=== PATIENT | male | born 1960 | race Caucasian/White ===

== ENCOUNTER 2016-12-14 23:09 | Inpatient (IN) | payer MEDICAID, OTHER ==
[~2016-12-14] VITALS: Ht 172.7 cm; Wt 91.3 kg
[~2016-12-14 23:09] MED LIST: AMLO-512 PO; BUPR200T2 PO; OLAN7.5T2 PO
[2016-12-15 00:02] LABS: BASOPHILS % (AUTO) 0.6 % (0.0-2.0); EOSINOPHILS % (AUTO) 0.7 % (1.0-6.0); HEMATOCRIT 44.6 % (41-53); HEMOGLOBIN 14.8 g/dL (13.5-17.5); MEAN CORPUSCULAR HEMOGLOBIN 28.9 pg (26.0-34.0); MEAN CORPUSCULAR HGB CONC 33.1 G/dL (31.0-37.0); MEAN CORPUSCULAR VOLUME 87 fL (80-100); MONOCYTES # (AUTO) 0.7 K/uL (0.1-1.0); MONOCYTES % (AUTO) 10.3 % (2.0-9.0); NEUTROPHILS # (AUTO) 3.8 K/uL (1.8-7.7); NEUTROPHILS % (AUTO) 57.4 % (40.0-70.0); PLATELET COUNT (AUTO) 320 K/uL (150-450); RED BLOOD CELL COUNT(AUTO) 5.11 MIL/uL (4.50-5.90); RED CELL DISTRIBUTION WIDTH 12.9 % (11.5-14.5); WHITE BLOOD COUNT (AUTO) 6.6 K/uL (4.5-11.0)
[2016-12-15 00:24] LABS: ALANINE AMINOTRANSFERASE 123 U/L (12-78); ALBUMIN 4.1 g/dL (3.4-5.0); ANION GAP 12 mmol/L (8-16); ASPARTATE AMINOTRANSFERASE 159 U/L (15-37); BILIRUBIN,TOTAL 0.6 mg/dL (0.1-1.0); CALCIUM, TOTAL 9.7 mg/dL (8.8-10.5); CARBON DIOXIDE 26 mmol/L (22-29); CHLORIDE 96 mmol/L (98-107); CREATININE 1.15 mg/dL (0.60-1.30); GLOMERULAR FILTR. RATE CALC > 60 mL/min (>60); SODIUM SERUM 134 mmol/L (136-145); TOTAL PROTEIN, SERUM 8.9 g/dL (6.4-8.2); UREA NITROGEN, BLOOD 12 mg/dL (7-18)
[2016-12-15] MEDS ORDERED: LORazepam 2 MG TABLET PO ONE (01:30)
[2016-12-15] MEDS ORDERED: OLANZapine 5 MG RAPDIS TABLET PO PRN (01:45)
[2016-12-15] MEDS ORDERED: ZOLPIDEM TARTRATE 10 MG TABLET PO PRN (01:45)
[2016-12-15] MEDS ORDERED: POTASSIUM CHLORIDE 20 MEQ ER TABLET PO ONE (01:45)
[2016-12-15] MEDS ORDERED: PNEUMOCOCCAL VACCINE POLYVALENT 0.5 ML VIAL [PPSV23] IM ONE (03:30)
[2016-12-15 03:38] VITALS: BP 142/95
[2016-12-15] MEDS ORDERED: LOPERAMIDE HCL 2 MG CAPSULE PO PRN (08:30)
[2016-12-15] MEDS ORDERED: BENZOCAINE/MENTHOL LOZENGE MM PRN (08:30)
[2016-12-15] MEDS ORDERED: ONDANSETRON HCL 4 MG TABLET PO PRN (08:30)
[2016-12-15] MEDS ORDERED: MAGNESIUM HYDROXIDE SUSPENSION 30 ML UDCUP PO PRN (08:30)
[2016-12-15] MEDS ORDERED: ACETAMINOPHEN 325 MG TABLET PO PRN (08:30)
[2016-12-15] MEDS ORDERED: ALBUTEROL SULFATE HFA 90 MCG/PUFF 8 GM INHALER IH PRN (08:30)
[2016-12-15] MEDS ORDERED: MAG HYDROX/AL HYDROX/SIMETH ES 30 ML SUSPENSION UDCUP PO PRN (08:30)
[2016-12-15] MEDS ORDERED: PETROLATUM,WHITE 71 GM JELLY TP PRN (08:30)
[2016-12-15] MEDS ORDERED: BACITRACIN 28.4 GM OINTMENT TP PRN (08:30)
[2016-12-15] MEDS ORDERED: CloNIDine HCL 0.1 MG TABLET PO PRN (08:30)
[2016-12-15] MEDS ORDERED: IBUPROFEN 600 MG TABLET PO PRN (08:30)
[2016-12-15] MEDS ORDERED: HydrOXYzine PAMOATE 50 MG CAPSULE PO PRN (10:00)
[2016-12-15] MEDS ORDERED: GuaiFENesin/D-METHORPHAN [SUGAR-FREE] 200-20MG/10 ML SYRUP UDCUP PO PRN (10:00)
[2016-12-15] MEDS: NICOTINE 21 MG/24 HOUR PATCH TD SCH (10:41)
[2016-12-15 11:30] VITALS: BP 137/86
[2016-12-15] MEDS: THIAMINE HCL 100 MG TABLET PO SCH (17:06)
[2016-12-15 18:21] VITALS: BP 139/90
[2016-12-15] MEDS ORDERED: OLANZapine 5 MG RAPDIS TABLET PO SCH (21:00)
[2016-12-15] MEDS: LORazepam 2 MG TABLET PO PRN (21:38)
[2016-12-16 00:26] VITALS: BP 114/67
[2016-12-16 08:38] VITALS: BP 136/84
[2016-12-16 09:07] LABS: ANION GAP 8 mmol/L (8-16); CALCIUM, TOTAL 9.1 mg/dL (8.8-10.5); CARBON DIOXIDE 29 mmol/L (22-29); CHLORIDE 103 mmol/L (98-107); GLOMERULAR FILTR. RATE CALC > 60 mL/min (>60); POTASSIUM 3.3 mmol/L (3.5-5.1); SODIUM SERUM 140 mmol/L (136-145); UREA NITROGEN, BLOOD 10 mg/dL (7-18)
[2016-12-16] MEDS: FOLIC ACID 1 MG TABLET PO SCH (09:17)
[2016-12-16] MEDS: THIAMINE HCL 100 MG TABLET PO SCH ×2 (09:17→17:06)
[2016-12-16] MEDS: BuPROPion HCL XL 150 MG ER TABLET PO SCH (09:17)
[2016-12-16] MEDS: NALTREXONE HCL 50 MG TABLET PO SCH (09:17)
[2016-12-16] MEDS: MULTIVITAMINS WITH MINERALS, THERAPEUTIC TABLET PO SCH (09:17)
[2016-12-16] MEDS: NICOTINE 21 MG/24 HOUR PATCH TD SCH (09:18)
[2016-12-16] MEDS ORDERED: ARIPiprazole 5 MG TABLET PO PRN (14:45)
[2016-12-16] MEDS ORDERED: ARIPiprazole ER SUSPENSION 400 MG PRE-FILLED DUAL CHAMBER SYRINGE IM ONE (15:00)
[2016-12-16] MEDS ORDERED: POTASSIUM CHLORIDE 20 MEQ ER TABLET PO ONE (16:15)
[2016-12-16] MEDS ORDERED: OLANZapine 5 MG RAPDIS TABLET PO PRN (19:00)
[2016-12-16] MEDS: OLANZapine 10 MG RAPDIS TABLET PO SCH (20:38)
[2016-12-16] MEDS ORDERED: OLANZapine 10 MG RAPDIS TABLET PO SCH (21:00)
[2016-12-16] MEDS ORDERED: ARIPiprazole 15 MG TABLET PO SCH (21:00)
[2016-12-17 06:20] VITALS: BP 140/86
[2016-12-17] MEDS: BuPROPion HCL XL 150 MG ER TABLET PO SCH (08:46)
[2016-12-17] MEDS: NICOTINE 21 MG/24 HOUR PATCH TD SCH (08:46)
[2016-12-17] MEDS: MULTIVITAMINS WITH MINERALS, THERAPEUTIC TABLET PO SCH (08:46)
[2016-12-17] MEDS: THIAMINE HCL 100 MG TABLET PO SCH ×2 (08:46→16:40)
[2016-12-17] MEDS: FOLIC ACID 1 MG TABLET PO SCH (08:46)
[2016-12-17] MEDS: NALTREXONE HCL 50 MG TABLET PO SCH (08:46)
[2016-12-17 08:48] VITALS: BP 132/80
[2016-12-17] MEDS ORDERED: OLAN10TA22 PO (13:56)
[2016-12-17] MEDS ORDERED: DIVA500T52 PO (13:56)
[2016-12-17] MEDS ORDERED: NALT50 PO (13:56)
[2016-12-17] MEDS ORDERED: BUPR-47 PO (13:56)
[2016-12-17 16:16] VITALS: BP 139/86
[2016-12-17] MEDS: LORazepam 2 MG TABLET PO PRN (17:42)
[2016-12-17] MEDS ORDERED: DIVALPROEX SODIUM 500 MG ER TABLET PO SCH (21:00)
[2016-12-17] MEDS: OLANZapine 10 MG RAPDIS TABLET PO SCH (21:07)
[2016-12-18 00:01] VITALS: BP 110/74
[2016-12-18 08:06] VITALS: BP 133/72
[2016-12-18] MEDS: NICOTINE 21 MG/24 HOUR PATCH TD SCH (08:38)
[2016-12-18] MEDS: MULTIVITAMINS WITH MINERALS, THERAPEUTIC TABLET PO SCH (08:38)
[2016-12-18] MEDS: THIAMINE HCL 100 MG TABLET PO SCH (08:38)
[2016-12-18] MEDS: NALTREXONE HCL 50 MG TABLET PO SCH (08:38)
[2016-12-18] MEDS: FOLIC ACID 1 MG TABLET PO SCH (08:38)
[2016-12-18] MEDS: BuPROPion HCL XL 150 MG ER TABLET PO SCH (08:38)
[2016-12-18] MEDS ORDERED: NALT50 PO (12:14)
[2016-12-18] MEDS ORDERED: OLAN10TA3 PO (12:14)
[2016-12-18] MEDS ORDERED: DIVA500T52 PO (12:14)
[2016-12-18] MEDS ORDERED: BUPR-93 PO (12:14)
[2017-01-13] MEDS ORDERED: ARIPiprazole ER SUSPENSION 400 MG PRE-FILLED DUAL CHAMBER SYRINGE IM SCH (09:00)
== END 2016-12-18 14:10 | disposition home or self-care (01) | DRG 750 ==
LOC: EMS 23:11 → B2S 12-15 01:59
PROVIDERS: ADMIT Psychiatry & Neurology Psychiatry; ATTEND Psychiatry & Neurology Psychiatry
DX: F25.9 Schizoaffective disorder, unspecified (principal); R45.851 Suicidal ideations; E87.1 Hypo-osmolality and hyponatremia; K74.60 Unspecified cirrhosis of liver; R45.850 Homicidal ideations; J44.9 Chronic obstructive pulmonary disease, unspecified; B18.2 Chronic viral hepatitis C; K59.00 Constipation, unspecified; I10 Essential (primary) hypertension; E87.6 Hypokalemia; G47.00 Insomnia, unspecified; F17.210 Nicotine dependence, cigarettes, uncomplicated; F15.90 Other stimulant use, unspecified, uncomplicated; J45.909 Unspecified asthma, uncomplicated; E78.5 Hyperlipidemia, unspecified; Z88.8 Allergy status to other drugs, medicaments and biological substances; Z79.899 Other long term (current) drug therapy; Z79.1 Long term (current) use of non-steroidal anti-inflammatories (NSAID); Z71.6 Tobacco abuse counseling; Z91.14 Patient's other noncompliance with medication regimen; Z28.21 Immunization not carried out because of patient refusal
CPT/HCPCS: 84132; 87081; 99285; G0480; J0401

== ENCOUNTER 2017-02-26 00:25 | Inpatient (IN) | payer MEDICAID, OTHER ==
[~2017-02-26] VITALS: Ht 175.3 cm; Wt 87.2 kg
[~2017-02-26 00:25] MED LIST changes: -AMLO-512 PO; +BUPR-47 PO; +BUPR-93 PO; -BUPR200T2 PO; +DIVA500T52 PO; +NALT50 PO; +OLAN10TA22 PO; +OLAN10TA3 PO; -OLAN7.5T2 PO
[2017-02-26 02:33] LABS: BASOPHILS # (AUTO) 0.05 K/uL (0.00-0.20); BASOPHILS % (AUTO) 0.8 % (0.0-2.0); EOSINOPHILS # (AUTO) 0.06 K/uL (0.00-0.70); EOSINOPHILS % (AUTO) 0.92 % (1.0-6.0); HEMATOCRIT 42.5 % (41-53); HEMOGLOBIN 14.4 g/dL (13.5-17.5); LYMPHOCYTES % (AUTO) 42.6 % (22.0-44.0); MEAN CORPUSCULAR HEMOGLOBIN 29.4 pg (26.0-34.0); MEAN CORPUSCULAR HGB CONC 33.8 G/dL (31.0-37.0); MEAN CORPUSCULAR VOLUME 87 fL (80-100); MONOCYTES # (AUTO) 0.6 K/uL (0.1-1.0); MONOCYTES % (AUTO) 8.3 % (2.0-9.0); NEUTROPHILS # (AUTO) 3.3 K/uL (1.8-7.7); NEUTROPHILS % (AUTO) 47.4 % (40.0-70.0); PLATELET COUNT (AUTO) 288 K/uL (150-450); RED BLOOD CELL COUNT(AUTO) 4.89 MIL/uL (4.50-5.90); RED CELL DISTRIBUTION WIDTH 15.4 % (11.5-14.5); WHITE BLOOD COUNT (AUTO) 7.1 K/uL (4.5-11.0)
[2017-02-26 02:50] LABS: ALANINE AMINOTRANSFERASE 138 U/L (12-78); ALBUMIN 3.8 g/dL (3.4-5.0); ANION GAP 10 mmol/L (8-16); ASPARTATE AMINOTRANSFERASE 152 U/L (15-37); BILIRUBIN,TOTAL 0.4 mg/dL (0.1-1.0); CARBON DIOXIDE 29 mmol/L (22-29); CHLORIDE 101 mmol/L (98-107); CREATININE 1.02 mg/dL (0.60-1.30); GLOMERULAR FILTR. RATE CALC > 60 mL/min (>60); SODIUM SERUM 140 mmol/L (136-145); TOTAL PROTEIN, SERUM 8.3 g/dL (6.4-8.2); UREA NITROGEN, BLOOD 8 mg/dL (7-18)
[2017-02-26 02:51] LABS: VALPROIC ACID < 3 mcg/mL (50-100)
[2017-02-26] MEDS ORDERED: DiphenhydrAMINE HCL 50 MG/ML VIAL IM ONE (03:30)
[2017-02-26] MEDS ORDERED: LORazepam 2 MG/ML VIAL IM ONE (03:30)
[2017-02-26] MEDS ORDERED: ZOLPIDEM TARTRATE 10 MG TABLET PO PRN (06:15)
[2017-02-26 07:09] VITALS: BP 130/75
[2017-02-26] MEDS: LORazepam 2 MG TABLET PO PRN (07:37)
[2017-02-26 08:50] VITALS: BP 147/97
[2017-02-26] MEDS ORDERED: BuPROPion HCL XL 150 MG ER TABLET PO SCH (09:00)
[2017-02-26] MEDS ORDERED: CloNIDine HCL 0.1 MG TABLET PO PRN (09:45)
[2017-02-26] MEDS ORDERED: POTASSIUM CHLORIDE 20 MEQ ER TABLET PO ONE (09:45)
[2017-02-26] MEDS ORDERED: LOPERAMIDE HCL 2 MG CAPSULE PO PRN (09:45)
[2017-02-26] MEDS ORDERED: ONDANSETRON HCL 4 MG TABLET PO PRN (09:45)
[2017-02-26] MEDS ORDERED: ACETAMINOPHEN 325 MG TABLET PO PRN (09:45)
[2017-02-26] MEDS ORDERED: MAGNESIUM HYDROXIDE SUSPENSION 30 ML UDCUP PO PRN (09:45)
[2017-02-26] MEDS ORDERED: ALBUTEROL SULFATE HFA 90 MCG/PUFF 8 GM INHALER IH PRN (09:45)
[2017-02-26] MEDS ORDERED: IBUPROFEN 600 MG TABLET PO PRN (09:45)
[2017-02-26] MEDS ORDERED: BENZOCAINE/MENTHOL LOZENGE [8 LOZENGES/PACKET] MM PRN (09:45)
[2017-02-26] MEDS ORDERED: PETROLATUM,WHITE 71 GM JELLY TP PRN (09:45)
[2017-02-26] MEDS ORDERED: BACITRACIN 28.4 GM OINTMENT TP PRN (09:45)
[2017-02-26] MEDS ORDERED: MAG HYDROX/AL HYDROX/SIMETH ES 30 ML SUSPENSION UDCUP PO PRN (09:45)
[2017-02-26] MEDS ORDERED: PNEUMOCOCCAL VACCINE POLYVALENT 0.5 ML VIAL [PPSV23] IM ONE (11:00)
[2017-02-26 16:00] VITALS: BP 138/86
[2017-02-26] MEDS ORDERED: DIVALPROEX SODIUM 500 MG ER TABLET PO SCH (21:00)
[2017-02-26] MEDS ORDERED: OLANZapine 10 MG TABLET PO SCH (21:00)
[2017-02-26] MEDS: OLANZapine 10 MG TABLET PO SCH (21:10)
[2017-02-27 06:29] VITALS: BP 132/83
[2017-02-27] MEDS: BuPROPion HCL XL 150 MG ER TABLET PO SCH (09:01)
[2017-02-27] MEDS: LISINOPRIL 10 MG TABLET PO SCH (09:02)
[2017-02-27 09:17] VITALS: BP 134/82
[2017-02-27 19:43] VITALS: BP 138/96
[2017-02-27] MEDS: OLANZapine 10 MG TABLET PO SCH (21:03)
[2017-02-27] MEDS: LORazepam 2 MG TABLET PO PRN (22:21)
[2017-02-28 08:00] VITALS: BP 110/67
[2017-02-28] MEDS: BuPROPion HCL XL 150 MG ER TABLET PO SCH (08:58)
[2017-02-28] MEDS: LISINOPRIL 10 MG TABLET PO SCH (08:58)
[2017-02-28] MEDS ORDERED: PHENYLEPHRINE/SHK LV/MIN OIL/PET 57 GM OINTMENT TP PRN (15:00)
[2017-02-28 17:39] VITALS: BP 130/98
[2017-02-28] MEDS: LORazepam 2 MG TABLET PO PRN (19:06)
[2017-02-28] MEDS: OLANZapine 10 MG TABLET PO SCH (20:16)
[2017-03-01 08:00] VITALS: BP 123/78
[2017-03-01] MEDS: LISINOPRIL 10 MG TABLET PO SCH (09:16)
[2017-03-01] MEDS: BuPROPion HCL XL 150 MG ER TABLET PO SCH (09:16)
[2017-03-01 17:30] VITALS: BP 133/84
[2017-03-01] MEDS: LORazepam 2 MG TABLET PO PRN (19:04)
[2017-03-01] MEDS: OLANZapine 10 MG TABLET PO SCH (20:51)
[2017-03-01] MEDS ORDERED: DIVALPROEX SODIUM 500 MG ER TABLET PO SCH (21:00)
[2017-03-02 08:02] VITALS: BP 116/68
[2017-03-02] MEDS: LISINOPRIL 10 MG TABLET PO SCH (09:34)
[2017-03-02] MEDS: BuPROPion HCL XL 150 MG ER TABLET PO SCH (09:34)
[2017-03-02] MEDS ORDERED: OLAN10TA3 PO (13:23)
[2017-03-02] MEDS ORDERED: DIVA500T52 PO (13:23)
[2017-03-02] MEDS ORDERED: BUPR-93 PO (13:23)
[2017-03-02] MEDS ORDERED: LISI-661 PO (13:26)
== END 2017-03-02 15:15 | disposition home or self-care (01) | DRG 750 ==
LOC: EMS 00:27 → 3EI 05:30
PROVIDERS: ADMIT Psychiatry & Neurology Psychiatry; ATTEND Psychiatry & Neurology Psychiatry
DX: F25.0 Schizoaffective disorder, bipolar type (principal); F15.20 Other stimulant dependence, uncomplicated; R45.851 Suicidal ideations; I10 Essential (primary) hypertension; F12.10 Cannabis abuse, uncomplicated; F10.10 Alcohol abuse, uncomplicated; E87.6 Hypokalemia; B18.2 Chronic viral hepatitis C; G47.00 Insomnia, unspecified; J44.9 Chronic obstructive pulmonary disease, unspecified; Z62.819 Personal history of unspecified abuse in childhood; K76.9 Liver disease, unspecified; K59.00 Constipation, unspecified; Z59.0 Homelessness; Z91.5 Personal history of self-harm; Z88.8 Allergy status to other drugs, medicaments and biological substances; Z71.6 Tobacco abuse counseling; Z71.51 Drug abuse counseling and surveillance of drug abuser; Z71.41 Alcohol abuse counseling and surveillance of alcoholic; Z63.8 Other specified problems related to primary support group
CPT/HCPCS: 84132; 96372; 99285; G0480; J1200; J2060

== ENCOUNTER 2017-03-03 18:48 | Inpatient (IN) | payer MEDICAID ==
[~2017-03-03] VITALS: Ht 175.3 cm; Wt 86.0 kg
[~2017-03-03 18:48] MED LIST changes: -BUPR-47 PO; +LISI-661 PO; -NALT50 PO; -OLAN10TA22 PO
[2017-03-03] MEDS ORDERED: HALOPERIDOL 5 MG TABLET PO PRN (19:00)
[2017-03-03] MEDS ORDERED: LORazepam 2 MG/ML VIAL IM ONE (19:00)
[2017-03-03] MEDS ORDERED: DiphenhydrAMINE HCL 50 MG/ML VIAL IM ONE (19:00)
[2017-03-03] MEDS ORDERED: HALOPERIDOL LACTATE 5 MG/ML VIAL IM ONE (19:00)
[2017-03-03 19:25] VITALS: BP 159/76
[2017-03-03 19:55] VITALS: BP 120/87
[2017-03-03] MEDS ORDERED: PNEUMOCOCCAL VACCINE POLYVALENT 0.5 ML VIAL [PPSV23] IM ONE (20:15)
[2017-03-03] MEDS: DIVALPROEX SODIUM 500 MG ER TABLET PO SCH ×2 (20:49→21:34)
[2017-03-03] MEDS: OLANZapine 10 MG TABLET PO SCH ×2 (20:50→21:34)
[2017-03-03] MEDS ORDERED: MAG HYDROX/AL HYDROX/SIMETH ES 30 ML SUSPENSION UDCUP PO PRN (22:00)
[2017-03-04] MEDS: LORazepam 2 MG TABLET PO PRN ×4 (00:56→20:19)
[2017-03-04] MEDS: ZOLPIDEM TARTRATE 10 MG TABLET PO PRN (00:56)
[2017-03-04 01:08] VITALS: BP 132/85
[2017-03-04 08:07] VITALS: BP 133/76
[2017-03-04 08:12] LABS: BASOPHILS % (AUTO) 0.3 % (0.0-2.0); EOSINOPHILS % (AUTO) 1.6 % (1.0-6.0); HEMATOCRIT 44.1 % (41-53); HEMOGLOBIN 14.7 g/dL (13.5-17.5); LYMPHOCYTES # (AUTO) 2.4 K/uL (1.0-4.8); LYMPHOCYTES % (AUTO) 33.1 % (22.0-44.0); MEAN CORPUSCULAR HEMOGLOBIN 29.4 pg (26.0-34.0); MEAN CORPUSCULAR HGB CONC 33.2 G/dL (31.0-37.0); MEAN CORPUSCULAR VOLUME 89 fL (80-100); MONOCYTES # (AUTO) 0.9 K/uL (0.1-1.0); MONOCYTES % (AUTO) 12.3 % (2.0-9.0); NEUTROPHILS # (AUTO) 3.9 K/uL (1.8-7.7); NEUTROPHILS % (AUTO) 52.7 % (40.0-70.0); PLATELET COUNT (AUTO) 271 K/uL (150-450); RED BLOOD CELL COUNT(AUTO) 4.98 MIL/uL (4.50-5.90); RED CELL DISTRIBUTION WIDTH 14.8 % (11.5-14.5); WHITE BLOOD COUNT (AUTO) 7.4 K/uL (4.5-11.0)
[2017-03-04 08:31] LABS: HEMOGLOBIN A1C 6.1 % (4.5-6.2)
[2017-03-04 08:40] LABS: ALANINE AMINOTRANSFERASE 354 U/L (12-78); ALBUMIN 3.5 g/dL (3.4-5.0); ANION GAP 10 mmol/L (8-16); ASPARTATE AMINOTRANSFERASE 408 U/L (15-37); BILIRUBIN,TOTAL 0.8 mg/dL (0.1-1.0); CALCIUM, TOTAL 9.1 mg/dL (8.8-10.5); CARBON DIOXIDE 26 mmol/L (22-29); CHLORIDE 105 mmol/L (98-107); CHOL/HDL RATIO 2.8 (4.2-7.3); CREATININE 0.81 mg/dL (0.60-1.30); GLOMERULAR FILTR. RATE CALC > 60 mL/min (>60); POTASSIUM 3.8 mmol/L (3.5-5.1); SODIUM SERUM 141 mmol/L (136-145); THYROID STIMULATING HORMONE 1.36 uIU/mL (0.36-3.74); TOTAL PROTEIN, SERUM 7.5 g/dL (6.4-8.2); UREA NITROGEN, BLOOD 8 mg/dL (7-18)
[2017-03-04] MEDS ORDERED: ALBUTEROL SULFATE HFA 90 MCG/PUFF 8 GM INHALER IH PRN (08:45)
[2017-03-04] MEDS ORDERED: PETROLATUM,WHITE 71 GM JELLY TP PRN (08:45)
[2017-03-04] MEDS ORDERED: CloNIDine HCL 0.1 MG TABLET PO PRN (08:45)
[2017-03-04] MEDS ORDERED: MAG HYDROX/AL HYDROX/SIMETH ES 30 ML SUSPENSION UDCUP PO PRN (08:45)
[2017-03-04] MEDS ORDERED: LOPERAMIDE HCL 2 MG CAPSULE PO PRN (08:45)
[2017-03-04] MEDS ORDERED: BENZOCAINE/MENTHOL LOZENGE MM PRN (08:45)
[2017-03-04] MEDS ORDERED: ACETAMINOPHEN 325 MG TABLET PO PRN (08:45)
[2017-03-04] MEDS: BuPROPion HCL XL 150 MG ER TABLET PO SCH (08:45)
[2017-03-04] MEDS ORDERED: ONDANSETRON HCL 4 MG TABLET PO PRN (08:45)
[2017-03-04] MEDS: LISINOPRIL 10 MG TABLET PO SCH (08:45)
[2017-03-04] MEDS ORDERED: MAGNESIUM HYDROXIDE SUSPENSION 30 ML UDCUP PO PRN (08:45)
[2017-03-04] MEDS ORDERED: BACITRACIN 28.4 GM OINTMENT TP PRN (08:45)
[2017-03-04] MEDS ORDERED: IBUPROFEN 600 MG TABLET PO PRN (08:45)
[2017-03-04] MEDS: OMEPRAZOLE 20 MG CAPSULE PO SCH (10:09)
[2017-03-04] MEDS: DOCUSATE SODIUM 100 MG CAPSULE PO SCH (10:09)
[2017-03-04 16:00] VITALS: BP 115/60
[2017-03-04] MEDS: OLANZapine 10 MG TABLET PO SCH (20:19)
[2017-03-04] MEDS: DIVALPROEX SODIUM 500 MG ER TABLET PO SCH (20:19)
[2017-03-05 06:58] VITALS: BP 132/84
[2017-03-05 08:05] VITALS: BP 131/69
[2017-03-05] MEDS: LISINOPRIL 10 MG TABLET PO SCH (08:50)
[2017-03-05] MEDS: OMEPRAZOLE 20 MG CAPSULE PO SCH (08:50)
[2017-03-05] MEDS: BuPROPion HCL XL 150 MG ER TABLET PO SCH (08:50)
[2017-03-05] MEDS: DOCUSATE SODIUM 100 MG CAPSULE PO SCH (08:50)
[2017-03-05] MEDS ORDERED: DiphenhydrAMINE HCL 50 MG/ML VIAL ONE (15:05)
[2017-03-05] MEDS ORDERED: LORazepam 2 MG/ML VIAL ONE (15:05)
[2017-03-05 16:10] VITALS: BP 146/115
[2017-03-05] MEDS: LORazepam 2 MG TABLET PO PRN ×2 (16:14→20:16)
[2017-03-05 17:14] VITALS: BP 125/82
[2017-03-05] MEDS: DIVALPROEX SODIUM 500 MG ER TABLET PO SCH (20:15)
[2017-03-05] MEDS: OLANZapine 10 MG TABLET PO SCH (20:16)
[2017-03-06 01:54] VITALS: BP 130/81
[2017-03-06 08:05] VITALS: BP 130/66
[2017-03-06] MEDS: BuPROPion HCL XL 150 MG ER TABLET PO SCH (09:20)
[2017-03-06] MEDS: DOCUSATE SODIUM 100 MG CAPSULE PO SCH (09:20)
[2017-03-06] MEDS: OMEPRAZOLE 20 MG CAPSULE PO SCH (09:20)
[2017-03-06] MEDS: LISINOPRIL 10 MG TABLET PO SCH (09:20)
[2017-03-06] MEDS ORDERED: PHENYLEPHRINE/SHK LV/MIN OIL/PET 57 GM OINTMENT TP PRN (14:45)
[2017-03-06 16:00] VITALS: BP 135/83
[2017-03-06] MEDS: DIVALPROEX SODIUM 500 MG ER TABLET PO SCH (21:00)
[2017-03-06] MEDS: OLANZapine 10 MG TABLET PO SCH (21:00)
[2017-03-06] MEDS: LORazepam 2 MG TABLET PO PRN (21:47)
[2017-03-07 06:45] VITALS: BP 143/91
[2017-03-07 08:05] VITALS: BP 114/67
[2017-03-07] MEDS: OMEPRAZOLE 20 MG CAPSULE PO SCH (09:20)
[2017-03-07] MEDS: BuPROPion HCL XL 150 MG ER TABLET PO SCH (09:20)
[2017-03-07] MEDS: LISINOPRIL 10 MG TABLET PO SCH (09:20)
[2017-03-07] MEDS: DOCUSATE SODIUM 100 MG CAPSULE PO SCH (09:21)
[2017-03-07] MEDS: LORazepam 2 MG TABLET PO PRN ×3 (12:41→22:50)
[2017-03-07 16:00] VITALS: BP 119/72
[2017-03-07] MEDS: DIVALPROEX SODIUM 500 MG ER TABLET PO SCH (20:29)
[2017-03-07] MEDS: OLANZapine 10 MG TABLET PO SCH ×2 (20:29→20:36)
[2017-03-08 06:37] VITALS: BP 123/78
[2017-03-08] MEDS: BuPROPion HCL XL 150 MG ER TABLET PO SCH (08:07)
[2017-03-08] MEDS: DOCUSATE SODIUM 100 MG CAPSULE PO SCH (08:07)
[2017-03-08] MEDS: LISINOPRIL 10 MG TABLET PO SCH (08:08)
[2017-03-08] MEDS: OMEPRAZOLE 20 MG CAPSULE PO SCH (08:08)
[2017-03-08] MEDS: LORazepam 2 MG TABLET PO PRN ×2 (08:08→17:12)
[2017-03-08 08:28] VITALS: BP 101/64
[2017-03-08 16:00] VITALS: BP 117/72
[2017-03-08] MEDS: DIVALPROEX SODIUM 500 MG ER TABLET PO SCH (20:58)
[2017-03-08] MEDS: OLANZapine 10 MG TABLET PO SCH (20:58)
[2017-03-09 06:00] VITALS: BP 138/86
[2017-03-09 08:00] VITALS: BP 116/71
[2017-03-09 08:03] LABS: BASOPHILS % (AUTO) 0.3 % (0.0-2.0); EOSINOPHILS % (AUTO) 2.9 % (1.0-6.0); HEMATOCRIT 44.6 % (41-53); HEMOGLOBIN 14.5 g/dL (13.5-17.5); LYMPHOCYTES # (AUTO) 3.6 K/uL (1.0-4.8); LYMPHOCYTES % (AUTO) 45.4 % (22.0-44.0); MEAN CORPUSCULAR HEMOGLOBIN 29.1 pg (26.0-34.0); MEAN CORPUSCULAR HGB CONC 32.6 G/dL (31.0-37.0); MEAN CORPUSCULAR VOLUME 89 fL (80-100); MONOCYTES # (AUTO) 0.8 K/uL (0.1-1.0); MONOCYTES % (AUTO) 9.6 % (2.0-9.0); NEUTROPHILS # (AUTO) 3.4 K/uL (1.8-7.7); NEUTROPHILS % (AUTO) 41.8 % (40.0-70.0); PLATELET COUNT (AUTO) 268 K/uL (150-450); RED BLOOD CELL COUNT(AUTO) 4.98 MIL/uL (4.50-5.90); RED CELL DISTRIBUTION WIDTH 14.5 % (11.5-14.5)
[2017-03-09 08:30] LABS: ALANINE AMINOTRANSFERASE 385 U/L (12-78); ALBUMIN 3.3 g/dL (3.4-5.0); ANION GAP 10 mmol/L (8-16); ASPARTATE AMINOTRANSFERASE 266 U/L (15-37); BILIRUBIN,TOTAL 0.6 mg/dL (0.1-1.0); CARBON DIOXIDE 26 mmol/L (22-29); CHLORIDE 107 mmol/L (98-107); CREATININE 0.86 mg/dL (0.60-1.30); GLOMERULAR FILTR. RATE CALC > 60 mL/min (>60); POTASSIUM 3.8 mmol/L (3.5-5.1); SODIUM SERUM 143 mmol/L (136-145); TOTAL PROTEIN, SERUM 7.4 g/dL (6.4-8.2); UREA NITROGEN, BLOOD 14 mg/dL (7-18); VALPROIC ACID 48 mcg/mL (50-100)
[2017-03-09] MEDS: LISINOPRIL 10 MG TABLET PO SCH (09:30)
[2017-03-09] MEDS: DOCUSATE SODIUM 100 MG CAPSULE PO SCH (09:30)
[2017-03-09] MEDS: BuPROPion HCL XL 150 MG ER TABLET PO SCH (09:30)
[2017-03-09] MEDS: OMEPRAZOLE 20 MG CAPSULE PO SCH (09:31)
[2017-03-09] MEDS: LORazepam 2 MG TABLET PO PRN (09:31)
[2017-03-09 16:00] VITALS: BP 135/86
[2017-03-09] MEDS: OLANZapine 10 MG TABLET PO SCH (20:17)
[2017-03-09] MEDS: DIVALPROEX SODIUM 500 MG ER TABLET PO SCH (20:17)
[2017-03-10 08:11] VITALS: BP 117/76
[2017-03-10] MEDS: DOCUSATE SODIUM 100 MG CAPSULE PO SCH (10:14)
[2017-03-10] MEDS: OMEPRAZOLE 20 MG CAPSULE PO SCH (10:15)
[2017-03-10] MEDS: LISINOPRIL 10 MG TABLET PO SCH (10:15)
[2017-03-10] MEDS: BuPROPion HCL XL 150 MG ER TABLET PO SCH (10:15)
[2017-03-10] MEDS: LITHIUM CARBONATE 300 MG CAPSULE PO SCH ×2 (10:16→16:12)
[2017-03-10] MEDS: LORazepam 2 MG TABLET PO PRN ×3 (10:21→22:11)
[2017-03-10 16:21] VITALS: BP 132/84
[2017-03-10] MEDS: OLANZapine 10 MG TABLET PO SCH (20:30)
[2017-03-10] MEDS: ZOLPIDEM TARTRATE 10 MG TABLET PO PRN (22:11)
[2017-03-11 06:20] VITALS: BP 129/88
[2017-03-11 07:58] LABS: BASOPHILS % (AUTO) 0.5 % (0.0-2.0); EOSINOPHILS % (AUTO) 2.7 % (1.0-6.0); HEMOGLOBIN 14.1 g/dL (13.5-17.5); LYMPHOCYTES # (AUTO) 3.2 K/uL (1.0-4.8); LYMPHOCYTES % (AUTO) 43.1 % (22.0-44.0); MEAN CORPUSCULAR HEMOGLOBIN 29.2 pg (26.0-34.0); MEAN CORPUSCULAR HGB CONC 32.7 G/dL (31.0-37.0); MEAN CORPUSCULAR VOLUME 89 fL (80-100); MONOCYTES # (AUTO) 0.8 K/uL (0.1-1.0); MONOCYTES % (AUTO) 10.2 % (2.0-9.0); NEUTROPHILS # (AUTO) 3.3 K/uL (1.8-7.7); NEUTROPHILS % (AUTO) 43.5 % (40.0-70.0); PLATELET COUNT (AUTO) 239 K/uL (150-450); RED BLOOD CELL COUNT(AUTO) 4.81 MIL/uL (4.50-5.90); RED CELL DISTRIBUTION WIDTH 14.9 % (11.5-14.5); WHITE BLOOD COUNT (AUTO) 7.5 K/uL (4.5-11.0)
[2017-03-11 08:09] LABS: LITHIUM 0.27 mmol/L (0.60-1.20)
[2017-03-11 08:32] LABS: ALANINE AMINOTRANSFERASE 293 U/L (12-78); ALBUMIN 3.3 g/dL (3.4-5.0); ANION GAP 11 mmol/L (8-16); ASPARTATE AMINOTRANSFERASE 159 U/L (15-37); BILIRUBIN,TOTAL 0.4 mg/dL (0.1-1.0); CALCIUM, TOTAL 9.1 mg/dL (8.8-10.5); CARBON DIOXIDE 23 mmol/L (22-29); CHLORIDE 107 mmol/L (98-107); CREATININE 0.81 mg/dL (0.60-1.30); GLOMERULAR FILTR. RATE CALC > 60 mL/min (>60); POTASSIUM 3.7 mmol/L (3.5-5.1); SODIUM SERUM 141 mmol/L (136-145); THYROID STIMULATING HORMONE 2.16 uIU/mL (0.36-3.74); TOTAL PROTEIN, SERUM 7.5 g/dL (6.4-8.2); UREA NITROGEN, BLOOD 12 mg/dL (7-18)
[2017-03-11 08:40] VITALS: BP 142/84
[2017-03-11] MEDS: OMEPRAZOLE 20 MG CAPSULE PO SCH (09:02)
[2017-03-11] MEDS: LITHIUM CARBONATE 300 MG CAPSULE PO SCH (09:02)
[2017-03-11] MEDS: DOCUSATE SODIUM 100 MG CAPSULE PO SCH (09:02)
[2017-03-11] MEDS: BuPROPion HCL XL 150 MG ER TABLET PO SCH (09:03)
[2017-03-11] MEDS: LISINOPRIL 10 MG TABLET PO SCH (09:03)
[2017-03-11] MEDS ORDERED: OMEP20 PO (11:21)
[2017-03-11] MEDS ORDERED: DSS100 PO (11:22)
[2017-03-11] MEDS ORDERED: LITH300C3 PO (12:26)
== END 2017-03-11 13:00 | disposition home or self-care (01) | DRG 750 ==
LOC: B3A 19:09 → EDSTATUS 19:13
PROVIDERS: ATTEND Psychiatry & Neurology Psychiatry
PROC: HZ37ZZZ Individual Counseling for Substance Abuse Treatment, Motivational Enhancement (ICD-10-PCS; principal; 2017-03-04)
DX: F25.0 Schizoaffective disorder, bipolar type (principal); R45.851 Suicidal ideations; J44.9 Chronic obstructive pulmonary disease, unspecified; I10 Essential (primary) hypertension; F12.90 Cannabis use, unspecified, uncomplicated; F19.10 Other psychoactive substance abuse, uncomplicated; F17.200 Nicotine dependence, unspecified, uncomplicated; G47.00 Insomnia, unspecified; B18.2 Chronic viral hepatitis C; K59.00 Constipation, unspecified; K21.9 Gastro-esophageal reflux disease without esophagitis; F15.10 Other stimulant abuse, uncomplicated; R53.83 Other fatigue; R45.87 Impulsiveness; Z28.21 Immunization not carried out because of patient refusal; Z79.899 Other long term (current) drug therapy; Z71.51 Drug abuse counseling and surveillance of drug abuser; Z88.8 Allergy status to other drugs, medicaments and biological substances; Z91.5 Personal history of self-harm; Z71.6 Tobacco abuse counseling; Z72.89 Other problems related to lifestyle; Z59.0 Homelessness
CPT/HCPCS: 83036; 84439; 84443; 87081; J1200; J1630; J2060

== ENCOUNTER 2017-04-16 01:36 | Inpatient (IN) | payer MEDICAID ==
[~2017-04-16] VITALS: Ht 175.3 cm; Wt 89.0 kg
[~2017-04-16 01:36] MED LIST changes: -DIVA500T52 PO; +DSS100 PO; +LITH300C3 PO; +OMEP20 PO
[2017-04-16] MEDS ORDERED: BUPR100T5 PO (04:31)
[2017-04-16] MEDS ORDERED: OLAN5Z PO (04:31)
[2017-04-16] MEDS ORDERED: AMLO-512 PO (04:31)
[2017-04-16 05:34] VITALS: BP 139/93
[2017-04-16] MEDS ORDERED: -PHARMACY VACCINE NOTE- MISC ONE ×2 (06:00)
[2017-04-16 07:18] VITALS: BP 139/93
[2017-04-16] MEDS ORDERED: PNEUMOCOCCAL VACCINE POLYVALENT 0.5 ML VIAL [PPSV23] IM ONE (07:30)
[2017-04-16 08:01] VITALS: BP 132/73
[2017-04-16] MEDS ORDERED: CloNIDine HCL 0.1 MG TABLET PO PRN (10:00)
[2017-04-16] MEDS ORDERED: BACITRACIN 28.4 GM OINTMENT TP PRN (10:00)
[2017-04-16] MEDS ORDERED: BENZOCAINE/MENTHOL LOZENGE MM PRN (10:00)
[2017-04-16] MEDS ORDERED: MAG HYDROX/AL HYDROX/SIMETH ES 30 ML SUSPENSION UDCUP PO PRN (10:00)
[2017-04-16] MEDS ORDERED: ACETAMINOPHEN 325 MG TABLET PO PRN (10:00)
[2017-04-16] MEDS ORDERED: ALBUTEROL SULFATE HFA 90 MCG/PUFF 8 GM INHALER IH PRN (10:00)
[2017-04-16] MEDS ORDERED: PETROLATUM,WHITE 71 GM JELLY TP PRN (10:00)
[2017-04-16] MEDS ORDERED: MAGNESIUM HYDROXIDE SUSPENSION 30 ML UDCUP PO PRN (10:00)
[2017-04-16] MEDS ORDERED: ONDANSETRON HCL 4 MG TABLET PO PRN (10:00)
[2017-04-16] MEDS ORDERED: LOPERAMIDE HCL 2 MG CAPSULE PO PRN (10:00)
[2017-04-16] MEDS ORDERED: IBUPROFEN 600 MG TABLET PO PRN (10:00)
[2017-04-16] MEDS: AmLODIPine BESYLATE 10 MG TABLET PO SCH (14:29)
[2017-04-16 16:01] VITALS: BP 136/68
[2017-04-16] MEDS: OLANZapine 10 MG TABLET PO SCH (20:17)
[2017-04-17 05:39] VITALS: BP 116/66
[2017-04-17 08:30] VITALS: BP 127/80
[2017-04-17 08:36] LABS: BASOPHILS % (AUTO) 0.8 % (0.0-2.0); EOSINOPHILS % (AUTO) 4.3 % (1.0-6.0); HEMATOCRIT 44.3 % (41-53); HEMOGLOBIN 14.9 g/dL (13.5-17.5); LYMPHOCYTES # (AUTO) 2.4 K/uL (1.0-4.8); LYMPHOCYTES % (AUTO) 40.9 % (22.0-44.0); MEAN CORPUSCULAR HEMOGLOBIN 30.5 pg (26.0-34.0); MEAN CORPUSCULAR HGB CONC 33.7 G/dL (31.0-37.0); MEAN CORPUSCULAR VOLUME 91 fL (80-100); MONOCYTES # (AUTO) 0.6 K/uL (0.1-1.0); MONOCYTES % (AUTO) 9.6 % (2.0-9.0); NEUTROPHILS # (AUTO) 2.6 K/uL (1.8-7.7); NEUTROPHILS % (AUTO) 44.4 % (40.0-70.0); PLATELET COUNT (AUTO) 270 K/uL (150-450); RED BLOOD CELL COUNT(AUTO) 4.89 MIL/uL (4.50-5.90); RED CELL DISTRIBUTION WIDTH 14.1 % (11.5-14.5); WHITE BLOOD COUNT (AUTO) 5.9 K/uL (4.5-11.0)
[2017-04-17] MEDS: OMEPRAZOLE 20 MG CAPSULE PO SCH (09:01)
[2017-04-17] MEDS: LORazepam 2 MG TABLET PO PRN (09:01)
[2017-04-17] MEDS: BuPROPion HCL XL 150 MG ER TABLET PO SCH (09:01)
[2017-04-17] MEDS: DOCUSATE SODIUM 100 MG CAPSULE PO SCH (09:01)
[2017-04-17] MEDS: LITHIUM CARBONATE 300 MG CAPSULE PO SCH ×3 (09:01→17:28)
[2017-04-17] MEDS: AmLODIPine BESYLATE 10 MG TABLET PO SCH (09:01)
[2017-04-17 09:41] LABS: ALANINE AMINOTRANSFERASE 97 U/L (12-78); ALBUMIN 3.5 g/dL (3.4-5.0); ANION GAP 9 mmol/L (8-16); ASPARTATE AMINOTRANSFERASE 78 U/L (15-37); BILIRUBIN,TOTAL 0.8 mg/dL (0.1-1.0); CALCIUM, TOTAL 8.8 mg/dL (8.8-10.5); CARBON DIOXIDE 27 mmol/L (22-29); CHLORIDE 103 mmol/L (98-107); CREATININE 1.02 mg/dL (0.60-1.30); GLOMERULAR FILTR. RATE CALC > 60 mL/min (>60); POTASSIUM 3.2 mmol/L (3.5-5.1); SODIUM SERUM 139 mmol/L (136-145); TOTAL PROTEIN, SERUM 7.8 g/dL (6.4-8.2); UREA NITROGEN, BLOOD 12 mg/dL (7-18)
[2017-04-17] MEDS ORDERED: POTASSIUM CHLORIDE 20 MEQ ER TABLET PO ONE (10:30)
[2017-04-17 16:03] VITALS: BP 111/71
[2017-04-17] MEDS: OLANZapine 10 MG TABLET PO SCH (20:25)
[2017-04-18 05:59] VITALS: BP 123/82
[2017-04-18 08:36] VITALS: BP 128/78
[2017-04-18] MEDS: LITHIUM CARBONATE 300 MG CAPSULE PO SCH ×2 (08:50→16:25)
[2017-04-18] MEDS: DOCUSATE SODIUM 100 MG CAPSULE PO SCH (08:50)
[2017-04-18] MEDS: BuPROPion HCL XL 150 MG ER TABLET PO SCH (08:50)
[2017-04-18] MEDS: AmLODIPine BESYLATE 10 MG TABLET PO SCH (08:50)
[2017-04-18] MEDS: LORazepam 2 MG TABLET PO PRN ×2 (08:51→20:14)
[2017-04-18] MEDS: OMEPRAZOLE 20 MG CAPSULE PO SCH (08:51)
[2017-04-18 16:21] VITALS: BP 125/72
[2017-04-18] MEDS: OLANZapine 10 MG TABLET PO SCH (20:15)
[2017-04-18] MEDS ORDERED: PHENYLEPHRINE/SHK LV/MIN OIL/PET 57 GM OINTMENT TP PRN (21:30)
[2017-04-19 05:21] VITALS: BP 119/60
[2017-04-19 08:22] VITALS: BP 117/80
[2017-04-19] MEDS: DOCUSATE SODIUM 100 MG CAPSULE PO SCH (08:38)
[2017-04-19] MEDS: LITHIUM CARBONATE 300 MG CAPSULE PO SCH ×2 (08:38→16:15)
[2017-04-19] MEDS: AmLODIPine BESYLATE 10 MG TABLET PO SCH (08:38)
[2017-04-19] MEDS: OMEPRAZOLE 20 MG CAPSULE PO SCH (08:38)
[2017-04-19] MEDS: BuPROPion HCL XL 150 MG ER TABLET PO SCH (08:38)
[2017-04-19] MEDS: LORazepam 2 MG TABLET PO PRN ×2 (09:14→13:42)
[2017-04-19 16:00] VITALS: BP 132/87
[2017-04-19] MEDS ORDERED: LORazepam 2 MG/ML VIAL ONE (19:32)
[2017-04-19] MEDS ORDERED: LORazepam 2 MG/ML VIAL IM ONE (19:45)
[2017-04-19] MEDS: OLANZapine 10 MG TABLET PO SCH (20:53)
[2017-04-19] MEDS: ZOLPIDEM TARTRATE 10 MG TABLET PO PRN (20:56)
[2017-04-20 06:08] VITALS: BP 132/95
[2017-04-20 09:00] VITALS: BP 130/89
[2017-04-20] MEDS: BuPROPion HCL XL 150 MG ER TABLET PO SCH (09:16)
[2017-04-20] MEDS: DOCUSATE SODIUM 100 MG CAPSULE PO SCH (09:16)
[2017-04-20] MEDS: OMEPRAZOLE 20 MG CAPSULE PO SCH (09:16)
[2017-04-20] MEDS: LORazepam 2 MG TABLET PO PRN ×3 (09:16→20:29)
[2017-04-20] MEDS: LITHIUM CARBONATE 300 MG CAPSULE PO SCH ×2 (09:16→16:41)
[2017-04-20] MEDS: AmLODIPine BESYLATE 10 MG TABLET PO SCH (09:16)
[2017-04-20 16:00] VITALS: BP 134/87
[2017-04-20] MEDS: OLANZapine 10 MG TABLET PO SCH (20:29)
[2017-04-20] MEDS: ZOLPIDEM TARTRATE 10 MG TABLET PO PRN (21:37)
[2017-04-21 06:34] VITALS: BP 138/83
[2017-04-21] MEDS: DOCUSATE SODIUM 100 MG CAPSULE PO SCH (08:33)
[2017-04-21] MEDS: LITHIUM CARBONATE 300 MG CAPSULE PO SCH ×2 (08:33→16:39)
[2017-04-21] MEDS: BuPROPion HCL XL 150 MG ER TABLET PO SCH (08:33)
[2017-04-21] MEDS: OMEPRAZOLE 20 MG CAPSULE PO SCH (08:33)
[2017-04-21] MEDS: AmLODIPine BESYLATE 10 MG TABLET PO SCH (08:33)
[2017-04-21 11:39] VITALS: BP 134/86
[2017-04-21] MEDS: LORazepam 2 MG TABLET PO PRN (16:39)
[2017-04-21] MEDS: ZOLPIDEM TARTRATE 10 MG TABLET PO PRN (20:41)
[2017-04-21] MEDS: OLANZapine 10 MG TABLET PO SCH (20:41)
[2017-04-22 08:01] VITALS: BP 112/73
[2017-04-22] MEDS ORDERED: LITHIUM CARBONATE 300 MG CAPSULE PO SCH (09:00)
[2017-04-22] MEDS: DOCUSATE SODIUM 100 MG CAPSULE PO SCH (09:24)
[2017-04-22] MEDS: AmLODIPine BESYLATE 10 MG TABLET PO SCH (09:24)
[2017-04-22] MEDS: BuPROPion HCL XL 150 MG ER TABLET PO SCH (09:24)
[2017-04-22] MEDS: OMEPRAZOLE 20 MG CAPSULE PO SCH (09:24)
[2017-04-22] MEDS ORDERED: LITH600 PO (11:29)
[2017-04-22] MEDS ORDERED: LITHIUM CARBONATE 600 MG CAPSULE PO SCH (21:00)
== END 2017-04-22 12:30 | disposition home or self-care (01) | DRG 750 ==
LOC: EDSTATUS 04:36 → B3A 04:37
PROVIDERS: ADMIT Psychiatry & Neurology Psychiatry; ATTEND Psychiatry & Neurology Psychiatry
DX: F25.0 Schizoaffective disorder, bipolar type (principal); F15.20 Other stimulant dependence, uncomplicated; R45.851 Suicidal ideations; I10 Essential (primary) hypertension; J44.9 Chronic obstructive pulmonary disease, unspecified; B18.2 Chronic viral hepatitis C; K21.9 Gastro-esophageal reflux disease without esophagitis; G47.00 Insomnia, unspecified; K59.00 Constipation, unspecified; F12.90 Cannabis use, unspecified, uncomplicated; F17.200 Nicotine dependence, unspecified, uncomplicated; F22 Delusional disorders; Z91.19 Patient's noncompliance with other medical treatment and regimen; Z91.5 Personal history of self-harm; Z28.21 Immunization not carried out because of patient refusal; Z59.0 Homelessness; Z84.89 Family history of other specified conditions; Z88.8 Allergy status to other drugs, medicaments and biological substances; Z88.6 Allergy status to analgesic agent; Z88.1 Allergy status to other antibiotic agents
CPT/HCPCS: 84132; J2060

== ENCOUNTER 2017-09-24 14:25 | Inpatient (IN) | payer MEDICAID, OTHER ==
[~2017-09-24] VITALS: Ht 175.3 cm; Wt 85.0 kg
[~2017-09-24 14:25] MED LIST changes: +AMLO-511 PO; +ASEN10TA8 SL; -BUPR-93 PO; -LISI-661 PO; +LITH600 PO; -OLAN10TA3 PO
[2017-09-24 15:03] LABS: BASOPHILS % (AUTO) 0.6 % (0.0-2.0); HEMATOCRIT 43.1 % (41-53); LYMPHOCYTES % (AUTO) 46.8 % (22.0-44.0); MEAN CORPUSCULAR HEMOGLOBIN 31.3 pg (26.0-34.0); MEAN CORPUSCULAR HGB CONC 34.9 G/dL (31.0-37.0); MEAN CORPUSCULAR VOLUME 90 fL (80-100); MONOCYTES # (AUTO) 0.7 K/uL (0.1-1.0); MONOCYTES % (AUTO) 11.2 % (2.0-9.0); NEUTROPHILS # (AUTO) 2.5 K/uL (1.8-7.7); NEUTROPHILS % (AUTO) 38.4 % (40.0-70.0); PLATELET COUNT (AUTO) 258 K/uL (150-450); RED CELL DISTRIBUTION WIDTH 13.7 % (11.5-14.5); WHITE BLOOD COUNT (AUTO) 6.5 K/uL (4.5-11.0)
[2017-09-24 15:16] LABS: ANION GAP 9 mmol/L (8-16); CALCIUM, TOTAL 9.4 mg/dL (8.8-10.5); CARBON DIOXIDE 27 mmol/L (22-29); CHLORIDE 103 mmol/L (98-107); CREATININE 0.93 mg/dL (0.60-1.30); GLOMERULAR FILTR. RATE CALC > 60 mL/min (>60); POTASSIUM 3.8 mmol/L (3.5-5.1); SODIUM SERUM 139 mmol/L (136-145); UREA NITROGEN, BLOOD 14 mg/dL (7-18)
[2017-09-24 15:19] LABS: ALANINE AMINOTRANSFERASE 287 U/L (12-78); ASPARTATE AMINOTRANSFERASE 334 U/L (15-37); BILIRUBIN,TOTAL 0.5 mg/dL (0.1-1.0); TOTAL PROTEIN, SERUM 8.6 g/dL (6.4-8.2)
[2017-09-24] MEDS ORDERED: DiphenhydrAMINE HCL 50 MG/ML VIAL IM ONE (15:45)
[2017-09-24] MEDS ORDERED: LORazepam 2 MG/ML VIAL IM ONE (15:45)
[2017-09-24] MEDS ORDERED: OLANZapine 5 MG TABLET PO ONE ×2 (16:15)
[2017-09-24] MEDS ORDERED: ZOLPIDEM TARTRATE 10 MG TABLET PO PRN (16:45)
[2017-09-24] MEDS ORDERED: LORazepam 2 MG TABLET PO PRN (16:45)
[2017-09-24] MEDS ORDERED: OLANZapine 5 MG RAPDIS TABLET PO PRN (16:45)
[2017-09-24] MEDS ORDERED: OLANZapine 10 MG TABLET PO SCH (21:00)
[2017-09-24] MEDS ORDERED: LITHIUM CARBONATE 600 MG CAPSULE PO SCH (21:00)
[2017-09-24] MEDS: BuPROPion HCL 100 MG SR TABLET PO SCH (22:50)
[2017-09-25] MEDS ORDERED: -PHARMACY VACCINE NOTE- MISC ONE ×2 (02:15)
[2017-09-25] MEDS ORDERED: INFLUENZA VIRUS VACCINE QVS 2017-18 (3YR+)/PF 60 MCG/0.5 ML SYRINGE IM ONE (02:15)
[2017-09-25] MEDS ORDERED: PNEUMOCOCCAL VACCINE POLYVALENT 0.5 ML VIAL [PPSV23] IM ONE (02:15)
[2017-09-25 08:00] VITALS: BP 132/104
[2017-09-25] MEDS: BuPROPion HCL 100 MG SR TABLET PO SCH ×2 (08:39→12:10)
[2017-09-25] MEDS: OMEPRAZOLE 10 MG CAPSULE PO SCH (08:39)
[2017-09-25] MEDS: DOCUSATE SODIUM 100 MG CAPSULE PO SCH (08:39)
[2017-09-25] MEDS: AmLODIPine BESYLATE 10 MG TABLET PO SCH (08:39)
[2017-09-25] MEDS ORDERED: LITHIUM CARBONATE 300 MG CAPSULE PO SCH (09:00)
[2017-09-25 17:55] VITALS: BP 129/90
[2017-09-25] MEDS: OLANZapine 5 MG TABLET PO SCH (20:20)
[2017-09-25] MEDS ORDERED: OLANZapine 10 MG TABLET PO SCH (21:00)
[2017-09-26] MEDS: DOCUSATE SODIUM 100 MG CAPSULE PO SCH (08:23)
[2017-09-26] MEDS: BuPROPion HCL 100 MG SR TABLET PO SCH ×2 (08:23→13:01)
[2017-09-26] MEDS: AmLODIPine BESYLATE 10 MG TABLET PO SCH (08:24)
[2017-09-26] MEDS: OMEPRAZOLE 10 MG CAPSULE PO SCH (08:24)
[2017-09-26 08:30] VITALS: BP 135/65
[2017-09-26] MEDS: OLANZapine 5 MG TABLET PO SCH (20:07)
[2017-09-26 20:37] VITALS: BP 150/97
[2017-09-27 08:00] VITALS: BP 136/90
[2017-09-27] MEDS: DOCUSATE SODIUM 100 MG CAPSULE PO SCH (08:53)
[2017-09-27] MEDS: OMEPRAZOLE 10 MG CAPSULE PO SCH (08:54)
[2017-09-27] MEDS: BuPROPion HCL 100 MG SR TABLET PO SCH ×2 (08:54→12:30)
[2017-09-27] MEDS: AmLODIPine BESYLATE 10 MG TABLET PO SCH (08:54)
[2017-09-27] MEDS ORDERED: BUPR100SR PO (12:18)
[2017-09-27] MEDS ORDERED: OLAN5TAB2 PO (12:18)
[2017-09-27] MEDS ORDERED: OMEP10 PO (12:21)
[2017-09-27] MEDS ORDERED: AMLO-512 PO (12:21)
== END 2017-09-27 13:30 | disposition home or self-care (01) | DRG 750 ==
LOC: EMS 14:28 → 3EC 19:00
DX: F25.1 Schizoaffective disorder, depressive type (principal); F15.20 Other stimulant dependence, uncomplicated; I10 Essential (primary) hypertension; B19.20 Unspecified viral hepatitis C without hepatic coma; F10.20 Alcohol dependence, uncomplicated; K21.9 Gastro-esophageal reflux disease without esophagitis; K59.00 Constipation, unspecified; Y90.8 Blood alcohol level of 240 mg/100 ml or more; Z82.5 Family history of asthma and other chronic lower respiratory diseases; Z83.3 Family history of diabetes mellitus; Z88.8 Allergy status to other drugs, medicaments and biological substances; Z88.1 Allergy status to other antibiotic agents; Z28.21 Immunization not carried out because of patient refusal
CPT/HCPCS: 96372; 99285; G0480; J1200; J2060

== ENCOUNTER 2017-10-27 22:40 | Inpatient (IN) | payer MEDICAID, OTHER ==
[~2017-10-27] VITALS: Ht 170.2 cm; Wt 85.7 kg
[~2017-10-27 22:40] MED LIST changes: -AMLO-511 PO; +AMLO-512 PO; -ASEN10TA8 SL; +BUPR100SR PO; -LITH300C3 PO; -LITH600 PO; +OLAN5TAB2 PO; +OMEP10 PO; -OMEP20 PO
[2017-10-27 23:08] LABS: BASOPHILS # (AUTO) 0.05 K/uL (0.00-0.20); BASOPHILS % (AUTO) 0.6 % (0.0-2.0); EOSINOPHILS # (AUTO) 0.06 K/uL (0.00-0.70); EOSINOPHILS % (AUTO) 0.62 % (1.0-6.0); HEMATOCRIT 45.7 % (41-53); HEMOGLOBIN 15.2 g/dL (13.5-17.5); LYMPHOCYTES # (AUTO) 2.7 K/uL (1.0-4.8); LYMPHOCYTES % (AUTO) 29.1 % (22.0-44.0); MEAN CORPUSCULAR HEMOGLOBIN 30.2 pg (26.0-34.0); MEAN CORPUSCULAR HGB CONC 33.2 G/dL (31.0-37.0); MEAN CORPUSCULAR VOLUME 91 fL (80-100); MONOCYTES % (AUTO) 10.4 % (2.0-9.0); NEUTROPHILS # (AUTO) 5.6 K/uL (1.8-7.7); NEUTROPHILS % (AUTO) 59.4 % (40.0-70.0); PLATELET COUNT (AUTO) 345 K/uL (150-450); RED BLOOD CELL COUNT(AUTO) 5.01 MIL/uL (4.50-5.90); RED CELL DISTRIBUTION WIDTH 13.2 % (11.5-14.5); WHITE BLOOD COUNT (AUTO) 9.4 K/uL (4.5-11.0)
[2017-10-27 23:27] LABS: CALCIUM, TOTAL 9.9 mg/dL (8.8-10.5); CREATININE 1.65 mg/dL (0.60-1.30); POTASSIUM 4.4 mmol/L (3.5-5.1)
[2017-10-27 23:30] LABS: ALBUMIN 4.4 g/dL (3.4-5.0); BILIRUBIN,TOTAL 0.4 mg/dL (0.1-1.0); TOTAL PROTEIN, SERUM 9.6 g/dL (6.4-8.2)
[2017-10-28] MEDS ORDERED: LORazepam 2 MG/ML VIAL IM ONE (00:15)
[2017-10-28] MEDS ORDERED: OLANZapine 5 MG TABLET PO ONE (00:15)
[2017-10-28 01:35] LABS: CHOL/HDL RATIO 3.4 (4.2-7.3); THYROID STIMULATING HORMONE 3.39 uIU/mL (0.36-3.74)
[2017-10-28 02:15] VITALS: BP 131/96
[2017-10-28] MEDS ORDERED: PNEUMOCOCCAL VACCINE POLYVALENT 0.5 ML VIAL [PPSV23] IM ONE (06:00)
[2017-10-28 08:09] VITALS: BP 134/80
[2017-10-28] MEDS: OMEPRAZOLE 20 MG CAPSULE PO SCH (09:51)
[2017-10-28] MEDS: AmLODIPine BESYLATE 10 MG TABLET PO SCH (09:51)
[2017-10-28] MEDS: DOCUSATE SODIUM 100 MG CAPSULE PO SCH (09:51)
[2017-10-28] MEDS: BuPROPion HCL 100 MG SR TABLET PO SCH (11:52)
[2017-10-28 16:00] VITALS: BP 113/78
[2017-10-28] MEDS: OLANZapine 5 MG RAPDIS TABLET PO PRN (16:31)
[2017-10-28] MEDS: LORazepam 2 MG TABLET PO PRN ×2 (16:31→20:43)
[2017-10-28] MEDS: ZOLPIDEM TARTRATE 10 MG TABLET PO PRN (20:44)
[2017-10-28] MEDS ORDERED: OLANZapine 5 MG TABLET PO SCH (21:00)
[2017-10-29 06:16] VITALS: BP 126/81
[2017-10-29] MEDS: BuPROPion HCL 100 MG SR TABLET PO SCH ×2 (06:37→12:27)
[2017-10-29] MEDS: AmLODIPine BESYLATE 10 MG TABLET PO SCH (08:13)
[2017-10-29] MEDS: OMEPRAZOLE 20 MG CAPSULE PO SCH (08:13)
[2017-10-29] MEDS: DOCUSATE SODIUM 100 MG CAPSULE PO SCH (08:13)
[2017-10-29] MEDS: LORazepam 2 MG TABLET PO PRN ×2 (08:14→16:43)
[2017-10-29 08:22] VITALS: BP 135/85
[2017-10-29 16:00] VITALS: BP 136/82
[2017-10-29] MEDS: OLANZapine 10 MG TABLET PO SCH (20:28)
[2017-10-29] MEDS: ZOLPIDEM TARTRATE 10 MG TABLET PO PRN (20:28)
[2017-10-30] MEDS: BuPROPion HCL 100 MG SR TABLET PO SCH ×2 (06:27→13:19)
[2017-10-30 06:33] VITALS: BP 127/79
[2017-10-30 07:06] LABS: HEPATITIS Bs ANTIGEN SCREEN P Negative (Negative); HEPATITIS C AB SCREEN >11.0 s/co ratio (0.0-0.9)
[2017-10-30] MEDS: AmLODIPine BESYLATE 10 MG TABLET PO SCH (08:13)
[2017-10-30] MEDS: DOCUSATE SODIUM 100 MG CAPSULE PO SCH (08:13)
[2017-10-30] MEDS: OMEPRAZOLE 20 MG CAPSULE PO SCH (08:14)
[2017-10-30 08:43] VITALS: BP 127/97
[2017-10-30] MEDS: LORazepam 2 MG TABLET PO PRN (13:46)
[2017-10-30 16:13] VITALS: BP 135/81
[2017-10-30] MEDS ORDERED: DiphenhydrAMINE HCL 50 MG/ML VIAL IM ONE (17:30)
[2017-10-30] MEDS ORDERED: LORazepam 2 MG/ML VIAL IM ONE (17:30)
[2017-10-30] MEDS ORDERED: HALOPERIDOL LACTATE 5 MG/ML VIAL IM ONE (17:30)
[2017-10-30] MEDS ORDERED: LORazepam 2 MG/ML VIAL ONE (17:37)
[2017-10-30] MEDS ORDERED: DiphenhydrAMINE HCL 50 MG/ML VIAL ONE (17:37)
[2017-10-30] MEDS ORDERED: HALOPERIDOL LACTATE 5 MG/ML VIAL ONE (17:37)
[2017-10-30] MEDS: OLANZapine 10 MG TABLET PO SCH (20:11)
[2017-10-31] MEDS: BuPROPion HCL 100 MG SR TABLET PO SCH ×2 (06:37→12:57)
[2017-10-31 06:41] VITALS: BP 120/73
[2017-10-31] MEDS: DOCUSATE SODIUM 100 MG CAPSULE PO SCH (09:34)
[2017-10-31] MEDS: AmLODIPine BESYLATE 10 MG TABLET PO SCH (09:35)
[2017-10-31] MEDS: OMEPRAZOLE 20 MG CAPSULE PO SCH (09:35)
[2017-10-31] MEDS: LACTULOSE 20 GM/30 ML SOLUTION UDCUP PO SCH ×2 (13:24→16:33)
[2017-10-31 16:25] VITALS: BP 135/83
[2017-10-31] MEDS: GuaiFENesin/D-METHORPHAN [SUGAR-FREE] 200-20MG/10 ML SYRUP UDCUP PO PRN (18:32)
[2017-10-31] MEDS: LORazepam 2 MG TABLET PO PRN (19:09)
[2017-10-31] MEDS: ZOLPIDEM TARTRATE 10 MG TABLET PO PRN (20:00)
[2017-10-31] MEDS: OLANZapine 10 MG TABLET PO SCH (20:00)
[2017-11-01 06:34] VITALS: BP 134/88
[2017-11-01] MEDS: BuPROPion HCL 100 MG SR TABLET PO SCH ×2 (06:47→11:52)
[2017-11-01 08:00] VITALS: BP 110/66
[2017-11-01] MEDS: OMEPRAZOLE 20 MG CAPSULE PO SCH (08:25)
[2017-11-01] MEDS: AZITHROMYCIN 250 MG TABLET PO SCH (08:25)
[2017-11-01] MEDS: LACTULOSE 20 GM/30 ML SOLUTION UDCUP PO SCH ×3 (08:25→16:38)
[2017-11-01] MEDS: AmLODIPine BESYLATE 10 MG TABLET PO SCH (08:25)
[2017-11-01] MEDS: DOCUSATE SODIUM 100 MG CAPSULE PO SCH (08:25)
[2017-11-01 16:37] VITALS: BP 134/85
[2017-11-01] MEDS: LORazepam 2 MG TABLET PO PRN (20:23)
[2017-11-01] MEDS: OLANZapine 10 MG TABLET PO SCH (20:23)
[2017-11-01] MEDS: OLANZapine 5 MG RAPDIS TABLET PO PRN (20:23)
[2017-11-01] MEDS: ZOLPIDEM TARTRATE 10 MG TABLET PO PRN (20:23)
[2017-11-02 06:28] VITALS: BP 133/80
[2017-11-02] MEDS: BuPROPion HCL 100 MG SR TABLET PO SCH ×2 (06:43→12:02)
[2017-11-02] MEDS: DOCUSATE SODIUM 100 MG CAPSULE PO SCH (08:16)
[2017-11-02] MEDS: LACTULOSE 20 GM/30 ML SOLUTION UDCUP PO SCH ×2 (08:16→12:03)
[2017-11-02] MEDS: AmLODIPine BESYLATE 10 MG TABLET PO SCH (08:16)
[2017-11-02] MEDS: OMEPRAZOLE 20 MG CAPSULE PO SCH (08:17)
[2017-11-02] MEDS: AZITHROMYCIN 250 MG TABLET PO SCH (08:17)
[2017-11-02] MEDS: GuaiFENesin/D-METHORPHAN [SUGAR-FREE] 200-20MG/10 ML SYRUP UDCUP PO PRN (08:22)
[2017-11-02 09:01] VITALS: BP 123/68
[2017-11-02] MEDS ORDERED: AZIT500T PO (12:02)
[2017-11-02] MEDS ORDERED: LACT30L PO (12:02)
== END 2017-11-02 16:15 | disposition home or self-care (01) | DRG 750 ==
LOC: EMS 22:45 → B3A 10-28 01:04
PROVIDERS: ADMIT Psychiatry & Neurology Child & Adolescent Psychiatry; ATTEND Psychiatry & Neurology Child & Adolescent Psychiatry
DX: F25.1 Schizoaffective disorder, depressive type (principal); Z91.14 Patient's other noncompliance with medication regimen; I10 Essential (primary) hypertension; F10.20 Alcohol dependence, uncomplicated; G89.29 Other chronic pain; F15.90 Other stimulant use, unspecified, uncomplicated; K21.9 Gastro-esophageal reflux disease without esophagitis; F17.210 Nicotine dependence, cigarettes, uncomplicated; B19.20 Unspecified viral hepatitis C without hepatic coma; K59.00 Constipation, unspecified; M54.9 Dorsalgia, unspecified; Z88.8 Allergy status to other drugs, medicaments and biological substances; Z82.5 Family history of asthma and other chronic lower respiratory diseases; Z83.3 Family history of diabetes mellitus
CPT/HCPCS: 80074; 84443; 90471; 96372; 99285; G0480; J1200; J1630; J2060

== ENCOUNTER 2017-11-03 14:38 | Emergency (ER) | payer MEDICAID, OTHER ==
[~2017-11-03] VITALS: Ht 175.3 cm; Wt 77.3 kg
[~2017-11-03 14:38] MED LIST changes: +AZIT500T PO; -DSS100 PO; +LACT30L PO; -OMEP10 PO
[2017-11-03 14:53] VITALS: BP 141/102
== END 2017-11-03 15:15 | disposition left against medical advice (07) ==
LOC: EMS 14:40
DX: Z00.8 Encounter for other general examination (principal); F20.9 Schizophrenia, unspecified; I10 Essential (primary) hypertension; F15.90 Other stimulant use, unspecified, uncomplicated; F17.210 Nicotine dependence, cigarettes, uncomplicated; Z53.21 Procedure and treatment not carried out due to patient leaving prior to being seen by health care provider

== ENCOUNTER 2017-11-29 17:45 | Inpatient (IN) | payer MEDICAID, OTHER ==
[~2017-11-29] VITALS: Ht 172.7 cm; Wt 85.8 kg
[2017-11-29] MEDS ORDERED: LORazepam 2 MG/ML VIAL ONE (17:59)
[2017-11-29] MEDS ORDERED: HALOPERIDOL LACTATE 5 MG/ML VIAL ONE (17:59)
[2017-11-29] MEDS ORDERED: DiphenhydrAMINE HCL 50 MG/ML VIAL ONE (17:59)
[2017-11-29 18:00] VITALS: BP 150/102
[2017-11-29] MEDS ORDERED: ZOLPIDEM TARTRATE 10 MG TABLET PO PRN (18:00)
[2017-11-29] MEDS ORDERED: DiphenhydrAMINE HCL 50 MG/ML VIAL IM ONE (18:00)
[2017-11-29] MEDS ORDERED: LORazepam 2 MG/ML VIAL IM ONE (18:00)
[2017-11-29] MEDS ORDERED: HALOPERIDOL LACTATE 5 MG/ML VIAL IM ONE (18:00)
[2017-11-29 18:30] VITALS: BP 116/77
[2017-11-30 06:40] VITALS: BP 131/78
[2017-11-30 08:17] VITALS: BP 134/66
[2017-11-30] MEDS: NICOTINE 21 MG/24 HOUR PATCH TD SCH (09:03)
[2017-11-30] MEDS: LACTULOSE 20 GM/30 ML SOLUTION UDCUP PO SCH ×3 (09:03→16:48)
[2017-11-30] MEDS: AmLODIPine BESYLATE 10 MG TABLET PO SCH (09:03)
[2017-11-30 09:06] LABS: BASOPHILS # (AUTO) 0.03 K/uL (0.00-0.20); BASOPHILS % (AUTO) 0.5 % (0.0-2.0); EOSINOPHILS # (AUTO) 0.19 K/uL (0.00-0.70); EOSINOPHILS % (AUTO) 3.03 % (1.0-6.0); HEMATOCRIT 43.4 % (41-53); HEMOGLOBIN 14.6 g/dL (13.5-17.5); LYMPHOCYTES % (AUTO) 46.7 % (22.0-44.0); MEAN CORPUSCULAR HEMOGLOBIN 30.5 pg (26.0-34.0); MEAN CORPUSCULAR HGB CONC 33.6 G/dL (31.0-37.0); MEAN CORPUSCULAR VOLUME 91 fL (80-100); MONOCYTES # (AUTO) 0.5 K/uL (0.1-1.0); MONOCYTES % (AUTO) 8.4 % (2.0-9.0); NEUTROPHILS # (AUTO) 2.6 K/uL (1.8-7.7); NEUTROPHILS % (AUTO) 41.4 % (40.0-70.0); PLATELET COUNT (AUTO) 198 K/uL (150-450); RED BLOOD CELL COUNT(AUTO) 4.77 MIL/uL (4.50-5.90); RED CELL DISTRIBUTION WIDTH 13.6 % (11.5-14.5)
[2017-11-30 09:42] LABS: ALANINE AMINOTRANSFERASE 209 U/L (12-78); ALBUMIN 3.6 g/dL (3.4-5.0); ALKALINE PHOSPHATASE 94 U/L (46-116); ANION GAP 9 mmol/L (8-16); ASPARTATE AMINOTRANSFERASE 227 U/L (15-37); BILIRUBIN,TOTAL 0.9 mg/dL (0.1-1.0); CALCIUM, TOTAL 9.1 mg/dL (8.8-10.5); CARBON DIOXIDE 28 mmol/L (22-29); CHLORIDE 101 mmol/L (98-107); CHOL/HDL RATIO 2.9 (4.2-7.3); CHOLESTEROL 134 mg/dL (131-200); CREATININE 1.06 mg/dL (0.60-1.30); FREE T4 (FREE THYROXINE) 1.01 ng/dL (0.76-1.46); GLOMERULAR FILTR. RATE CALC > 60 mL/min (>60); GLUCOSE,RANDOM 106 mg/dL (70-110); HDL CHOLESTEROL 46 mg/dL (40-60); LDL CHOL (CALC.) 76 mg/dL (0-130); POTASSIUM 3.5 mmol/L (3.5-5.1); SODIUM SERUM 138 mmol/L (136-145); THYROID STIMULATING HORMONE 1.94 uIU/mL (0.36-3.74); TOTAL PROTEIN, SERUM 7.9 g/dL (6.4-8.2); TRIGLYCERIDES 60 mg/dL (15-150); UREA NITROGEN, BLOOD 12 mg/dL (7-18)
[2017-11-30] MEDS: BuPROPion HCL 100 MG SR TABLET PO SCH ×2 (12:08→16:48)
[2017-11-30] MEDS: LORazepam 2 MG TABLET PO PRN ×2 (16:48→20:49)
[2017-11-30 17:39] VITALS: BP 119/83
[2017-11-30] MEDS: OLANZapine 10 MG TABLET PO SCH (20:49)
[2017-12-01 06:35] VITALS: BP 139/75
[2017-12-01 08:15] VITALS: BP 134/78
[2017-12-01] MEDS: BuPROPion HCL 100 MG SR TABLET PO SCH ×2 (09:34→17:06)
[2017-12-01] MEDS: LACTULOSE 20 GM/30 ML SOLUTION UDCUP PO SCH ×3 (09:34→17:06)
[2017-12-01] MEDS: NICOTINE 21 MG/24 HOUR PATCH TD SCH (09:34)
[2017-12-01] MEDS: AmLODIPine BESYLATE 10 MG TABLET PO SCH (09:34)
[2017-12-01 16:00] VITALS: BP 120/83
[2017-12-01] MEDS: LORazepam 2 MG TABLET PO PRN (17:06)
[2017-12-01] MEDS: OLANZapine 10 MG TABLET PO SCH (20:24)
[2017-12-02 05:56] VITALS: BP 126/72
[2017-12-02 08:29] VITALS: BP 125/69
[2017-12-02] MEDS: NICOTINE 21 MG/24 HOUR PATCH TD SCH (09:32)
[2017-12-02] MEDS: AmLODIPine BESYLATE 10 MG TABLET PO SCH (09:32)
[2017-12-02] MEDS: BuPROPion HCL 100 MG SR TABLET PO SCH ×2 (09:32→16:02)
[2017-12-02 16:22] VITALS: BP 133/69
[2017-12-02] MEDS: OLANZapine 10 MG TABLET PO SCH (20:23)
[2017-12-03 01:18] VITALS: BP 127/74
[2017-12-03] MEDS: BuPROPion HCL 100 MG SR TABLET PO SCH (08:48)
[2017-12-03] MEDS: AmLODIPine BESYLATE 10 MG TABLET PO SCH (08:48)
[2017-12-03] MEDS: NICOTINE 21 MG/24 HOUR PATCH TD SCH (08:48)
[2017-12-03 10:57] VITALS: BP 129/76
== END 2017-12-03 11:45 | disposition home or self-care (01) | DRG 750 ==
LOC: B3A 17:57 → B2S 12-01 20:36
PROVIDERS: ADMIT Psychiatry & Neurology Child & Adolescent Psychiatry
DX: F20.0 Paranoid schizophrenia (principal); F15.20 Other stimulant dependence, uncomplicated; K21.9 Gastro-esophageal reflux disease without esophagitis; B19.20 Unspecified viral hepatitis C without hepatic coma; F17.200 Nicotine dependence, unspecified, uncomplicated; Z88.8 Allergy status to other drugs, medicaments and biological substances; Z79.899 Other long term (current) drug therapy; Z83.3 Family history of diabetes mellitus; Z82.5 Family history of asthma and other chronic lower respiratory diseases
CPT/HCPCS: 80074; 83036; 84439; 84443; 87081; J1200; J1630; J2060

== ENCOUNTER 2017-12-31 03:52 | Inpatient (IN) | payer MEDICAID, OTHER ==
[~2017-12-31] VITALS: Ht 172.7 cm; Wt 83.7 kg
[~2017-12-31 03:52] MED LIST changes: -AZIT500T PO; -LACT30L PO
[2017-12-31 06:44] LABS: BASOPHILS % (AUTO) 1.3 % (0.0-2.0); EOSINOPHILS % (AUTO) 5.3 % (1.0-6.0); HEMATOCRIT 41.4 % (41-53); HEMOGLOBIN 14.2 g/dL (13.5-17.5); LYMPHOCYTES # (AUTO) 3.1 K/uL (1.0-4.8); LYMPHOCYTES % (AUTO) 37.4 % (22.0-44.0); MEAN CORPUSCULAR HEMOGLOBIN 30.4 pg (26.0-34.0); MEAN CORPUSCULAR HGB CONC 34.4 G/dL (31.0-37.0); MEAN CORPUSCULAR VOLUME 88 fL (80-100); MONOCYTES # (AUTO) 0.8 K/uL (0.1-1.0); MONOCYTES % (AUTO) 9.6 % (2.0-9.0); NEUTROPHILS # (AUTO) 3.9 K/uL (1.8-7.7); NEUTROPHILS % (AUTO) 46.4 % (40.0-70.0); PLATELET COUNT (AUTO) 204 K/uL (150-450); RED BLOOD CELL COUNT(AUTO) 4.68 MIL/uL (4.50-5.90); RED CELL DISTRIBUTION WIDTH 12.9 % (11.5-14.5)
[2017-12-31 06:59] LABS: ANION GAP 8 mmol/L (8-16); CALCIUM, TOTAL 9.1 mg/dL (8.8-10.5); CARBON DIOXIDE 27 mmol/L (22-29); CHLORIDE 104 mmol/L (98-107); CREATININE 0.91 mg/dL (0.60-1.30); GLOMERULAR FILTR. RATE CALC > 60 mL/min (>60); GLUCOSE,RANDOM 107 mg/dL (70-110); POTASSIUM 3.9 mmol/L (3.5-5.1); SODIUM SERUM 139 mmol/L (136-145); UREA NITROGEN, BLOOD 13 mg/dL (7-18)
[2017-12-31 07:05] LABS: ALANINE AMINOTRANSFERASE 144 U/L (12-78); ALBUMIN 3.2 g/dL (3.4-5.0); ALKALINE PHOSPHATASE 139 U/L (46-116); ASPARTATE AMINOTRANSFERASE 116 U/L (15-37); BILIRUBIN,TOTAL 0.3 mg/dL (0.1-1.0); TOTAL PROTEIN, SERUM 7.3 g/dL (6.4-8.2)
[2017-12-31] MEDS ORDERED: DiphenhydrAMINE HCL 50 MG CAPSULE PO ONE (08:45)
[2017-12-31] MEDS ORDERED: HALOPERIDOL 5 MG TABLET PO ONE (08:45)
[2017-12-31] MEDS ORDERED: LORazepam 2 MG TABLET PO ONE (08:45)
[2017-12-31] MEDS ORDERED: OLANZapine 5 MG TABLET PO ONE (09:15)
[2017-12-31] MEDS ORDERED: OLAN10TA3 PO (11:02)
[2017-12-31] MEDS ORDERED: AmLODIPine BESYLATE 10 MG TABLET PO ONE (13:30)
[2017-12-31 14:00] VITALS: BP 155/106
[2017-12-31] MEDS ORDERED: CloNIDine HCL 0.1 MG TABLET PO PRN (15:45)
[2017-12-31] MEDS ORDERED: PNEUMOCOCCAL VACCINE POLYVALENT 0.5 ML VIAL [PPSV23] IM ONE (16:00)
[2017-12-31] MEDS ORDERED: ACETAMINOPHEN 325 MG TABLET PO PRN (16:15)
[2017-12-31 17:42] VITALS: BP 127/84
[2018-01-01 06:47] VITALS: BP 123/76
[2018-01-01 08:15] VITALS: BP 130/78
[2018-01-01 08:27] LABS: HEMOGLOBIN A1C 5.9 % (4.5-6.2)
[2018-01-01 08:36] LABS: THYROID STIMULATING HORMONE 0.45 uIU/mL (0.36-3.74)
[2018-01-01] MEDS: NICOTINE 21 MG/24 HOUR PATCH TD SCH (08:50)
[2018-01-01] MEDS ORDERED: ACETAMINOPHEN 325 MG TABLET PO PRN (14:15)
[2018-01-01] MEDS ORDERED: IBUPROFEN 400 MG TABLET PO PRN (14:15)
[2018-01-01] MEDS ORDERED: ALBUTEROL SULFATE HFA 90 MCG/PUFF 8 GM INHALER IH PRN (14:15)
[2018-01-01 16:00] VITALS: BP 140/89
[2018-01-01] MEDS: BuPROPion HCL 100 MG SR TABLET PO SCH (17:18)
[2018-01-01] MEDS: LORazepam 2 MG TABLET PO PRN (17:18)
[2018-01-01] MEDS: ZOLPIDEM TARTRATE 10 MG TABLET PO PRN (20:50)
[2018-01-01] MEDS: OLANZapine 10 MG TABLET PO SCH (20:50)
[2018-01-01] MEDS: IBUPROFEN 400 MG TABLET PO PRN (20:50)
[2018-01-02 03:03] VITALS: BP 131/86
[2018-01-02 08:08] VITALS: BP 124/72
[2018-01-02] MEDS: NICOTINE 21 MG/24 HOUR PATCH TD SCH (08:35)
[2018-01-02] MEDS: BuPROPion HCL 100 MG SR TABLET PO SCH ×2 (08:35→17:03)
[2018-01-02 08:39] LABS: CHOL/HDL RATIO 3.1 (4.2-7.3); THYROID STIMULATING HORMONE 0.5 uIU/mL (0.36-3.74)
[2018-01-02 09:04] LABS: HEMOGLOBIN A1C 5.8 % (4.5-6.2)
[2018-01-02] MEDS: IBUPROFEN 400 MG TABLET PO PRN (14:10)
[2018-01-02 14:11] VITALS: BP 130/77
[2018-01-02 16:00] VITALS: BP 138/89
[2018-01-02] MEDS: OLANZapine 10 MG TABLET PO SCH (20:51)
[2018-01-02] MEDS: LORazepam 2 MG TABLET PO PRN (21:56)
[2018-01-02 23:37] VITALS: BP 166/110
[2018-01-02] MEDS: ZOLPIDEM TARTRATE 10 MG TABLET PO PRN (23:45)
[2018-01-03 00:45] VITALS: BP 142/92
[2018-01-03 08:09] VITALS: BP 121/74
[2018-01-03] MEDS: NICOTINE 21 MG/24 HOUR PATCH TD SCH (08:38)
[2018-01-03] MEDS: BuPROPion HCL 100 MG SR TABLET PO SCH ×2 (08:38→16:37)
[2018-01-03 16:00] VITALS: BP 138/79
[2018-01-03] MEDS: LORazepam 2 MG TABLET PO PRN (16:37)
[2018-01-03] MEDS: OLANZapine 10 MG TABLET PO SCH (20:48)
[2018-01-04 00:03] VITALS: BP 140/108
[2018-01-04] MEDS: ZOLPIDEM TARTRATE 10 MG TABLET PO PRN ×2 (00:06→20:54)
[2018-01-04] MEDS: LORazepam 2 MG TABLET PO PRN ×2 (00:06→17:13)
[2018-01-04 08:14] VITALS: BP 139/92
[2018-01-04] MEDS: NICOTINE 21 MG/24 HOUR PATCH TD SCH (08:16)
[2018-01-04] MEDS: BuPROPion HCL 100 MG SR TABLET PO SCH ×2 (08:17→17:13)
[2018-01-04 16:21] VITALS: BP 132/95
[2018-01-04] MEDS: OLANZapine 10 MG TABLET PO SCH (20:55)
[2018-01-05 00:37] VITALS: BP 134/106
[2018-01-05] MEDS: LORazepam 2 MG TABLET PO PRN ×2 (00:54→08:08)
[2018-01-05] MEDS: NICOTINE 21 MG/24 HOUR PATCH TD SCH (08:08)
[2018-01-05] MEDS: BuPROPion HCL 100 MG SR TABLET PO SCH (08:09)
[2018-01-05 08:31] VITALS: BP 154/87
== END 2018-01-05 12:30 | disposition home or self-care (01) | DRG 750 ==
LOC: BV PSY EVL 03:52 → B3A 12:51
DX: F25.0 Schizoaffective disorder, bipolar type (principal); R45.851 Suicidal ideations; Z59.0 Homelessness; I10 Essential (primary) hypertension; B18.2 Chronic viral hepatitis C; E78.5 Hyperlipidemia, unspecified; F10.10 Alcohol abuse, uncomplicated; F17.200 Nicotine dependence, unspecified, uncomplicated; J45.909 Unspecified asthma, uncomplicated; K21.9 Gastro-esophageal reflux disease without esophagitis; G89.29 Other chronic pain; M54.9 Dorsalgia, unspecified; F15.90 Other stimulant use, unspecified, uncomplicated; Z71.41 Alcohol abuse counseling and surveillance of alcoholic; Z71.51 Drug abuse counseling and surveillance of drug abuser; Z71.6 Tobacco abuse counseling; Z88.8 Allergy status to other drugs, medicaments and biological substances; Z79.899 Other long term (current) drug therapy
CPT/HCPCS: 83036; 84443; 99285; G0480

== ENCOUNTER 2018-03-21 20:06 | Inpatient (IN) | payer MEDICAID ==
[~2018-03-21] VITALS: Ht 172.7 cm; Wt 84.7 kg
[~2018-03-21 20:06] MED LIST changes: +DSS100 PO; +LACT30L PO; -OLAN5TAB2 PO; +OLAN7.5T2 PO; +OMEP20 PO
[2018-03-21] MEDS ORDERED: ZOLPIDEM TARTRATE 10 MG TABLET PO PRN (20:30)
[2018-03-21] MEDS ORDERED: OLANZapine 5 MG RAPDIS TABLET PO PRN (20:30)
[2018-03-21 21:07] VITALS: BP 161/106
[2018-03-21] MEDS ORDERED: MAG HYDROX/AL HYDROX/SIMETH ES 30 ML SUSPENSION UDCUP PO PRN (22:00)
[2018-03-21] MEDS ORDERED: LOPERAMIDE HCL 2 MG CAPSULE PO PRN (22:00)
[2018-03-21] MEDS ORDERED: CloNIDine HCL 0.1 MG TABLET PO PRN (22:00)
[2018-03-21] MEDS ORDERED: ALBUTEROL SULFATE HFA 90 MCG/PUFF 8 GM INHALER IH PRN (22:00)
[2018-03-21] MEDS ORDERED: ONDANSETRON HCL 4 MG TABLET PO PRN (22:00)
[2018-03-21] MEDS ORDERED: BENZOCAINE/MENTHOL LOZENGE MM PRN (22:00)
[2018-03-21] MEDS ORDERED: MAGNESIUM HYDROXIDE SUSPENSION 30 ML UDCUP PO PRN (22:00)
[2018-03-21] MEDS ORDERED: PETROLATUM,WHITE 71 GM JELLY TP PRN (22:00)
[2018-03-21] MEDS ORDERED: PNEUMOCOCCAL VACCINE POLYVALENT 0.5 ML VIAL [PPSV23] IM ONE (22:00)
[2018-03-21] MEDS ORDERED: IBUPROFEN 600 MG TABLET PO PRN (22:00)
[2018-03-21] MEDS ORDERED: ACETAMINOPHEN 325 MG TABLET PO PRN (22:00)
[2018-03-21] MEDS ORDERED: BACITRACIN 28.4 GM OINTMENT TP PRN (22:00)
[2018-03-21] MEDS: OLANZapine 7.5 MG TABLET PO SCH (22:04)
[2018-03-21] MEDS: LORazepam 2 MG TABLET PO PRN (22:04)
[2018-03-22 06:43] VITALS: BP 154/95
[2018-03-22 08:33] LABS: BASOPHILS % (AUTO) 0.7 % (0.0-2.0); EOSINOPHILS % (AUTO) 2.8 % (1.0-6.0); HEMATOCRIT 43.5 % (41-53); HEMOGLOBIN 15.1 g/dL (13.5-17.5); MEAN CORPUSCULAR HGB CONC 34.7 G/dL (31.0-37.0); MEAN CORPUSCULAR VOLUME 89 fL (80-100); MONOCYTES # (AUTO) 0.6 K/uL (0.1-1.0); MONOCYTES % (AUTO) 9.7 % (2.0-9.0); NEUTROPHILS # (AUTO) 2.2 K/uL (1.8-7.7); NEUTROPHILS % (AUTO) 36.8 % (40.0-70.0); PLATELET COUNT (AUTO) 317 K/uL (150-450); RED BLOOD CELL COUNT(AUTO) 4.87 MIL/uL (4.50-5.90)
[2018-03-22 08:53] VITALS: BP 120/63
[2018-03-22] MEDS ORDERED: OMEPRAZOLE 20 MG CAPSULE PO SCH (09:00)
[2018-03-22] MEDS ORDERED: DOCUSATE SODIUM 100 MG CAPSULE PO SCH (09:00)
[2018-03-22 09:01] LABS: HEMOGLOBIN A1C 5.5 % (4.5-6.2)
[2018-03-22] MEDS: LORazepam 2 MG TABLET PO PRN ×2 (09:13→17:01)
[2018-03-22] MEDS: OMEPRAZOLE 20 MG CAPSULE PO SCH (09:13)
[2018-03-22] MEDS: DOCUSATE SODIUM 100 MG CAPSULE PO SCH (09:13)
[2018-03-22] MEDS: AmLODIPine BESYLATE 10 MG TABLET PO SCH (09:13)
[2018-03-22] MEDS: BACITRACIN 28.4 GM OINTMENT TP SCH ×2 (09:14→17:01)
[2018-03-22 09:20] LABS: ALANINE AMINOTRANSFERASE 217 U/L (12-78); ALBUMIN 3.6 g/dL (3.4-5.0); ALKALINE PHOSPHATASE 121 U/L (46-116); ANION GAP 9 mmol/L (8-16); ASPARTATE AMINOTRANSFERASE 220 U/L (15-37); BILIRUBIN,TOTAL 1.1 mg/dL (0.1-1.0); CALCIUM, TOTAL 9.1 mg/dL (8.8-10.5); CARBON DIOXIDE 32 mmol/L (22-29); CHLORIDE 103 mmol/L (98-107); CHOL/HDL RATIO 3.8 (4.2-7.3); CHOLESTEROL 125 mg/dL (131-200); CREATININE 1.01 mg/dL (0.60-1.30); FREE T4 (FREE THYROXINE) 0.97 ng/dL (0.76-1.46); GLOMERULAR FILTR. RATE CALC > 60 mL/min (>60); GLUCOSE,RANDOM 104 mg/dL (70-110); HDL CHOLESTEROL 33 mg/dL (40-60); LDL CHOL (CALC.) 73 mg/dL (0-130); POTASSIUM 3.1 mmol/L (3.5-5.1); SODIUM SERUM 144 mmol/L (136-145); THYROID STIMULATING HORMONE 1.79 uIU/mL (0.36-3.74); TOTAL PROTEIN, SERUM 8.1 g/dL (6.4-8.2); TRIGLYCERIDES 95 mg/dL (15-150); UREA NITROGEN, BLOOD 9 mg/dL (7-18)
[2018-03-22] MEDS ORDERED: MAGNESIUM HYDROXIDE SUSPENSION 30 ML UDCUP PO PRN (09:45)
[2018-03-22] MEDS ORDERED: PROMETHAZINE HCL 25 MG TABLET PO PRN (09:45)
[2018-03-22] MEDS ORDERED: MAG HYDROX/AL HYDROX/SIMETH ES 30 ML SUSPENSION UDCUP PO PRN (09:45)
[2018-03-22] MEDS ORDERED: TUBERCULIN, PURIFIED PROTEIN DERIVATIVE 5 TU/0.1 ML SYG ID ONE (09:45)
[2018-03-22] MEDS ORDERED: ACETAMINOPHEN 325 MG TABLET PO PRN (09:45)
[2018-03-22] MEDS ORDERED: LOPERAMIDE HCL 2 MG CAPSULE PO PRN (09:45)
[2018-03-22] MEDS ORDERED: HydrOXYzine PAMOATE 50 MG CAPSULE PO PRN (09:45)
[2018-03-22] MEDS ORDERED: GuaiFENesin/D-METHORPHAN [SUGAR-FREE] 200-20MG/10 ML SYRUP UDCUP PO PRN (09:45)
[2018-03-22] MEDS ORDERED: POTASSIUM CHLORIDE 20 MEQ ER TABLET PO ONE (15:45)
[2018-03-22 16:02] VITALS: BP 140/85
[2018-03-22] MEDS: THIAMINE HCL 100 MG TABLET PO SCH (17:01)
[2018-03-22] MEDS: OLANZapine 7.5 MG TABLET PO SCH (20:33)
[2018-03-23 07:04] VITALS: BP 124/84
[2018-03-23 08:19] VITALS: BP 125/79
[2018-03-23 08:41] LABS: ANION GAP 6 mmol/L (8-16); CALCIUM, TOTAL 8.8 mg/dL (8.8-10.5); CARBON DIOXIDE 31 mmol/L (22-29); CHLORIDE 104 mmol/L (98-107); CREATININE 0.93 mg/dL (0.60-1.30); GLOMERULAR FILTR. RATE CALC > 60 mL/min (>60); GLUCOSE,RANDOM 130 mg/dL (70-110); POTASSIUM 3.5 mmol/L (3.5-5.1); SODIUM SERUM 141 mmol/L (136-145); UREA NITROGEN, BLOOD 8 mg/dL (7-18)
[2018-03-23] MEDS: BACITRACIN 28.4 GM OINTMENT TP SCH ×2 (09:00→16:52)
[2018-03-23] MEDS: MULTIVITAMINS WITH MINERALS, THERAPEUTIC TABLET PO SCH (09:24)
[2018-03-23] MEDS: THIAMINE HCL 100 MG TABLET PO SCH ×2 (09:24→16:52)
[2018-03-23] MEDS: OMEPRAZOLE 20 MG CAPSULE PO SCH (09:24)
[2018-03-23] MEDS: AmLODIPine BESYLATE 10 MG TABLET PO SCH (09:25)
[2018-03-23] MEDS: NALTREXONE HCL 50 MG TABLET PO SCH (09:25)
[2018-03-23] MEDS: BuPROPion HCL XL 150 MG ER TABLET PO SCH (09:25)
[2018-03-23] MEDS: DOCUSATE SODIUM 100 MG CAPSULE PO SCH (09:27)
[2018-03-23] MEDS: FOLIC ACID 1 MG TABLET PO SCH (09:27)
[2018-03-23 16:48] VITALS: BP 120/70
[2018-03-23] MEDS ORDERED: OLAN7.5T9 PO (17:18)
[2018-03-23] MEDS ORDERED: NALT50TA PO (17:18)
[2018-03-23] MEDS ORDERED: BUPR-47 PO (17:18)
[2018-03-23] MEDS ORDERED: OLANZapine 10 MG TABLET PO SCH (21:00)
[2018-03-24 06:20] VITALS: BP 119/77
[2018-03-24 08:15] VITALS: BP 115/68
[2018-03-24] MEDS: THIAMINE HCL 100 MG TABLET PO SCH (08:37)
[2018-03-24] MEDS: DOCUSATE SODIUM 100 MG CAPSULE PO SCH (08:37)
[2018-03-24] MEDS: BuPROPion HCL XL 150 MG ER TABLET PO SCH (08:37)
[2018-03-24] MEDS: FOLIC ACID 1 MG TABLET PO SCH (08:37)
[2018-03-24] MEDS: AmLODIPine BESYLATE 10 MG TABLET PO SCH (08:37)
[2018-03-24] MEDS: NALTREXONE HCL 50 MG TABLET PO SCH (08:37)
[2018-03-24] MEDS: MULTIVITAMINS WITH MINERALS, THERAPEUTIC TABLET PO SCH (08:37)
[2018-03-24] MEDS: OMEPRAZOLE 20 MG CAPSULE PO SCH (08:37)
[2018-03-24] MEDS: BACITRACIN 28.4 GM OINTMENT TP SCH (08:38)
== END 2018-03-24 11:00 | disposition home or self-care (01) | DRG 750 ==
LOC: B3A 20:29 → EDSTATUS 20:52
PROVIDERS: ADMIT Psychiatry & Neurology Psychiatry; ATTEND Psychiatry & Neurology Psychiatry
DX: F20.0 Paranoid schizophrenia (principal); R45.851 Suicidal ideations; Z91.19 Patient's noncompliance with other medical treatment and regimen; Z59.0 Homelessness; I10 Essential (primary) hypertension; F15.10 Other stimulant abuse, uncomplicated; B18.2 Chronic viral hepatitis C; F12.10 Cannabis abuse, uncomplicated; F17.200 Nicotine dependence, unspecified, uncomplicated; G47.00 Insomnia, unspecified; J44.9 Chronic obstructive pulmonary disease, unspecified; K21.9 Gastro-esophageal reflux disease without esophagitis; Z88.8 Allergy status to other drugs, medicaments and biological substances
CPT/HCPCS: 83036; 84439; 84443

== ENCOUNTER 2018-03-26 18:04 | Inpatient (IN) | payer MEDICAID ==
[~2018-03-26] VITALS: Ht 172.7 cm; Wt 84.6 kg
[~2018-03-26 18:04] MED LIST changes: +BUPR-47 PO; -BUPR100SR PO; -DSS100 PO; -LACT30L PO; +NALT50TA PO; -OLAN7.5T2 PO; +OLAN7.5T9 PO; -OMEP20 PO
[2018-03-26] MEDS ORDERED: LOPERAMIDE HCL 2 MG CAPSULE PO PRN (19:30)
[2018-03-26] MEDS ORDERED: OLANZapine 5 MG RAPDIS TABLET PO PRN (19:30)
[2018-03-26] MEDS ORDERED: ZOLPIDEM TARTRATE 10 MG TABLET PO PRN (19:30)
[2018-03-26] MEDS ORDERED: HydrOXYzine PAMOATE 50 MG CAPSULE PO PRN (19:30)
[2018-03-26] MEDS ORDERED: CYANOCOBALAMIN 1,000 MCG/ML VIAL IM ONE (19:30)
[2018-03-26] MEDS ORDERED: GuaiFENesin/D-METHORPHAN [SUGAR-FREE] 200-20MG/10 ML SYRUP UDCUP PO PRN (19:30)
[2018-03-26] MEDS ORDERED: LORazepam 2 MG TABLET PO PRN (19:30)
[2018-03-26] MEDS ORDERED: THIAMINE HCL 100 MG TABLET PO SCH (19:34)
[2018-03-26 20:00] VITALS: BP_SYST 128; BP_SYST 166; BP_DIAS 72; BP_DIAS 93
[2018-03-26] MEDS: FOLIC ACID 1 MG TABLET PO SCH (20:12)
[2018-03-26 20:13] VITALS: BP 166/93
[2018-03-26] MEDS: THIAMINE HCL 100 MG TABLET PO SCH (20:13)
[2018-03-26] MEDS: MULTIVITAMINS WITH MINERALS, THERAPEUTIC TABLET PO SCH (20:13)
[2018-03-26] MEDS: OLANZapine 10 MG TABLET PO SCH (20:13)
[2018-03-26 21:00] VITALS: BP 128/72
[2018-03-26] MEDS ORDERED: ALBUTEROL SULFATE HFA 90 MCG/PUFF 8 GM INHALER IH PRN (21:00)
[2018-03-26] MEDS ORDERED: PNEUMOCOCCAL VACCINE POLYVALENT 0.5 ML VIAL [PPSV23] IM ONE (21:00)
[2018-03-26] MEDS ORDERED: CloNIDine HCL 0.1 MG TABLET PO PRN (21:00)
[2018-03-26] MEDS ORDERED: -PHARMACY VACCINE NOTE- MISC ONE (21:00)
[2018-03-26] MEDS: AmLODIPine BESYLATE 10 MG TABLET PO SCH (21:16)
[2018-03-26 22:00] VITALS: BP 124/89
[2018-03-26 23:00] VITALS: BP_SYST 10; BP_SYST 110; BP_DIAS 68
[2018-03-27] VITALS (8 sets, daily range): BP systolic 112–128; BP diastolic 72–88
[2018-03-27] MEDS ORDERED: LORazepam 2 MG TABLET PO PRN (07:00)
[2018-03-27] MEDS: OMEPRAZOLE 20 MG CAPSULE PO SCH (08:41)
[2018-03-27] MEDS: MULTIVITAMINS WITH MINERALS, THERAPEUTIC TABLET PO SCH (08:41)
[2018-03-27] MEDS: THIAMINE HCL 100 MG TABLET PO SCH ×2 (08:41→16:16)
[2018-03-27] MEDS: LORazepam 2 MG TABLET PO SCH ×4 (08:41→20:17)
[2018-03-27] MEDS: BuPROPion HCL XL 150 MG ER TABLET PO SCH (08:41)
[2018-03-27] MEDS: AmLODIPine BESYLATE 10 MG TABLET PO SCH (08:42)
[2018-03-27] MEDS: FOLIC ACID 1 MG TABLET PO SCH (08:42)
[2018-03-27] MEDS: NALTREXONE HCL 50 MG TABLET PO SCH (08:42)
[2018-03-27] MEDS: NICOTINE 7 MG/24 HOUR PATCH TD SCH (08:47)
[2018-03-27] MEDS: BACITRACIN 28.4 GM OINTMENT TP SCH (09:30)
[2018-03-27] MEDS: OLANZapine 10 MG TABLET PO SCH (20:18)
[2018-03-28 01:31] VITALS: BP 118/73
[2018-03-28 02:47] VITALS: BP 120/81
[2018-03-28 08:52] LABS: BASOPHILS % (AUTO) 0.8 % (0.0-2.0); EOSINOPHILS % (AUTO) 3.7 % (1.0-6.0); HEMATOCRIT 39.8 % (41-53); HEMOGLOBIN 13.8 g/dL (13.5-17.5); LYMPHOCYTES # (AUTO) 1.7 K/uL (1.0-4.8); LYMPHOCYTES % (AUTO) 41.7 % (22.0-44.0); MEAN CORPUSCULAR HGB CONC 34.5 G/dL (31.0-37.0); MEAN CORPUSCULAR VOLUME 90 fL (80-100); MONOCYTES # (AUTO) 0.6 K/uL (0.1-1.0); MONOCYTES % (AUTO) 13.5 % (2.0-9.0); NEUTROPHILS # (AUTO) 1.7 K/uL (1.8-7.7); NEUTROPHILS % (AUTO) 40.3 % (40.0-70.0); PLATELET COUNT (AUTO) 201 K/uL (150-450); RED BLOOD CELL COUNT(AUTO) 4.44 MIL/uL (4.50-5.90); RED CELL DISTRIBUTION WIDTH 14.4 % (11.5-14.5)
[2018-03-28 09:21] LABS: ALANINE AMINOTRANSFERASE 160 U/L (12-78); ALKALINE PHOSPHATASE 123 U/L (46-116); ANION GAP 6 mmol/L (8-16); ASPARTATE AMINOTRANSFERASE 143 U/L (15-37); BILIRUBIN,TOTAL 0.8 mg/dL (0.1-1.0); CALCIUM, TOTAL 8.3 mg/dL (8.8-10.5); CARBON DIOXIDE 29 mmol/L (22-29); CHLORIDE 106 mmol/L (98-107); CHOL/HDL RATIO 3.3 (4.2-7.3); CHOLESTEROL 111 mg/dL (131-200); CREATININE 0.95 mg/dL (0.60-1.30); FREE T4 (FREE THYROXINE) 0.84 ng/dL (0.76-1.46); GLOMERULAR FILTR. RATE CALC > 60 mL/min (>60); GLUCOSE,RANDOM 93 mg/dL (70-110); HDL CHOLESTEROL 34 mg/dL (40-60); LDL CHOL (CALC.) 59 mg/dL (0-130); POTASSIUM 3.3 mmol/L (3.5-5.1); SODIUM SERUM 141 mmol/L (136-145); THYROID STIMULATING HORMONE 1.37 uIU/mL (0.36-3.74); TOTAL PROTEIN, SERUM 7.3 g/dL (6.4-8.2); TRIGLYCERIDES 89 mg/dL (15-150); UREA NITROGEN, BLOOD 13 mg/dL (7-18)
[2018-03-28] MEDS: NALTREXONE HCL 50 MG TABLET PO SCH (09:41)
[2018-03-28] MEDS: FOLIC ACID 1 MG TABLET PO SCH (09:42)
[2018-03-28] MEDS: OMEPRAZOLE 20 MG CAPSULE PO SCH (09:42)
[2018-03-28] MEDS: THIAMINE HCL 100 MG TABLET PO SCH ×2 (09:42→17:10)
[2018-03-28] MEDS: LORazepam 2 MG TABLET PO SCH ×4 (09:42→21:00)
[2018-03-28] MEDS: BuPROPion HCL XL 150 MG ER TABLET PO SCH (09:42)
[2018-03-28] MEDS: MULTIVITAMINS WITH MINERALS, THERAPEUTIC TABLET PO SCH (09:42)
[2018-03-28] MEDS: AmLODIPine BESYLATE 10 MG TABLET PO SCH (09:42)
[2018-03-28] MEDS: NICOTINE 7 MG/24 HOUR PATCH TD SCH (09:43)
[2018-03-28] MEDS: BACITRACIN 28.4 GM OINTMENT TP SCH (09:43)
[2018-03-28 09:59] VITALS: BP 109/79
[2018-03-28 10:47] VITALS: BP 109/79
[2018-03-28] MEDS ORDERED: OLAN10TA3 PO (10:52)
[2018-03-28] MEDS ORDERED: POTASSIUM CHLORIDE 20 MEQ ER TABLET PO ONE (11:00)
[2018-03-28 16:05] VITALS: BP 126/78
[2018-03-28 17:47] VITALS: BP 126/78
[2018-03-28] MEDS: OLANZapine 10 MG TABLET PO SCH (21:41)
[2018-03-29 01:24] VITALS: BP 120/81
[2018-03-29] MEDS ORDERED: LORazepam 1 MG TABLET PO PRN (07:00)
[2018-03-29 08:38] VITALS: BP 119/81
[2018-03-29] MEDS: MULTIVITAMINS WITH MINERALS, THERAPEUTIC TABLET PO SCH (09:02)
[2018-03-29] MEDS: NALTREXONE HCL 50 MG TABLET PO SCH (09:02)
[2018-03-29] MEDS: THIAMINE HCL 100 MG TABLET PO SCH ×2 (09:02→16:56)
[2018-03-29] MEDS: AmLODIPine BESYLATE 10 MG TABLET PO SCH (09:03)
[2018-03-29] MEDS: LORazepam 1 MG TABLET PO SCH ×4 (09:03→20:43)
[2018-03-29] MEDS: OMEPRAZOLE 20 MG CAPSULE PO SCH (09:03)
[2018-03-29] MEDS: FOLIC ACID 1 MG TABLET PO SCH (09:03)
[2018-03-29] MEDS: NICOTINE 7 MG/24 HOUR PATCH TD SCH (09:03)
[2018-03-29] MEDS: BACITRACIN 28.4 GM OINTMENT TP SCH (09:04)
[2018-03-29 09:28] VITALS: BP 119/88
[2018-03-29 16:28] VITALS: BP 128/78
[2018-03-29] MEDS ORDERED: OLANZapine 10 MG TABLET PO SCH (21:00)
[2018-03-30 06:45] VITALS: BP 110/83
[2018-03-30] MEDS ORDERED: LORazepam 1 MG TABLET PO PRN (07:00)
[2018-03-30] MEDS: AmLODIPine BESYLATE 10 MG TABLET PO SCH (08:52)
[2018-03-30] MEDS: NICOTINE 7 MG/24 HOUR PATCH TD SCH (08:52)
[2018-03-30] MEDS: FOLIC ACID 1 MG TABLET PO SCH (08:52)
[2018-03-30] MEDS: NALTREXONE HCL 50 MG TABLET PO SCH (08:52)
[2018-03-30] MEDS: MULTIVITAMINS WITH MINERALS, THERAPEUTIC TABLET PO SCH (08:53)
[2018-03-30] MEDS: OMEPRAZOLE 20 MG CAPSULE PO SCH (08:53)
[2018-03-30] MEDS: THIAMINE HCL 100 MG TABLET PO SCH ×2 (08:53→16:11)
[2018-03-30] MEDS: BACITRACIN 28.4 GM OINTMENT TP SCH (08:53)
[2018-03-30 09:00] VITALS: BP 122/85
[2018-03-30 16:06] VITALS: BP 120/70
[2018-03-30 16:07] VITALS: BP 120/70
[2018-03-30] MEDS ORDERED: NALT50TA PO (17:10)
[2018-03-30] MEDS ORDERED: OLAN10TA20 PO (17:10)
== END 2018-03-30 18:00 | disposition home or self-care (01) | DRG 750 ==
LOC: B2S 19:00
PROVIDERS: ADMIT Psychiatry & Neurology Psychiatry; ATTEND Psychiatry & Neurology Psychiatry
DX: F25.0 Schizoaffective disorder, bipolar type (principal); R45.851 Suicidal ideations; Z91.14 Patient's other noncompliance with medication regimen; F17.200 Nicotine dependence, unspecified, uncomplicated; I10 Essential (primary) hypertension; F15.10 Other stimulant abuse, uncomplicated; B18.2 Chronic viral hepatitis C; J44.9 Chronic obstructive pulmonary disease, unspecified; K21.9 Gastro-esophageal reflux disease without esophagitis; F10.20 Alcohol dependence, uncomplicated; F12.10 Cannabis abuse, uncomplicated; Z71.41 Alcohol abuse counseling and surveillance of alcoholic; Z71.51 Drug abuse counseling and surveillance of drug abuser; Z71.6 Tobacco abuse counseling; Z59.0 Homelessness; Z88.8 Allergy status to other drugs, medicaments and biological substances; Z91.5 Personal history of self-harm; Y90.9 Presence of alcohol in blood, level not specified
CPT/HCPCS: 82306; 83036; 84132; 84439; 84443; 87081; J3420

== ENCOUNTER 2018-04-01 10:05 | Inpatient (IN) | payer MEDICAID ==
[~2018-04-01] VITALS: Ht 177.8 cm; Wt 83.0 kg
[~2018-04-01 10:05] MED LIST changes: -BUPR-47 PO; +OLAN10TA20 PO; -OLAN7.5T9 PO
[2018-04-01 10:40] VITALS: BP 144/90
[2018-04-01] MEDS ORDERED: OLANZapine 5 MG RAPDIS TABLET PO PRN (12:45)
[2018-04-01 12:54] VITALS: BP 144/90
[2018-04-01] MEDS ORDERED: DIAZEPAM 10 MG TABLET PO PRN (13:15)
[2018-04-01] MEDS ORDERED: CYANOCOBALAMIN 1,000 MCG/ML VIAL IM ONE (13:15)
[2018-04-01] MEDS ORDERED: GuaiFENesin/D-METHORPHAN [SUGAR-FREE] 200-20MG/10 ML SYRUP UDCUP PO PRN (13:15)
[2018-04-01] MEDS ORDERED: HydrOXYzine PAMOATE 50 MG CAPSULE PO PRN (13:15)
[2018-04-01] MEDS ORDERED: LOPERAMIDE HCL 2 MG CAPSULE PO PRN ×2 (13:15→16:45)
[2018-04-01] MEDS ORDERED: PROMETHAZINE HCL 25 MG TABLET PO PRN (13:15)
[2018-04-01 14:32] VITALS: BP 152/92
[2018-04-01] MEDS: LORazepam 2 MG TABLET PO PRN (14:58)
[2018-04-01] MEDS ORDERED: PNEUMOCOCCAL VACCINE POLYVALENT 0.5 ML VIAL [PPSV23] IM ONE (15:15)
[2018-04-01 16:00] VITALS: BP 130/73
[2018-04-01 16:17] VITALS: BP 130/73
[2018-04-01] MEDS: THIAMINE HCL 100 MG TABLET PO SCH (16:21)
[2018-04-01] MEDS ORDERED: ACETAMINOPHEN 325 MG TABLET PO PRN (16:45)
[2018-04-01] MEDS ORDERED: PETROLATUM,WHITE 71 GM JELLY TP PRN (16:45)
[2018-04-01] MEDS ORDERED: BACITRACIN 28.4 GM OINTMENT TP PRN (16:45)
[2018-04-01] MEDS ORDERED: ONDANSETRON HCL 4 MG TABLET PO PRN (16:45)
[2018-04-01] MEDS ORDERED: BENZOCAINE/MENTHOL LOZENGE MM PRN (16:45)
[2018-04-01] MEDS ORDERED: CloNIDine HCL 0.1 MG TABLET PO PRN (16:45)
[2018-04-01] MEDS ORDERED: IBUPROFEN 600 MG TABLET PO PRN (16:45)
[2018-04-01] MEDS ORDERED: MAG HYDROX/AL HYDROX/SIMETH ES 30 ML SUSPENSION UDCUP PO PRN (16:45)
[2018-04-01] MEDS ORDERED: ALBUTEROL SULFATE HFA 90 MCG/PUFF 8 GM INHALER IH PRN (16:45)
[2018-04-01] MEDS ORDERED: MAGNESIUM HYDROXIDE SUSPENSION 30 ML UDCUP PO PRN (16:45)
[2018-04-01 20:17] VITALS: BP 135/69
[2018-04-01] MEDS: OLANZapine 5 MG RAPDIS TABLET PO SCH (20:46)
[2018-04-02] VITALS (8 sets, daily range): BP systolic 109–122; BP diastolic 73–91
[2018-04-02] MEDS ORDERED: DIAZEPAM 10 MG TABLET PO PRN (07:00)
[2018-04-02] MEDS: FOLIC ACID 1 MG TABLET PO SCH (08:20)
[2018-04-02] MEDS: DIAZEPAM 10 MG TABLET PO SCH ×4 (08:20→20:46)
[2018-04-02] MEDS: OMEPRAZOLE 20 MG CAPSULE PO SCH (08:20)
[2018-04-02] MEDS: THIAMINE HCL 100 MG TABLET PO SCH ×2 (08:20→17:19)
[2018-04-02] MEDS: DOCUSATE SODIUM 100 MG CAPSULE PO SCH (08:20)
[2018-04-02] MEDS: MULTIVITAMINS WITH MINERALS, THERAPEUTIC TABLET PO SCH (08:21)
[2018-04-02] MEDS: NALTREXONE HCL 50 MG TABLET PO SCH (08:23)
[2018-04-02 08:35] LABS: BASOPHILS % (AUTO) 0.6 % (0.0-2.0); EOSINOPHILS % (AUTO) 3.4 % (1.0-6.0); HEMATOCRIT 43.9 % (41-53); HEMOGLOBIN 15.1 g/dL (13.5-17.5); LYMPHOCYTES # (AUTO) 2.2 K/uL (1.0-4.8); LYMPHOCYTES % (AUTO) 41.2 % (22.0-44.0); MEAN CORPUSCULAR HEMOGLOBIN 31.2 pg (26.0-34.0); MEAN CORPUSCULAR HGB CONC 34.4 G/dL (31.0-37.0); MEAN CORPUSCULAR VOLUME 91 fL (80-100); MONOCYTES # (AUTO) 0.6 K/uL (0.1-1.0); MONOCYTES % (AUTO) 11.7 % (2.0-9.0); NEUTROPHILS # (AUTO) 2.2 K/uL (1.8-7.7); NEUTROPHILS % (AUTO) 43.1 % (40.0-70.0); PLATELET COUNT (AUTO) 202 K/uL (150-450); RED BLOOD CELL COUNT(AUTO) 4.85 MIL/uL (4.50-5.90); RED CELL DISTRIBUTION WIDTH 14.2 % (11.5-14.5)
[2018-04-02 09:23] LABS: ALANINE AMINOTRANSFERASE 200 U/L (12-78); ALBUMIN 3.3 g/dL (3.4-5.0); ALKALINE PHOSPHATASE 92 U/L (46-116); ANION GAP 5 mmol/L (8-16); ASPARTATE AMINOTRANSFERASE 141 U/L (15-37); BILIRUBIN,TOTAL 0.8 mg/dL (0.1-1.0); CALCIUM, TOTAL 8.9 mg/dL (8.8-10.5); CARBON DIOXIDE 30 mmol/L (22-29); CHLORIDE 106 mmol/L (98-107); CHOL/HDL RATIO 3.6 (4.2-7.3); CHOLESTEROL 116 mg/dL (131-200); FREE T4 (FREE THYROXINE) 0.86 ng/dL (0.76-1.46); GLOMERULAR FILTR. RATE CALC > 60 mL/min (>60); GLUCOSE,RANDOM 80 mg/dL (70-110); HDL CHOLESTEROL 32 mg/dL (40-60); LDL CHOL (CALC.) 66 mg/dL (0-130); POTASSIUM 3.9 mmol/L (3.5-5.1); SODIUM SERUM 141 mmol/L (136-145); THYROID STIMULATING HORMONE 0.93 uIU/mL (0.36-3.74); TRIGLYCERIDES 89 mg/dL (15-150); UREA NITROGEN, BLOOD 14 mg/dL (7-18)
[2018-04-02] MEDS: LORazepam 2 MG TABLET PO PRN (17:19)
[2018-04-02] MEDS: OLANZapine 5 MG RAPDIS TABLET PO SCH (20:46)
[2018-04-02] MEDS: ZOLPIDEM TARTRATE 10 MG TABLET PO PRN (20:47)
[2018-04-03 06:19] VITALS: BP 129/83
[2018-04-03 06:20] VITALS: BP 129/83
[2018-04-03 08:00] VITALS: BP 137/86
[2018-04-03 08:07] VITALS: BP 137/86
[2018-04-03] MEDS: OMEPRAZOLE 20 MG CAPSULE PO SCH (08:22)
[2018-04-03] MEDS: DIAZEPAM 10 MG TABLET PO SCH ×4 (08:22→20:11)
[2018-04-03] MEDS: MULTIVITAMINS WITH MINERALS, THERAPEUTIC TABLET PO SCH (08:23)
[2018-04-03] MEDS: NALTREXONE HCL 50 MG TABLET PO SCH (08:23)
[2018-04-03] MEDS: THIAMINE HCL 100 MG TABLET PO SCH ×2 (08:23→16:38)
[2018-04-03] MEDS: DOCUSATE SODIUM 100 MG CAPSULE PO SCH (08:23)
[2018-04-03] MEDS: FOLIC ACID 1 MG TABLET PO SCH (08:23)
[2018-04-03 16:03] VITALS: BP 137/87
[2018-04-03 16:04] VITALS: BP 137/87
[2018-04-03] MEDS: LORazepam 2 MG TABLET PO PRN (16:38)
[2018-04-03] MEDS: OLANZapine 5 MG RAPDIS TABLET PO SCH (20:11)
[2018-04-04 06:40] VITALS: BP 128/80
[2018-04-04 06:41] VITALS: BP 128/80
[2018-04-04] MEDS ORDERED: DIAZEPAM 5 MG TABLET PO PRN (07:00)
[2018-04-04 08:00] VITALS: BP 132/84
[2018-04-04 08:06] VITALS: BP 132/84
[2018-04-04] MEDS: MULTIVITAMINS WITH MINERALS, THERAPEUTIC TABLET PO SCH (08:24)
[2018-04-04] MEDS: OMEPRAZOLE 20 MG CAPSULE PO SCH (08:24)
[2018-04-04] MEDS: THIAMINE HCL 100 MG TABLET PO SCH ×2 (08:24→16:55)
[2018-04-04] MEDS: FOLIC ACID 1 MG TABLET PO SCH (08:24)
[2018-04-04] MEDS: DOCUSATE SODIUM 100 MG CAPSULE PO SCH (08:24)
[2018-04-04] MEDS: NALTREXONE HCL 50 MG TABLET PO SCH (08:24)
[2018-04-04] MEDS: DIAZEPAM 5 MG TABLET PO SCH ×4 (08:24→20:32)
[2018-04-04 16:00] VITALS: BP 136/88
[2018-04-04 16:47] VITALS: BP 136/88
[2018-04-04] MEDS: OLANZapine 5 MG RAPDIS TABLET PO SCH (20:32)
[2018-04-05 06:25] VITALS: BP 137/85
[2018-04-05] MEDS ORDERED: DIAZEPAM 5 MG TABLET PO PRN (07:00)
[2018-04-05 08:08] VITALS: BP 101/60
[2018-04-05 08:15] VITALS: BP 101/60
[2018-04-05] MEDS: OMEPRAZOLE 20 MG CAPSULE PO SCH (08:45)
[2018-04-05] MEDS: THIAMINE HCL 100 MG TABLET PO SCH ×2 (08:45→16:29)
[2018-04-05] MEDS: MULTIVITAMINS WITH MINERALS, THERAPEUTIC TABLET PO SCH (08:45)
[2018-04-05] MEDS: NALTREXONE HCL 50 MG TABLET PO SCH (08:45)
[2018-04-05] MEDS: DOCUSATE SODIUM 100 MG CAPSULE PO SCH (08:45)
[2018-04-05] MEDS: FOLIC ACID 1 MG TABLET PO SCH (08:45)
[2018-04-05 16:00] VITALS: BP 132/81
[2018-04-05 17:14] VITALS: BP 134/81
[2018-04-05] MEDS: ZOLPIDEM TARTRATE 10 MG TABLET PO PRN (20:48)
[2018-04-05] MEDS ORDERED: OLANZapine 10 MG RAPDIS TABLET PO SCH (21:00)
[2018-04-06 06:55] VITALS: BP 125/85
[2018-04-06 06:56] VITALS: BP 125/85
[2018-04-06 08:00] VITALS: BP 129/80
[2018-04-06 08:06] VITALS: BP 129/80
[2018-04-06] MEDS: THIAMINE HCL 100 MG TABLET PO SCH ×2 (08:30→16:04)
[2018-04-06] MEDS: DOCUSATE SODIUM 100 MG CAPSULE PO SCH (08:31)
[2018-04-06] MEDS: NALTREXONE HCL 50 MG TABLET PO SCH (08:31)
[2018-04-06] MEDS: FOLIC ACID 1 MG TABLET PO SCH (08:31)
[2018-04-06] MEDS: OMEPRAZOLE 20 MG CAPSULE PO SCH (08:31)
[2018-04-06] MEDS: MULTIVITAMINS WITH MINERALS, THERAPEUTIC TABLET PO SCH (08:32)
[2018-04-06] MEDS ORDERED: BuPROPion HCL XL 150 MG ER TABLET PO SCH (09:00)
[2018-04-06 16:00] VITALS: BP 135/88
[2018-04-06] MEDS ORDERED: OLAN10TA22 PO (16:54)
[2018-04-06] MEDS ORDERED: NALT50TA PO (16:54)
[2018-04-06] MEDS ORDERED: BUPR-47 PO (16:54)
[2018-04-06] MEDS ORDERED: OMEP20 PO (17:15)
[2018-04-06] MEDS ORDERED: DSS100 PO (17:15)
== END 2018-04-06 17:55 | disposition home or self-care (01) | DRG 750 ==
LOC: B3A 13:44
PROVIDERS: ADMIT Psychiatry & Neurology Psychiatry; ATTEND Psychiatry & Neurology Psychiatry
DX: F20.0 Paranoid schizophrenia (principal); R45.850 Homicidal ideations; R45.851 Suicidal ideations; I10 Essential (primary) hypertension; F14.10 Cocaine abuse, uncomplicated; B18.2 Chronic viral hepatitis C; F15.10 Other stimulant abuse, uncomplicated; G47.00 Insomnia, unspecified; J44.9 Chronic obstructive pulmonary disease, unspecified; K21.9 Gastro-esophageal reflux disease without esophagitis; F12.90 Cannabis use, unspecified, uncomplicated; F17.210 Nicotine dependence, cigarettes, uncomplicated; Z65.3 Problems related to other legal circumstances; Z91.19 Patient's noncompliance with other medical treatment and regimen; Z59.0 Homelessness; Z88.8 Allergy status to other drugs, medicaments and biological substances; Z79.899 Other long term (current) drug therapy
CPT/HCPCS: 83036; 84439; 84443; 86592; 87081; J3420

== ENCOUNTER 2018-04-13 02:42 | Inpatient (IN) | payer MEDICAID, OTHER ==
[~2018-04-13] VITALS: Ht 175.3 cm; Wt 86.2 kg
[~2018-04-13 02:42] MED LIST changes: -AMLO-512 PO; +BUPR-47 PO; +DSS100 PO; -OLAN10TA20 PO; +OLAN10TA22 PO; +OMEP20 PO
[2018-04-13] MEDS ORDERED: AMLO-512 PO (02:54)
[2018-04-13 03:16] LABS: BASOPHILS % (AUTO) 0.7 % (0.0-2.0); EOSINOPHILS % (AUTO) 0.8 % (1.0-6.0); HEMATOCRIT 42.1 % (41-53); HEMOGLOBIN 14.8 g/dL (13.5-17.5); LYMPHOCYTES # (AUTO) 3.1 K/uL (1.0-4.8); LYMPHOCYTES % (AUTO) 38.2 % (22.0-44.0); MEAN CORPUSCULAR HEMOGLOBIN 31.2 pg (26.0-34.0); MEAN CORPUSCULAR HGB CONC 35.2 G/dL (31.0-37.0); MEAN CORPUSCULAR VOLUME 89 fL (80-100); MONOCYTES # (AUTO) 0.7 K/uL (0.1-1.0); MONOCYTES % (AUTO) 8.1 % (2.0-9.0); NEUTROPHILS # (AUTO) 4.3 K/uL (1.8-7.7); NEUTROPHILS % (AUTO) 52.2 % (40.0-70.0); PLATELET COUNT (AUTO) 330 K/uL (150-450); RED BLOOD CELL COUNT(AUTO) 4.76 MIL/uL (4.50-5.90); RED CELL DISTRIBUTION WIDTH 13.6 % (11.5-14.5)
[2018-04-13 03:22] LABS: ANION GAP 8 mmol/L (8-16); CALCIUM, TOTAL 9.2 mg/dL (8.8-10.5); CARBON DIOXIDE 29 mmol/L (22-29); CHLORIDE 102 mmol/L (98-107); CREATININE 1.07 mg/dL (0.60-1.30); GLOMERULAR FILTR. RATE CALC > 60 mL/min (>60); GLUCOSE,RANDOM 100 mg/dL (70-110); POTASSIUM 3.4 mmol/L (3.5-5.1); SODIUM SERUM 139 mmol/L (136-145); UREA NITROGEN, BLOOD 8 mg/dL (7-18)
[2018-04-13 03:28] LABS: ALANINE AMINOTRANSFERASE 183 U/L (12-78); ALBUMIN 4.2 g/dL (3.4-5.0); ALKALINE PHOSPHATASE 103 U/L (46-116); ASPARTATE AMINOTRANSFERASE 112 U/L (15-37); BILIRUBIN,TOTAL 0.6 mg/dL (0.1-1.0); TOTAL PROTEIN, SERUM 8.8 g/dL (6.4-8.2)
[2018-04-13] MEDS ORDERED: OLANZapine 5 MG TABLET PO ONE (04:30)
[2018-04-13] MEDS ORDERED: ZOLPIDEM TARTRATE 10 MG TABLET PO PRN (05:15)
[2018-04-13] MEDS ORDERED: OLANZapine 5 MG RAPDIS TABLET PO PRN (05:15)
[2018-04-13] MEDS: LORazepam 2 MG TABLET PO PRN ×2 (06:37→16:14)
[2018-04-13 10:30] VITALS: BP 146/97
[2018-04-13] MEDS ORDERED: MAGNESIUM HYDROXIDE SUSPENSION 30 ML UDCUP PO PRN (11:30)
[2018-04-13] MEDS ORDERED: PROMETHAZINE HCL 25 MG TABLET PO PRN (11:30)
[2018-04-13] MEDS ORDERED: LOPERAMIDE HCL 2 MG CAPSULE PO PRN (11:30)
[2018-04-13] MEDS ORDERED: ACETAMINOPHEN 325 MG TABLET PO PRN (11:30)
[2018-04-13] MEDS ORDERED: HydrOXYzine PAMOATE 50 MG CAPSULE PO PRN (11:30)
[2018-04-13] MEDS ORDERED: GuaiFENesin/D-METHORPHAN [SUGAR-FREE] 200-20MG/10 ML SYRUP UDCUP PO PRN (11:30)
[2018-04-13] MEDS ORDERED: MAG HYDROX/AL HYDROX/SIMETH ES 30 ML SUSPENSION UDCUP PO PRN (11:30)
[2018-04-13] MEDS: NICOTINE 14 MG/24 HOUR PATCH TD SCH (13:45)
[2018-04-13] MEDS ORDERED: POTASSIUM CHLORIDE 20 MEQ ER TABLET PO ONE (14:00)
[2018-04-13 16:05] VITALS: BP 150/97
[2018-04-13] MEDS: BACITRACIN 28.4 GM OINTMENT TP SCH (16:08)
[2018-04-13] MEDS: THIAMINE HCL 100 MG TABLET PO SCH (16:08)
[2018-04-13 18:27] VITALS: BP 130/85
[2018-04-13] MEDS: OLANZapine 5 MG RAPDIS TABLET PO SCH (20:11)
[2018-04-13] MEDS ORDERED: PETROLATUM,WHITE 71 GM JELLY TP PRN (20:45)
[2018-04-13] MEDS ORDERED: BENZOCAINE/MENTHOL LOZENGE MM PRN (20:45)
[2018-04-13] MEDS ORDERED: CloNIDine HCL 0.1 MG TABLET PO PRN (20:45)
[2018-04-13] MEDS ORDERED: IBUPROFEN 600 MG TABLET PO PRN (20:45)
[2018-04-13] MEDS ORDERED: ALBUTEROL SULFATE HFA 90 MCG/PUFF 8 GM INHALER IH PRN (20:45)
[2018-04-13] MEDS ORDERED: BACITRACIN 28.4 GM OINTMENT TP PRN (20:45)
[2018-04-13] MEDS ORDERED: ONDANSETRON HCL 4 MG TABLET PO PRN (20:45)
[2018-04-14 00:36] VITALS: BP 140/90
[2018-04-14] MEDS: NALTREXONE HCL 50 MG TABLET PO SCH (08:12)
[2018-04-14] MEDS: DOCUSATE SODIUM 100 MG CAPSULE PO SCH (08:12)
[2018-04-14] MEDS: OMEPRAZOLE 20 MG CAPSULE PO SCH (08:12)
[2018-04-14] MEDS: THIAMINE HCL 100 MG TABLET PO SCH ×2 (08:12→16:23)
[2018-04-14] MEDS: MULTIVITAMINS WITH MINERALS, THERAPEUTIC TABLET PO SCH (08:12)
[2018-04-14] MEDS: FOLIC ACID 1 MG TABLET PO SCH (08:12)
[2018-04-14] MEDS: NICOTINE 14 MG/24 HOUR PATCH TD SCH (08:12)
[2018-04-14] MEDS: BACITRACIN 28.4 GM OINTMENT TP SCH ×2 (08:13→16:24)
[2018-04-14 08:29] VITALS: BP 134/85
[2018-04-14] MEDS ORDERED: BUPR-47 PO (12:09)
[2018-04-14] MEDS ORDERED: OLAN5TAB30 PO (12:09)
[2018-04-14] MEDS ORDERED: NALT50TA PO (12:09)
[2018-04-14 16:10] VITALS: BP 139/96
[2018-04-14] MEDS: OLANZapine 5 MG RAPDIS TABLET PO SCH (21:00)
[2018-04-15 05:48] VITALS: BP 131/72
[2018-04-15] MEDS ORDERED: DSS100 PO (07:42)
[2018-04-15] MEDS: NICOTINE 14 MG/24 HOUR PATCH TD SCH (07:56)
[2018-04-15] MEDS: OMEPRAZOLE 20 MG CAPSULE PO SCH (07:57)
[2018-04-15] MEDS: DOCUSATE SODIUM 100 MG CAPSULE PO SCH (07:57)
[2018-04-15] MEDS: NALTREXONE HCL 50 MG TABLET PO SCH (07:57)
[2018-04-15] MEDS: FOLIC ACID 1 MG TABLET PO SCH (07:57)
[2018-04-15] MEDS: MULTIVITAMINS WITH MINERALS, THERAPEUTIC TABLET PO SCH (07:57)
[2018-04-15] MEDS: THIAMINE HCL 100 MG TABLET PO SCH (07:57)
[2018-04-15] MEDS: BACITRACIN 28.4 GM OINTMENT TP SCH (07:58)
[2018-04-15 08:18] VITALS: BP 121/90
[2018-04-15] MEDS ORDERED: BuPROPion HCL XL 150 MG ER TABLET PO SCH (09:00)
== END 2018-04-15 12:00 | disposition home or self-care (01) | DRG 750 ==
LOC: EMS 02:43 → B2S 06:00
PROVIDERS: ADMIT Psychiatry & Neurology Psychiatry; ATTEND Psychiatry & Neurology Psychiatry
DX: F20.0 Paranoid schizophrenia (principal); R45.851 Suicidal ideations; R45.850 Homicidal ideations; G47.00 Insomnia, unspecified; G89.29 Other chronic pain; G47.9 Sleep disorder, unspecified; I10 Essential (primary) hypertension; J44.9 Chronic obstructive pulmonary disease, unspecified; B18.2 Chronic viral hepatitis C; F15.10 Other stimulant abuse, uncomplicated; F14.10 Cocaine abuse, uncomplicated; F12.90 Cannabis use, unspecified, uncomplicated; K21.9 Gastro-esophageal reflux disease without esophagitis; Z59.0 Homelessness; Z91.19 Patient's noncompliance with other medical treatment and regimen; F17.210 Nicotine dependence, cigarettes, uncomplicated; Z88.8 Allergy status to other drugs, medicaments and biological substances; Z79.899 Other long term (current) drug therapy; Z68.28 Body mass index [BMI] 28.0-28.9, adult
CPT/HCPCS: 87081; 99285; G0480

== ENCOUNTER 2018-04-17 22:32 | Inpatient (IN) | payer MEDICAID ==
[~2018-04-17] VITALS: Ht 177.8 cm; Wt 86.0 kg
[~2018-04-17 22:32] MED LIST changes: -OLAN10TA22 PO; +OLAN5TAB30 PO
[2018-04-18] VITALS (11 sets, daily range): BP systolic 117–151; BP diastolic 78–102
[2018-04-18] MEDS ORDERED: OLANZapine 5 MG RAPDIS TABLET PO PRN (02:00)
[2018-04-18] MEDS: ZOLPIDEM TARTRATE 10 MG TABLET PO PRN (02:52)
[2018-04-18] MEDS ORDERED: PNEUMOCOCCAL VACCINE POLYVALENT 0.5 ML VIAL [PPSV23] IM ONE (03:45)
[2018-04-18] MEDS: LORazepam 2 MG TABLET PO PRN (05:10)
[2018-04-18] MEDS ORDERED: CloNIDine HCL 0.1 MG TABLET PO PRN ×2 (06:15→09:15)
[2018-04-18] MEDS ORDERED: ALBUTEROL SULFATE HFA 90 MCG/PUFF 8 GM INHALER IH PRN (06:15)
[2018-04-18] MEDS: DOCUSATE SODIUM 100 MG CAPSULE PO SCH (08:57)
[2018-04-18] MEDS: OMEPRAZOLE 20 MG CAPSULE PO SCH (08:57)
[2018-04-18] MEDS: NICOTINE 21 MG/24 HOUR PATCH TD SCH (08:58)
[2018-04-18] MEDS ORDERED: BuPROPion HCL XL 150 MG ER TABLET PO SCH (09:00)
[2018-04-18] MEDS ORDERED: LOPERAMIDE HCL 2 MG CAPSULE PO PRN (09:15)
[2018-04-18] MEDS ORDERED: IBUPROFEN 600 MG TABLET PO PRN (09:15)
[2018-04-18] MEDS ORDERED: MAGNESIUM HYDROXIDE SUSPENSION 30 ML UDCUP PO PRN (09:15)
[2018-04-18] MEDS ORDERED: MAG HYDROX/AL HYDROX/SIMETH ES 30 ML SUSPENSION UDCUP PO PRN (09:15)
[2018-04-18] MEDS ORDERED: ONDANSETRON HCL 4 MG TABLET PO PRN (09:15)
[2018-04-18] MEDS ORDERED: BENZOCAINE/MENTHOL LOZENGE MM PRN (09:15)
[2018-04-18] MEDS ORDERED: ACETAMINOPHEN 325 MG TABLET PO PRN (09:15)
[2018-04-18] MEDS ORDERED: BACITRACIN 28.4 GM OINTMENT TP PRN (09:15)
[2018-04-18] MEDS ORDERED: PETROLATUM,WHITE 71 GM JELLY TP PRN (09:15)
[2018-04-18] MEDS: OLANZapine 5 MG RAPDIS TABLET PO SCH (20:42)
[2018-04-19 01:19] VITALS: BP 121/73
[2018-04-19 05:15] VITALS: BP 128/75
[2018-04-19 06:25] VITALS: BP 128/70
[2018-04-19 08:36] LABS: BASOPHILS % (AUTO) 0.5 % (0.0-2.0); EOSINOPHILS % (AUTO) 5.3 % (1.0-6.0); HEMATOCRIT 42.2 % (41-53); HEMOGLOBIN 14.4 g/dL (13.5-17.5); LYMPHOCYTES # (AUTO) 2.4 K/uL (1.0-4.8); LYMPHOCYTES % (AUTO) 49.3 % (22.0-44.0); MEAN CORPUSCULAR HEMOGLOBIN 30.6 pg (26.0-34.0); MEAN CORPUSCULAR HGB CONC 34.1 G/dL (31.0-37.0); MEAN CORPUSCULAR VOLUME 90 fL (80-100); MONOCYTES # (AUTO) 0.6 K/uL (0.1-1.0); MONOCYTES % (AUTO) 12.5 % (2.0-9.0); NEUTROPHILS # (AUTO) 1.6 K/uL (1.8-7.7); NEUTROPHILS % (AUTO) 32.4 % (40.0-70.0); PLATELET COUNT (AUTO) 251 K/uL (150-450); RED CELL DISTRIBUTION WIDTH 13.7 % (11.5-14.5)
[2018-04-19 08:56] LABS: HEMOGLOBIN A1C 5.9 % (4.5-6.2)
[2018-04-19 08:58] VITALS: BP 134/81
[2018-04-19] MEDS: DOCUSATE SODIUM 100 MG CAPSULE PO SCH (09:09)
[2018-04-19] MEDS: OMEPRAZOLE 20 MG CAPSULE PO SCH (09:09)
[2018-04-19] MEDS: NICOTINE 21 MG/24 HOUR PATCH TD SCH (09:10)
[2018-04-19] MEDS: BuPROPion HCL XL 150 MG ER TABLET PO SCH (09:10)
[2018-04-19 09:35] LABS: ALANINE AMINOTRANSFERASE 128 U/L (12-78); ALBUMIN 3.4 g/dL (3.4-5.0); ALKALINE PHOSPHATASE 101 U/L (46-116); ANION GAP 6 mmol/L (8-16); ASPARTATE AMINOTRANSFERASE 98 U/L (15-37); BILIRUBIN,TOTAL 0.9 mg/dL (0.1-1.0); CALCIUM, TOTAL 8.8 mg/dL (8.8-10.5); CARBON DIOXIDE 30 mmol/L (22-29); CHLORIDE 107 mmol/L (98-107); CHOL/HDL RATIO 2.9 (4.2-7.3); CHOLESTEROL 106 mg/dL (131-200); CREATININE 0.97 mg/dL (0.60-1.30); FREE T4 (FREE THYROXINE) 0.83 ng/dL (0.76-1.46); GLOMERULAR FILTR. RATE CALC > 60 mL/min (>60); GLUCOSE,RANDOM 85 mg/dL (70-110); HDL CHOLESTEROL 36 mg/dL (40-60); LDL CHOL (CALC.) 53 mg/dL (0-130); POTASSIUM 4.5 mmol/L (3.5-5.1); SODIUM SERUM 143 mmol/L (136-145); THYROID STIMULATING HORMONE 0.68 uIU/mL (0.36-3.74); TOTAL PROTEIN, SERUM 7.6 g/dL (6.4-8.2); TRIGLYCERIDES 83 mg/dL (15-150); UREA NITROGEN, BLOOD 12 mg/dL (7-18)
[2018-04-19 16:00] VITALS: BP 130/72
[2018-04-19 16:10] VITALS: BP 130/72
[2018-04-19] MEDS: LORazepam 2 MG TABLET PO PRN (16:56)
[2018-04-19] MEDS: OLANZapine 5 MG RAPDIS TABLET PO SCH (20:07)
[2018-04-20] VITALS (7 sets, daily range): BP systolic 119–147; BP diastolic 81–84
[2018-04-20] MEDS: ZOLPIDEM TARTRATE 10 MG TABLET PO PRN (01:46)
[2018-04-20] MEDS: NICOTINE 21 MG/24 HOUR PATCH TD SCH (09:00)
[2018-04-20] MEDS: OMEPRAZOLE 20 MG CAPSULE PO SCH (09:03)
[2018-04-20] MEDS: BuPROPion HCL XL 150 MG ER TABLET PO SCH (09:03)
[2018-04-20] MEDS: DOCUSATE SODIUM 100 MG CAPSULE PO SCH (09:03)
[2018-04-20] MEDS: LORazepam 2 MG TABLET PO PRN (16:26)
[2018-04-20] MEDS: OLANZapine 5 MG RAPDIS TABLET PO SCH (21:08)
[2018-04-21 01:57] VITALS: BP 119/79
[2018-04-21 02:25] VITALS: BP 119/79
[2018-04-21] MEDS ORDERED: BUPR-93 PO (07:55)
[2018-04-21] MEDS ORDERED: OLAN5TAB40 PO (07:55)
[2018-04-21 08:27] VITALS: BP 122/78
[2018-04-21 08:28] VITALS: BP 122/78
[2018-04-21] MEDS: DOCUSATE SODIUM 100 MG CAPSULE PO SCH (09:00)
[2018-04-21] MEDS: NICOTINE 21 MG/24 HOUR PATCH TD SCH (09:00)
[2018-04-21] MEDS: OMEPRAZOLE 20 MG CAPSULE PO SCH (09:00)
[2018-04-21] MEDS: BuPROPion HCL XL 150 MG ER TABLET PO SCH (09:30)
== END 2018-04-21 13:45 | disposition home or self-care (01) | DRG 750 ==
LOC: B2S 04-18 02:06
PROVIDERS: ADMIT Psychiatry & Neurology Psychiatry; ATTEND Psychiatry & Neurology Psychiatry
DX: F25.0 Schizoaffective disorder, bipolar type (principal); R45.851 Suicidal ideations; R45.850 Homicidal ideations; Z91.14 Patient's other noncompliance with medication regimen; Z59.0 Homelessness; I10 Essential (primary) hypertension; F14.10 Cocaine abuse, uncomplicated; B18.2 Chronic viral hepatitis C; F12.90 Cannabis use, unspecified, uncomplicated; F15.10 Other stimulant abuse, uncomplicated; F41.9 Anxiety disorder, unspecified; F17.200 Nicotine dependence, unspecified, uncomplicated; G47.00 Insomnia, unspecified; J44.9 Chronic obstructive pulmonary disease, unspecified; K21.9 Gastro-esophageal reflux disease without esophagitis; Z28.21 Immunization not carried out because of patient refusal; Z88.8 Allergy status to other drugs, medicaments and biological substances; Z79.899 Other long term (current) drug therapy; Z71.6 Tobacco abuse counseling; Z71.51 Drug abuse counseling and surveillance of drug abuser
CPT/HCPCS: 83036; 84439; 84443; 87081

== ENCOUNTER 2018-06-18 16:58 | Inpatient (IN) | payer MEDICAID ==
[~2018-06-18] VITALS: Ht 172.7 cm; Wt 87.1 kg
[~2018-06-18 16:58] MED LIST changes: -DSS100 PO; +MULT-1239 PO; -NALT50TA PO; +NALT50TA6 PO; +OLAN10TA22 PO; -OLAN5TAB30 PO; -OMEP20 PO
[2018-06-18] MEDS ORDERED: OLANZapine 5 MG TABLET PO PRN (22:00)
[2018-06-18] MEDS ORDERED: ZOLPIDEM TARTRATE 10 MG TABLET PO PRN (22:00)
[2018-06-18] MEDS: LORazepam 2 MG TABLET PO PRN (22:54)
[2018-06-18] MEDS: OLANZapine 5 MG TABLET PO SCH (22:54)
[2018-06-19] MEDS ORDERED: CloNIDine HCL 0.1 MG TABLET PO ONE (00:15)
[2018-06-19 00:22] VITALS: BP 163/103
[2018-06-19 01:11] VITALS: BP 107/62
[2018-06-19 07:26] LABS: BASOPHILS % (AUTO) 0.6 % (0.0-2.0); EOSINOPHILS % (AUTO) 2.3 % (1.0-6.0); HEMATOCRIT 42.9 % (41-53); HEMOGLOBIN 14.7 g/dL (13.5-17.5); LYMPHOCYTES # (AUTO) 3.1 K/uL (1.0-4.8); LYMPHOCYTES % (AUTO) 45.6 % (22.0-44.0); MEAN CORPUSCULAR HEMOGLOBIN 30.3 pg (26.0-34.0); MEAN CORPUSCULAR HGB CONC 34.4 G/dL (31.0-37.0); MEAN CORPUSCULAR VOLUME 88 fL (80-100); MONOCYTES # (AUTO) 0.9 K/uL (0.1-1.0); MONOCYTES % (AUTO) 12.8 % (2.0-9.0); NEUTROPHILS # (AUTO) 2.6 K/uL (1.8-7.7); NEUTROPHILS % (AUTO) 38.7 % (40.0-70.0); PLATELET COUNT (AUTO) 237 K/uL (150-450); RED BLOOD CELL COUNT(AUTO) 4.86 MIL/uL (4.50-5.90); RED CELL DISTRIBUTION WIDTH 13.7 % (11.5-14.5)
[2018-06-19 07:44] LABS: HEMOGLOBIN A1C 5.7 % (4.5-6.2)
[2018-06-19 08:03] LABS: ALANINE AMINOTRANSFERASE 129 U/L (12-78); ALBUMIN 3.2 g/dL (3.4-5.0); ALKALINE PHOSPHATASE 92 U/L (46-116); ANION GAP 5 mmol/L (8-16); ASPARTATE AMINOTRANSFERASE 120 U/L (15-37); BILIRUBIN,TOTAL 0.8 mg/dL (0.1-1.0); CALCIUM, TOTAL 9.2 mg/dL (8.8-10.5); CARBON DIOXIDE 30 mmol/L (22-29); CHLORIDE 105 mmol/L (98-107); CHOLESTEROL 92 mg/dL (131-200); CREATININE 1.12 mg/dL (0.60-1.30); FREE T4 (FREE THYROXINE) 1.03 ng/dL (0.76-1.46); GLOMERULAR FILTR. RATE CALC > 60 mL/min (>60); GLUCOSE,RANDOM 95 mg/dL (70-110); HDL CHOLESTEROL 23 mg/dL (40-60); LDL CHOL (CALC.) 48 mg/dL (0-130); POTASSIUM 3.8 mmol/L (3.5-5.1); SODIUM SERUM 140 mmol/L (136-145); THYROID STIMULATING HORMONE 1.38 uIU/mL (0.36-3.74); TOTAL PROTEIN, SERUM 7.2 g/dL (6.4-8.2); TRIGLYCERIDES 105 mg/dL (15-150); UREA NITROGEN, BLOOD 8 mg/dL (7-18)
[2018-06-19 08:16] VITALS: BP 136/82
[2018-06-19] MEDS: BuPROPion HCL XL 150 MG ER TABLET PO SCH (08:58)
[2018-06-19] MEDS: NALTREXONE HCL 50 MG TABLET PO SCH (08:58)
[2018-06-19] MEDS: LORazepam 2 MG TABLET PO PRN ×2 (08:58→20:58)
[2018-06-19] MEDS ORDERED: BENZOCAINE/MENTHOL LOZENGE MM PRN (13:00)
[2018-06-19] MEDS ORDERED: MAGNESIUM HYDROXIDE SUSPENSION 30 ML UDCUP PO PRN (13:00)
[2018-06-19] MEDS ORDERED: ACETAMINOPHEN 325 MG TABLET PO PRN (13:00)
[2018-06-19] MEDS ORDERED: LOPERAMIDE HCL 2 MG CAPSULE PO PRN (13:00)
[2018-06-19] MEDS ORDERED: PETROLATUM,WHITE 71 GM JELLY TP PRN (13:00)
[2018-06-19] MEDS ORDERED: CloNIDine HCL 0.1 MG TABLET PO PRN (13:00)
[2018-06-19] MEDS ORDERED: MAG HYDROX/AL HYDROX/SIMETH ES 30 ML SUSPENSION UDCUP PO PRN (13:00)
[2018-06-19] MEDS ORDERED: BACITRACIN 28.4 GM OINTMENT TP PRN (13:00)
[2018-06-19] MEDS ORDERED: ONDANSETRON HCL 4 MG TABLET PO PRN (13:00)
[2018-06-19] MEDS ORDERED: ALBUTEROL SULFATE HFA 90 MCG/PUFF 8 GM INHALER IH PRN (13:00)
[2018-06-19 16:11] VITALS: BP 137/91
[2018-06-19] MEDS: OLANZapine 5 MG TABLET PO SCH (20:58)
[2018-06-20 04:57] VITALS: BP 135/95
[2018-06-20 08:09] VITALS: BP 139/89
[2018-06-20] MEDS: BuPROPion HCL XL 150 MG ER TABLET PO SCH (09:12)
[2018-06-20] MEDS: DOCUSATE SODIUM 100 MG CAPSULE PO SCH (09:12)
[2018-06-20] MEDS: NALTREXONE HCL 50 MG TABLET PO SCH (09:12)
[2018-06-20] MEDS: OMEPRAZOLE 20 MG CAPSULE PO SCH (09:12)
[2018-06-20] MEDS: LACTULOSE 20 GM/30 ML SOLUTION UDCUP PO SCH ×2 (12:47→17:04)
[2018-06-20 16:09] VITALS: BP 144/94
[2018-06-20] MEDS: LORazepam 2 MG TABLET PO PRN (17:04)
[2018-06-20] MEDS: OLANZapine 5 MG TABLET PO SCH (20:47)
[2018-06-21 00:20] VITALS: BP 125/92
[2018-06-21 08:15] VITALS: BP 128/89
[2018-06-21] MEDS: NALTREXONE HCL 50 MG TABLET PO SCH (08:56)
[2018-06-21] MEDS: BuPROPion HCL XL 150 MG ER TABLET PO SCH (08:56)
[2018-06-21] MEDS: OMEPRAZOLE 20 MG CAPSULE PO SCH (08:56)
[2018-06-21] MEDS: DOCUSATE SODIUM 100 MG CAPSULE PO SCH (08:56)
[2018-06-21] MEDS: LACTULOSE 20 GM/30 ML SOLUTION UDCUP PO SCH ×3 (08:57→16:49)
[2018-06-21 17:00] VITALS: BP_SYST 136; BP_SYST 144; BP_DIAS 95
[2018-06-21] MEDS: IBUPROFEN 600 MG TABLET PO PRN (19:31)
[2018-06-21] MEDS: LORazepam 2 MG TABLET PO PRN (19:31)
[2018-06-21] MEDS: OLANZapine 7.5 MG TABLET PO SCH (20:31)
[2018-06-22 00:08] VITALS: BP 140/89
[2018-06-22 08:13] VITALS: BP 139/89
[2018-06-22] MEDS: BuPROPion HCL XL 150 MG ER TABLET PO SCH (08:44)
[2018-06-22] MEDS: NALTREXONE HCL 50 MG TABLET PO SCH (08:44)
[2018-06-22] MEDS: DOCUSATE SODIUM 100 MG CAPSULE PO SCH (08:44)
[2018-06-22] MEDS: OMEPRAZOLE 20 MG CAPSULE PO SCH (08:44)
[2018-06-22] MEDS: LACTULOSE 20 GM/30 ML SOLUTION UDCUP PO SCH ×3 (08:46→17:00)
[2018-06-22 08:47] LABS: AMPHET/METH SCREEN,URINE POSITIVE (NEGATIVE); BARBITURATE SCREEN, URINE NEGATIVE (NEGATIVE); BENZODIAZEPINES SCREEN,URINE NEGATIVE (NEGATIVE); CANNABINOID SCREEN,URINE NEGATIVE (NEGATIVE); COCAINE SCREEN,URINE NEGATIVE (NEGATIVE); METHADONE SCREEN, URINE NEGATIVE (NEGATIVE); OPIATE SCREEN,URINE NEGATIVE (NEGATIVE)
[2018-06-22 08:54] LABS: PHENCYCLIDINE SCREEN,URINE NEGATIVE (NEGATIVE)
[2018-06-22 09:25] LABS: APPEARANCE,URINE CLEAR (CLEAR); BILIRUBIN,URINE NEGATIVE (NEGATIVE); GLUCOSE, URINE (UA) NEGATIVE (NEGATIVE); KETONES,URINE TRACE mg/dL (NEGATIVE); LEUKOCYTE ESTERASE ,URINE NEGATIVE (NEGATIVE); NITRATE,URINE NEGATIVE (NEGATIVE); OCCULT BLOOD,URINE NEGATIVE (NEGATIVE); PROTEIN,URINE NEGATIVE (NEGATIVE)
[2018-06-22 16:28] VITALS: BP 132/90
[2018-06-22] MEDS: LORazepam 2 MG TABLET PO PRN (20:42)
[2018-06-22] MEDS: IBUPROFEN 600 MG TABLET PO PRN (20:42)
[2018-06-22] MEDS: OLANZapine 7.5 MG TABLET PO SCH (20:43)
[2018-06-23] MEDS ORDERED: BuPROPion HCL XL 150 MG ER TABLET PO SCH (09:00)
[2018-06-23] MEDS: LACTULOSE 20 GM/30 ML SOLUTION UDCUP PO SCH ×3 (09:00→17:00)
[2018-06-23 09:01] VITALS: BP 135/75
[2018-06-23] MEDS: LORazepam 2 MG TABLET PO PRN ×2 (09:32→20:44)
[2018-06-23] MEDS: OMEPRAZOLE 20 MG CAPSULE PO SCH (09:32)
[2018-06-23] MEDS: DOCUSATE SODIUM 100 MG CAPSULE PO SCH (09:32)
[2018-06-23] MEDS: NALTREXONE HCL 50 MG TABLET PO SCH (09:32)
[2018-06-23] MEDS ORDERED: NALT50TA PO (16:09)
[2018-06-23] MEDS ORDERED: BUPR-47 PO (16:09)
[2018-06-23] MEDS ORDERED: OLAN7.5T9 PO (16:09)
[2018-06-23 17:07] VITALS: BP 112/78
[2018-06-23] MEDS: OLANZapine 7.5 MG TABLET PO SCH (20:44)
[2018-06-24 05:17] VITALS: BP 127/72
[2018-06-24 08:00] VITALS: BP 138/88
[2018-06-24] MEDS ORDERED: DSS100 PO (08:05)
[2018-06-24] MEDS ORDERED: LACT30L PO (08:06)
[2018-06-24] MEDS ORDERED: OMEP20 PO (08:06)
[2018-06-24] MEDS ORDERED: OLAN7.5T2 PO (08:09)
[2018-06-24] MEDS ORDERED: BUPR-93 PO (08:09)
[2018-06-24] MEDS: OMEPRAZOLE 20 MG CAPSULE PO SCH (08:54)
[2018-06-24] MEDS: LACTULOSE 20 GM/30 ML SOLUTION UDCUP PO SCH (08:54)
[2018-06-24] MEDS: DOCUSATE SODIUM 100 MG CAPSULE PO SCH (08:54)
[2018-06-24] MEDS: NALTREXONE HCL 50 MG TABLET PO SCH (08:54)
[2018-06-24] MEDS ORDERED: BuPROPion HCL XL 150 MG ER TABLET PO SCH (09:00)
== END 2018-06-24 11:36 | disposition home or self-care (01) | DRG 750 ==
LOC: B3A 21:30
PROVIDERS: ADMIT Psychiatry & Neurology Psychiatry; ATTEND Psychiatry & Neurology Psychiatry
DX: F20.0 Paranoid schizophrenia (principal); R45.850 Homicidal ideations; R45.851 Suicidal ideations; I10 Essential (primary) hypertension; F15.10 Other stimulant abuse, uncomplicated; B18.2 Chronic viral hepatitis C; F17.200 Nicotine dependence, unspecified, uncomplicated; F39 Unspecified mood [affective] disorder; G47.00 Insomnia, unspecified; J44.9 Chronic obstructive pulmonary disease, unspecified; R74.0 Nonspecific elevation of levels of transaminase and lactic acid dehydrogenase [LDH]; F41.9 Anxiety disorder, unspecified; K21.9 Gastro-esophageal reflux disease without esophagitis; Z59.0 Homelessness; Z91.14 Patient's other noncompliance with medication regimen; Z91.19 Patient's noncompliance with other medical treatment and regimen
CPT/HCPCS: 80307; 83036; 84439; 84443; 87081

== ENCOUNTER 2018-06-25 20:24 | Inpatient (IN) | payer MEDICAID ==
[~2018-06-25] VITALS: Ht 175.3 cm; Wt 84.4 kg
[~2018-06-25 20:24] MED LIST changes: +DSS100 PO; +LACT30L PO; -MULT-1239 PO; +NALT50TA PO; -OLAN10TA22 PO; +OLAN7.5T2 PO; +OLAN7.5T9 PO; +OMEP20 PO
[2018-06-25] MEDS ORDERED: ChlorproMAZINE HCL 100 MG TABLET PO PRN (20:45)
[2018-06-25 21:30] VITALS: BP_SYST 149; BP_DIAS 102; BP_DIAS 104
[2018-06-25] MEDS: OLANZapine 10 MG TABLET PO SCH (21:46)
[2018-06-25] MEDS: LORazepam 1 MG TABLET PO PRN (21:46)
[2018-06-25 22:30] VITALS: BP 106/74
[2018-06-25 23:30] VITALS: BP 110/77
[2018-06-26] VITALS (9 sets, daily range): BP systolic 119–141; BP diastolic 69–87
[2018-06-26] MEDS ORDERED: IBUPROFEN 600 MG TABLET PO PRN (08:00)
[2018-06-26] MEDS ORDERED: BENZOCAINE/MENTHOL LOZENGE MM PRN (08:00)
[2018-06-26] MEDS ORDERED: MAGNESIUM HYDROXIDE SUSPENSION 30 ML UDCUP PO PRN (08:00)
[2018-06-26] MEDS ORDERED: PETROLATUM,WHITE 71 GM JELLY TP PRN (08:00)
[2018-06-26] MEDS ORDERED: BACITRACIN 28.4 GM OINTMENT TP PRN (08:00)
[2018-06-26] MEDS ORDERED: LOPERAMIDE HCL 2 MG CAPSULE PO PRN (08:00)
[2018-06-26] MEDS ORDERED: ONDANSETRON HCL 4 MG TABLET PO PRN (08:00)
[2018-06-26] MEDS ORDERED: MAG HYDROX/AL HYDROX/SIMETH ES 30 ML SUSPENSION UDCUP PO PRN (08:00)
[2018-06-26] MEDS ORDERED: ALBUTEROL SULFATE HFA 90 MCG/PUFF 8 GM INHALER IH PRN (08:00)
[2018-06-26] MEDS ORDERED: CloNIDine HCL 0.1 MG TABLET PO PRN (08:00)
[2018-06-26 08:43] LABS: BASOPHILS % (AUTO) 0.6 % (0.0-2.0); HEMATOCRIT 46.4 % (41-53); HEMOGLOBIN 15.7 g/dL (13.5-17.5); LYMPHOCYTES # (AUTO) 1.9 K/uL (1.0-4.8); LYMPHOCYTES % (AUTO) 38.6 % (22.0-44.0); MEAN CORPUSCULAR HEMOGLOBIN 30.7 pg (26.0-34.0); MEAN CORPUSCULAR HGB CONC 33.8 G/dL (31.0-37.0); MEAN CORPUSCULAR VOLUME 91 fL (80-100); MONOCYTES # (AUTO) 0.7 K/uL (0.1-1.0); MONOCYTES % (AUTO) 15.2 % (2.0-9.0); NEUTROPHILS % (AUTO) 40.6 % (40.0-70.0); PLATELET COUNT (AUTO) 235 K/uL (150-450); RED BLOOD CELL COUNT(AUTO) 5.13 MIL/uL (4.50-5.90); RED CELL DISTRIBUTION WIDTH 13.9 % (11.5-14.5)
[2018-06-26] MEDS ORDERED: OLANZapine 2.5 MG TABLET PO PRN (08:45)
[2018-06-26] MEDS ORDERED: OLANZapine 5 MG TABLET PO PRN (09:00)
[2018-06-26] MEDS ORDERED: LACTULOSE 20 GM/30 ML SOLUTION UDCUP PO SCH (09:00)
[2018-06-26 09:12] LABS: HEMOGLOBIN A1C 5.6 % (4.5-6.2)
[2018-06-26] MEDS: DOCUSATE SODIUM 100 MG CAPSULE PO SCH (09:17)
[2018-06-26] MEDS: OMEPRAZOLE 20 MG CAPSULE PO SCH (09:17)
[2018-06-26] MEDS: NALTREXONE HCL 50 MG TABLET PO SCH (09:17)
[2018-06-26] MEDS: BuPROPion HCL XL 150 MG ER TABLET PO SCH (09:17)
[2018-06-26] MEDS: LACTULOSE 20 GM/30 ML SOLUTION UDCUP PO SCH ×2 (09:18→16:39)
[2018-06-26 12:46] LABS: ALANINE AMINOTRANSFERASE 229 U/L (12-78); ALBUMIN 3.4 g/dL (3.4-5.0); ALKALINE PHOSPHATASE 95 U/L (46-116); ANION GAP 15 mmol/L (8-16); ASPARTATE AMINOTRANSFERASE 227 U/L (15-37); BILIRUBIN,TOTAL 0.9 mg/dL (0.1-1.0); CALCIUM, TOTAL 9.1 mg/dL (8.8-10.5); CARBON DIOXIDE 22 mmol/L (22-29); CHLORIDE 107 mmol/L (98-107); CHOL/HDL RATIO 3.6 (4.2-7.3); CHOLESTEROL 112 mg/dL (131-200); CREATININE 0.96 mg/dL (0.60-1.30); FREE T4 (FREE THYROXINE) 1.05 ng/dL (0.76-1.46); GLOMERULAR FILTR. RATE CALC > 60 mL/min (>60); GLUCOSE,RANDOM 72 mg/dL (70-110); HDL CHOLESTEROL 31 mg/dL (40-60); LDL CHOL (CALC.) 68 mg/dL (0-130); POTASSIUM 3.9 mmol/L (3.5-5.1); SODIUM SERUM 144 mmol/L (136-145); THYROID STIMULATING HORMONE 1.93 uIU/mL (0.36-3.74); TOTAL PROTEIN, SERUM 7.9 g/dL (6.4-8.2); TRIGLYCERIDES 63 mg/dL (15-150); UREA NITROGEN, BLOOD 10 mg/dL (7-18)
[2018-06-26] MEDS: LORazepam 1 MG TABLET PO PRN (16:39)
[2018-06-26] MEDS: OLANZapine 10 MG TABLET PO SCH (20:13)
[2018-06-26] MEDS: ZOLPIDEM TARTRATE 10 MG TABLET PO PRN (20:13)
[2018-06-27 06:24] VITALS: BP 135/90
[2018-06-27 06:29] VITALS: BP 135/90
[2018-06-27 08:29] VITALS: BP 139/85
[2018-06-27] MEDS: LACTULOSE 20 GM/30 ML SOLUTION UDCUP PO SCH ×2 (09:00→16:55)
[2018-06-27] MEDS: BuPROPion HCL XL 150 MG ER TABLET PO SCH (09:12)
[2018-06-27] MEDS: DOCUSATE SODIUM 100 MG CAPSULE PO SCH (09:12)
[2018-06-27] MEDS: NALTREXONE HCL 50 MG TABLET PO SCH (09:12)
[2018-06-27] MEDS: OMEPRAZOLE 20 MG CAPSULE PO SCH (09:12)
[2018-06-27 16:08] VITALS: BP 138/84
[2018-06-27] MEDS: LORazepam 1 MG TABLET PO PRN ×2 (16:56→20:58)
[2018-06-27] MEDS: DIVALPROEX SODIUM 500 MG ER TABLET PO SCH (20:35)
[2018-06-27] MEDS: OLANZapine 10 MG TABLET PO SCH (20:36)
[2018-06-27] MEDS: ZOLPIDEM TARTRATE 10 MG TABLET PO PRN (20:58)
[2018-06-28 06:39] VITALS: BP 140/88
[2018-06-28 08:08] VITALS: BP 126/96
[2018-06-28 08:30] VITALS: BP 130/94
[2018-06-28] MEDS: NALTREXONE HCL 50 MG TABLET PO SCH (08:56)
[2018-06-28] MEDS: OMEPRAZOLE 20 MG CAPSULE PO SCH (08:56)
[2018-06-28] MEDS: DOCUSATE SODIUM 100 MG CAPSULE PO SCH (08:57)
[2018-06-28] MEDS: LACTULOSE 20 GM/30 ML SOLUTION UDCUP PO SCH ×2 (08:57→16:37)
[2018-06-28 16:00] VITALS: BP 136/77
[2018-06-28] MEDS ORDERED: NALT50TA PO (16:29)
[2018-06-28] MEDS ORDERED: BUPR-47 PO (16:29)
[2018-06-28] MEDS ORDERED: DIVA500T52 PO (16:29)
[2018-06-28] MEDS ORDERED: OLAN10TA20 PO (16:29)
[2018-06-28] MEDS: ZOLPIDEM TARTRATE 10 MG TABLET PO PRN (20:28)
[2018-06-28] MEDS: OLANZapine 10 MG TABLET PO SCH (20:28)
[2018-06-28] MEDS: DIVALPROEX SODIUM 500 MG ER TABLET PO SCH (20:28)
[2018-06-28] MEDS: LORazepam 1 MG TABLET PO PRN (20:28)
[2018-06-29 07:29] VITALS: BP 123/76
[2018-06-29 08:09] VITALS: BP 117/68
[2018-06-29] MEDS: DOCUSATE SODIUM 100 MG CAPSULE PO SCH (08:55)
[2018-06-29] MEDS: NALTREXONE HCL 50 MG TABLET PO SCH (08:55)
[2018-06-29] MEDS: OMEPRAZOLE 20 MG CAPSULE PO SCH (08:55)
[2018-06-29] MEDS: LACTULOSE 20 GM/30 ML SOLUTION UDCUP PO SCH (08:55)
[2018-06-29] MEDS ORDERED: BuPROPion HCL XL 150 MG ER TABLET PO SCH (09:00)
[2018-06-29] MEDS ORDERED: DIVA500T52 PO (10:13)
[2018-06-29] MEDS ORDERED: BUPR-93 PO (10:13)
[2018-06-29] MEDS ORDERED: OLAN10TA3 PO (10:13)
== END 2018-06-29 12:30 | disposition home or self-care (01) | DRG 750 ==
LOC: B3A 20:44
PROVIDERS: ADMIT Psychiatry & Neurology Psychiatry; ATTEND Psychiatry & Neurology Psychiatry
DX: F25.0 Schizoaffective disorder, bipolar type (principal); R45.851 Suicidal ideations; K72.90 Hepatic failure, unspecified without coma; Z59.0 Homelessness; F15.10 Other stimulant abuse, uncomplicated; F17.200 Nicotine dependence, unspecified, uncomplicated; J44.9 Chronic obstructive pulmonary disease, unspecified; B19.20 Unspecified viral hepatitis C without hepatic coma; I10 Essential (primary) hypertension; K21.9 Gastro-esophageal reflux disease without esophagitis; G47.00 Insomnia, unspecified; F10.20 Alcohol dependence, uncomplicated
CPT/HCPCS: 83036; 84439; 84443; 87081; G0480

== ENCOUNTER 2018-07-23 23:12 | Inpatient (IN) | payer MEDICAID ==
[~2018-07-23] VITALS: Ht 172.7 cm; Wt 86.9 kg
[~2018-07-23 23:12] MED LIST changes: +AMLO-512 PO; -BUPR-47 PO; +BUPR100SR PO; +DIVA500T52 PO; -LACT30L PO; -NALT50TA6 PO; +OLAN5TAB30 PO; +OLAN5TAB40 PO; -OLAN7.5T2 PO; -OLAN7.5T9 PO
[2018-07-24 02:26] VITALS: BP 154/117
[2018-07-24] MEDS ORDERED: LORazepam 2 MG TABLET PO PRN (02:45)
[2018-07-24 06:33] VITALS: BP 145/70
[2018-07-24 08:39] VITALS: BP 146/94
[2018-07-24] MEDS: FOLIC ACID 1 MG TABLET PO SCH (09:29)
[2018-07-24] MEDS: OMEPRAZOLE 20 MG CAPSULE PO SCH (09:29)
[2018-07-24] MEDS: NALTREXONE HCL 50 MG TABLET PO SCH (09:57)
[2018-07-24] MEDS: THIAMINE HCL 100 MG TABLET PO SCH (09:57)
[2018-07-24] MEDS: BuPROPion HCL 100 MG SR TABLET PO SCH ×2 (09:58→16:22)
[2018-07-24] MEDS: NICOTINE 21 MG/24 HOUR PATCH TD SCH (09:58)
[2018-07-24] MEDS: AmLODIPine BESYLATE 10 MG TABLET PO SCH (09:58)
[2018-07-24] MEDS: DOCUSATE SODIUM 100 MG CAPSULE PO SCH (09:58)
[2018-07-24] MEDS: MULTIVITAMINS WITH MINERALS, THERAPEUTIC TABLET PO SCH (09:59)
[2018-07-24 16:08] VITALS: BP 135/85
[2018-07-24] MEDS: OLANZapine 7.5 MG TABLET PO SCH (20:14)
[2018-07-24] MEDS ORDERED: PALIPERIDONE 3 MG ER TABLET PO SCH (21:00)
[2018-07-25 05:17] VITALS: BP 132/88
[2018-07-25] MEDS ORDERED: BENZOCAINE/MENTHOL LOZENGE MM PRN (08:30)
[2018-07-25] MEDS ORDERED: LOPERAMIDE HCL 2 MG CAPSULE PO PRN (08:30)
[2018-07-25] MEDS ORDERED: PETROLATUM,WHITE 71 GM JELLY TP PRN (08:30)
[2018-07-25] MEDS ORDERED: ONDANSETRON HCL 4 MG TABLET PO PRN (08:30)
[2018-07-25] MEDS ORDERED: MAG HYDROX/AL HYDROX/SIMETH ES 30 ML SUSPENSION UDCUP PO PRN (08:30)
[2018-07-25] MEDS ORDERED: ALBUTEROL SULFATE HFA 90 MCG/PUFF 8 GM INHALER IH PRN (08:30)
[2018-07-25] MEDS ORDERED: CloNIDine HCL 0.1 MG TABLET PO PRN (08:30)
[2018-07-25] MEDS ORDERED: MAGNESIUM HYDROXIDE SUSPENSION 30 ML UDCUP PO PRN (08:30)
[2018-07-25] MEDS ORDERED: ACETAMINOPHEN 325 MG TABLET PO PRN (08:30)
[2018-07-25] MEDS ORDERED: BACITRACIN 28.4 GM OINTMENT TP PRN (08:30)
[2018-07-25] MEDS: NICOTINE 21 MG/24 HOUR PATCH TD SCH (09:00)
[2018-07-25] MEDS: MULTIVITAMINS WITH MINERALS, THERAPEUTIC TABLET PO SCH (09:30)
[2018-07-25] MEDS: DOCUSATE SODIUM 100 MG CAPSULE PO SCH (09:30)
[2018-07-25] MEDS: NALTREXONE HCL 50 MG TABLET PO SCH (09:30)
[2018-07-25] MEDS: AmLODIPine BESYLATE 10 MG TABLET PO SCH (09:30)
[2018-07-25] MEDS: OMEPRAZOLE 20 MG CAPSULE PO SCH (09:30)
[2018-07-25] MEDS: BuPROPion HCL 100 MG SR TABLET PO SCH (09:30)
[2018-07-25] MEDS: FOLIC ACID 1 MG TABLET PO SCH (09:30)
[2018-07-25] MEDS: THIAMINE HCL 100 MG TABLET PO SCH (09:31)
[2018-07-25 09:59] VITALS: BP 132/89
[2018-07-25 15:30] VITALS: BP 130/82
[2018-07-25] MEDS ORDERED: DIAZEPAM 10 MG TABLET PO PRN (15:30)
[2018-07-25 16:48] VITALS: BP 130/84
[2018-07-25 20:00] VITALS: BP 125/79
[2018-07-25] MEDS: IBUPROFEN 600 MG TABLET PO PRN (20:05)
[2018-07-25] MEDS: OLANZapine 7.5 MG TABLET PO SCH (21:00)
[2018-07-26 03:00] VITALS: BP 116/78
[2018-07-26 05:25] VITALS: BP 110/70
[2018-07-26 07:00] VITALS: BP 110/70
[2018-07-26] MEDS ORDERED: DIAZEPAM 10 MG TABLET PO PRN (07:00)
[2018-07-26] MEDS: FOLIC ACID 1 MG TABLET PO SCH (08:20)
[2018-07-26] MEDS: DIAZEPAM 10 MG TABLET PO SCH ×5 (08:20→21:00)
[2018-07-26] MEDS: OMEPRAZOLE 20 MG CAPSULE PO SCH (08:20)
[2018-07-26] MEDS: AmLODIPine BESYLATE 10 MG TABLET PO SCH (08:20)
[2018-07-26] MEDS: DOCUSATE SODIUM 100 MG CAPSULE PO SCH (08:20)
[2018-07-26] MEDS: NALTREXONE HCL 50 MG TABLET PO SCH (08:20)
[2018-07-26] MEDS: NICOTINE 21 MG/24 HOUR PATCH TD SCH ×2 (08:21→09:00)
[2018-07-26] MEDS: MULTIVITAMINS WITH MINERALS, THERAPEUTIC TABLET PO SCH (08:21)
[2018-07-26] MEDS: THIAMINE HCL 100 MG TABLET PO SCH (08:21)
[2018-07-26 08:43] VITALS: BP 122/81
[2018-07-26] MEDS ORDERED: BuPROPion HCL 75 MG TABLET PO ONE (14:15)
[2018-07-26 15:30] VITALS: BP 132/90
[2018-07-26 16:23] VITALS: BP 132/90
[2018-07-26] MEDS: OLANZapine 10 MG TABLET PO SCH (20:37)
[2018-07-27] MEDS: LACTULOSE 20 GM/30 ML SOLUTION UDCUP PO SCH ×3 (00:12→16:00)
[2018-07-27 07:09] VITALS: BP 128/88
[2018-07-27 07:13] VITALS: BP 128/88
[2018-07-27 08:39] LABS: BASOPHILS % (AUTO) 0.7 % (0.0-2.0); EOSINOPHILS % (AUTO) 5.1 % (1.0-6.0); HEMATOCRIT 43.8 % (41-53); LYMPHOCYTES # (AUTO) 2.2 K/uL (1.0-4.8); LYMPHOCYTES % (AUTO) 35.9 % (22.0-44.0); MEAN CORPUSCULAR HEMOGLOBIN 31.1 pg (26.0-34.0); MEAN CORPUSCULAR HGB CONC 34.2 G/dL (31.0-37.0); MEAN CORPUSCULAR VOLUME 91 fL (80-100); MONOCYTES # (AUTO) 0.7 K/uL (0.1-1.0); NEUTROPHILS # (AUTO) 2.9 K/uL (1.8-7.7); NEUTROPHILS % (AUTO) 47.3 % (40.0-70.0); PLATELET COUNT (AUTO) 204 K/uL (150-450); RED BLOOD CELL COUNT(AUTO) 4.82 MIL/uL (4.50-5.90); RED CELL DISTRIBUTION WIDTH 13.7 % (11.5-14.5)
[2018-07-27 08:49] VITALS: BP 118/79
[2018-07-27 08:56] LABS: ALANINE AMINOTRANSFERASE 177 U/L (12-78); ALBUMIN 3.2 g/dL (3.4-5.0); ALKALINE PHOSPHATASE 110 U/L (46-116); ANION GAP 6 mmol/L (8-16); ASPARTATE AMINOTRANSFERASE 171 U/L (15-37); BILIRUBIN,TOTAL 0.5 mg/dL (0.1-1.0); CALCIUM, TOTAL 9.2 mg/dL (8.8-10.5); CARBON DIOXIDE 28 mmol/L (22-29); CHLORIDE 107 mmol/L (98-107); CREATININE 1.02 mg/dL (0.60-1.30); GLOMERULAR FILTR. RATE CALC > 60 mL/min (>60); GLUCOSE,RANDOM 91 mg/dL (70-110); POTASSIUM 4.2 mmol/L (3.5-5.1); SODIUM SERUM 141 mmol/L (136-145); TOTAL PROTEIN, SERUM 8.1 g/dL (6.4-8.2); UREA NITROGEN, BLOOD 17 mg/dL (7-18)
[2018-07-27] MEDS: DIAZEPAM 10 MG TABLET PO SCH ×4 (09:00→20:21)
[2018-07-27] MEDS: NICOTINE 21 MG/24 HOUR PATCH TD SCH (09:00)
[2018-07-27] MEDS: DOCUSATE SODIUM 100 MG CAPSULE PO SCH (09:00)
[2018-07-27] MEDS: AmLODIPine BESYLATE 10 MG TABLET PO SCH (10:51)
[2018-07-27] MEDS: FOLIC ACID 1 MG TABLET PO SCH (10:51)
[2018-07-27] MEDS: OMEPRAZOLE 20 MG CAPSULE PO SCH (10:51)
[2018-07-27] MEDS: MULTIVITAMINS WITH MINERALS, THERAPEUTIC TABLET PO SCH (10:52)
[2018-07-27] MEDS: NALTREXONE HCL 50 MG TABLET PO SCH (10:52)
[2018-07-27] MEDS: BuPROPion HCL 75 MG TABLET PO SCH (10:53)
[2018-07-27] MEDS: IBUPROFEN 600 MG TABLET PO PRN (10:54)
[2018-07-27] MEDS: THIAMINE HCL 100 MG TABLET PO SCH (10:55)
[2018-07-27 16:30] VITALS: BP 143/92
[2018-07-27 16:45] VITALS: BP 143/92
[2018-07-27] MEDS: OLANZapine 10 MG TABLET PO SCH (20:19)
[2018-07-28 06:15] VITALS: BP 102/63
[2018-07-28 06:17] VITALS: BP 102/63
[2018-07-28] MEDS ORDERED: DIAZEPAM 5 MG TABLET PO PRN (07:00)
[2018-07-28] MEDS: LACTULOSE 20 GM/30 ML SOLUTION UDCUP PO SCH ×3 (08:00→16:30)
[2018-07-28 08:01] VITALS: BP 108/64
[2018-07-28 08:09] VITALS: BP 108/62
[2018-07-28] MEDS: THIAMINE HCL 100 MG TABLET PO SCH (09:00)
[2018-07-28] MEDS: NICOTINE 21 MG/24 HOUR PATCH TD SCH (09:00)
[2018-07-28] MEDS: DOCUSATE SODIUM 100 MG CAPSULE PO SCH (09:00)
[2018-07-28] MEDS: DIAZEPAM 5 MG TABLET PO SCH ×4 (09:00→21:18)
[2018-07-28] MEDS: FOLIC ACID 1 MG TABLET PO SCH (11:04)
[2018-07-28] MEDS: AmLODIPine BESYLATE 10 MG TABLET PO SCH (11:04)
[2018-07-28] MEDS: MULTIVITAMINS WITH MINERALS, THERAPEUTIC TABLET PO SCH (11:04)
[2018-07-28] MEDS: OMEPRAZOLE 20 MG CAPSULE PO SCH (11:04)
[2018-07-28] MEDS: NALTREXONE HCL 50 MG TABLET PO SCH (11:05)
[2018-07-28] MEDS: BuPROPion HCL 75 MG TABLET PO SCH ×2 (11:05→16:32)
[2018-07-28] MEDS ORDERED: BuPROPion HCL 75 MG TABLET PO ONE (15:30)
[2018-07-28 16:00] VITALS: BP 125/82
[2018-07-28 16:10] VITALS: BP 125/82
[2018-07-28] MEDS: ZOLPIDEM TARTRATE 10 MG TABLET PO PRN (21:18)
[2018-07-28] MEDS: OLANZapine 10 MG TABLET PO SCH (21:18)
[2018-07-29 06:49] VITALS: BP 125/80
[2018-07-29] MEDS ORDERED: DIAZEPAM 5 MG TABLET PO PRN (07:00)
[2018-07-29] MEDS: LACTULOSE 20 GM/30 ML SOLUTION UDCUP PO SCH ×3 (08:00→16:00)
[2018-07-29 08:13] VITALS: BP 122/76
[2018-07-29] MEDS: DOCUSATE SODIUM 100 MG CAPSULE PO SCH (09:00)
[2018-07-29] MEDS: NICOTINE 21 MG/24 HOUR PATCH TD SCH (09:00)
[2018-07-29 09:09] VITALS: BP 122/74
[2018-07-29] MEDS: NALTREXONE HCL 50 MG TABLET PO SCH (09:18)
[2018-07-29] MEDS: THIAMINE HCL 100 MG TABLET PO SCH (09:19)
[2018-07-29] MEDS: MULTIVITAMINS WITH MINERALS, THERAPEUTIC TABLET PO SCH (09:19)
[2018-07-29] MEDS: AmLODIPine BESYLATE 10 MG TABLET PO SCH (09:19)
[2018-07-29] MEDS: FOLIC ACID 1 MG TABLET PO SCH (09:19)
[2018-07-29] MEDS: BuPROPion HCL 75 MG TABLET PO SCH ×2 (09:20→16:18)
[2018-07-29] MEDS: OMEPRAZOLE 20 MG CAPSULE PO SCH (09:20)
[2018-07-29 16:00] VITALS: BP 140/90
[2018-07-29] MEDS ORDERED: DiphenhydrAMINE HCL 25 MG CAPSULE PO PRN (16:00)
[2018-07-29 18:37] VITALS: BP 125/75
[2018-07-29] MEDS: OLANZapine 10 MG TABLET PO SCH (20:33)
[2018-07-29] MEDS: DiphenhydrAMINE HCL 25 MG CAPSULE PO SCH (20:33)
[2018-07-30 06:44] VITALS: BP 142/90
[2018-07-30 06:45] VITALS: BP 142/90
[2018-07-30] MEDS: LACTULOSE 20 GM/30 ML SOLUTION UDCUP PO SCH ×3 (08:00→16:00)
[2018-07-30 09:00] VITALS: BP 121/74
[2018-07-30] MEDS: NICOTINE 21 MG/24 HOUR PATCH TD SCH (09:00)
[2018-07-30] MEDS: DOCUSATE SODIUM 100 MG CAPSULE PO SCH (09:00)
[2018-07-30] MEDS: AmLODIPine BESYLATE 10 MG TABLET PO SCH (09:13)
[2018-07-30] MEDS: FOLIC ACID 1 MG TABLET PO SCH (09:13)
[2018-07-30] MEDS: OMEPRAZOLE 20 MG CAPSULE PO SCH (09:13)
[2018-07-30] MEDS: NALTREXONE HCL 50 MG TABLET PO SCH (09:13)
[2018-07-30] MEDS: MULTIVITAMINS WITH MINERALS, THERAPEUTIC TABLET PO SCH (09:13)
[2018-07-30] MEDS: THIAMINE HCL 100 MG TABLET PO SCH (09:13)
[2018-07-30] MEDS: BuPROPion HCL 75 MG TABLET PO SCH ×2 (09:14→16:23)
[2018-07-30] MEDS: OLANZapine 5 MG RAPDIS TABLET PO PRN (14:51)
[2018-07-30 16:00] VITALS: BP 133/81
[2018-07-30] MEDS: OLANZapine 10 MG TABLET PO SCH (20:38)
[2018-07-30] MEDS: DiphenhydrAMINE HCL 25 MG CAPSULE PO SCH (20:39)
[2018-07-31 06:56] VITALS: BP 138/78
[2018-07-31 08:28] VITALS: BP 136/74
[2018-07-31] MEDS: DOCUSATE SODIUM 100 MG CAPSULE PO SCH (09:00)
[2018-07-31] MEDS: NALTREXONE HCL 50 MG TABLET PO SCH (09:00)
[2018-07-31] MEDS: LACTULOSE 20 GM/30 ML SOLUTION UDCUP PO SCH ×3 (09:00→16:00)
[2018-07-31] MEDS: NICOTINE 21 MG/24 HOUR PATCH TD SCH (10:11)
[2018-07-31] MEDS: OMEPRAZOLE 20 MG CAPSULE PO SCH (10:12)
[2018-07-31] MEDS: MULTIVITAMINS WITH MINERALS, THERAPEUTIC TABLET PO SCH (10:12)
[2018-07-31] MEDS: FOLIC ACID 1 MG TABLET PO SCH (10:12)
[2018-07-31] MEDS: AmLODIPine BESYLATE 10 MG TABLET PO SCH (10:12)
[2018-07-31] MEDS: THIAMINE HCL 100 MG TABLET PO SCH (10:48)
[2018-07-31] MEDS: BuPROPion HCL 75 MG TABLET PO SCH ×2 (10:48→16:18)
[2018-07-31] MEDS: IBUPROFEN 600 MG TABLET PO PRN (13:59)
[2018-07-31 17:37] VITALS: BP 137/95
[2018-07-31] MEDS: DiphenhydrAMINE HCL 25 MG CAPSULE PO SCH (20:34)
[2018-07-31] MEDS: OLANZapine 10 MG TABLET PO SCH (20:35)
[2018-07-31] MEDS: ZOLPIDEM TARTRATE 10 MG TABLET PO PRN (20:35)
[2018-07-31] MEDS: OLANZapine 5 MG RAPDIS TABLET PO PRN (22:05)
[2018-08-01 07:05] VITALS: BP 132/73
[2018-08-01] MEDS: LACTULOSE 20 GM/30 ML SOLUTION UDCUP PO SCH ×3 (08:00→16:00)
[2018-08-01 08:09] VITALS: BP 136/86
[2018-08-01] MEDS: BuPROPion HCL 75 MG TABLET PO SCH ×2 (09:29→16:02)
[2018-08-01] MEDS: NALTREXONE HCL 50 MG TABLET PO SCH (09:29)
[2018-08-01] MEDS: DOCUSATE SODIUM 100 MG CAPSULE PO SCH (09:30)
[2018-08-01] MEDS: THIAMINE HCL 100 MG TABLET PO SCH (09:30)
[2018-08-01] MEDS: MULTIVITAMINS WITH MINERALS, THERAPEUTIC TABLET PO SCH (09:31)
[2018-08-01] MEDS: AmLODIPine BESYLATE 10 MG TABLET PO SCH (09:31)
[2018-08-01] MEDS: OMEPRAZOLE 20 MG CAPSULE PO SCH (09:31)
[2018-08-01] MEDS: NICOTINE 21 MG/24 HOUR PATCH TD SCH (09:33)
[2018-08-01] MEDS: OLANZapine 5 MG RAPDIS TABLET PO PRN (09:33)
[2018-08-01] MEDS: FOLIC ACID 1 MG TABLET PO SCH (09:38)
[2018-08-01 16:00] VITALS: BP 117/79
[2018-08-01] MEDS: DiphenhydrAMINE HCL 25 MG CAPSULE PO SCH (20:40)
[2018-08-01] MEDS: OLANZapine 10 MG TABLET PO SCH (20:40)
[2018-08-02 05:35] VITALS: BP 140/79
[2018-08-02] MEDS: LACTULOSE 20 GM/30 ML SOLUTION UDCUP PO SCH ×3 (08:00→16:33)
[2018-08-02 08:10] VITALS: BP 129/76
[2018-08-02] MEDS: FOLIC ACID 1 MG TABLET PO SCH (09:18)
[2018-08-02] MEDS: AmLODIPine BESYLATE 10 MG TABLET PO SCH (09:18)
[2018-08-02] MEDS: OMEPRAZOLE 20 MG CAPSULE PO SCH (09:18)
[2018-08-02] MEDS: THIAMINE HCL 100 MG TABLET PO SCH (09:18)
[2018-08-02] MEDS: MULTIVITAMINS WITH MINERALS, THERAPEUTIC TABLET PO SCH (09:18)
[2018-08-02] MEDS: BuPROPion HCL 75 MG TABLET PO SCH ×2 (09:18→16:33)
[2018-08-02] MEDS: NALTREXONE HCL 50 MG TABLET PO SCH (09:18)
[2018-08-02] MEDS: DOCUSATE SODIUM 100 MG CAPSULE PO SCH (09:19)
[2018-08-02] MEDS: NICOTINE 21 MG/24 HOUR PATCH TD SCH (09:19)
[2018-08-02] MEDS: OLANZapine 5 MG RAPDIS TABLET PO PRN (09:20)
[2018-08-02 16:09] VITALS: BP 139/84
[2018-08-02] MEDS: OLANZapine 10 MG TABLET PO SCH (20:50)
[2018-08-02] MEDS: DiphenhydrAMINE HCL 25 MG CAPSULE PO SCH (20:50)
[2018-08-02] MEDS: ZOLPIDEM TARTRATE 10 MG TABLET PO PRN (20:50)
[2018-08-03 06:27] VITALS: BP 133/79
[2018-08-03] MEDS: LACTULOSE 20 GM/30 ML SOLUTION UDCUP PO SCH ×3 (08:00→17:04)
[2018-08-03 08:32] VITALS: BP 136/82
[2018-08-03] MEDS: FOLIC ACID 1 MG TABLET PO SCH (08:49)
[2018-08-03] MEDS: THIAMINE HCL 100 MG TABLET PO SCH (08:49)
[2018-08-03] MEDS: DOCUSATE SODIUM 100 MG CAPSULE PO SCH (08:49)
[2018-08-03] MEDS: NALTREXONE HCL 50 MG TABLET PO SCH (08:49)
[2018-08-03] MEDS: AmLODIPine BESYLATE 10 MG TABLET PO SCH (08:49)
[2018-08-03] MEDS: OMEPRAZOLE 20 MG CAPSULE PO SCH (08:49)
[2018-08-03] MEDS: MULTIVITAMINS WITH MINERALS, THERAPEUTIC TABLET PO SCH (08:49)
[2018-08-03] MEDS: BuPROPion HCL 75 MG TABLET PO SCH ×2 (08:49→17:04)
[2018-08-03] MEDS: NICOTINE 21 MG/24 HOUR PATCH TD SCH (08:50)
[2018-08-03 16:14] VITALS: BP 130/80
[2018-08-03] MEDS: ZOLPIDEM TARTRATE 10 MG TABLET PO PRN (20:06)
[2018-08-03] MEDS: DiphenhydrAMINE HCL 25 MG CAPSULE PO SCH (20:06)
[2018-08-03] MEDS: OLANZapine 10 MG TABLET PO SCH (20:07)
[2018-08-04 06:47] VITALS: BP 128/82
[2018-08-04] MEDS: LACTULOSE 20 GM/30 ML SOLUTION UDCUP PO SCH ×3 (08:00→17:00)
[2018-08-04 08:21] VITALS: BP 128/96
[2018-08-04] MEDS: NICOTINE 21 MG/24 HOUR PATCH TD SCH (09:00)
[2018-08-04] MEDS: OMEPRAZOLE 20 MG CAPSULE PO SCH (09:16)
[2018-08-04] MEDS: FOLIC ACID 1 MG TABLET PO SCH (09:16)
[2018-08-04] MEDS: NALTREXONE HCL 50 MG TABLET PO SCH (09:16)
[2018-08-04] MEDS: THIAMINE HCL 100 MG TABLET PO SCH (09:16)
[2018-08-04] MEDS: MULTIVITAMINS WITH MINERALS, THERAPEUTIC TABLET PO SCH (09:16)
[2018-08-04] MEDS: DOCUSATE SODIUM 100 MG CAPSULE PO SCH (09:16)
[2018-08-04] MEDS: BuPROPion HCL 75 MG TABLET PO SCH (09:16)
[2018-08-04] MEDS: AmLODIPine BESYLATE 10 MG TABLET PO SCH (09:17)
[2018-08-04 16:21] VITALS: BP 145/92
[2018-08-04] MEDS: BuPROPion HCL 100 MG TABLET PO SCH (17:00)
[2018-08-04] MEDS: OLANZapine 10 MG TABLET PO SCH (20:27)
[2018-08-04] MEDS: ZOLPIDEM TARTRATE 10 MG TABLET PO PRN (20:28)
[2018-08-04] MEDS: DiphenhydrAMINE HCL 25 MG CAPSULE PO SCH (20:28)
[2018-08-05 06:10] VITALS: BP 128/79
[2018-08-05 08:09] VITALS: BP 136/89
[2018-08-05] MEDS: NALTREXONE HCL 50 MG TABLET PO SCH (08:43)
[2018-08-05] MEDS: THIAMINE HCL 100 MG TABLET PO SCH (08:43)
[2018-08-05] MEDS: OMEPRAZOLE 20 MG CAPSULE PO SCH (08:43)
[2018-08-05] MEDS: DOCUSATE SODIUM 100 MG CAPSULE PO SCH (08:43)
[2018-08-05] MEDS: MULTIVITAMINS WITH MINERALS, THERAPEUTIC TABLET PO SCH (08:43)
[2018-08-05] MEDS: AmLODIPine BESYLATE 10 MG TABLET PO SCH (08:43)
[2018-08-05] MEDS: FOLIC ACID 1 MG TABLET PO SCH (08:44)
[2018-08-05] MEDS: BuPROPion HCL 100 MG TABLET PO SCH (08:45)
[2018-08-05] MEDS: LACTULOSE 20 GM/30 ML SOLUTION UDCUP PO SCH ×2 (08:46)
[2018-08-05] MEDS: NICOTINE 21 MG/24 HOUR PATCH TD SCH (08:50)
[2018-08-05] MEDS ORDERED: BUPR100 PO (10:52)
[2018-08-05] MEDS ORDERED: DIPH25 PO (10:52)
[2018-08-05] MEDS ORDERED: OLAN10TA20 PO (10:52)
[2018-08-05] MEDS ORDERED: NALT50TA PO (10:52)
== END 2018-08-05 14:31 | disposition home or self-care (01) | DRG 750 ==
LOC: B2S 07-24 02:49 → B3A 07-28 22:12
PROVIDERS: ADMIT Psychiatry & Neurology Psychiatry; ATTEND Psychiatry & Neurology Psychiatry
DX: F20.0 Paranoid schizophrenia (principal); R45.851 Suicidal ideations; Z59.0 Homelessness; Z91.14 Patient's other noncompliance with medication regimen; B18.2 Chronic viral hepatitis C; F41.9 Anxiety disorder, unspecified; F10.10 Alcohol abuse, uncomplicated; F15.10 Other stimulant abuse, uncomplicated; G47.00 Insomnia, unspecified; F17.200 Nicotine dependence, unspecified, uncomplicated; B19.20 Unspecified viral hepatitis C without hepatic coma; I10 Essential (primary) hypertension; J44.9 Chronic obstructive pulmonary disease, unspecified; K21.9 Gastro-esophageal reflux disease without esophagitis; Z91.19 Patient's noncompliance with other medical treatment and regimen; Z88.8 Allergy status to other drugs, medicaments and biological substances; Z71.51 Drug abuse counseling and surveillance of drug abuser; Z71.41 Alcohol abuse counseling and surveillance of alcoholic; Z79.899 Other long term (current) drug therapy
CPT/HCPCS: 83735; 84100; 87081

== ENCOUNTER 2018-10-24 22:15 | Inpatient (IN) | payer MEDICAID ==
[~2018-10-24] VITALS: Ht 172.7 cm; Wt 87.6 kg
[~2018-10-24 22:15] MED LIST changes: +BUPR100 PO; -BUPR100SR PO; +DIPH25 PO; -DIVA500T52 PO; +OLAN10TA20 PO; -OLAN5TAB30 PO; -OLAN5TAB40 PO
[2018-10-24] MEDS ORDERED: LORazepam 2 MG TABLET PO PRN (22:45)
[2018-10-24] MEDS ORDERED: OLANZapine 5 MG RAPDIS TABLET PO PRN (22:45)
[2018-10-24] MEDS ORDERED: ZOLPIDEM TARTRATE 10 MG TABLET PO PRN (22:45)
[2018-10-24 23:09] VITALS: BP 144/96
[2018-10-25] VITALS (8 sets, daily range): BP systolic 118–140; BP diastolic 75–96
[2018-10-25] MEDS ORDERED: MAGNESIUM HYDROXIDE SUSPENSION 30 ML UDCUP PO PRN (05:45)
[2018-10-25] MEDS ORDERED: BACITRACIN 28.4 GM OINTMENT TP PRN (05:45)
[2018-10-25] MEDS ORDERED: ALBUTEROL SULFATE HFA 90 MCG/PUFF 8 GM INHALER IH PRN (05:45)
[2018-10-25] MEDS ORDERED: CloNIDine HCL 0.1 MG TABLET PO PRN (05:45)
[2018-10-25] MEDS ORDERED: MAG HYDROX/AL HYDROX/SIMETH ES 30 ML SUSPENSION UDCUP PO PRN (05:45)
[2018-10-25] MEDS ORDERED: LOPERAMIDE HCL 2 MG CAPSULE PO PRN (05:45)
[2018-10-25] MEDS ORDERED: PETROLATUM,WHITE 71 GM JELLY TP PRN (05:45)
[2018-10-25] MEDS ORDERED: ACETAMINOPHEN 325 MG TABLET PO PRN (05:45)
[2018-10-25] MEDS ORDERED: ONDANSETRON HCL 4 MG TABLET PO PRN (05:45)
[2018-10-25] MEDS ORDERED: BENZOCAINE/MENTHOL LOZENGE MM PRN (05:45)
[2018-10-25] MEDS: DOCUSATE SODIUM 100 MG CAPSULE PO SCH (08:20)
[2018-10-25] MEDS: AmLODIPine BESYLATE 10 MG TABLET PO SCH (08:20)
[2018-10-25] MEDS: NICOTINE 21 MG/24 HOUR PATCH TD SCH (08:20)
[2018-10-25] MEDS: OMEPRAZOLE 20 MG CAPSULE PO SCH (08:20)
[2018-10-25] MEDS: NALTREXONE HCL 50 MG TABLET PO SCH (08:20)
[2018-10-25 08:35] LABS: BASOPHILS % (AUTO) 0.6 % (0.0-2.0); EOSINOPHILS % (AUTO) 5.9 % (1.0-6.0); HEMATOCRIT 41.1 % (41-53); HEMOGLOBIN 14.3 g/dL (13.5-17.5); LYMPHOCYTES # (AUTO) 1.6 K/uL (1.0-4.8); LYMPHOCYTES % (AUTO) 42.1 % (22.0-44.0); MEAN CORPUSCULAR HEMOGLOBIN 31.8 pg (26.0-34.0); MEAN CORPUSCULAR HGB CONC 34.7 G/dL (31.0-37.0); MEAN CORPUSCULAR VOLUME 92 fL (80-100); MONOCYTES # (AUTO) 0.5 K/uL (0.1-1.0); MONOCYTES % (AUTO) 12.8 % (2.0-9.0); NEUTROPHILS # (AUTO) 1.4 K/uL (1.8-7.7); NEUTROPHILS % (AUTO) 38.6 % (40.0-70.0); PLATELET COUNT (AUTO) 208 K/uL (150-450); RED BLOOD CELL COUNT(AUTO) 4.48 MIL/uL (4.50-5.90); RED CELL DISTRIBUTION WIDTH 13.6 % (11.5-14.5)
[2018-10-25 08:43] LABS: HEMOGLOBIN A1C 5.6 % (4.5-6.2)
[2018-10-25] MEDS ORDERED: BuPROPion HCL 100 MG TABLET PO SCH (09:00)
[2018-10-25 09:15] LABS: ALANINE AMINOTRANSFERASE 179 U/L (12-78); ALBUMIN 3.2 g/dL (3.4-5.0); ALKALINE PHOSPHATASE 103 U/L (46-116); ANION GAP 6 mmol/L (8-16); ASPARTATE AMINOTRANSFERASE 225 U/L (15-37); BILIRUBIN,TOTAL 1.1 mg/dL (0.1-1.0); CALCIUM, TOTAL 8.6 mg/dL (8.8-10.5); CARBON DIOXIDE 31 mmol/L (22-29); CHLORIDE 104 mmol/L (98-107); CHOL/HDL RATIO 3.6 (4.2-7.3); CHOLESTEROL 87 mg/dL (131-200); CREATININE 0.82 mg/dL (0.60-1.30); FREE T4 (FREE THYROXINE) 1.04 ng/dL (0.76-1.46); GLOMERULAR FILTR. RATE CALC > 60 mL/min (>60); GLUCOSE,RANDOM 98 mg/dL (70-110); HDL CHOLESTEROL 24 mg/dL (40-60); LDL CHOL (CALC.) 49 mg/dL (0-130); SODIUM SERUM 141 mmol/L (136-145); THYROID STIMULATING HORMONE 0.53 uIU/mL (0.36-3.74); TOTAL PROTEIN, SERUM 7.1 g/dL (6.4-8.2); TRIGLYCERIDES 69 mg/dL (15-150); UREA NITROGEN, BLOOD 8 mg/dL (7-18)
[2018-10-25 09:34] LABS: POTASSIUM 2.7 mmol/L (3.5-5.1)
[2018-10-25] MEDS ORDERED: POTASSIUM CHLORIDE 20 MEQ ER TABLET PO ONE ×3 (10:00→19:00)
[2018-10-25] MEDS ORDERED: HydrOXYzine PAMOATE 50 MG CAPSULE PO PRN (11:15)
[2018-10-25] MEDS ORDERED: LORazepam 2 MG TABLET PO PRN (11:15)
[2018-10-25] MEDS ORDERED: GuaiFENesin/D-METHORPHAN [SUGAR-FREE] 200-20MG/10 ML SYRUP UDCUP PO PRN (11:15)
[2018-10-25] MEDS: AMOXICILLIN TRIHYDRATE 500 MG CAPSULE PO SCH ×2 (12:39→16:06)
[2018-10-25] MEDS: THIAMINE HCL 100 MG TABLET PO SCH (16:06)
[2018-10-25] MEDS: IBUPROFEN 600 MG TABLET PO PRN (18:19)
[2018-10-25] MEDS: OLANZapine 7.5 MG TABLET PO SCH (21:00)
[2018-10-25] MEDS: DiphenhydrAMINE HCL 25 MG CAPSULE PO SCH (21:22)
[2018-10-26] VITALS (8 sets, daily range): BP systolic 117–135; BP diastolic 74–90
[2018-10-26] MEDS ORDERED: LORazepam 2 MG TABLET PO PRN (07:00)
[2018-10-26] MEDS: LORazepam 2 MG TABLET PO SCH ×4 (09:00→21:08)
[2018-10-26] MEDS: NALTREXONE HCL 50 MG TABLET PO SCH (09:00)
[2018-10-26] MEDS: DOCUSATE SODIUM 100 MG CAPSULE PO SCH (09:19)
[2018-10-26] MEDS: FOLIC ACID 1 MG TABLET PO SCH (09:19)
[2018-10-26] MEDS: OMEPRAZOLE 20 MG CAPSULE PO SCH (09:19)
[2018-10-26] MEDS: THIAMINE HCL 100 MG TABLET PO SCH ×2 (09:19→17:06)
[2018-10-26] MEDS: MULTIVITAMINS WITH MINERALS, THERAPEUTIC TABLET PO SCH (09:19)
[2018-10-26] MEDS: AMOXICILLIN TRIHYDRATE 500 MG CAPSULE PO SCH ×3 (09:19→17:07)
[2018-10-26] MEDS: AmLODIPine BESYLATE 10 MG TABLET PO SCH (09:20)
[2018-10-26] MEDS: NICOTINE 21 MG/24 HOUR PATCH TD SCH (09:20)
[2018-10-26 09:32] LABS: ALANINE AMINOTRANSFERASE 219 U/L (12-78); ALBUMIN 3.2 g/dL (3.4-5.0); ALKALINE PHOSPHATASE 92 U/L (46-116); ANION GAP 4 mmol/L (8-16); ASPARTATE AMINOTRANSFERASE 308 U/L (15-37); CALCIUM, TOTAL 8.8 mg/dL (8.8-10.5); CARBON DIOXIDE 33 mmol/L (22-29); CHLORIDE 106 mmol/L (98-107); CREATININE 0.91 mg/dL (0.60-1.30); GLOMERULAR FILTR. RATE CALC > 60 mL/min (>60); GLUCOSE,RANDOM 92 mg/dL (70-110); POTASSIUM 3.9 mmol/L (3.5-5.1); SODIUM SERUM 143 mmol/L (136-145); TOTAL PROTEIN, SERUM 7.1 g/dL (6.4-8.2); UREA NITROGEN, BLOOD 8 mg/dL (7-18)
[2018-10-26] MEDS: IBUPROFEN 600 MG TABLET PO PRN (11:37)
[2018-10-26] MEDS: DiphenhydrAMINE HCL 25 MG CAPSULE PO SCH (21:09)
[2018-10-26] MEDS: OLANZapine 7.5 MG TABLET PO SCH (21:09)
[2018-10-27] VITALS: BP 128/77
[2018-10-27 07:21] VITALS: BP 128/81
[2018-10-27 08:15] VITALS: BP 105/63
[2018-10-27 08:28] VITALS: BP 127/85
[2018-10-27] MEDS: MULTIVITAMINS WITH MINERALS, THERAPEUTIC TABLET PO SCH (09:19)
[2018-10-27] MEDS: LORazepam 2 MG TABLET PO SCH ×4 (09:20→20:48)
[2018-10-27] MEDS: DOCUSATE SODIUM 100 MG CAPSULE PO SCH (09:20)
[2018-10-27] MEDS: NALTREXONE HCL 50 MG TABLET PO SCH (09:20)
[2018-10-27] MEDS: FOLIC ACID 1 MG TABLET PO SCH (09:20)
[2018-10-27] MEDS: THIAMINE HCL 100 MG TABLET PO SCH ×2 (09:20→16:21)
[2018-10-27] MEDS: OMEPRAZOLE 20 MG CAPSULE PO SCH (09:20)
[2018-10-27] MEDS: AMOXICILLIN TRIHYDRATE 500 MG CAPSULE PO SCH ×3 (09:20→16:21)
[2018-10-27] MEDS: AmLODIPine BESYLATE 10 MG TABLET PO SCH (09:20)
[2018-10-27] MEDS: NICOTINE 21 MG/24 HOUR PATCH TD SCH (09:21)
[2018-10-27 16:14] VITALS: BP 124/61
[2018-10-27 16:55] VITALS: BP 124/61
[2018-10-27] MEDS: IBUPROFEN 600 MG TABLET PO PRN (17:21)
[2018-10-27] MEDS: DiphenhydrAMINE HCL 25 MG CAPSULE PO SCH (20:47)
[2018-10-27] MEDS: OLANZapine 7.5 MG TABLET PO SCH (20:48)
[2018-10-28 06:30] VITALS: BP 126/66
[2018-10-28 06:34] VITALS: BP 126/66
[2018-10-28] MEDS ORDERED: LORazepam 1 MG TABLET PO PRN (07:00)
[2018-10-28 08:00] VITALS: BP 115/72
[2018-10-28 08:51] VITALS: BP 115/72
[2018-10-28] MEDS: LORazepam 1 MG TABLET PO SCH ×4 (09:00→20:08)
[2018-10-28] MEDS: MULTIVITAMINS WITH MINERALS, THERAPEUTIC TABLET PO SCH (09:08)
[2018-10-28] MEDS: OMEPRAZOLE 20 MG CAPSULE PO SCH (09:08)
[2018-10-28] MEDS: DOCUSATE SODIUM 100 MG CAPSULE PO SCH (09:08)
[2018-10-28] MEDS: FOLIC ACID 1 MG TABLET PO SCH (09:08)
[2018-10-28] MEDS: AMOXICILLIN TRIHYDRATE 500 MG CAPSULE PO SCH ×3 (09:08→16:12)
[2018-10-28] MEDS: NALTREXONE HCL 50 MG TABLET PO SCH (09:08)
[2018-10-28] MEDS: AmLODIPine BESYLATE 10 MG TABLET PO SCH (09:08)
[2018-10-28] MEDS: THIAMINE HCL 100 MG TABLET PO SCH ×2 (09:09→16:12)
[2018-10-28] MEDS: NICOTINE 21 MG/24 HOUR PATCH TD SCH (09:09)
[2018-10-28] MEDS ORDERED: TUBERCULIN, PURIFIED PROTEIN DERIVATIVE 5 TU/0.1 ML SYG ID ONE (15:30)
[2018-10-28 16:08] VITALS: BP 139/98
[2018-10-28] MEDS: IBUPROFEN 600 MG TABLET PO PRN (16:12)
[2018-10-28 17:10] VITALS: BP 139/98
[2018-10-28] MEDS: DiphenhydrAMINE HCL 25 MG CAPSULE PO SCH (20:08)
[2018-10-28] MEDS: OLANZapine 7.5 MG TABLET PO SCH (20:08)
[2018-10-29] VITALS: BP 107/64
[2018-10-29 03:14] VITALS: BP 107/64
[2018-10-29] MEDS ORDERED: LORazepam 1 MG TABLET PO PRN (07:00)
[2018-10-29 08:31] LABS: BAND NEUTROPHILS % (MANUAL) 0 % (0-5)
[2018-10-29 08:36] LABS: HEMATOCRIT 41.6 % (41-53); HEMOGLOBIN 14.3 g/dL (13.5-17.5); MEAN CORPUSCULAR HEMOGLOBIN 31.8 pg (26.0-34.0); MEAN CORPUSCULAR HGB CONC 34.5 G/dL (31.0-37.0); MEAN CORPUSCULAR VOLUME 92 fL (80-100); PLATELET COUNT (AUTO) 172 K/uL (150-450); RED CELL DISTRIBUTION WIDTH 13.6 % (11.5-14.5)
[2018-10-29 08:48] LABS: ANION GAP 8 mmol/L (8-16); CARBON DIOXIDE 29 mmol/L (22-29); CHLORIDE 105 mmol/L (98-107); CREATININE 0.87 mg/dL (0.60-1.30); GLOMERULAR FILTR. RATE CALC > 60 mL/min (>60); GLUCOSE,RANDOM 90 mg/dL (70-110); POTASSIUM 3.4 mmol/L (3.5-5.1); SODIUM SERUM 142 mmol/L (136-145); UREA NITROGEN, BLOOD 11 mg/dL (7-18)
[2018-10-29 08:56] VITALS: BP 117/73
[2018-10-29] MEDS ORDERED: POTASSIUM CHLORIDE 20 MEQ ER TABLET PO ONE (09:15)
[2018-10-29 09:21] VITALS: BP 117/73
[2018-10-29] MEDS: NICOTINE 21 MG/24 HOUR PATCH TD SCH (09:27)
[2018-10-29] MEDS: MULTIVITAMINS WITH MINERALS, THERAPEUTIC TABLET PO SCH (09:28)
[2018-10-29] MEDS: DOCUSATE SODIUM 100 MG CAPSULE PO SCH (09:28)
[2018-10-29] MEDS: AmLODIPine BESYLATE 10 MG TABLET PO SCH (09:28)
[2018-10-29] MEDS: OMEPRAZOLE 20 MG CAPSULE PO SCH (09:28)
[2018-10-29] MEDS: THIAMINE HCL 100 MG TABLET PO SCH ×2 (09:28→16:10)
[2018-10-29] MEDS: FOLIC ACID 1 MG TABLET PO SCH (09:28)
[2018-10-29] MEDS: BuPROPion HCL XL 150 MG ER TABLET PO SCH (09:28)
[2018-10-29] MEDS: NALTREXONE HCL 50 MG TABLET PO SCH (09:28)
[2018-10-29] MEDS: AMOXICILLIN TRIHYDRATE 500 MG CAPSULE PO SCH ×3 (09:29→16:10)
[2018-10-29 10:28] LABS: EOSINOPHILS % (MANUAL) 4 % (1-6); LYMPHOCYTES % (MANUAL) 47 % (22-44); MONOCYTES % (MANUAL) 9 % (2-9); SEGMENTED NEUTROPHILS % 40 % (40-70)
[2018-10-29] MEDS: LACTULOSE 20 GM/30 ML SOLUTION UDCUP PO SCH ×2 (13:17→16:09)
[2018-10-29 16:00] VITALS: BP 125/90
[2018-10-29] MEDS: DiphenhydrAMINE HCL 25 MG CAPSULE PO SCH (20:59)
[2018-10-29] MEDS: OLANZapine 7.5 MG TABLET PO SCH (20:59)
[2018-10-30 06:35] VITALS: BP 118/88
[2018-10-30 06:36] VITALS: BP 118/88
[2018-10-30 08:20] VITALS: BP 133/72
[2018-10-30 08:30] VITALS: BP 133/72
[2018-10-30 08:52] LABS: ANION GAP 9 mmol/L (8-16); CALCIUM, TOTAL 8.9 mg/dL (8.8-10.5); CARBON DIOXIDE 26 mmol/L (22-29); CHLORIDE 107 mmol/L (98-107); CREATININE 0.76 mg/dL (0.60-1.30); GLOMERULAR FILTR. RATE CALC > 60 mL/min (>60); GLUCOSE,RANDOM 94 mg/dL (70-110); POTASSIUM 3.7 mmol/L (3.5-5.1); SODIUM SERUM 142 mmol/L (136-145); UREA NITROGEN, BLOOD 9 mg/dL (7-18)
[2018-10-30] MEDS: LACTULOSE 20 GM/30 ML SOLUTION UDCUP PO SCH ×3 (09:13→17:32)
[2018-10-30] MEDS: DOCUSATE SODIUM 100 MG CAPSULE PO SCH (09:13)
[2018-10-30] MEDS: NICOTINE 21 MG/24 HOUR PATCH TD SCH (09:13)
[2018-10-30] MEDS: AMOXICILLIN TRIHYDRATE 500 MG CAPSULE PO SCH ×2 (09:13→12:11)
[2018-10-30] MEDS: MULTIVITAMINS WITH MINERALS, THERAPEUTIC TABLET PO SCH (09:13)
[2018-10-30] MEDS: FOLIC ACID 1 MG TABLET PO SCH (09:13)
[2018-10-30] MEDS: THIAMINE HCL 100 MG TABLET PO SCH ×2 (09:13→17:32)
[2018-10-30] MEDS: OMEPRAZOLE 20 MG CAPSULE PO SCH (09:13)
[2018-10-30] MEDS: BuPROPion HCL XL 150 MG ER TABLET PO SCH (09:13)
[2018-10-30] MEDS: AmLODIPine BESYLATE 10 MG TABLET PO SCH (09:14)
[2018-10-30] MEDS: NALTREXONE HCL 50 MG TABLET PO SCH (09:29)
[2018-10-30 16:00] VITALS: BP 114/71
[2018-10-30 16:25] VITALS: BP 114/71
[2018-10-30] MEDS ORDERED: HydrOXYzine PAMOATE 50 MG CAPSULE PO PRN (18:00)
[2018-10-30] MEDS: OLANZapine 7.5 MG TABLET PO SCH (20:32)
[2018-10-30] MEDS: DiphenhydrAMINE HCL 25 MG CAPSULE PO SCH (20:32)
[2018-10-31 06:26] VITALS: BP 112/74
[2018-10-31 08:19] VITALS: BP 101/65
[2018-10-31 09:30] VITALS: BP 121/75
[2018-10-31] MEDS: NICOTINE 21 MG/24 HOUR PATCH TD SCH (09:38)
[2018-10-31] MEDS: OMEPRAZOLE 20 MG CAPSULE PO SCH (09:38)
[2018-10-31] MEDS: LACTULOSE 20 GM/30 ML SOLUTION UDCUP PO SCH ×2 (09:38→12:35)
[2018-10-31] MEDS: THIAMINE HCL 100 MG TABLET PO SCH (09:38)
[2018-10-31] MEDS: AmLODIPine BESYLATE 10 MG TABLET PO SCH (09:39)
[2018-10-31] MEDS: FOLIC ACID 1 MG TABLET PO SCH (09:39)
[2018-10-31] MEDS: DOCUSATE SODIUM 100 MG CAPSULE PO SCH (09:39)
[2018-10-31] MEDS: NALTREXONE HCL 50 MG TABLET PO SCH (09:39)
[2018-10-31] MEDS: MULTIVITAMINS WITH MINERALS, THERAPEUTIC TABLET PO SCH (09:39)
[2018-10-31] MEDS: BuPROPion HCL XL 150 MG ER TABLET PO SCH (09:39)
[2018-10-31] MEDS ORDERED: NALT50TA PO (13:47)
[2018-10-31] MEDS ORDERED: DIPH25 PO (13:47)
[2018-10-31] MEDS ORDERED: OLAN7.5T9 PO (13:47)
[2018-10-31] MEDS ORDERED: BUPR-47 PO (13:47)
[2018-10-31] MEDS ORDERED: OLAN15TA21 PO (13:57)
== END 2018-10-31 14:59 | disposition home or self-care (01) | DRG 750 ==
LOC: EDSTATUS 22:21 → B2S 22:40
PROVIDERS: ADMIT Psychiatry & Neurology Psychiatry; ATTEND Psychiatry & Neurology Psychiatry
DX: F25.0 Schizoaffective disorder, bipolar type (principal); R45.851 Suicidal ideations; Z59.0 Homelessness; B18.2 Chronic viral hepatitis C; E87.6 Hypokalemia; F10.10 Alcohol abuse, uncomplicated; F15.10 Other stimulant abuse, uncomplicated; F17.200 Nicotine dependence, unspecified, uncomplicated; G47.00 Insomnia, unspecified; I10 Essential (primary) hypertension; J44.9 Chronic obstructive pulmonary disease, unspecified; K08.89 Other specified disorders of teeth and supporting structures; K21.9 Gastro-esophageal reflux disease without esophagitis; Z65.3 Problems related to other legal circumstances; F41.9 Anxiety disorder, unspecified; Z68.28 Body mass index [BMI] 28.0-28.9, adult; Z91.19 Patient's noncompliance with other medical treatment and regimen; Z88.8 Allergy status to other drugs, medicaments and biological substances; Z79.899 Other long term (current) drug therapy; Z71.41 Alcohol abuse counseling and surveillance of alcoholic; Z71.6 Tobacco abuse counseling; Z71.51 Drug abuse counseling and surveillance of drug abuser
CPT/HCPCS: 83036; 83735; 84100; 84439; 84443; 85007

== ENCOUNTER 2018-12-05 09:11 | Inpatient (IN) | payer MEDICAID ==
[2018-12-05] VITALS (8 sets, daily range): BP systolic 122–155; BP diastolic 82–102
[~2018-12-05] VITALS: Ht 172.7 cm; Wt 84.4 kg
[~2018-12-05 09:11] MED LIST changes: +BUPR-47 PO; -BUPR100 PO; -DIPH25 PO; -DSS100 PO; +LACT30L PO; +THIA100T67 PO
[2018-12-05] MEDS ORDERED: MAGNESIUM HYDROXIDE SUSPENSION 30 ML UDCUP PO PRN (14:00)
[2018-12-05] MEDS ORDERED: GuaiFENesin/D-METHORPHAN [SUGAR-FREE] 200-20MG/10 ML SYRUP UDCUP PO PRN (14:00)
[2018-12-05] MEDS ORDERED: ACETAMINOPHEN 325 MG TABLET PO PRN (14:00)
[2018-12-05] MEDS ORDERED: HydrOXYzine PAMOATE 50 MG CAPSULE PO PRN (14:00)
[2018-12-05] MEDS ORDERED: LORazepam 2 MG TABLET PO PRN (14:00)
[2018-12-05] MEDS ORDERED: MAG HYDROX/AL HYDROX/SIMETH ES 30 ML SUSPENSION UDCUP PO PRN (14:00)
[2018-12-05] MEDS ORDERED: OLANZapine 5 MG RAPDIS TABLET PO PRN (14:00)
[2018-12-05] MEDS ORDERED: LOPERAMIDE HCL 2 MG CAPSULE PO PRN (14:00)
[2018-12-05] MEDS ORDERED: PROMETHAZINE HCL 25 MG TABLET PO PRN (14:00)
[2018-12-05] MEDS ORDERED: CYANOCOBALAMIN 1,000 MCG/ML VIAL IM ONE (14:00)
[2018-12-05] MEDS ORDERED: OLAN10TA3 PO (14:11)
[2018-12-05] MEDS ORDERED: BUPR-93 PO (14:11)
[2018-12-05] MEDS ORDERED: NALT50TA6 PO (14:11)
[2018-12-05] MEDS ORDERED: PNEUMOCOCCAL VACCINE POLYVALENT 0.5 ML VIAL [PPSV23] IM ONE (15:00)
[2018-12-05] MEDS: THIAMINE HCL 100 MG TABLET PO SCH (16:39)
[2018-12-05] MEDS ORDERED: ALBUTEROL SULFATE HFA 90 MCG/PUFF 8 GM INHALER IH PRN (19:45)
[2018-12-05] MEDS ORDERED: BENZOCAINE/MENTHOL LOZENGE MM PRN (19:45)
[2018-12-05] MEDS ORDERED: CloNIDine HCL 0.1 MG TABLET PO PRN (19:45)
[2018-12-05] MEDS ORDERED: AmLODIPine BESYLATE 5 MG TABLET PO ONE (19:45)
[2018-12-05] MEDS ORDERED: PETROLATUM,WHITE 71 GM JELLY TP PRN (19:45)
[2018-12-05] MEDS ORDERED: IBUPROFEN 600 MG TABLET PO PRN (19:45)
[2018-12-05] MEDS ORDERED: BACITRACIN 28.4 GM OINTMENT TP PRN (19:45)
[2018-12-05] MEDS ORDERED: ONDANSETRON HCL 4 MG TABLET PO PRN (19:45)
[2018-12-05] MEDS ORDERED: OLANZapine 10 MG RAPDIS TABLET PO SCH (21:00)
[2018-12-06] VITALS (7 sets, daily range): BP systolic 106–143; BP diastolic 69–90
[2018-12-06] MEDS ORDERED: LORazepam 2 MG TABLET PO PRN (07:00)
[2018-12-06] MEDS: AmLODIPine BESYLATE 10 MG TABLET PO SCH (08:12)
[2018-12-06] MEDS: MULTIVITAMINS WITH MINERALS, THERAPEUTIC TABLET PO SCH (08:12)
[2018-12-06] MEDS: OMEPRAZOLE 20 MG CAPSULE PO SCH (08:12)
[2018-12-06] MEDS: FOLIC ACID 1 MG TABLET PO SCH (08:12)
[2018-12-06] MEDS: DOCUSATE SODIUM 100 MG CAPSULE PO SCH (08:12)
[2018-12-06] MEDS: LORazepam 2 MG TABLET PO SCH ×4 (08:12→20:16)
[2018-12-06] MEDS: NALTREXONE HCL 50 MG TABLET PO SCH (08:12)
[2018-12-06] MEDS: THIAMINE HCL 100 MG TABLET PO SCH ×2 (08:12→16:07)
[2018-12-06] MEDS: LACTULOSE 20 GM/30 ML SOLUTION UDCUP PO SCH (08:13)
[2018-12-06 08:52] LABS: BASOPHILS % (AUTO) 0.8 % (0.0-2.0); EOSINOPHILS % (AUTO) 6.1 % (1.0-6.0); HEMATOCRIT 42.8 % (41-53); HEMOGLOBIN 14.3 g/dL (13.5-17.5); LYMPHOCYTES # (AUTO) 1.5 K/uL (1.0-4.8); LYMPHOCYTES % (AUTO) 38.7 % (22.0-44.0); MEAN CORPUSCULAR HEMOGLOBIN 30.4 pg (26.0-34.0); MEAN CORPUSCULAR HGB CONC 33.3 G/dL (31.0-37.0); MEAN CORPUSCULAR VOLUME 91 fL (80-100); MONOCYTES # (AUTO) 0.3 K/uL (0.1-1.0); MONOCYTES % (AUTO) 8.3 % (2.0-9.0); NEUTROPHILS # (AUTO) 1.8 K/uL (1.8-7.7); NEUTROPHILS % (AUTO) 46.1 % (40.0-70.0); PLATELET COUNT (AUTO) 212 K/uL (150-450); RED BLOOD CELL COUNT(AUTO) 4.69 MIL/uL (4.50-5.90); RED CELL DISTRIBUTION WIDTH 12.9 % (11.5-14.5)
[2018-12-06 09:05] LABS: ALANINE AMINOTRANSFERASE 216 U/L (12-78); ALKALINE PHOSPHATASE 115 U/L (46-116); ANION GAP 5 mmol/L (8-16); ASPARTATE AMINOTRANSFERASE 294 U/L (15-37); BILIRUBIN,TOTAL 1.1 mg/dL (0.1-1.0); CALCIUM, TOTAL 8.7 mg/dL (8.8-10.5); CARBON DIOXIDE 32 mmol/L (22-29); CHLORIDE 106 mmol/L (98-107); CREATININE 0.75 mg/dL (0.60-1.30); GLOMERULAR FILTR. RATE CALC > 60 mL/min (>60); GLUCOSE,RANDOM 106 mg/dL (70-110); POTASSIUM 3.7 mmol/L (3.5-5.1); SODIUM SERUM 143 mmol/L (136-145); TOTAL PROTEIN, SERUM 7.2 g/dL (6.4-8.2); UREA NITROGEN, BLOOD 6 mg/dL (7-18)
[2018-12-06] MEDS ORDERED: OLANZapine 10 MG RAPDIS TABLET PO SCH (21:00)
[2018-12-07 02:15] VITALS: BP 118/87
[2018-12-07 02:50] VITALS: BP 118/97
[2018-12-07 08:15] VITALS: BP 136/87
[2018-12-07 08:20] VITALS: BP 136/87
[2018-12-07] MEDS: LORazepam 2 MG TABLET PO SCH ×4 (08:30→21:08)
[2018-12-07] MEDS: DOCUSATE SODIUM 100 MG CAPSULE PO SCH (08:30)
[2018-12-07] MEDS: THIAMINE HCL 100 MG TABLET PO SCH ×2 (08:30→16:41)
[2018-12-07] MEDS: OMEPRAZOLE 20 MG CAPSULE PO SCH (08:30)
[2018-12-07] MEDS: AmLODIPine BESYLATE 10 MG TABLET PO SCH (08:30)
[2018-12-07] MEDS: FOLIC ACID 1 MG TABLET PO SCH (08:30)
[2018-12-07] MEDS: NALTREXONE HCL 50 MG TABLET PO SCH (08:30)
[2018-12-07] MEDS: MULTIVITAMINS WITH MINERALS, THERAPEUTIC TABLET PO SCH (08:31)
[2018-12-07] MEDS: LACTULOSE 20 GM/30 ML SOLUTION UDCUP PO SCH (08:41)
[2018-12-07 16:00] VITALS: BP 129/85
[2018-12-07 16:02] VITALS: BP 128/85
[2018-12-07] MEDS ORDERED: HALOPERIDOL LACTATE 5 MG/ML VIAL IM ONE (18:00)
[2018-12-07] MEDS ORDERED: DiphenhydrAMINE HCL 50 MG/ML VIAL IM ONE (18:00)
[2018-12-07] MEDS: OLANZapine 10 MG RAPDIS TABLET PO SCH (21:08)
[2018-12-08 06:38] VITALS: BP 128/85
[2018-12-08] MEDS ORDERED: LORazepam 1 MG TABLET PO PRN (07:00)
[2018-12-08 07:09] VITALS: BP 128/85
[2018-12-08 08:03] VITALS: BP 113/75
[2018-12-08] MEDS: LORazepam 1 MG TABLET PO SCH ×4 (08:50→21:00)
[2018-12-08] MEDS: NALTREXONE HCL 50 MG TABLET PO SCH (08:50)
[2018-12-08] MEDS: AmLODIPine BESYLATE 10 MG TABLET PO SCH (08:50)
[2018-12-08] MEDS: DOCUSATE SODIUM 100 MG CAPSULE PO SCH (08:50)
[2018-12-08] MEDS: OMEPRAZOLE 20 MG CAPSULE PO SCH (08:51)
[2018-12-08] MEDS: LACTULOSE 20 GM/30 ML SOLUTION UDCUP PO SCH (08:51)
[2018-12-08] MEDS: FOLIC ACID 1 MG TABLET PO SCH (08:51)
[2018-12-08] MEDS: THIAMINE HCL 100 MG TABLET PO SCH ×2 (08:51→16:51)
[2018-12-08] MEDS: MULTIVITAMINS WITH MINERALS, THERAPEUTIC TABLET PO SCH (08:51)
[2018-12-08 11:59] VITALS: BP 113/79
[2018-12-08] MEDS ORDERED: LOPERAMIDE HCL 2 MG CAPSULE PO PRN (14:00)
[2018-12-08 16:00] VITALS: BP 127/86
[2018-12-08 17:56] VITALS: BP 127/86
[2018-12-08] MEDS: OLANZapine 10 MG RAPDIS TABLET PO SCH (21:00)
[2018-12-09 01:53] VITALS: BP 128/72
[2018-12-09 02:05] VITALS: BP 128/72
[2018-12-09 08:11] VITALS: BP 124/77
[2018-12-09] MEDS: DOCUSATE SODIUM 100 MG CAPSULE PO SCH (08:19)
[2018-12-09] MEDS: NALTREXONE HCL 50 MG TABLET PO SCH (08:19)
[2018-12-09] MEDS: OMEPRAZOLE 20 MG CAPSULE PO SCH (08:19)
[2018-12-09] MEDS: AmLODIPine BESYLATE 10 MG TABLET PO SCH (08:19)
[2018-12-09] MEDS: MULTIVITAMINS WITH MINERALS, THERAPEUTIC TABLET PO SCH (08:19)
[2018-12-09] MEDS: THIAMINE HCL 100 MG TABLET PO SCH ×2 (08:19→16:36)
[2018-12-09] MEDS: FOLIC ACID 1 MG TABLET PO SCH (08:19)
[2018-12-09] MEDS: LACTULOSE 20 GM/30 ML SOLUTION UDCUP PO SCH (08:20)
[2018-12-09 10:35] VITALS: BP 124/77
[2018-12-09 16:13] VITALS: BP 134/89
[2018-12-09] MEDS: LORazepam 1 MG TABLET PO PRN ×2 (16:36→20:37)
[2018-12-09 18:50] VITALS: BP 136/83
[2018-12-09] MEDS: ZOLPIDEM TARTRATE 10 MG TABLET PO PRN (20:37)
[2018-12-09] MEDS: OLANZapine 10 MG RAPDIS TABLET PO SCH (20:37)
[2018-12-10 00:53] VITALS: BP 130/78
[2018-12-10 00:54] VITALS: BP 130/78
[2018-12-10 08:00] VITALS: BP_SYST 117; BP_DIAS 55; BP_DIAS 75
[2018-12-10] MEDS: DOCUSATE SODIUM 100 MG CAPSULE PO SCH (09:06)
[2018-12-10] MEDS: THIAMINE HCL 100 MG TABLET PO SCH ×2 (09:06→17:06)
[2018-12-10] MEDS: MULTIVITAMINS WITH MINERALS, THERAPEUTIC TABLET PO SCH (09:06)
[2018-12-10] MEDS: LACTULOSE 20 GM/30 ML SOLUTION UDCUP PO SCH ×3 (09:06→17:06)
[2018-12-10] MEDS: NALTREXONE HCL 50 MG TABLET PO SCH (09:06)
[2018-12-10] MEDS: FOLIC ACID 1 MG TABLET PO SCH (09:06)
[2018-12-10] MEDS: OMEPRAZOLE 20 MG CAPSULE PO SCH (09:06)
[2018-12-10] MEDS: BuPROPion HCL XL 150 MG ER TABLET PO SCH (09:07)
[2018-12-10] MEDS: AmLODIPine BESYLATE 10 MG TABLET PO SCH (09:07)
[2018-12-10 16:00] VITALS: BP 113/73
[2018-12-10 16:13] VITALS: BP 113/73
[2018-12-10] MEDS: ZOLPIDEM TARTRATE 10 MG TABLET PO PRN (20:23)
[2018-12-10] MEDS: OLANZapine 10 MG RAPDIS TABLET PO SCH (20:23)
[2018-12-11 02:53] VITALS: BP 131/72
[2018-12-11 09:14] VITALS: BP 127/73
[2018-12-11] MEDS: LACTULOSE 20 GM/30 ML SOLUTION UDCUP PO SCH ×3 (09:31→17:00)
[2018-12-11] MEDS: NALTREXONE HCL 50 MG TABLET PO SCH (09:31)
[2018-12-11] MEDS: MULTIVITAMINS WITH MINERALS, THERAPEUTIC TABLET PO SCH (09:31)
[2018-12-11] MEDS: THIAMINE HCL 100 MG TABLET PO SCH ×2 (09:31→17:00)
[2018-12-11] MEDS: BuPROPion HCL XL 150 MG ER TABLET PO SCH (09:31)
[2018-12-11] MEDS: OMEPRAZOLE 20 MG CAPSULE PO SCH (09:31)
[2018-12-11] MEDS: AmLODIPine BESYLATE 10 MG TABLET PO SCH (09:31)
[2018-12-11] MEDS: FOLIC ACID 1 MG TABLET PO SCH (09:32)
[2018-12-11] MEDS: DOCUSATE SODIUM 100 MG CAPSULE PO SCH (09:32)
[2018-12-11 16:18] VITALS: BP 115/60
[2018-12-11] MEDS: OLANZapine 10 MG RAPDIS TABLET PO SCH (20:25)
[2018-12-12 07:10] VITALS: BP 140/88
[2018-12-12 08:08] VITALS: BP 108/63
[2018-12-12] MEDS: LACTULOSE 20 GM/30 ML SOLUTION UDCUP PO SCH ×3 (09:09→16:33)
[2018-12-12] MEDS: OMEPRAZOLE 20 MG CAPSULE PO SCH (09:10)
[2018-12-12] MEDS: BuPROPion HCL XL 150 MG ER TABLET PO SCH (09:10)
[2018-12-12] MEDS: DOCUSATE SODIUM 100 MG CAPSULE PO SCH (09:10)
[2018-12-12] MEDS: FOLIC ACID 1 MG TABLET PO SCH (09:10)
[2018-12-12] MEDS: AmLODIPine BESYLATE 10 MG TABLET PO SCH (09:10)
[2018-12-12] MEDS: THIAMINE HCL 100 MG TABLET PO SCH ×2 (09:11→16:32)
[2018-12-12] MEDS: MULTIVITAMINS WITH MINERALS, THERAPEUTIC TABLET PO SCH (09:11)
[2018-12-12] MEDS: NALTREXONE HCL 50 MG TABLET PO SCH (09:11)
[2018-12-12] MEDS ORDERED: NALT50TA PO (13:48)
[2018-12-12] MEDS ORDERED: BUPR-47 PO (13:48)
[2018-12-12] MEDS ORDERED: OLAN10TA22 PO (13:48)
[2018-12-12 16:00] VITALS: BP 130/72
[2018-12-12] MEDS ORDERED: FOLI1 PO (16:29)
[2018-12-12] MEDS ORDERED: DSS100 PO (16:29)
[2018-12-12] MEDS ORDERED: MULT-1203 PO (16:30)
== END 2018-12-12 17:25 | disposition home or self-care (01) | DRG 750 ==
LOC: B3A 14:03
PROVIDERS: ADMIT Psychiatry & Neurology Psychiatry; ATTEND Psychiatry & Neurology Psychiatry
DX: F25.0 Schizoaffective disorder, bipolar type (principal); E72.20 Disorder of urea cycle metabolism, unspecified; Z59.0 Homelessness; Z91.19 Patient's noncompliance with other medical treatment and regimen; F10.10 Alcohol abuse, uncomplicated; B18.2 Chronic viral hepatitis C; I10 Essential (primary) hypertension; G47.00 Insomnia, unspecified; F41.9 Anxiety disorder, unspecified; F17.200 Nicotine dependence, unspecified, uncomplicated; F15.10 Other stimulant abuse, uncomplicated; K21.9 Gastro-esophageal reflux disease without esophagitis; J44.9 Chronic obstructive pulmonary disease, unspecified; Z88.8 Allergy status to other drugs, medicaments and biological substances; Z79.899 Other long term (current) drug therapy; Z71.41 Alcohol abuse counseling and surveillance of alcoholic; Z71.51 Drug abuse counseling and surveillance of drug abuser
CPT/HCPCS: 90732; J1200; J1630; J3420

== ENCOUNTER 2019-01-07 22:19 | Inpatient (IN) | payer MEDICAID ==
[~2019-01-07] VITALS: Ht 175.3 cm; Wt 81.6 kg
[~2019-01-07 22:19] MED LIST changes: +DSS100 PO; +FOLI1 PO; +MULT-1203 PO; -OLAN10TA20 PO; +OLAN10TA22 PO
[2019-01-07 22:42] LABS: BASOPHILS % (AUTO) 1.1 % (0.0-2.0); EOSINOPHILS % (AUTO) 3.3 % (1.0-6.0); HEMATOCRIT 43.4 % (41-53); HEMOGLOBIN 14.7 g/dL (13.5-17.5); LYMPHOCYTES # (AUTO) 3.3 K/uL (1.0-4.8); LYMPHOCYTES % (AUTO) 42.2 % (22.0-44.0); MEAN CORPUSCULAR HEMOGLOBIN 29.9 pg (26.0-34.0); MEAN CORPUSCULAR HGB CONC 33.9 G/dL (31.0-37.0); MEAN CORPUSCULAR VOLUME 88 fL (80-100); MONOCYTES # (AUTO) 0.9 K/uL (0.1-1.0); MONOCYTES % (AUTO) 11.5 % (2.0-9.0); NEUTROPHILS # (AUTO) 3.3 K/uL (1.8-7.7); NEUTROPHILS % (AUTO) 41.9 % (40.0-70.0); PLATELET COUNT (AUTO) 291 K/uL (150-450); RED BLOOD CELL COUNT(AUTO) 4.91 MIL/uL (4.50-5.90); RED CELL DISTRIBUTION WIDTH 12.6 % (11.5-14.5)
[2019-01-07 22:57] LABS: ALANINE AMINOTRANSFERASE 180 U/L (12-78); ALBUMIN 3.8 g/dL (3.4-5.0); ALKALINE PHOSPHATASE 142 U/L (46-116); ANION GAP 11 mmol/L (8-16); ASPARTATE AMINOTRANSFERASE 167 U/L (15-37); BILIRUBIN,TOTAL 0.9 mg/dL (0.1-1.0); CALCIUM, TOTAL 9.8 mg/dL (8.8-10.5); CARBON DIOXIDE 30 mmol/L (22-29); CHLORIDE 99 mmol/L (98-107); CREATININE 1.05 mg/dL (0.60-1.30); GLOMERULAR FILTR. RATE CALC > 60 mL/min (>60); GLUCOSE,RANDOM 135 mg/dL (70-110); SODIUM SERUM 140 mmol/L (136-145); TOTAL PROTEIN, SERUM 8.9 g/dL (6.4-8.2); UREA NITROGEN, BLOOD 12 mg/dL (7-18)
[2019-01-08] VITALS (9 sets, daily range): BP systolic 124–135; BP diastolic 62–95
[2019-01-08] MEDS ORDERED: LORazepam 2 MG TABLET PO PRN (00:45)
[2019-01-08] MEDS ORDERED: OLANZapine 5 MG RAPDIS TABLET PO PRN ×2 (00:45→16:15)
[2019-01-08] MEDS ORDERED: POTASSIUM CHLORIDE 20 MEQ ER TABLET PO ONE ×2 (01:30→09:00)
[2019-01-08] MEDS ORDERED: HALOPERIDOL LACTATE 5 MG/ML VIAL IM ONE (01:45)
[2019-01-08] MEDS ORDERED: DiphenhydrAMINE HCL 50 MG/ML VIAL IM ONE (01:45)
[2019-01-08] MEDS ORDERED: LORazepam 2 MG/ML VIAL IM ONE (01:45)
[2019-01-08] MEDS ORDERED: PNEUMOCOCCAL VACCINE POLYVALENT 0.5 ML VIAL [PPSV23] IM ONE (04:45)
[2019-01-08] MEDS ORDERED: MAG HYDROX/AL HYDROX/SIMETH ES 30 ML SUSPENSION UDCUP PO PRN (09:00)
[2019-01-08] MEDS ORDERED: BENZOCAINE/MENTHOL LOZENGE MM PRN (09:00)
[2019-01-08] MEDS ORDERED: PETROLATUM,WHITE 71 GM JELLY TP PRN (09:00)
[2019-01-08] MEDS ORDERED: BACITRACIN 28.4 GM OINTMENT TP PRN (09:00)
[2019-01-08] MEDS ORDERED: ONDANSETRON HCL 4 MG TABLET PO PRN (09:00)
[2019-01-08] MEDS ORDERED: IBUPROFEN 600 MG TABLET PO PRN (09:00)
[2019-01-08] MEDS ORDERED: LOPERAMIDE HCL 2 MG CAPSULE PO PRN (09:00)
[2019-01-08] MEDS ORDERED: CloNIDine HCL 0.1 MG TABLET PO PRN (09:00)
[2019-01-08] MEDS ORDERED: ACETAMINOPHEN 325 MG TABLET PO PRN (09:00)
[2019-01-08] MEDS ORDERED: MAGNESIUM HYDROXIDE SUSPENSION 30 ML UDCUP PO PRN (09:00)
[2019-01-08] MEDS ORDERED: ALBUTEROL SULFATE HFA 90 MCG/PUFF 8 GM INHALER IH PRN (09:00)
[2019-01-08] MEDS: OMEPRAZOLE 20 MG CAPSULE PO SCH (09:46)
[2019-01-08] MEDS: DOCUSATE SODIUM 100 MG CAPSULE PO SCH (09:46)
[2019-01-08] MEDS: LACTULOSE 20 GM/30 ML SOLUTION UDCUP PO SCH ×3 (09:48→17:00)
[2019-01-08] MEDS ORDERED: HydrOXYzine PAMOATE 50 MG CAPSULE PO PRN (16:15)
[2019-01-08] MEDS ORDERED: OLANZapine 10 MG TABLET PO SCH (21:00)
[2019-01-09] VITALS (7 sets, daily range): BP systolic 122–138; BP diastolic 76–89
[2019-01-09] MEDS: LACTULOSE 20 GM/30 ML SOLUTION UDCUP PO SCH ×3 (08:29→17:00)
[2019-01-09] MEDS: NALTREXONE HCL 50 MG TABLET PO SCH (08:30)
[2019-01-09] MEDS: DOCUSATE SODIUM 100 MG CAPSULE PO SCH (08:30)
[2019-01-09] MEDS: OMEPRAZOLE 20 MG CAPSULE PO SCH (08:30)
[2019-01-09] MEDS ORDERED: DIVALPROEX SODIUM 500 MG ER TABLET PO SCH (09:00)
[2019-01-09] MEDS ORDERED: HydrOXYzine PAMOATE 50 MG CAPSULE PO PRN ×2 (13:30→15:30)
[2019-01-09] MEDS ORDERED: GuaiFENesin/D-METHORPHAN [SUGAR-FREE] 200-20MG/10 ML SYRUP UDCUP PO PRN ×2 (13:30→15:30)
[2019-01-09] MEDS ORDERED: LORazepam 2 MG TABLET PO PRN (15:30)
[2019-01-09] MEDS ORDERED: CYANOCOBALAMIN 1,000 MCG/ML VIAL IM ONE (15:30)
[2019-01-09] MEDS ORDERED: LOPERAMIDE HCL 2 MG CAPSULE PO PRN (15:30)
[2019-01-09] MEDS: THIAMINE HCL 100 MG TABLET PO SCH (16:15)
[2019-01-09] MEDS ORDERED: THIAMINE HCL 100 MG TABLET PO SCH (17:00)
[2019-01-09] MEDS: OLANZapine 10 MG TABLET PO SCH (20:59)
[2019-01-09] MEDS ORDERED: OLANZapine 10 MG TABLET PO SCH (21:00)
[2019-01-10] MEDS ORDERED: LORazepam 2 MG TABLET PO PRN (07:00)
[2019-01-10 08:00] VITALS: BP 139/86
[2019-01-10] MEDS: LORazepam 2 MG TABLET PO SCH ×4 (08:00→20:35)
[2019-01-10] MEDS: DOCUSATE SODIUM 100 MG CAPSULE PO SCH (08:00)
[2019-01-10] MEDS: MULTIVITAMINS WITH MINERALS, THERAPEUTIC TABLET PO SCH (08:01)
[2019-01-10] MEDS: OMEPRAZOLE 20 MG CAPSULE PO SCH (08:01)
[2019-01-10] MEDS: NALTREXONE HCL 50 MG TABLET PO SCH (08:01)
[2019-01-10] MEDS: FOLIC ACID 1 MG TABLET PO SCH (08:01)
[2019-01-10] MEDS: DIVALPROEX SODIUM 500 MG ER TABLET PO SCH (08:01)
[2019-01-10] MEDS: LACTULOSE 20 GM/30 ML SOLUTION UDCUP PO SCH ×3 (08:02→16:37)
[2019-01-10] MEDS: THIAMINE HCL 100 MG TABLET PO SCH ×2 (08:02→16:37)
[2019-01-10 08:45] VITALS: BP 139/86
[2019-01-10] MEDS ORDERED: FOLIC ACID 1 MG TABLET PO SCH (09:00)
[2019-01-10] MEDS ORDERED: MULTIVITAMINS WITH MINERALS, THERAPEUTIC TABLET PO SCH (09:00)
[2019-01-10 09:28] LABS: CHOL/HDL RATIO 4.2 (4.2-7.3); POTASSIUM 3.8 mmol/L (3.5-5.1)
[2019-01-10 16:00] VITALS: BP 120/87
[2019-01-10] MEDS: OLANZapine 10 MG TABLET PO SCH (20:35)
[2019-01-11 05:51] VITALS: BP 126/82
[2019-01-11 05:52] VITALS: BP 126/82
[2019-01-11 08:29] VITALS: BP 126/81
[2019-01-11 08:30] VITALS: BP 126/81
[2019-01-11] MEDS: FOLIC ACID 1 MG TABLET PO SCH (09:57)
[2019-01-11] MEDS: LORazepam 2 MG TABLET PO SCH ×4 (09:57→20:13)
[2019-01-11] MEDS: MULTIVITAMINS WITH MINERALS, THERAPEUTIC TABLET PO SCH (09:57)
[2019-01-11] MEDS: THIAMINE HCL 100 MG TABLET PO SCH ×2 (09:57→16:20)
[2019-01-11] MEDS: OMEPRAZOLE 20 MG CAPSULE PO SCH (09:57)
[2019-01-11] MEDS: DOCUSATE SODIUM 100 MG CAPSULE PO SCH (09:57)
[2019-01-11] MEDS: LACTULOSE 20 GM/30 ML SOLUTION UDCUP PO SCH ×3 (09:57→16:14)
[2019-01-11] MEDS: NALTREXONE HCL 50 MG TABLET PO SCH (09:57)
[2019-01-11] MEDS: DIVALPROEX SODIUM 500 MG ER TABLET PO SCH (10:00)
[2019-01-11 17:35] VITALS: BP 134/92
[2019-01-11] MEDS: OLANZapine 7.5 MG TABLET PO SCH (20:13)
[2019-01-11] MEDS: ZOLPIDEM TARTRATE 10 MG TABLET PO PRN (20:50)
[2019-01-12 06:00] VITALS: BP_SYST 132; BP_DIAS 82; BP_DIAS 86
[2019-01-12] MEDS ORDERED: LORazepam 1 MG TABLET PO PRN (07:00)
[2019-01-12 08:00] VITALS: BP 119/83
[2019-01-12 08:40] VITALS: BP 119/83
[2019-01-12] MEDS: DOCUSATE SODIUM 100 MG CAPSULE PO SCH (09:35)
[2019-01-12] MEDS: DIVALPROEX SODIUM 500 MG ER TABLET PO SCH (09:35)
[2019-01-12] MEDS: OMEPRAZOLE 20 MG CAPSULE PO SCH (09:35)
[2019-01-12] MEDS: MULTIVITAMINS WITH MINERALS, THERAPEUTIC TABLET PO SCH (09:35)
[2019-01-12] MEDS: LACTULOSE 20 GM/30 ML SOLUTION UDCUP PO SCH ×3 (09:36→16:59)
[2019-01-12] MEDS: FOLIC ACID 1 MG TABLET PO SCH (09:36)
[2019-01-12] MEDS: LORazepam 1 MG TABLET PO SCH ×4 (09:36→20:45)
[2019-01-12] MEDS: THIAMINE HCL 100 MG TABLET PO SCH ×2 (09:37→17:00)
[2019-01-12] MEDS: NALTREXONE HCL 50 MG TABLET PO SCH (10:56)
[2019-01-12 16:00] VITALS: BP 128/76
[2019-01-12] MEDS: OLANZapine 7.5 MG TABLET PO SCH (20:45)
[2019-01-13] MEDS ORDERED: LORazepam 1 MG TABLET PO PRN (07:00)
[2019-01-13] MEDS: DIVALPROEX SODIUM 500 MG ER TABLET PO SCH (08:54)
[2019-01-13] MEDS: DOCUSATE SODIUM 100 MG CAPSULE PO SCH (08:54)
[2019-01-13] MEDS: FOLIC ACID 1 MG TABLET PO SCH (08:54)
[2019-01-13] MEDS: THIAMINE HCL 100 MG TABLET PO SCH ×2 (08:54→17:20)
[2019-01-13] MEDS: LACTULOSE 20 GM/30 ML SOLUTION UDCUP PO SCH ×3 (08:54→17:20)
[2019-01-13] MEDS: OMEPRAZOLE 20 MG CAPSULE PO SCH (08:54)
[2019-01-13] MEDS: NALTREXONE HCL 50 MG TABLET PO SCH (08:55)
[2019-01-13] MEDS: MULTIVITAMINS WITH MINERALS, THERAPEUTIC TABLET PO SCH (08:55)
[2019-01-13 09:01] VITALS: BP 118/70
[2019-01-13 09:24] VITALS: BP 118/88
[2019-01-13 16:01] VITALS: BP 138/77
[2019-01-13 16:06] VITALS: BP 132/90
[2019-01-13] MEDS: OLANZapine 7.5 MG TABLET PO SCH (20:08)
[2019-01-14 05:49] VITALS: BP 126/72
[2019-01-14 08:34] LABS: BASOPHILS % (AUTO) 0.7 % (0.0-2.0); EOSINOPHILS % (AUTO) 4.9 % (1.0-6.0); HEMATOCRIT 42.6 % (41-53); HEMOGLOBIN 14.4 g/dL (13.5-17.5); LYMPHOCYTES # (AUTO) 2.3 K/uL (1.0-4.8); LYMPHOCYTES % (AUTO) 46.9 % (22.0-44.0); MEAN CORPUSCULAR HEMOGLOBIN 30.2 pg (26.0-34.0); MEAN CORPUSCULAR HGB CONC 33.7 G/dL (31.0-37.0); MEAN CORPUSCULAR VOLUME 90 fL (80-100); MONOCYTES # (AUTO) 0.5 K/uL (0.1-1.0); MONOCYTES % (AUTO) 9.7 % (2.0-9.0); NEUTROPHILS # (AUTO) 1.9 K/uL (1.8-7.7); NEUTROPHILS % (AUTO) 37.8 % (40.0-70.0); PLATELET COUNT (AUTO) 197 K/uL (150-450); RED BLOOD CELL COUNT(AUTO) 4.75 MIL/uL (4.50-5.90); RED CELL DISTRIBUTION WIDTH 12.7 % (11.5-14.5)
[2019-01-14] MEDS: MULTIVITAMINS WITH MINERALS, THERAPEUTIC TABLET PO SCH (08:46)
[2019-01-14] MEDS: LACTULOSE 20 GM/30 ML SOLUTION UDCUP PO SCH ×3 (08:46→17:00)
[2019-01-14] MEDS: DOCUSATE SODIUM 100 MG CAPSULE PO SCH (08:46)
[2019-01-14] MEDS: THIAMINE HCL 100 MG TABLET PO SCH ×2 (08:46→17:02)
[2019-01-14] MEDS: FOLIC ACID 1 MG TABLET PO SCH (08:46)
[2019-01-14] MEDS: NALTREXONE HCL 50 MG TABLET PO SCH (08:46)
[2019-01-14] MEDS: OMEPRAZOLE 20 MG CAPSULE PO SCH (08:47)
[2019-01-14 08:58] LABS: ALANINE AMINOTRANSFERASE 191 U/L (12-78); ALKALINE PHOSPHATASE 89 U/L (46-116); ANION GAP 7 mmol/L (8-16); ASPARTATE AMINOTRANSFERASE 151 U/L (15-37); BILIRUBIN,TOTAL 0.5 mg/dL (0.1-1.0); CALCIUM, TOTAL 9.2 mg/dL (8.8-10.5); CARBON DIOXIDE 27 mmol/L (22-29); CHLORIDE 105 mmol/L (98-107); CREATININE 0.95 mg/dL (0.60-1.30); GLOMERULAR FILTR. RATE CALC > 60 mL/min (>60); GLUCOSE,RANDOM 88 mg/dL (70-110); POTASSIUM 3.4 mmol/L (3.5-5.1); SODIUM SERUM 139 mmol/L (136-145); TOTAL PROTEIN, SERUM 7.6 g/dL (6.4-8.2)
[2019-01-14] MEDS: DIVALPROEX SODIUM 500 MG ER TABLET PO SCH (09:00)
[2019-01-14 09:09] LABS: UREA NITROGEN, BLOOD 14 mg/dL (7-18)
[2019-01-14 09:14] VITALS: BP 117/76
[2019-01-14 16:00] VITALS: BP 132/86
[2019-01-14] MEDS ORDERED: POTASSIUM CHLORIDE 20 MEQ ER TABLET PO ONE (17:45)
[2019-01-14] MEDS: OLANZapine 7.5 MG TABLET PO SCH (21:06)
[2019-01-14] MEDS: ZOLPIDEM TARTRATE 10 MG TABLET PO PRN (21:06)
[2019-01-15 08:06] LABS: ANION GAP 7 mmol/L (8-16); CALCIUM, TOTAL 9.6 mg/dL (8.8-10.5); CARBON DIOXIDE 26 mmol/L (22-29); CHLORIDE 106 mmol/L (98-107); CREATININE 0.77 mg/dL (0.60-1.30); GLOMERULAR FILTR. RATE CALC > 60 mL/min (>60); GLUCOSE,RANDOM 79 mg/dL (70-110); SODIUM SERUM 139 mmol/L (136-145); UREA NITROGEN, BLOOD 15 mg/dL (7-18)
[2019-01-15] MEDS: DIVALPROEX SODIUM 500 MG ER TABLET PO SCH (09:00)
[2019-01-15] MEDS: THIAMINE HCL 100 MG TABLET PO SCH ×2 (09:36→16:58)
[2019-01-15] MEDS: OMEPRAZOLE 20 MG CAPSULE PO SCH (09:36)
[2019-01-15] MEDS: LACTULOSE 20 GM/30 ML SOLUTION UDCUP PO SCH ×3 (09:36→16:59)
[2019-01-15] MEDS: FOLIC ACID 1 MG TABLET PO SCH (09:37)
[2019-01-15] MEDS: DOCUSATE SODIUM 100 MG CAPSULE PO SCH (09:37)
[2019-01-15] MEDS: MULTIVITAMINS WITH MINERALS, THERAPEUTIC TABLET PO SCH (09:37)
[2019-01-15] MEDS: NALTREXONE HCL 50 MG TABLET PO SCH (09:37)
[2019-01-15 12:13] VITALS: BP 137/87
[2019-01-15 16:13] VITALS: BP_SYST 132
[2019-01-15] MEDS: OLANZapine 7.5 MG TABLET PO SCH (20:42)
[2019-01-15] MEDS: ZOLPIDEM TARTRATE 10 MG TABLET PO PRN (20:43)
[2019-01-16] MEDS: OMEPRAZOLE 20 MG CAPSULE PO SCH (08:14)
[2019-01-16] MEDS: MULTIVITAMINS WITH MINERALS, THERAPEUTIC TABLET PO SCH (08:14)
[2019-01-16] MEDS: DIVALPROEX SODIUM 500 MG ER TABLET PO SCH (08:14)
[2019-01-16] MEDS: THIAMINE HCL 100 MG TABLET PO SCH (08:15)
[2019-01-16] MEDS: DOCUSATE SODIUM 100 MG CAPSULE PO SCH (08:15)
[2019-01-16] MEDS: FOLIC ACID 1 MG TABLET PO SCH (08:15)
[2019-01-16] MEDS: NALTREXONE HCL 50 MG TABLET PO SCH (08:15)
[2019-01-16] MEDS: LACTULOSE 20 GM/30 ML SOLUTION UDCUP PO SCH ×2 (08:15→12:20)
[2019-01-16] MEDS ORDERED: DIVA500T52 PO ×2 (14:12→15:11)
[2019-01-16] MEDS ORDERED: OLAN7.5T9 PO (14:12)
[2019-01-16] MEDS ORDERED: NALT50TA PO (14:12)
[2019-01-16] MEDS ORDERED: OLAN7.5T2 PO (15:10)
== END 2019-01-16 16:10 | disposition home or self-care (01) | DRG 750 ==
LOC: EMS 22:20 → B3A 01-08 00:30
PROVIDERS: ADMIT Psychiatry & Neurology Psychiatry; ATTEND Psychiatry & Neurology Psychiatry
DX: F25.0 Schizoaffective disorder, bipolar type (principal); E72.20 Disorder of urea cycle metabolism, unspecified; K72.90 Hepatic failure, unspecified without coma; R45.850 Homicidal ideations; Z59.0 Homelessness; B18.2 Chronic viral hepatitis C; E87.6 Hypokalemia; F15.10 Other stimulant abuse, uncomplicated; F17.200 Nicotine dependence, unspecified, uncomplicated; G47.00 Insomnia, unspecified; I10 Essential (primary) hypertension; F32.9 Major depressive disorder, single episode, unspecified; F41.9 Anxiety disorder, unspecified; F10.10 Alcohol abuse, uncomplicated; G89.29 Other chronic pain; M54.9 Dorsalgia, unspecified; J44.9 Chronic obstructive pulmonary disease, unspecified; K21.9 Gastro-esophageal reflux disease without esophagitis; Z53.20 Procedure and treatment not carried out because of patient's decision for unspecified reasons; Z91.14 Patient's other noncompliance with medication regimen; Z91.19 Patient's noncompliance with other medical treatment and regimen; Z88.5 Allergy status to narcotic agent; Z88.8 Allergy status to other drugs, medicaments and biological substances; Z28.21 Immunization not carried out because of patient refusal; Z71.51 Drug abuse counseling and surveillance of drug abuser; Z71.6 Tobacco abuse counseling; Z71.41 Alcohol abuse counseling and surveillance of alcoholic; Y90.0 Blood alcohol level of less than 20 mg/100 ml
CPT/HCPCS: 84132; 90732; 96372; 99291; G0480; J1200; J1630; J2060; J3420

== ENCOUNTER 2019-01-27 02:31 | Inpatient (IN) | payer MEDICAID ==
[~2019-01-27] VITALS: Ht 175.3 cm; Wt 84.1 kg
[~2019-01-27 02:31] MED LIST changes: -AMLO-512 PO; -BUPR-47 PO; +DIVA500T52 PO; -DSS100 PO; -FOLI1 PO; -LACT30L PO; -MULT-1203 PO; -OLAN10TA22 PO; +OLAN7.5T2 PO; +OLAN7.5T9 PO; -OMEP20 PO; -THIA100T67 PO
[2019-01-27] MEDS ORDERED: AMLO-511 PO (02:48)
[2019-01-27] MEDS ORDERED: BUPR100 PO (02:49)
[2019-01-27] MEDS ORDERED: IBUPROFEN 600 MG TABLET PO ONE (03:15)
[2019-01-27] MEDS ORDERED: OLANZapine 5 MG TABLET PO ONE (03:15)
[2019-01-27] MEDS ORDERED: DiphenhydrAMINE HCL 25 MG CAPSULE PO ONE (03:15)
[2019-01-27] MEDS ORDERED: LORazepam 2 MG TABLET PO ONE (03:15)
[2019-01-27] MEDS ORDERED: BACITRACIN 0.9 GM PACKET OINTMENT TP ONE (03:26)
[2019-01-27] MEDS ORDERED: OLANZapine 5 MG RAPDIS TABLET PO PRN (04:15)
[2019-01-27] MEDS ORDERED: ZOLPIDEM TARTRATE 10 MG TABLET PO PRN (04:15)
[2019-01-27] MEDS ORDERED: MAGNESIUM HYDROXIDE SUSPENSION 30 ML UDCUP PO PRN ×2 (13:15→16:30)
[2019-01-27] MEDS ORDERED: PALIPERIDONE 1.5 MG ER TABLET PO PRN (13:15)
[2019-01-27] MEDS ORDERED: LOPERAMIDE HCL 2 MG CAPSULE PO PRN ×2 (13:15→16:30)
[2019-01-27] MEDS ORDERED: MAG HYDROX/AL HYDROX/SIMETH ES 30 ML SUSPENSION UDCUP PO PRN ×2 (13:15→16:30)
[2019-01-27] MEDS ORDERED: GuaiFENesin/D-METHORPHAN [SUGAR-FREE] 200-20MG/10 ML SYRUP UDCUP PO PRN (13:15)
[2019-01-27] MEDS ORDERED: PALIPERIDONE PALMITATE 234 MG/1.5 ML SYRINGE IM ONE (13:15)
[2019-01-27] MEDS ORDERED: ACETAMINOPHEN 325 MG TABLET PO PRN ×2 (13:15→16:30)
[2019-01-27] MEDS ORDERED: PROMETHAZINE HCL 25 MG TABLET PO PRN (13:15)
[2019-01-27 16:00] VITALS: BP 144/88
[2019-01-27] MEDS ORDERED: ONDANSETRON HCL 4 MG TABLET PO PRN (16:30)
[2019-01-27] MEDS ORDERED: CloNIDine HCL 0.1 MG TABLET PO PRN (16:30)
[2019-01-27] MEDS ORDERED: BACITRACIN 28.4 GM OINTMENT TP PRN (16:30)
[2019-01-27] MEDS ORDERED: ALBUTEROL SULFATE HFA 90 MCG/PUFF 8 GM INHALER IH PRN (16:30)
[2019-01-27] MEDS ORDERED: PETROLATUM,WHITE 28 GM JELLY TP PRN (16:30)
[2019-01-27] MEDS ORDERED: IBUPROFEN 600 MG TABLET PO PRN (16:30)
[2019-01-27] MEDS ORDERED: BENZOCAINE/MENTHOL LOZENGE MM PRN (16:30)
[2019-01-27] MEDS: DOCUSATE SODIUM 100 MG CAPSULE PO SCH (16:30)
[2019-01-27] MEDS: OMEPRAZOLE 20 MG CAPSULE PO SCH (16:30)
[2019-01-27] MEDS: THIAMINE HCL 100 MG TABLET PO SCH (17:31)
[2019-01-27] MEDS: HydrOXYzine PAMOATE 50 MG CAPSULE PO PRN (17:32)
[2019-01-27] MEDS: LORazepam 2 MG TABLET PO PRN (17:32)
[2019-01-27 21:00] VITALS: BP 138/85
[2019-01-27] MEDS: DIVALPROEX SODIUM 500 MG ER TABLET PO SCH (21:00)
[2019-01-27] MEDS: PALIPERIDONE 3 MG ER TABLET PO SCH (21:00)
[2019-01-28 08:34] VITALS: BP 130/66
[2019-01-28] MEDS: DOCUSATE SODIUM 100 MG CAPSULE PO SCH (08:36)
[2019-01-28] MEDS: FOLIC ACID 1 MG TABLET PO SCH (08:36)
[2019-01-28] MEDS: OMEPRAZOLE 20 MG CAPSULE PO SCH (08:36)
[2019-01-28] MEDS: NALTREXONE HCL 50 MG TABLET PO SCH (08:36)
[2019-01-28] MEDS: MULTIVITAMINS WITH MINERALS, THERAPEUTIC TABLET PO SCH (08:36)
[2019-01-28] MEDS: THIAMINE HCL 100 MG TABLET PO SCH ×2 (08:36→16:22)
[2019-01-28] MEDS: LORazepam 2 MG TABLET PO PRN (16:22)
[2019-01-28] MEDS: DIVALPROEX SODIUM 500 MG ER TABLET PO SCH (21:00)
[2019-01-28] MEDS: PALIPERIDONE 3 MG ER TABLET PO SCH (21:00)
[2019-01-29 08:37] VITALS: BP 129/83
[2019-01-29] MEDS: MULTIVITAMINS WITH MINERALS, THERAPEUTIC TABLET PO SCH (08:53)
[2019-01-29] MEDS: DOCUSATE SODIUM 100 MG CAPSULE PO SCH (08:53)
[2019-01-29] MEDS: OMEPRAZOLE 20 MG CAPSULE PO SCH (08:53)
[2019-01-29] MEDS: THIAMINE HCL 100 MG TABLET PO SCH ×2 (08:54→16:42)
[2019-01-29] MEDS: NALTREXONE HCL 50 MG TABLET PO SCH (08:54)
[2019-01-29] MEDS: FOLIC ACID 1 MG TABLET PO SCH (08:54)
[2019-01-29] MEDS: LORazepam 2 MG TABLET PO PRN (20:40)
[2019-01-29] MEDS: PALIPERIDONE 3 MG ER TABLET PO SCH (20:40)
[2019-01-29] MEDS: DIVALPROEX SODIUM 500 MG ER TABLET PO SCH (20:40)
[2019-01-30 07:45] LABS: BASOPHILS % (AUTO) 0.7 % (0.0-2.0); HEMATOCRIT 43.6 % (41-53); HEMOGLOBIN 14.6 g/dL (13.5-17.5); LYMPHOCYTES # (AUTO) 1.9 K/uL (1.0-4.8); LYMPHOCYTES % (AUTO) 36.8 % (22.0-44.0); MEAN CORPUSCULAR HGB CONC 33.4 G/dL (31.0-37.0); MEAN CORPUSCULAR VOLUME 90 fL (80-100); MONOCYTES # (AUTO) 0.6 K/uL (0.1-1.0); MONOCYTES % (AUTO) 11.4 % (2.0-9.0); NEUTROPHILS # (AUTO) 2.3 K/uL (1.8-7.7); NEUTROPHILS % (AUTO) 45.1 % (40.0-70.0); PLATELET COUNT (AUTO) 213 K/uL (150-450); RED BLOOD CELL COUNT(AUTO) 4.86 MIL/uL (4.50-5.90); RED CELL DISTRIBUTION WIDTH 12.8 % (11.5-14.5)
[2019-01-30 08:09] LABS: ALANINE AMINOTRANSFERASE 287 U/L (12-78); ALBUMIN 3.4 g/dL (3.4-5.0); ALKALINE PHOSPHATASE 115 U/L (46-116); ANION GAP 9 mmol/L (8-16); ASPARTATE AMINOTRANSFERASE 288 U/L (15-37); BILIRUBIN,TOTAL 0.8 mg/dL (0.1-1.0); CALCIUM, TOTAL 9.6 mg/dL (8.8-10.5); CARBON DIOXIDE 25 mmol/L (22-29); CHLORIDE 104 mmol/L (98-107); CHOL/HDL RATIO 3.8 (4.2-7.3); CHOLESTEROL 122 mg/dL (131-200); CREATININE 0.74 mg/dL (0.60-1.30); GLOMERULAR FILTR. RATE CALC > 60 mL/min (>60); GLUCOSE,RANDOM 99 mg/dL (70-110); HDL CHOLESTEROL 32 mg/dL (40-60); LDL CHOL (CALC.) 73 mg/dL (0-130); POTASSIUM 3.6 mmol/L (3.5-5.1); SODIUM SERUM 138 mmol/L (136-145); TOTAL PROTEIN, SERUM 7.9 g/dL (6.4-8.2); TRIGLYCERIDES 85 mg/dL (15-150); UREA NITROGEN, BLOOD 14 mg/dL (7-18)
[2019-01-30 08:13] LABS: VALPROIC ACID < 3 mcg/mL (50-100)
[2019-01-30] MEDS: OMEPRAZOLE 20 MG CAPSULE PO SCH (08:37)
[2019-01-30] MEDS: DOCUSATE SODIUM 100 MG CAPSULE PO SCH (08:37)
[2019-01-30] MEDS: LORazepam 2 MG TABLET PO PRN ×2 (08:38→14:11)
[2019-01-30] MEDS: MULTIVITAMINS WITH MINERALS, THERAPEUTIC TABLET PO SCH (08:38)
[2019-01-30] MEDS: FOLIC ACID 1 MG TABLET PO SCH (08:38)
[2019-01-30] MEDS: NALTREXONE HCL 50 MG TABLET PO SCH (08:38)
[2019-01-30] MEDS: THIAMINE HCL 100 MG TABLET PO SCH ×2 (08:38→16:35)
[2019-01-30] MEDS: HydrOXYzine PAMOATE 50 MG CAPSULE PO PRN (14:11)
[2019-01-30 16:00] VITALS: BP 134/88
[2019-01-30] MEDS ORDERED: PALI156D IM (16:57)
[2019-01-30] MEDS ORDERED: DIVA500T52 PO (16:57)
[2019-01-30] MEDS ORDERED: NALT50TA PO (16:57)
[2019-01-30] MEDS ORDERED: LACTULOSE 20 GM/30 ML SOLUTION UDCUP PO SCH (17:00)
[2019-01-31] MEDS ORDERED: PALIPERIDONE PALMITATE 156 MG/ML SYRINGE IM ONE (09:00)
[2019-01-31] MEDS ORDERED: AmLODIPine BESYLATE 5 MG TABLET PO SCH (09:00)
== END 2019-01-30 22:26 | disposition home or self-care (01) | DRG 750 ==
LOC: EMS 02:33 → B3A 13:33
PROVIDERS: ADMIT Psychiatry & Neurology Psychiatry; ATTEND Psychiatry & Neurology Psychiatry
DX: F25.0 Schizoaffective disorder, bipolar type (principal); F39 Unspecified mood [affective] disorder; K72.90 Hepatic failure, unspecified without coma; R45.851 Suicidal ideations; B18.2 Chronic viral hepatitis C; E87.6 Hypokalemia; F10.10 Alcohol abuse, uncomplicated; F15.10 Other stimulant abuse, uncomplicated; F17.210 Nicotine dependence, cigarettes, uncomplicated; F41.9 Anxiety disorder, unspecified; F60.0 Paranoid personality disorder; G47.00 Insomnia, unspecified; G89.29 Other chronic pain; I10 Essential (primary) hypertension; F12.90 Cannabis use, unspecified, uncomplicated; J44.9 Chronic obstructive pulmonary disease, unspecified; K21.9 Gastro-esophageal reflux disease without esophagitis; Z53.20 Procedure and treatment not carried out because of patient's decision for unspecified reasons; Z59.0 Homelessness; Z65.3 Problems related to other legal circumstances; Z91.14 Patient's other noncompliance with medication regimen; Z79.899 Other long term (current) drug therapy; Z88.8 Allergy status to other drugs, medicaments and biological substances
CPT/HCPCS: 87081; 99406; J3535

== ENCOUNTER 2019-03-19 21:18 | Emergency (ER) | payer MEDICAID, OTHER ==
[~2019-03-19] VITALS: Ht 172.7 cm; Wt 84.1 kg
[~2019-03-19 21:18] MED LIST changes: -OLAN7.5T2 PO; -OLAN7.5T9 PO; +PALI156D IM
[2019-03-19 21:42] VITALS: BP 160/111
[2019-03-19] MEDS ORDERED: SOFO1TAB PO (21:54)
[2019-03-19] MEDS ORDERED: OLAN10TA3 PO (21:54)
[2019-03-19 22:22] LABS: BASOPHILS % (AUTO) 0.7 % (0.0-2.0); EOSINOPHILS % (AUTO) 1.6 % (1.0-6.0); HEMATOCRIT 44.5 % (41-53); HEMOGLOBIN 15.5 g/dL (13.5-17.5); LYMPHOCYTES # (AUTO) 3.7 K/uL (1.0-4.8); LYMPHOCYTES % (AUTO) 47.1 % (22.0-44.0); MEAN CORPUSCULAR HEMOGLOBIN 30.2 pg (26.0-34.0); MEAN CORPUSCULAR HGB CONC 34.8 G/dL (31.0-37.0); MEAN CORPUSCULAR VOLUME 87 fL (80-100); MONOCYTES # (AUTO) 1.1 K/uL (0.1-1.0); MONOCYTES % (AUTO) 13.4 % (2.0-9.0); NEUTROPHILS # (AUTO) 2.9 K/uL (1.8-7.7); NEUTROPHILS % (AUTO) 37.2 % (40.0-70.0); PLATELET COUNT (AUTO) 335 K/uL (150-450); RED BLOOD CELL COUNT(AUTO) 5.13 MIL/uL (4.50-5.90); RED CELL DISTRIBUTION WIDTH 13.1 % (11.5-14.5)
[2019-03-19 22:35] LABS: ALANINE AMINOTRANSFERASE 52 U/L (12-78); ALKALINE PHOSPHATASE 124 U/L (46-116); ANION GAP 13 mmol/L (8-16); ASPARTATE AMINOTRANSFERASE 47 U/L (15-37); BILIRUBIN,TOTAL 0.6 mg/dL (0.1-1.0); CALCIUM, TOTAL 9.5 mg/dL (8.8-10.5); CARBON DIOXIDE 26 mmol/L (22-29); CHLORIDE 98 mmol/L (98-107); CREATININE 1.01 mg/dL (0.60-1.30); GLOMERULAR FILTR. RATE CALC > 60 mL/min (>60); GLUCOSE,RANDOM 123 mg/dL (70-110); SODIUM SERUM 137 mmol/L (136-145); UREA NITROGEN, BLOOD 8 mg/dL (7-18)
[2019-03-19 22:38] LABS: POTASSIUM 2.6 mmol/L (3.5-5.1)
== END 2019-03-19 23:42 | disposition left against medical advice (07) ==
LOC: EMS 21:20
DX: F22 Delusional disorders (principal); Z53.21 Procedure and treatment not carried out due to patient leaving prior to being seen by health care provider
CPT/HCPCS: 36415; 80053; 85025; G0480

== ENCOUNTER 2019-10-10 01:10 | Inpatient (IN) | payer MEDICAID, OTHER ==
[~2019-10-10] VITALS: Ht 172.7 cm; Wt 92.3 kg
[~2019-10-10 01:10] MED LIST changes: +OLAN10TA3 PO; +SOFO1TAB PO
[2019-10-10 02:51] LABS: BASOPHILS % (AUTO) 0.6 % (0.0-2.0); HEMATOCRIT 45.2 % (41-53); HEMOGLOBIN 15.5 g/dL (13.5-17.5); LYMPHOCYTES # (AUTO) 3.3 K/uL (1.0-4.8); LYMPHOCYTES % (AUTO) 31.8 % (22.0-44.0); MEAN CORPUSCULAR HEMOGLOBIN 29.8 pg (26.0-34.0); MEAN CORPUSCULAR HGB CONC 34.3 G/dL (31.0-37.0); MEAN CORPUSCULAR VOLUME 87 fL (80-100); MONOCYTES # (AUTO) 1.1 K/uL (0.1-1.0); MONOCYTES % (AUTO) 10.2 % (2.0-9.0); NEUTROPHILS # (AUTO) 5.7 K/uL (1.8-7.7); NEUTROPHILS % (AUTO) 55.4 % (40.0-70.0); PLATELET COUNT (AUTO) 237 K/uL (150-450); RED CELL DISTRIBUTION WIDTH 13.3 % (11.5-14.5)
[2019-10-10 03:00] LABS: ANION GAP 9 mmol/L (8-16); CARBON DIOXIDE 28 mmol/L (22-29); CHLORIDE 103 mmol/L (98-107); CREATININE 1.33 mg/dL (0.60-1.30); GLUCOSE,RANDOM 108 mg/dL (70-110); POTASSIUM 3.9 mmol/L (3.5-5.1); SODIUM SERUM 140 mmol/L (136-145); UREA NITROGEN, BLOOD 16 mg/dL (7-18)
[2019-10-10 03:01] LABS: CALCIUM, TOTAL 9.4 mg/dL (8.8-10.5); GLOMERULAR FILTR. RATE CALC 55 mL/min (>60)
[2019-10-10 03:06] LABS: ALANINE AMINOTRANSFERASE 26 U/L (12-78); ALBUMIN 4.1 g/dL (3.4-5.0); ALKALINE PHOSPHATASE 116 U/L (46-116); ASPARTATE AMINOTRANSFERASE 24 U/L (15-37); BILIRUBIN,TOTAL 0.7 mg/dL (0.1-1.0); TOTAL PROTEIN, SERUM 8.2 g/dL (6.4-8.2)
[2019-10-10] MEDS ORDERED: ZOLPIDEM TARTRATE 10 MG TABLET PO PRN (03:30)
[2019-10-10] MEDS ORDERED: QUEtiapine FUMARATE 100 MG TABLET PO PRN (03:30)
[2019-10-10 03:56] LABS: AMPHET/METH SCREEN,URINE POSITIVE (NEGATIVE); BARBITURATE SCREEN, URINE NEGATIVE (NEGATIVE); BENZODIAZEPINES SCREEN,URINE NEGATIVE (NEGATIVE); CANNABINOID SCREEN,URINE NEGATIVE (NEGATIVE); COCAINE SCREEN,URINE POSITIVE (NEGATIVE); METHADONE SCREEN, URINE NEGATIVE (NEGATIVE); OPIATE SCREEN,URINE NEGATIVE (NEGATIVE); PHENCYCLIDINE SCREEN,URINE NEGATIVE (NEGATIVE)
[2019-10-10 04:06] LABS: APPEARANCE,URINE CLEAR (CLEAR); BILIRUBIN,URINE NEGATIVE (NEGATIVE); GLUCOSE, URINE (UA) NEGATIVE (NEGATIVE); KETONES,URINE NEGATIVE (NEGATIVE); LEUKOCYTE ESTERASE ,URINE NEGATIVE (NEGATIVE); NITRATE,URINE NEGATIVE (NEGATIVE); OCCULT BLOOD,URINE NEGATIVE (NEGATIVE); PH,URINE 5.5 (5.0-8.0); PROTEIN,URINE NEGATIVE (NEGATIVE); UROBILINOGEN,URINE 0.2 mg/dL (<=1.0)
[2019-10-10 07:15] VITALS: BP 134/80
[2019-10-10] MEDS ORDERED: INFLUENZA VIRUS VACCINE QVS 2019-20 (3YR+)/PF 60 MCG/0.5 ML SYRINGE IM ONE (07:30)
[2019-10-10] MEDS ORDERED: PNEUMOCOCCAL VACCINE POLYVALENT 0.5 ML VIAL [PPSV23] IM ONE (07:45)
[2019-10-10] MEDS: LORazepam 2 MG TABLET PO PRN ×2 (10:28→16:41)
[2019-10-10] MEDS ORDERED: PETROLATUM,WHITE 28 GM JELLY TP PRN (12:15)
[2019-10-10] MEDS ORDERED: LOPERAMIDE HCL 2 MG CAPSULE PO PRN (12:15)
[2019-10-10] MEDS ORDERED: ACETAMINOPHEN 325 MG TABLET PO PRN (12:15)
[2019-10-10] MEDS ORDERED: ONDANSETRON HCL 4 MG TABLET PO PRN (12:15)
[2019-10-10] MEDS ORDERED: MAGNESIUM HYDROXIDE SUSPENSION 30 ML UDCUP PO PRN (12:15)
[2019-10-10] MEDS ORDERED: GuaiFENesin/D-METHORPHAN [SUGAR-FREE] 200-20MG/10 ML SYRUP UDCUP PO PRN (12:15)
[2019-10-10] MEDS ORDERED: CloNIDine HCL 0.1 MG TABLET PO PRN (12:15)
[2019-10-10] MEDS ORDERED: MAG HYDROX/AL HYDROX/SIMETH ES 30 ML SUSPENSION UDCUP PO PRN (12:15)
[2019-10-10] MEDS ORDERED: ALBUTEROL SULFATE HFA 90 MCG/PUFF 8 GM INHALER IH PRN (12:15)
[2019-10-10] MEDS ORDERED: NICOTINE 14 MG/24 HOUR PATCH TD PRN (12:15)
[2019-10-10] MEDS ORDERED: DOCUSATE SODIUM 100 MG CAPSULE PO PRN (12:15)
[2019-10-10] MEDS: AMOXICILLIN TRIHYDRATE 500 MG CAPSULE PO SCH (16:19)
[2019-10-10] MEDS: OLANZapine 10 MG TABLET PO SCH (20:30)
[2019-10-10] MEDS: DIVALPROEX SODIUM 500 MG ER TABLET PO SCH ×2 (20:30→20:33)
[2019-10-11 08:25] LABS: CHOL/HDL RATIO 4.3 (4.2-7.3)
[2019-10-11] MEDS: AMOXICILLIN TRIHYDRATE 500 MG CAPSULE PO SCH ×3 (08:25→16:43)
[2019-10-11] MEDS: LORazepam 2 MG TABLET PO PRN ×2 (08:26→16:43)
[2019-10-11 16:13] VITALS: BP 141/90
[2019-10-11] MEDS: DIVALPROEX SODIUM 500 MG ER TABLET PO SCH (20:37)
[2019-10-11] MEDS: OLANZapine 10 MG TABLET PO SCH (20:37)
[2019-10-11] MEDS: IBUPROFEN 400 MG TABLET PO PRN (20:45)
[2019-10-12] MEDS: AMOXICILLIN TRIHYDRATE 500 MG CAPSULE PO SCH ×3 (08:17→16:52)
[2019-10-12] MEDS: BuPROPion HCL XL 150 MG ER TABLET PO SCH (12:29)
[2019-10-12 14:54] VITALS: BP 141/117
[2019-10-12] MEDS: IBUPROFEN 400 MG TABLET PO PRN (14:57)
[2019-10-12 16:58] VITALS: BP 138/66
[2019-10-12] MEDS: DIVALPROEX SODIUM 500 MG ER TABLET PO SCH (20:55)
[2019-10-12] MEDS: OLANZapine 10 MG TABLET PO SCH (20:55)
[2019-10-13 08:00] VITALS: BP 155/99
[2019-10-13] MEDS: BuPROPion HCL XL 150 MG ER TABLET PO SCH (09:04)
[2019-10-13] MEDS: AMOXICILLIN TRIHYDRATE 500 MG CAPSULE PO SCH ×2 (11:54→13:00)
[2019-10-13] MEDS ORDERED: BUPR-93 PO (12:29)
[2019-10-13] MEDS ORDERED: AMOX500T2 PO (12:31)
== END 2019-10-13 13:00 | disposition home or self-care (01) | DRG 750 ==
LOC: EMS 01:10 → B3A 04:48
PROVIDERS: ADMIT Psychiatry & Neurology Psychiatry; ATTEND Psychiatry & Neurology Psychiatry
DX: F20.9 Schizophrenia, unspecified (principal); R45.850 Homicidal ideations; R45.851 Suicidal ideations; B18.2 Chronic viral hepatitis C; E78.5 Hyperlipidemia, unspecified; F15.90 Other stimulant use, unspecified, uncomplicated; I10 Essential (primary) hypertension; J44.9 Chronic obstructive pulmonary disease, unspecified; M19.90 Unspecified osteoarthritis, unspecified site; F17.210 Nicotine dependence, cigarettes, uncomplicated
CPT/HCPCS: G0480

== ENCOUNTER 2019-11-02 13:02 | Inpatient (IN) | payer MEDICAID ==
[~2019-11-02] VITALS: Ht 175.3 cm; Wt 91.2 kg
[~2019-11-02 13:02] MED LIST changes: +AMOX500T2 PO; +BUPR-93 PO; -NALT50TA PO; -PALI156D IM; -SOFO1TAB PO
[2019-11-02 14:22] VITALS: BP 146/91
[2019-11-02] MEDS ORDERED: MAG HYDROX/AL HYDROX/SIMETH ES 30 ML SUSPENSION UDCUP PO PRN (17:30)
[2019-11-02] MEDS ORDERED: CloNIDine HCL 0.1 MG TABLET PO PRN (17:30)
[2019-11-02] MEDS ORDERED: ACETAMINOPHEN 325 MG TABLET PO PRN (17:30)
[2019-11-02] MEDS ORDERED: DOCUSATE SODIUM 100 MG CAPSULE PO PRN (17:30)
[2019-11-02] MEDS ORDERED: MAGNESIUM HYDROXIDE SUSPENSION 30 ML UDCUP PO PRN (17:30)
[2019-11-02] MEDS ORDERED: ALBUTEROL SULFATE HFA 90 MCG/PUFF 8 GM INHALER IH PRN (17:30)
[2019-11-02] MEDS ORDERED: LOPERAMIDE HCL 2 MG CAPSULE PO PRN (17:30)
[2019-11-02] MEDS ORDERED: ONDANSETRON HCL 4 MG TABLET PO PRN (17:30)
[2019-11-02] MEDS ORDERED: NICOTINE 14 MG/24 HOUR PATCH TD PRN (17:30)
[2019-11-02] MEDS ORDERED: GuaiFENesin/D-METHORPHAN [SUGAR-FREE] 200-20MG/10 ML SYRUP UDCUP PO PRN (17:30)
[2019-11-02] MEDS ORDERED: CloNIDine HCL 0.1 MG TABLET PO ONE (18:30)
[2019-11-02] MEDS: ZOLPIDEM TARTRATE 10 MG TABLET PO PRN (22:08)
[2019-11-02 22:46] VITALS: BP 148/107
[2019-11-03 07:31] LABS: BASOPHILS % (AUTO) 0.6 % (0.0-2.0); EOSINOPHILS % (AUTO) 2.9 % (1.0-6.0); HEMATOCRIT 42.5 % (41-53); HEMOGLOBIN 14.6 g/dL (13.5-17.5); LYMPHOCYTES # (AUTO) 3.3 K/uL (1.0-4.8); LYMPHOCYTES % (AUTO) 43.7 % (22.0-44.0); MEAN CORPUSCULAR HEMOGLOBIN 29.8 pg (26.0-34.0); MEAN CORPUSCULAR HGB CONC 34.4 G/dL (31.0-37.0); MEAN CORPUSCULAR VOLUME 87 fL (80-100); MONOCYTES # (AUTO) 0.6 K/uL (0.1-1.0); MONOCYTES % (AUTO) 7.9 % (2.0-9.0); NEUTROPHILS # (AUTO) 3.4 K/uL (1.8-7.7); NEUTROPHILS % (AUTO) 44.9 % (40.0-70.0); PLATELET COUNT (AUTO) 233 K/uL (150-450); RED BLOOD CELL COUNT(AUTO) 4.91 MIL/uL (4.50-5.90); RED CELL DISTRIBUTION WIDTH 13.5 % (11.5-14.5)
[2019-11-03] MEDS: NICOTINE 14 MG/24 HOUR PATCH TD SCH (08:13)
[2019-11-03] MEDS: AmLODIPine BESYLATE 10 MG TABLET PO SCH (08:13)
[2019-11-03 12:51] VITALS: BP 107/70
[2019-11-03] MEDS ORDERED: POTASSIUM CHLORIDE 20 MEQ ER TABLET PO ONE (13:45)
[2019-11-03 16:00] VITALS: BP 144/74
[2019-11-03] MEDS: OLANZapine 7.5 MG TABLET PO SCH (20:16)
[2019-11-03] MEDS: LORazepam 2 MG TABLET PO PRN (21:47)
[2019-11-04 08:05] VITALS: BP 121/72
[2019-11-04] MEDS: NICOTINE 14 MG/24 HOUR PATCH TD SCH (08:19)
[2019-11-04] MEDS: AmLODIPine BESYLATE 10 MG TABLET PO SCH (08:19)
[2019-11-04 17:57] VITALS: BP 136/97
[2019-11-04 20:00] VITALS: BP 137/110
[2019-11-04] MEDS: LORazepam 2 MG TABLET PO PRN (20:06)
[2019-11-04] MEDS: OLANZapine 7.5 MG TABLET PO SCH (20:07)
[2019-11-05] MEDS: IBUPROFEN 400 MG TABLET PO PRN ×2 (00:40→15:52)
[2019-11-05 00:48] VITALS: BP 172/108
[2019-11-05 09:22] VITALS: BP 118/74
[2019-11-05] MEDS: NICOTINE 14 MG/24 HOUR PATCH TD SCH (09:40)
[2019-11-05] MEDS: AmLODIPine BESYLATE 10 MG TABLET PO SCH (09:41)
[2019-11-05 15:50] VITALS: BP 134/97
[2019-11-05] MEDS: LORazepam 2 MG TABLET PO PRN (17:50)
[2019-11-05] MEDS: OLANZapine 7.5 MG TABLET PO SCH (20:14)
[2019-11-06] MEDS: AmLODIPine BESYLATE 10 MG TABLET PO SCH (09:53)
[2019-11-06] MEDS: NICOTINE 14 MG/24 HOUR PATCH TD SCH (09:53)
[2019-11-06 16:27] VITALS: BP 143/100
[2019-11-06 16:57] VITALS: BP 136/96
[2019-11-06] MEDS: IBUPROFEN 400 MG TABLET PO PRN (16:57)
[2019-11-06] MEDS: LORazepam 2 MG TABLET PO PRN (16:57)
[2019-11-06] MEDS: OLANZapine 7.5 MG TABLET PO SCH (20:37)
[2019-11-07 08:28] VITALS: BP 129/88
[2019-11-07] MEDS: NICOTINE 14 MG/24 HOUR PATCH TD SCH (09:56)
[2019-11-07] MEDS: AmLODIPine BESYLATE 10 MG TABLET PO SCH (09:56)
[2019-11-07] MEDS: LORazepam 2 MG TABLET PO PRN (14:13)
[2019-11-07] MEDS: OLANZapine 7.5 MG TABLET PO SCH (20:32)
[2019-11-07] MEDS: ZOLPIDEM TARTRATE 10 MG TABLET PO PRN (22:05)
[2019-11-08 08:11] VITALS: BP 128/89
[2019-11-08] MEDS: AmLODIPine BESYLATE 10 MG TABLET PO SCH (08:14)
[2019-11-08] MEDS: NICOTINE 14 MG/24 HOUR PATCH TD SCH (08:18)
[2019-11-08 17:55] VITALS: BP 116/92
[2019-11-08] MEDS: LORazepam 2 MG TABLET PO PRN (17:57)
[2019-11-08] MEDS ORDERED: OLANZapine 10 MG TABLET PO SCH (21:00)
[2019-11-08] MEDS: ZOLPIDEM TARTRATE 10 MG TABLET PO PRN (21:30)
[2019-11-09 08:36] VITALS: BP 154/94
[2019-11-09] MEDS: NALTREXONE HCL 50 MG TABLET PO SCH (08:40)
[2019-11-09] MEDS: AmLODIPine BESYLATE 10 MG TABLET PO SCH (08:40)
[2019-11-09] MEDS: NICOTINE 14 MG/24 HOUR PATCH TD SCH (08:40)
[2019-11-09] MEDS: OLANZapine 10 MG TABLET PO SCH ×2 (13:11→17:40)
[2019-11-09] MEDS: IBUPROFEN 400 MG TABLET PO PRN (13:15)
[2019-11-09 13:16] VITALS: BP 122/97
[2019-11-09 14:16] VITALS: BP 132/109
[2019-11-09] MEDS: GABAPENTIN 300 MG CAPSULE PO SCH (17:40)
[2019-11-09 18:02] VITALS: BP 135/78
[2019-11-10] MEDS: GABAPENTIN 300 MG CAPSULE PO SCH ×2 (08:19→16:14)
[2019-11-10] MEDS: AmLODIPine BESYLATE 10 MG TABLET PO SCH (08:20)
[2019-11-10] MEDS: OLANZapine 10 MG TABLET PO SCH ×2 (08:20→16:14)
[2019-11-10] MEDS: NALTREXONE HCL 50 MG TABLET PO SCH (08:20)
[2019-11-10] MEDS: NICOTINE 14 MG/24 HOUR PATCH TD SCH (08:21)
[2019-11-10 08:58] VITALS: BP 131/93
[2019-11-10] MEDS: PETROLATUM,WHITE 28 GM JELLY TP PRN (15:06)
[2019-11-10 17:50] VITALS: BP 132/90
[2019-11-10] MEDS: ZOLPIDEM TARTRATE 10 MG TABLET PO PRN (22:32)
[2019-11-11] MEDS: NICOTINE 14 MG/24 HOUR PATCH TD SCH (08:31)
[2019-11-11] MEDS: AmLODIPine BESYLATE 10 MG TABLET PO SCH (08:32)
[2019-11-11] MEDS: NALTREXONE HCL 50 MG TABLET PO SCH (08:32)
[2019-11-11] MEDS: OLANZapine 10 MG TABLET PO SCH ×2 (08:32→17:41)
[2019-11-11] MEDS: GABAPENTIN 300 MG CAPSULE PO SCH ×2 (08:32→17:41)
[2019-11-11 11:41] VITALS: BP 129/84
[2019-11-11 16:15] VITALS: BP 134/81
[2019-11-11] MEDS: ZOLPIDEM TARTRATE 10 MG TABLET PO PRN (20:44)
[2019-11-12] MEDS: NICOTINE 14 MG/24 HOUR PATCH TD SCH (08:55)
[2019-11-12] MEDS: NALTREXONE HCL 50 MG TABLET PO SCH (08:55)
[2019-11-12] MEDS: OLANZapine 10 MG TABLET PO SCH ×2 (08:55→16:37)
[2019-11-12] MEDS: AmLODIPine BESYLATE 10 MG TABLET PO SCH (08:55)
[2019-11-12] MEDS: GABAPENTIN 300 MG CAPSULE PO SCH ×2 (08:55→16:37)
[2019-11-12 10:05] VITALS: BP 121/77
[2019-11-12 16:30] VITALS: BP 112/80
[2019-11-12] MEDS: ZOLPIDEM TARTRATE 10 MG TABLET PO PRN (21:42)
[2019-11-13] MEDS: OLANZapine 10 MG TABLET PO SCH ×2 (08:33→16:36)
[2019-11-13] MEDS: NICOTINE 14 MG/24 HOUR PATCH TD SCH (08:33)
[2019-11-13] MEDS: GABAPENTIN 300 MG CAPSULE PO SCH ×2 (08:33→16:36)
[2019-11-13] MEDS: AmLODIPine BESYLATE 10 MG TABLET PO SCH (08:34)
[2019-11-13] MEDS: NALTREXONE HCL 50 MG TABLET PO SCH (08:34)
[2019-11-13 09:00] VITALS: BP 128/72
[2019-11-13] MEDS: PETROLATUM,WHITE 28 GM JELLY TP PRN (14:19)
[2019-11-13 16:47] VITALS: BP 134/81
[2019-11-13] MEDS: ZOLPIDEM TARTRATE 10 MG TABLET PO PRN (22:26)
[2019-11-14 08:00] VITALS: BP 128/71
[2019-11-14] MEDS: OLANZapine 10 MG TABLET PO SCH ×2 (08:53→17:09)
[2019-11-14] MEDS: GABAPENTIN 300 MG CAPSULE PO SCH ×2 (08:53→17:09)
[2019-11-14] MEDS: AmLODIPine BESYLATE 10 MG TABLET PO SCH (08:53)
[2019-11-14] MEDS: NALTREXONE HCL 50 MG TABLET PO SCH (08:53)
[2019-11-14] MEDS: NICOTINE 14 MG/24 HOUR PATCH TD SCH (08:54)
[2019-11-14 16:59] VITALS: BP 119/82
[2019-11-14] MEDS: ZOLPIDEM TARTRATE 10 MG TABLET PO PRN (21:22)
[2019-11-15 08:08] VITALS: BP 115/74
[2019-11-15] MEDS: OLANZapine 10 MG TABLET PO SCH ×2 (09:31→15:58)
[2019-11-15] MEDS: AmLODIPine BESYLATE 10 MG TABLET PO SCH (09:32)
[2019-11-15] MEDS: GABAPENTIN 300 MG CAPSULE PO SCH ×2 (09:32→15:58)
[2019-11-15] MEDS: NICOTINE 14 MG/24 HOUR PATCH TD SCH (09:32)
[2019-11-15] MEDS: NALTREXONE HCL 50 MG TABLET PO SCH (09:32)
[2019-11-15 17:25] VITALS: BP 140/96
[2019-11-15] MEDS: LORazepam 2 MG TABLET PO PRN (20:09)
[2019-11-16 08:05] VITALS: BP 116/79
[2019-11-16] MEDS: NALTREXONE HCL 50 MG TABLET PO SCH (09:11)
[2019-11-16] MEDS: GABAPENTIN 300 MG CAPSULE PO SCH ×2 (09:11→16:36)
[2019-11-16] MEDS: OLANZapine 10 MG TABLET PO SCH ×2 (09:11→16:36)
[2019-11-16] MEDS: AmLODIPine BESYLATE 10 MG TABLET PO SCH (09:11)
[2019-11-16] MEDS: NICOTINE 14 MG/24 HOUR PATCH TD SCH (09:12)
[2019-11-16 16:45] VITALS: BP 117/76
[2019-11-16] MEDS: ZOLPIDEM TARTRATE 10 MG TABLET PO PRN (20:51)
[2019-11-17 08:15] VITALS: BP 142/75
[2019-11-17] MEDS ORDERED: NALT50TA6 PO (08:55)
[2019-11-17] MEDS ORDERED: AMLO10TA7 PO (08:55)
[2019-11-17] MEDS ORDERED: GABA-531 PO (08:55)
[2019-11-17] MEDS: NALTREXONE HCL 50 MG TABLET PO SCH (09:26)
[2019-11-17] MEDS: OLANZapine 10 MG TABLET PO SCH (09:26)
[2019-11-17] MEDS: GABAPENTIN 300 MG CAPSULE PO SCH (09:26)
[2019-11-17] MEDS: AmLODIPine BESYLATE 10 MG TABLET PO SCH (09:27)
[2019-11-17] MEDS: NICOTINE 14 MG/24 HOUR PATCH TD SCH (09:28)
== END 2019-11-17 10:30 | disposition home or self-care (01) | DRG 885 ==
LOC: B3A 14:15 → 3EC 21:19
PROVIDERS: ADMIT Psychiatry & Neurology Child & Adolescent Psychiatry; ATTEND Psychiatry & Neurology Psychiatry
DX: F25.1 Schizoaffective disorder, depressive type (principal); B19.20 Unspecified viral hepatitis C without hepatic coma; R45.851 Suicidal ideations; F15.10 Other stimulant abuse, uncomplicated; F10.10 Alcohol abuse, uncomplicated; I10 Essential (primary) hypertension; M19.90 Unspecified osteoarthritis, unspecified site; K21.9 Gastro-esophageal reflux disease without esophagitis; J44.9 Chronic obstructive pulmonary disease, unspecified; F17.200 Nicotine dependence, unspecified, uncomplicated; E87.6 Hypokalemia; Z88.8 Allergy status to other drugs, medicaments and biological substances; Z86.19 Personal history of other infectious and parasitic diseases; Z71.6 Tobacco abuse counseling
CPT/HCPCS: 84132; 87081; J3535

== ENCOUNTER 2019-11-02 16:42 | Emergency (ER) | payer MEDICAID, OTHER ==
[~2019-11-02] VITALS: Ht 172.7 cm; Wt 92.6 kg
[2019-11-02 18:27] LABS: BASOPHILS % (AUTO) 0.7 % (0.0-2.0); EOSINOPHILS % (AUTO) 1.8 % (1.0-6.0); HEMATOCRIT 46.4 % (41-53); LYMPHOCYTES # (AUTO) 3.8 K/uL (1.0-4.8); LYMPHOCYTES % (AUTO) 44.9 % (22.0-44.0); MEAN CORPUSCULAR HEMOGLOBIN 29.7 pg (26.0-34.0); MEAN CORPUSCULAR HGB CONC 34.4 G/dL (31.0-37.0); MEAN CORPUSCULAR VOLUME 86 fL (80-100); MONOCYTES # (AUTO) 0.7 K/uL (0.1-1.0); MONOCYTES % (AUTO) 8.7 % (2.0-9.0); NEUTROPHILS # (AUTO) 3.7 K/uL (1.8-7.7); NEUTROPHILS % (AUTO) 43.9 % (40.0-70.0); PLATELET COUNT (AUTO) 287 K/uL (150-450); RED BLOOD CELL COUNT(AUTO) 5.39 MIL/uL (4.50-5.90); RED CELL DISTRIBUTION WIDTH 13.6 % (11.5-14.5)
[2019-11-02] MEDS ORDERED: OLANZapine 5 MG TABLET PO ONE (18:30)
[2019-11-02] MEDS ORDERED: LORazepam 1 MG TABLET PO ONE (18:30)
[2019-11-02 18:40] LABS: ANION GAP 11 mmol/L (8-16); CALCIUM, TOTAL 9.6 mg/dL (8.8-10.5); CARBON DIOXIDE 24 mmol/L (22-29); CHLORIDE 104 mmol/L (98-107); CREATININE 1.16 mg/dL (0.60-1.30); GLOMERULAR FILTR. RATE CALC > 60 mL/min (>60); GLUCOSE,RANDOM 126 mg/dL (70-110); SODIUM SERUM 139 mmol/L (136-145); UREA NITROGEN, BLOOD 10 mg/dL (7-18)
[2019-11-02 18:46] LABS: ALANINE AMINOTRANSFERASE 32 U/L (12-78); ALBUMIN 3.9 g/dL (3.4-5.0); ALKALINE PHOSPHATASE 140 U/L (46-116); ASPARTATE AMINOTRANSFERASE 26 U/L (15-37); BILIRUBIN,TOTAL 0.4 mg/dL (0.1-1.0); LIPASE 232 U/L (73-393); TOTAL PROTEIN, SERUM 8.2 g/dL (6.4-8.2)
[2019-11-02] MEDS ORDERED: POTASSIUM CHLORIDE 20 MEQ ER TABLET PO ONE (19:30)
[2019-11-02] MEDS ORDERED: CloNIDine HCL 0.2 MG TABLET PO ONE (19:30)
[2019-11-02 20:58] VITALS: BP 153/98
== END 2019-11-02 22:15 | disposition home or self-care (01) ==
LOC: EMS 16:46
DX: F20.0 Paranoid schizophrenia (principal); R11.2 Nausea with vomiting, unspecified; E87.6 Hypokalemia; I10 Essential (primary) hypertension; G89.29 Other chronic pain; M54.9 Dorsalgia, unspecified; F17.210 Nicotine dependence, cigarettes, uncomplicated; F15.90 Other stimulant use, unspecified, uncomplicated; F32.9 Major depressive disorder, single episode, unspecified; Z98.890 Other specified postprocedural states; Z79.899 Other long term (current) drug therapy; Z86.19 Personal history of other infectious and parasitic diseases
CPT/HCPCS: 36415; 71045; 80053; 83690; 84484; 85025; 85610; 93005; 99284; G0480

== ENCOUNTER 2020-01-01 17:53 | Inpatient (IN) | payer MEDICAID, OTHER ==
[~2020-01-01] VITALS: Ht 175.3 cm; Wt 95.7 kg
[~2020-01-01 17:53] MED LIST changes: +AMLO10TA7 PO; -AMOX500T2 PO; -BUPR-93 PO; -DIVA500T52 PO; +GABA-531 PO; +NALT50TA6 PO
[2020-01-01 18:22] VITALS: BP 144/98
[2020-01-01 18:30] VITALS: BP 151/100
[2020-01-01] MEDS ORDERED: PROMETHAZINE HCL 25 MG TABLET PO PRN (18:30)
[2020-01-01] MEDS ORDERED: OLANZapine 5 MG RAPDIS TABLET PO PRN (18:30)
[2020-01-01] MEDS ORDERED: ACETAMINOPHEN 325 MG TABLET PO PRN ×2 (18:30→20:30)
[2020-01-01] MEDS ORDERED: TUBERCULIN, PURIFIED PROTEIN DERIVATIVE 5 TU/0.1 ML SYRINGE ID ONE (18:30)
[2020-01-01] MEDS ORDERED: MAGNESIUM HYDROXIDE SUSPENSION 30 ML UDCUP PO PRN ×2 (18:30→20:30)
[2020-01-01] MEDS ORDERED: GuaiFENesin/D-METHORPHAN [SUGAR-FREE] 200-20MG/10 ML SYRUP UDCUP PO PRN ×2 (18:30→20:30)
[2020-01-01] MEDS ORDERED: LOPERAMIDE HCL 2 MG CAPSULE PO PRN ×2 (18:30→20:30)
[2020-01-01] MEDS ORDERED: HydrOXYzine PAMOATE 50 MG CAPSULE PO PRN (18:30)
[2020-01-01] MEDS ORDERED: MAG HYDROX/AL HYDROX/SIMETH ES 30 ML SUSPENSION UDCUP PO PRN ×2 (18:30→20:30)
[2020-01-01] MEDS ORDERED: LORazepam 2 MG TABLET ONE (19:06)
[2020-01-01] MEDS: LORazepam 1 MG TABLET PO PRN (19:23)
[2020-01-01] MEDS: THIAMINE HCL 100 MG TABLET PO SCH (19:24)
[2020-01-01 19:30] VITALS: BP 145/96
[2020-01-01] MEDS ORDERED: PNEUMOCOCCAL VACCINE POLYVALENT 0.5 ML VIAL [PPSV23] IM ONE (19:45)
[2020-01-01] MEDS: GABAPENTIN 300 MG CAPSULE PO SCH (20:21)
[2020-01-01] MEDS ORDERED: DiphenhydrAMINE HCL 50 MG/ML VIAL ONE (20:24)
[2020-01-01] MEDS ORDERED: LORazepam 2 MG/ML VIAL ONE (20:24)
[2020-01-01] MEDS ORDERED: IBUPROFEN 400 MG TABLET PO PRN (20:30)
[2020-01-01] MEDS ORDERED: LORazepam 2 MG/ML VIAL IM ONE (20:30)
[2020-01-01] MEDS ORDERED: ALBUTEROL SULFATE HFA 90 MCG/PUFF 8 GM INHALER IH PRN (20:30)
[2020-01-01] MEDS ORDERED: DiphenhydrAMINE HCL 50 MG/ML VIAL IM ONE (20:30)
[2020-01-01] MEDS ORDERED: PETROLATUM,WHITE 28 GM JELLY TP PRN (20:30)
[2020-01-01] MEDS ORDERED: ONDANSETRON HCL 4 MG TABLET PO PRN (20:30)
[2020-01-01] MEDS ORDERED: CloNIDine HCL 0.1 MG TABLET PO PRN (20:30)
[2020-01-01] MEDS ORDERED: DOCUSATE SODIUM 100 MG CAPSULE PO PRN (20:30)
[2020-01-01] MEDS ORDERED: OLANZapine 5 MG RAPDIS TABLET PO SCH (21:00)
[2020-01-01] MEDS ORDERED: DIVALPROEX SODIUM 500 MG ER TABLET PO SCH (21:00)
[2020-01-01 21:08] VITALS: BP 152/118
[2020-01-01 21:30] VITALS: BP 127/84
[2020-01-02] VITALS (7 sets, daily range): BP systolic 128–151; BP diastolic 81–90
[2020-01-02 08:06] LABS: BASOPHILS % (AUTO) 0.6 % (0.0-2.0); HEMATOCRIT 45.1 % (41-53); HEMOGLOBIN 15.2 g/dL (13.5-17.5); LYMPHOCYTES # (AUTO) 3.1 K/uL (1.0-4.8); LYMPHOCYTES % (AUTO) 43.7 % (22.0-44.0); MEAN CORPUSCULAR HEMOGLOBIN 29.5 pg (26.0-34.0); MEAN CORPUSCULAR HGB CONC 33.7 G/dL (31.0-37.0); MEAN CORPUSCULAR VOLUME 87 fL (80-100); MONOCYTES # (AUTO) 0.7 K/uL (0.1-1.0); MONOCYTES % (AUTO) 10.1 % (2.0-9.0); NEUTROPHILS # (AUTO) 2.9 K/uL (1.8-7.7); NEUTROPHILS % (AUTO) 40.6 % (40.0-70.0); PLATELET COUNT (AUTO) 232 K/uL (150-450); RED BLOOD CELL COUNT(AUTO) 5.16 MIL/uL (4.50-5.90); RED CELL DISTRIBUTION WIDTH 13.5 % (11.5-14.5)
[2020-01-02 08:17] LABS: HEMOGLOBIN A1C 5.7 % (3.8-5.6)
[2020-01-02] MEDS: FOLIC ACID 1 MG TABLET PO SCH (08:31)
[2020-01-02] MEDS: NALTREXONE HCL 50 MG TABLET PO SCH (08:31)
[2020-01-02] MEDS: THIAMINE HCL 100 MG TABLET PO SCH ×2 (08:32→17:17)
[2020-01-02] MEDS: MULTIVITAMINS WITH MINERALS, THERAPEUTIC TABLET PO SCH (08:32)
[2020-01-02] MEDS: AmLODIPine BESYLATE 10 MG TABLET PO SCH (08:32)
[2020-01-02] MEDS: GABAPENTIN 300 MG CAPSULE PO SCH ×4 (08:32→21:08)
[2020-01-02 08:34] LABS: ALANINE AMINOTRANSFERASE 33 U/L (12-78); ALBUMIN 3.4 g/dL (3.4-5.0); ALKALINE PHOSPHATASE 118 U/L (46-116); ANION GAP 9 mmol/L (8-16); ASPARTATE AMINOTRANSFERASE 29 U/L (15-37); BILIRUBIN,TOTAL 1.1 mg/dL (0.1-1.0); CALCIUM, TOTAL 9.4 mg/dL (8.8-10.5); CARBON DIOXIDE 29 mmol/L (22-29); CHLORIDE 104 mmol/L (98-107); CHOL/HDL RATIO 3.2 (4.2-7.3); CHOLESTEROL 120 mg/dL (131-200); CREATININE 1.07 mg/dL (0.60-1.30); FREE T4 (FREE THYROXINE) 0.87 ng/dL (0.76-1.46); GLOMERULAR FILTR. RATE CALC > 60 mL/min (>60); GLUCOSE,RANDOM 106 mg/dL (70-110); HDL CHOLESTEROL 37 mg/dL (40-60); LDL CHOL (CALC.) 61 mg/dL (0-130); POTASSIUM 3.3 mmol/L (3.5-5.1); SODIUM SERUM 142 mmol/L (136-145); THYROID STIMULATING HORMONE 1.55 uIU/mL (0.36-3.74); TOTAL PROTEIN, SERUM 7.2 g/dL (6.4-8.2); TRIGLYCERIDES 109 mg/dL (15-150); UREA NITROGEN, BLOOD 9 mg/dL (7-18)
[2020-01-02] MEDS ORDERED: GABAPENTIN 300 MG CAPSULE PO SCH (09:00)
[2020-01-02] MEDS: LORazepam 1 MG TABLET PO PRN (17:17)
[2020-01-02] MEDS ORDERED: OLANZapine 10 MG RAPDIS TABLET PO SCH (21:00)
[2020-01-03] MEDS ORDERED: POTASSIUM CHLORIDE 20 MEQ ER TABLET PO ONE (06:15)
[2020-01-03 06:32] VITALS: BP 131/82
[2020-01-03 08:03] VITALS: BP 140/82
[2020-01-03] MEDS: AmLODIPine BESYLATE 10 MG TABLET PO SCH (08:33)
[2020-01-03] MEDS: THIAMINE HCL 100 MG TABLET PO SCH ×2 (08:33→16:30)
[2020-01-03] MEDS: BuPROPion HCL XL 150 MG ER TABLET PO SCH (08:33)
[2020-01-03] MEDS: FOLIC ACID 1 MG TABLET PO SCH (08:33)
[2020-01-03] MEDS: NALTREXONE HCL 50 MG TABLET PO SCH (08:33)
[2020-01-03] MEDS: GABAPENTIN 300 MG CAPSULE PO SCH ×4 (08:33→20:18)
[2020-01-03] MEDS: MULTIVITAMINS WITH MINERALS, THERAPEUTIC TABLET PO SCH (08:33)
[2020-01-03 16:15] VITALS: BP 156/90
[2020-01-03 16:18] VITALS: BP 156/90
[2020-01-03] MEDS: LORazepam 1 MG TABLET PO PRN ×2 (16:30→20:18)
[2020-01-03 19:07] VITALS: BP 137/80
[2020-01-03] MEDS ORDERED: OLANZapine 10 MG RAPDIS TABLET PO SCH (21:00)
[2020-01-04 04:21] VITALS: BP 133/75
[2020-01-04 08:32] VITALS: BP 131/75
[2020-01-04 08:35] VITALS: BP 131/75
[2020-01-04] MEDS: GABAPENTIN 300 MG CAPSULE PO SCH ×4 (08:43→20:44)
[2020-01-04] MEDS: MULTIVITAMINS WITH MINERALS, THERAPEUTIC TABLET PO SCH (08:43)
[2020-01-04] MEDS: AmLODIPine BESYLATE 10 MG TABLET PO SCH (08:44)
[2020-01-04] MEDS: FOLIC ACID 1 MG TABLET PO SCH (08:44)
[2020-01-04] MEDS: BuPROPion HCL XL 150 MG ER TABLET PO SCH (08:44)
[2020-01-04] MEDS: NALTREXONE HCL 50 MG TABLET PO SCH (08:44)
[2020-01-04] MEDS: THIAMINE HCL 100 MG TABLET PO SCH ×2 (08:44→16:58)
[2020-01-04 16:00] VITALS: BP 112/67
[2020-01-04 16:08] VITALS: BP 110/86
[2020-01-04] MEDS: OLANZapine 5 MG RAPDIS TABLET PO SCH (20:44)
[2020-01-05 04:24] VITALS: BP 118/82
[2020-01-05 06:44] VITALS: BP 118/82
[2020-01-05] MEDS: GABAPENTIN 300 MG CAPSULE PO SCH ×4 (09:17→20:06)
[2020-01-05] MEDS: NALTREXONE HCL 50 MG TABLET PO SCH (09:18)
[2020-01-05] MEDS: MULTIVITAMINS WITH MINERALS, THERAPEUTIC TABLET PO SCH (09:18)
[2020-01-05] MEDS: BuPROPion HCL XL 150 MG ER TABLET PO SCH (09:18)
[2020-01-05] MEDS: AmLODIPine BESYLATE 10 MG TABLET PO SCH (09:18)
[2020-01-05] MEDS: THIAMINE HCL 100 MG TABLET PO SCH ×2 (09:18→16:04)
[2020-01-05] MEDS: FOLIC ACID 1 MG TABLET PO SCH (09:19)
[2020-01-05 10:50] VITALS: BP 118/79
[2020-01-05 12:31] VITALS: BP 118/79
[2020-01-05] MEDS: NICOTINE 14 MG/24 HOUR PATCH TD PRN (15:05)
[2020-01-05 16:04] VITALS: BP 137/83
[2020-01-05] MEDS: LORazepam 1 MG TABLET PO PRN (16:05)
[2020-01-05 19:46] VITALS: BP 137/83
[2020-01-05] MEDS: OLANZapine 5 MG RAPDIS TABLET PO SCH (20:06)
[2020-01-06 06:05] VITALS: BP 131/78
[2020-01-06 06:07] VITALS: BP 131/78
[2020-01-06 08:32] VITALS: BP 120/85
[2020-01-06 08:33] VITALS: BP 120/85
[2020-01-06] MEDS: BuPROPion HCL XL 150 MG ER TABLET PO SCH (08:43)
[2020-01-06] MEDS: MULTIVITAMINS WITH MINERALS, THERAPEUTIC TABLET PO SCH (08:43)
[2020-01-06] MEDS: AmLODIPine BESYLATE 10 MG TABLET PO SCH (08:44)
[2020-01-06] MEDS: FOLIC ACID 1 MG TABLET PO SCH (08:44)
[2020-01-06] MEDS: THIAMINE HCL 100 MG TABLET PO SCH ×2 (08:44→16:11)
[2020-01-06] MEDS: NALTREXONE HCL 50 MG TABLET PO SCH (08:44)
[2020-01-06] MEDS: GABAPENTIN 300 MG CAPSULE PO SCH ×4 (08:44→20:10)
[2020-01-06] MEDS: LORazepam 1 MG TABLET PO PRN (13:39)
[2020-01-06 16:03] VITALS: BP 139/76
[2020-01-06 17:53] VITALS: BP 128/84
[2020-01-06] MEDS: OLANZapine 5 MG RAPDIS TABLET PO SCH (20:10)
[2020-01-07] VITALS: BP 128/74
[2020-01-07 08:39] VITALS: BP 108/64
[2020-01-07] MEDS: THIAMINE HCL 100 MG TABLET PO SCH ×2 (08:46→16:55)
[2020-01-07] MEDS: NALTREXONE HCL 50 MG TABLET PO SCH (08:46)
[2020-01-07] MEDS: MULTIVITAMINS WITH MINERALS, THERAPEUTIC TABLET PO SCH (08:46)
[2020-01-07] MEDS: BuPROPion HCL XL 150 MG ER TABLET PO SCH (08:46)
[2020-01-07] MEDS: FOLIC ACID 1 MG TABLET PO SCH (08:46)
[2020-01-07] MEDS: AmLODIPine BESYLATE 10 MG TABLET PO SCH (08:46)
[2020-01-07] MEDS: GABAPENTIN 300 MG CAPSULE PO SCH ×4 (08:46→20:44)
[2020-01-07] MEDS: NICOTINE 14 MG/24 HOUR PATCH TD PRN (13:23)
[2020-01-07] MEDS: LORazepam 1 MG TABLET PO PRN (15:54)
[2020-01-07 16:03] VITALS: BP 156/98
[2020-01-07] MEDS: OLANZapine 5 MG RAPDIS TABLET PO SCH (20:44)
[2020-01-07] MEDS ORDERED: BUPR-93 PO (20:55)
[2020-01-07] MEDS ORDERED: OLAN5TAB40 PO (20:55)
[2020-01-08 04:51] VITALS: BP 137/93
[2020-01-08] MEDS: THIAMINE HCL 100 MG TABLET PO SCH ×2 (08:53→16:16)
[2020-01-08] MEDS: GABAPENTIN 300 MG CAPSULE PO SCH ×4 (08:53→20:17)
[2020-01-08] MEDS: MULTIVITAMINS WITH MINERALS, THERAPEUTIC TABLET PO SCH (08:53)
[2020-01-08] MEDS: FOLIC ACID 1 MG TABLET PO SCH (08:53)
[2020-01-08] MEDS: AmLODIPine BESYLATE 10 MG TABLET PO SCH (08:54)
[2020-01-08] MEDS: BuPROPion HCL XL 150 MG ER TABLET PO SCH (08:54)
[2020-01-08] MEDS: NALTREXONE HCL 50 MG TABLET PO SCH (08:54)
[2020-01-08 12:43] VITALS: BP 127/75
[2020-01-08] MEDS: LORazepam 1 MG TABLET PO PRN ×2 (13:35→16:16)
[2020-01-08 16:04] VITALS: BP 147/74
[2020-01-08] MEDS: OLANZapine 5 MG RAPDIS TABLET PO SCH (20:15)
[2020-01-09 02:17] VITALS: BP 141/72
[2020-01-09 08:14] VITALS: BP 134/80
[2020-01-09] MEDS: FOLIC ACID 1 MG TABLET PO SCH (08:31)
[2020-01-09] MEDS: GABAPENTIN 300 MG CAPSULE PO SCH ×3 (08:31→17:00)
[2020-01-09] MEDS: MULTIVITAMINS WITH MINERALS, THERAPEUTIC TABLET PO SCH (08:31)
[2020-01-09] MEDS: NALTREXONE HCL 50 MG TABLET PO SCH (08:31)
[2020-01-09] MEDS: THIAMINE HCL 100 MG TABLET PO SCH ×2 (08:31→17:00)
[2020-01-09] MEDS: AmLODIPine BESYLATE 10 MG TABLET PO SCH (08:31)
[2020-01-09] MEDS ORDERED: BuPROPion HCL XL 150 MG ER TABLET PO SCH (09:00)
[2020-01-09 16:00] VITALS: BP 123/86
[2020-01-09] MEDS ORDERED: GABA-531 PO (16:04)
[2020-01-09] MEDS ORDERED: NALT50TA PO (16:04)
[2020-01-09] MEDS ORDERED: BUPR-47 PO (16:04)
[2020-01-09] MEDS ORDERED: OLAN5TAB30 PO (16:04)
[2020-01-09] MEDS ORDERED: AMLO5TAB66 PO (17:31)
== END 2020-01-09 19:41 | disposition home or self-care (01) | DRG 750 ==
LOC: B3A 18:18
PROVIDERS: ADMIT Psychiatry & Neurology Psychiatry; ATTEND Psychiatry & Neurology Psychiatry
DX: F25.0 Schizoaffective disorder, bipolar type (principal); R45.851 Suicidal ideations; Z91.19 Patient's noncompliance with other medical treatment and regimen; B19.20 Unspecified viral hepatitis C without hepatic coma; E87.6 Hypokalemia; F17.200 Nicotine dependence, unspecified, uncomplicated; I10 Essential (primary) hypertension; J44.9 Chronic obstructive pulmonary disease, unspecified; F19.10 Other psychoactive substance abuse, uncomplicated; K21.9 Gastro-esophageal reflux disease without esophagitis; M19.90 Unspecified osteoarthritis, unspecified site; Z28.21 Immunization not carried out because of patient refusal; Z88.8 Allergy status to other drugs, medicaments and biological substances; Z79.899 Other long term (current) drug therapy
CPT/HCPCS: 83036; 84132; 84439; 84443; 86592; 87081; J1200; J2060

== ENCOUNTER 2020-01-23 00:18 | Inpatient (IN) | payer MEDICAID ==
[2020-01-23] VITALS (8 sets, daily range): BP systolic 128–157; BP diastolic 76–108
[~2020-01-23] VITALS: Ht 172.7 cm; Wt 94.3 kg
[~2020-01-23 00:18] MED LIST changes: +BUPR-47 PO; +NALT50TA PO; -NALT50TA6 PO; -OLAN10TA3 PO; +OLAN5TAB30 PO
[2020-01-23] MEDS ORDERED: LORazepam 1 MG TABLET PO PRN (03:45)
[2020-01-23] MEDS ORDERED: DIAZEPAM 10 MG TABLET PO PRN (03:45)
[2020-01-23] MEDS ORDERED: HydrALAZINE HCL 10 MG TABLET PO PRN (04:30)
[2020-01-23] MEDS ORDERED: ACETAMINOPHEN 325 MG TABLET PO PRN (04:30)
[2020-01-23] MEDS ORDERED: IBUPROFEN 600 MG TABLET PO PRN (04:30)
[2020-01-23] MEDS ORDERED: AmLODIPine BESYLATE 10 MG TABLET PO ONE (04:30)
[2020-01-23] MEDS ORDERED: PNEUMOCOCCAL VACCINE POLYVALENT 0.5 ML VIAL [PPSV23] IM ONE (05:45)
[2020-01-23] MEDS: QUEtiapine FUMARATE 100 MG TABLET PO PRN (13:32)
[2020-01-23] MEDS: CloNIDine HCL 0.1 MG TABLET PO PRN (16:17)
[2020-01-23] MEDS: GABAPENTIN 300 MG CAPSULE PO SCH (16:17)
[2020-01-23] MEDS: OLANZapine 10 MG TABLET PO SCH (20:54)
[2020-01-24] MEDS ORDERED: DIAZEPAM 10 MG TABLET PO PRN (07:00)
[2020-01-24 07:22] LABS: BASOPHILS % (AUTO) 0.5 % (0.0-2.0); EOSINOPHILS % (AUTO) 3.4 % (1.0-6.0); HEMATOCRIT 45.1 % (41-53); HEMOGLOBIN 15.1 g/dL (13.5-17.5); LYMPHOCYTES # (AUTO) 2.7 K/uL (1.0-4.8); LYMPHOCYTES % (AUTO) 33.4 % (22.0-44.0); MEAN CORPUSCULAR HEMOGLOBIN 29.5 pg (26.0-34.0); MEAN CORPUSCULAR HGB CONC 33.5 G/dL (31.0-37.0); MEAN CORPUSCULAR VOLUME 88 fL (80-100); MONOCYTES # (AUTO) 0.7 K/uL (0.1-1.0); MONOCYTES % (AUTO) 8.3 % (2.0-9.0); NEUTROPHILS # (AUTO) 4.4 K/uL (1.8-7.7); NEUTROPHILS % (AUTO) 54.4 % (40.0-70.0); PLATELET COUNT (AUTO) 239 K/uL (150-450); RED BLOOD CELL COUNT(AUTO) 5.13 MIL/uL (4.50-5.90); RED CELL DISTRIBUTION WIDTH 13.3 % (11.5-14.5)
[2020-01-24 07:46] LABS: HEMOGLOBIN A1C 5.9 % (3.8-5.6)
[2020-01-24 07:50] LABS: ALANINE AMINOTRANSFERASE 28 U/L (12-78); ALBUMIN 3.2 g/dL (3.4-5.0); ALKALINE PHOSPHATASE 91 U/L (46-116); ANION GAP 7 mmol/L (8-16); ASPARTATE AMINOTRANSFERASE 19 U/L (15-37); BILIRUBIN,TOTAL 0.7 mg/dL (0.1-1.0); CALCIUM, TOTAL 9.2 mg/dL (8.8-10.5); CARBON DIOXIDE 26 mmol/L (22-29); CHLORIDE 104 mmol/L (98-107); CHOL/HDL RATIO 5.1 (4.2-7.3); CHOLESTEROL 157 mg/dL (131-200); CREATININE 1.19 mg/dL (0.60-1.30); FREE T4 (FREE THYROXINE) 0.87 ng/dL (0.76-1.46); GLOMERULAR FILTR. RATE CALC > 60 mL/min (>60); GLUCOSE,RANDOM 112 mg/dL (70-110); HDL CHOLESTEROL 31 mg/dL (40-60); LDL CHOL (CALC.) 81 mg/dL (0-130); POTASSIUM 3.7 mmol/L (3.5-5.1); SODIUM SERUM 137 mmol/L (136-145); TOTAL PROTEIN, SERUM 7.1 g/dL (6.4-8.2); TRIGLYCERIDES 224 mg/dL (15-150); UREA NITROGEN, BLOOD 14 mg/dL (7-18)
[2020-01-24 09:11] LABS: APPEARANCE,URINE CLEAR (CLEAR); BILIRUBIN,URINE NEGATIVE (NEGATIVE); GLUCOSE, URINE (UA) NEGATIVE (NEGATIVE); KETONES,URINE NEGATIVE (NEGATIVE); LEUKOCYTE ESTERASE ,URINE NEGATIVE (NEGATIVE); NITRATE,URINE NEGATIVE (NEGATIVE); OCCULT BLOOD,URINE NEGATIVE (NEGATIVE); PROTEIN,URINE NEGATIVE (NEGATIVE); UROBILINOGEN,URINE 0.2 mg/dL (<=1.0)
[2020-01-24 09:16] LABS: AMPHET/METH SCREEN,URINE POSITIVE (NEGATIVE); BARBITURATE SCREEN, URINE NEGATIVE (NEGATIVE); BENZODIAZEPINES SCREEN,URINE NEGATIVE (NEGATIVE); CANNABINOID SCREEN,URINE NEGATIVE (NEGATIVE); COCAINE SCREEN,URINE NEGATIVE (NEGATIVE); METHADONE SCREEN, URINE NEGATIVE (NEGATIVE); OPIATE SCREEN,URINE NEGATIVE (NEGATIVE)
[2020-01-24 09:39] LABS: PHENCYCLIDINE SCREEN,URINE NEGATIVE (NEGATIVE)
[2020-01-24] MEDS: NALTREXONE HCL 50 MG TABLET PO SCH (09:44)
[2020-01-24] MEDS: GABAPENTIN 300 MG CAPSULE PO SCH ×2 (09:45→16:57)
[2020-01-24] MEDS: DIAZEPAM 10 MG TABLET PO SCH ×4 (09:46→20:38)
[2020-01-24] MEDS: BuPROPion HCL XL 150 MG ER TABLET PO SCH (09:46)
[2020-01-24] MEDS: AmLODIPine BESYLATE 10 MG TABLET PO SCH (09:47)
[2020-01-24 09:54] VITALS: BP 137/87
[2020-01-24 14:10] VITALS: BP 132/80
[2020-01-24 16:22] VITALS: BP 143/83
[2020-01-24 16:23] VITALS: BP 143/83
[2020-01-24] MEDS: OLANZapine 10 MG TABLET PO SCH (20:38)
[2020-01-25] MEDS: DIAZEPAM 10 MG TABLET PO SCH ×4 (09:36→20:28)
[2020-01-25] MEDS: GABAPENTIN 300 MG CAPSULE PO SCH ×2 (09:36→16:51)
[2020-01-25] MEDS: AmLODIPine BESYLATE 10 MG TABLET PO SCH (09:36)
[2020-01-25] MEDS: BuPROPion HCL XL 150 MG ER TABLET PO SCH (09:37)
[2020-01-25] MEDS: NALTREXONE HCL 50 MG TABLET PO SCH (09:37)
[2020-01-25 16:11] VITALS: BP 122/74
[2020-01-25] MEDS: OLANZapine 10 MG TABLET PO SCH (20:28)
[2020-01-26 06:00] VITALS: BP 137/89
[2020-01-26] MEDS ORDERED: DIAZEPAM 5 MG TABLET PO PRN (07:00)
[2020-01-26 08:49] VITALS: BP 127/82
[2020-01-26] MEDS: BuPROPion HCL XL 150 MG ER TABLET PO SCH (09:42)
[2020-01-26] MEDS: NALTREXONE HCL 50 MG TABLET PO SCH (09:42)
[2020-01-26] MEDS: GABAPENTIN 300 MG CAPSULE PO SCH ×2 (09:42→16:23)
[2020-01-26] MEDS: AmLODIPine BESYLATE 10 MG TABLET PO SCH (09:42)
[2020-01-26] MEDS: DIAZEPAM 5 MG TABLET PO SCH ×4 (09:43→20:28)
[2020-01-26 17:19] VITALS: BP 139/81
[2020-01-26 17:25] VITALS: BP 139/81
[2020-01-26] MEDS: OLANZapine 10 MG TABLET PO SCH (20:28)
[2020-01-27] MEDS ORDERED: DIAZEPAM 5 MG TABLET PO PRN (07:00)
[2020-01-27 08:00] VITALS: BP 110/77
[2020-01-27] MEDS: NALTREXONE HCL 50 MG TABLET PO SCH (09:23)
[2020-01-27] MEDS: BuPROPion HCL XL 150 MG ER TABLET PO SCH (09:23)
[2020-01-27] MEDS: AmLODIPine BESYLATE 10 MG TABLET PO SCH (09:23)
[2020-01-27] MEDS: GABAPENTIN 300 MG CAPSULE PO SCH ×2 (09:23→17:40)
[2020-01-27 16:00] VITALS: BP 140/89
[2020-01-27 18:51] VITALS: BP 140/89
[2020-01-27] MEDS: OLANZapine 10 MG TABLET PO SCH (21:15)
[2020-01-28 00:32] VITALS: BP 128/75
[2020-01-28 00:43] VITALS: BP 128/75
[2020-01-28 09:50] VITALS: BP 112/86
[2020-01-28] MEDS: NALTREXONE HCL 50 MG TABLET PO SCH (09:50)
[2020-01-28] MEDS: BuPROPion HCL XL 150 MG ER TABLET PO SCH (09:51)
[2020-01-28] MEDS: AmLODIPine BESYLATE 10 MG TABLET PO SCH (09:51)
[2020-01-28] MEDS: GABAPENTIN 300 MG CAPSULE PO SCH ×2 (09:51→16:55)
[2020-01-28 11:50] VITALS: BP 112/86
[2020-01-28 16:54] VITALS: BP 136/96
[2020-01-28 17:20] VITALS: BP 128/84
[2020-01-28] MEDS: OLANZapine 10 MG TABLET PO SCH (20:08)
[2020-01-28] MEDS: QUEtiapine FUMARATE 100 MG TABLET PO PRN (22:24)
[2020-01-29] MEDS: GABAPENTIN 300 MG CAPSULE PO SCH ×2 (08:59→16:35)
[2020-01-29] MEDS: AmLODIPine BESYLATE 10 MG TABLET PO SCH (09:00)
[2020-01-29] MEDS: BuPROPion HCL XL 150 MG ER TABLET PO SCH (09:00)
[2020-01-29] MEDS: NALTREXONE HCL 50 MG TABLET PO SCH (09:01)
[2020-01-29 16:03] VITALS: BP 134/92
[2020-01-29] MEDS: OLANZapine 10 MG TABLET PO SCH (20:41)
[2020-01-30 08:30] VITALS: BP 143/78
[2020-01-30] MEDS: GABAPENTIN 300 MG CAPSULE PO SCH ×2 (08:31→16:01)
[2020-01-30] MEDS: AmLODIPine BESYLATE 10 MG TABLET PO SCH (08:31)
[2020-01-30] MEDS: NALTREXONE HCL 50 MG TABLET PO SCH (08:31)
[2020-01-30] MEDS: BuPROPion HCL XL 150 MG ER TABLET PO SCH (08:31)
[2020-01-30 16:01] VITALS: BP 157/105
[2020-01-30] MEDS: CloNIDine HCL 0.1 MG TABLET PO PRN (16:01)
[2020-01-30 17:36] VITALS: BP 140/95
[2020-01-30 17:45] VITALS: BP 136/88
[2020-01-30] MEDS: OLANZapine 10 MG TABLET PO SCH (20:00)
[2020-01-31 09:55] VITALS: BP 123/87
[2020-01-31] MEDS: BuPROPion HCL XL 150 MG ER TABLET PO SCH (09:57)
[2020-01-31] MEDS: GABAPENTIN 300 MG CAPSULE PO SCH (09:57)
[2020-01-31] MEDS: AmLODIPine BESYLATE 10 MG TABLET PO SCH (09:57)
[2020-01-31] MEDS: NALTREXONE HCL 50 MG TABLET PO SCH (09:57)
[2020-01-31] MEDS ORDERED: OLAN10TA3 PO (11:19)
[2020-01-31] MEDS ORDERED: GABA-531 PO (11:19)
== END 2020-01-31 13:30 | disposition home or self-care (01) | DRG 750 ==
LOC: B3A 02:30 → B2S 01-27 21:20
PROVIDERS: ADMIT Psychiatry & Neurology Psychiatry; ATTEND Psychiatry & Neurology Psychiatry
DX: F25.0 Schizoaffective disorder, bipolar type (principal); R45.851 Suicidal ideations; F15.20 Other stimulant dependence, uncomplicated; Z59.0 Homelessness; B19.20 Unspecified viral hepatitis C without hepatic coma; E87.6 Hypokalemia; F14.90 Cocaine use, unspecified, uncomplicated; F41.9 Anxiety disorder, unspecified; I10 Essential (primary) hypertension; J44.9 Chronic obstructive pulmonary disease, unspecified; Z79.899 Other long term (current) drug therapy; Z91.5 Personal history of self-harm
CPT/HCPCS: 80307; 83036; 84436; 84439; 84443; 87081; G0480

== ENCOUNTER 2020-02-08 17:22 | Inpatient (IN) | payer MEDICAID, OTHER ==
[~2020-02-08] VITALS: Ht 172.7 cm; Wt 91.1 kg
[~2020-02-08 17:22] MED LIST changes: +OLAN10TA3 PO; -OLAN5TAB30 PO
[2020-02-08] MEDS ORDERED: LORazepam 2 MG TABLET PO PRN (18:45)
[2020-02-08] MEDS ORDERED: LOPERAMIDE HCL 2 MG CAPSULE PO PRN ×2 (18:45)
[2020-02-08] MEDS ORDERED: MAG HYDROX/AL HYDROX/SIMETH ES 30 ML SUSPENSION UDCUP PO PRN (18:45)
[2020-02-08] MEDS ORDERED: MAGNESIUM HYDROXIDE SUSPENSION 30 ML UDCUP PO PRN (18:45)
[2020-02-08] MEDS ORDERED: HydrOXYzine PAMOATE 50 MG CAPSULE PO PRN (18:45)
[2020-02-08] MEDS ORDERED: CYANOCOBALAMIN 1,000 MCG/ML VIAL IM ONE (18:45)
[2020-02-08] MEDS ORDERED: PROMETHAZINE HCL 25 MG TABLET PO PRN (18:45)
[2020-02-08] MEDS ORDERED: ZOLPIDEM TARTRATE 10 MG TABLET PO PRN (18:45)
[2020-02-08 18:52] LABS: BASOPHILS % (AUTO) 0.5 % (0.0-2.0); EOSINOPHILS % (AUTO) 1.6 % (1.0-6.0); HEMATOCRIT 43.9 % (41-53); HEMOGLOBIN 14.6 g/dL (13.5-17.5); LYMPHOCYTES # (AUTO) 2.9 K/uL (1.0-4.8); LYMPHOCYTES % (AUTO) 24.8 % (22.0-44.0); MEAN CORPUSCULAR HEMOGLOBIN 28.8 pg (26.0-34.0); MEAN CORPUSCULAR HGB CONC 33.3 G/dL (31.0-37.0); MEAN CORPUSCULAR VOLUME 87 fL (80-100); MONOCYTES # (AUTO) 1.1 K/uL (0.1-1.0); MONOCYTES % (AUTO) 9.1 % (2.0-9.0); NEUTROPHILS # (AUTO) 7.5 K/uL (1.8-7.7); PLATELET COUNT (AUTO) 286 K/uL (150-450); RED BLOOD CELL COUNT(AUTO) 5.08 MIL/uL (4.50-5.90)
[2020-02-08] MEDS: OLANZapine 5 MG RAPDIS TABLET PO PRN (18:54)
[2020-02-08 19:02] LABS: ANION GAP 13 mmol/L (8-16); CALCIUM, TOTAL 9.5 mg/dL (8.8-10.5); CARBON DIOXIDE 25 mmol/L (22-29); CHLORIDE 100 mmol/L (98-107); CREATININE 1.13 mg/dL (0.60-1.30); GLOMERULAR FILTR. RATE CALC > 60 mL/min (>60); GLUCOSE,RANDOM 106 mg/dL (70-110); POTASSIUM 3.2 mmol/L (3.5-5.1); SODIUM SERUM 138 mmol/L (136-145); UREA NITROGEN, BLOOD 13 mg/dL (7-18)
[2020-02-08 19:07] LABS: ALANINE AMINOTRANSFERASE 40 U/L (12-78); ALBUMIN 4.2 g/dL (3.4-5.0); ALKALINE PHOSPHATASE 122 U/L (46-116); ASPARTATE AMINOTRANSFERASE 34 U/L (15-37); BILIRUBIN,TOTAL 0.9 mg/dL (0.1-1.0); TOTAL PROTEIN, SERUM 8.3 g/dL (6.4-8.2)
[2020-02-08] MEDS: GABAPENTIN 300 MG CAPSULE PO SCH (20:21)
[2020-02-08 21:20] VITALS: BP 104/68
[2020-02-08 22:11] VITALS: BP 104/68
[2020-02-08 22:20] VITALS: BP 102/65
[2020-02-08] MEDS ORDERED: POTASSIUM CHLORIDE 10% 40 MEQ/30 ML LIQUID UDCUP PO ONE (22:30)
[2020-02-08] MEDS ORDERED: PNEUMOCOCCAL VACCINE POLYVALENT 0.5 ML VIAL [PPSV23] IM ONE (22:45)
[2020-02-08] MEDS: THIAMINE HCL 100 MG TABLET PO SCH (22:48)
[2020-02-08] MEDS: OLANZapine 5 MG RAPDIS TABLET PO SCH (22:48)
[2020-02-09] MEDS ORDERED: LORazepam 2 MG TABLET PO PRN (07:00)
[2020-02-09 08:57] VITALS: BP 155/100
[2020-02-09] MEDS ORDERED: AmLODIPine BESYLATE 10 MG TABLET PO SCH (09:00)
[2020-02-09] MEDS: LORazepam 2 MG TABLET PO SCH ×4 (09:06→20:18)
[2020-02-09] MEDS: NALTREXONE HCL 50 MG TABLET PO SCH (09:07)
[2020-02-09] MEDS: FOLIC ACID 1 MG TABLET PO SCH (09:07)
[2020-02-09] MEDS: MULTIVITAMINS WITH MINERALS, THERAPEUTIC TABLET PO SCH (09:07)
[2020-02-09] MEDS: THIAMINE HCL 100 MG TABLET PO SCH ×2 (09:07→16:27)
[2020-02-09] MEDS: GABAPENTIN 300 MG CAPSULE PO SCH ×4 (09:08→20:20)
[2020-02-09] MEDS: AmLODIPine BESYLATE 5 MG TABLET PO SCH (09:09)
[2020-02-09 09:20] VITALS: BP 105/64
[2020-02-09 13:20] VITALS: BP 132/72
[2020-02-09 16:30] VITALS: BP 122/78
[2020-02-09 17:20] VITALS: BP 122/78
[2020-02-09] MEDS: OLANZapine 5 MG RAPDIS TABLET PO SCH (20:20)
[2020-02-09 21:20] VITALS: BP 124/80
[2020-02-10 06:18] VITALS: BP 117/80
[2020-02-10] MEDS: GABAPENTIN 300 MG CAPSULE PO SCH ×4 (08:16→20:37)
[2020-02-10] MEDS: MULTIVITAMINS WITH MINERALS, THERAPEUTIC TABLET PO SCH (08:16)
[2020-02-10] MEDS: THIAMINE HCL 100 MG TABLET PO SCH ×2 (08:16→12:21)
[2020-02-10] MEDS: NALTREXONE HCL 50 MG TABLET PO SCH (08:16)
[2020-02-10] MEDS: LORazepam 2 MG TABLET PO SCH ×4 (08:16→20:37)
[2020-02-10] MEDS: AmLODIPine BESYLATE 5 MG TABLET PO SCH (08:16)
[2020-02-10] MEDS: FOLIC ACID 1 MG TABLET PO SCH (08:17)
[2020-02-10 09:05] VITALS: BP 131/76
[2020-02-10 09:11] VITALS: BP 131/76
[2020-02-10 16:00] VITALS: BP 129/75
[2020-02-10] MEDS: OLANZapine 5 MG RAPDIS TABLET PO SCH (20:36)
[2020-02-11 05:47] VITALS: BP 133/101
[2020-02-11] MEDS ORDERED: LORazepam 1 MG TABLET PO PRN (07:00)
[2020-02-11] MEDS: THIAMINE HCL 100 MG TABLET PO SCH ×2 (08:20→19:01)
[2020-02-11] MEDS: FOLIC ACID 1 MG TABLET PO SCH (08:21)
[2020-02-11] MEDS: AmLODIPine BESYLATE 5 MG TABLET PO SCH (08:21)
[2020-02-11] MEDS: LORazepam 1 MG TABLET PO SCH ×4 (08:21→22:33)
[2020-02-11] MEDS: GABAPENTIN 300 MG CAPSULE PO SCH ×4 (08:21→22:33)
[2020-02-11] MEDS: MULTIVITAMINS WITH MINERALS, THERAPEUTIC TABLET PO SCH (08:21)
[2020-02-11] MEDS: NALTREXONE HCL 50 MG TABLET PO SCH (08:21)
[2020-02-11 09:26] VITALS: BP 134/98
[2020-02-11 09:27] VITALS: BP 134/98
[2020-02-11 15:02] VITALS: BP 123/88
[2020-02-11 18:15] VITALS: BP 131/83
[2020-02-11 18:17] VITALS: BP 131/83
[2020-02-11] MEDS: BACITRACIN 28.4 GM OINTMENT TP SCH (19:07)
[2020-02-11] MEDS: OLANZapine 5 MG RAPDIS TABLET PO SCH (22:34)
[2020-02-12 02:47] VITALS: BP 146/99
[2020-02-12 02:49] VITALS: BP 146/99
[2020-02-12 10:16] VITALS: BP 139/99
[2020-02-12] MEDS: THIAMINE HCL 100 MG TABLET PO SCH ×2 (10:41→16:23)
[2020-02-12] MEDS: NALTREXONE HCL 50 MG TABLET PO SCH (10:42)
[2020-02-12] MEDS: GABAPENTIN 300 MG CAPSULE PO SCH ×4 (10:42→20:48)
[2020-02-12] MEDS: FOLIC ACID 1 MG TABLET PO SCH (10:42)
[2020-02-12] MEDS: AmLODIPine BESYLATE 5 MG TABLET PO SCH (10:42)
[2020-02-12] MEDS: MULTIVITAMINS WITH MINERALS, THERAPEUTIC TABLET PO SCH (10:42)
[2020-02-12] MEDS: BACITRACIN 28.4 GM OINTMENT TP SCH ×2 (10:43→17:00)
[2020-02-12] MEDS: LORazepam 1 MG TABLET PO PRN (13:28)
[2020-02-12] MEDS: OLANZapine 5 MG RAPDIS TABLET PO PRN (13:29)
[2020-02-12 16:30] VITALS: BP 136/88
[2020-02-12] MEDS: OLANZapine 5 MG RAPDIS TABLET PO SCH (20:49)
[2020-02-13 03:56] VITALS: BP 149/98
[2020-02-13] MEDS: LORazepam 1 MG TABLET PO PRN (03:58)
[2020-02-13] MEDS: ACETAMINOPHEN 325 MG TABLET PO PRN (03:58)
[2020-02-13] MEDS: OLANZapine 5 MG RAPDIS TABLET PO PRN (03:59)
[2020-02-13] MEDS: NALTREXONE HCL 50 MG TABLET PO SCH (10:06)
[2020-02-13] MEDS: FOLIC ACID 1 MG TABLET PO SCH (10:07)
[2020-02-13] MEDS: AmLODIPine BESYLATE 5 MG TABLET PO SCH (10:07)
[2020-02-13] MEDS: THIAMINE HCL 100 MG TABLET PO SCH ×2 (10:07→17:27)
[2020-02-13] MEDS: MULTIVITAMINS WITH MINERALS, THERAPEUTIC TABLET PO SCH (10:08)
[2020-02-13] MEDS: GABAPENTIN 300 MG CAPSULE PO SCH ×2 (10:08→13:46)
[2020-02-13] MEDS: BACITRACIN 28.4 GM OINTMENT TP SCH ×2 (10:09→17:36)
[2020-02-13 10:53] VITALS: BP 142/95
[2020-02-13] MEDS: GABAPENTIN 400 MG CAPSULE PO SCH (20:19)
[2020-02-13] MEDS ORDERED: OLANZapine 5 MG TABLET PO SCH (21:00)
[2020-02-14] MEDS: GABAPENTIN 400 MG CAPSULE PO SCH ×4 (08:39→20:47)
[2020-02-14] MEDS: BACITRACIN 28.4 GM OINTMENT TP SCH ×2 (08:39→16:26)
[2020-02-14] MEDS: THIAMINE HCL 100 MG TABLET PO SCH ×2 (08:39→16:20)
[2020-02-14] MEDS: MULTIVITAMINS WITH MINERALS, THERAPEUTIC TABLET PO SCH (08:39)
[2020-02-14] MEDS: NALTREXONE HCL 50 MG TABLET PO SCH (08:39)
[2020-02-14] MEDS: FOLIC ACID 1 MG TABLET PO SCH (08:39)
[2020-02-14] MEDS: AmLODIPine BESYLATE 5 MG TABLET PO SCH (08:39)
[2020-02-14 08:54] VITALS: BP 136/91
[2020-02-14] MEDS: ACETAMINOPHEN 325 MG TABLET PO PRN (17:57)
[2020-02-14 17:58] VITALS: BP 130/90
[2020-02-14] MEDS: OLANZapine 5 MG TABLET PO SCH (20:46)
[2020-02-15] MEDS: ACETAMINOPHEN 325 MG TABLET PO PRN ×3 (04:58→23:37)
[2020-02-15] MEDS: NALTREXONE HCL 50 MG TABLET PO SCH (08:39)
[2020-02-15] MEDS: MULTIVITAMINS WITH MINERALS, THERAPEUTIC TABLET PO SCH (08:39)
[2020-02-15] MEDS: AmLODIPine BESYLATE 5 MG TABLET PO SCH (08:40)
[2020-02-15] MEDS: THIAMINE HCL 100 MG TABLET PO SCH ×2 (08:40→16:17)
[2020-02-15] MEDS: GABAPENTIN 400 MG CAPSULE PO SCH ×4 (08:40→20:13)
[2020-02-15] MEDS: BACITRACIN 28.4 GM OINTMENT TP SCH ×2 (08:40→16:17)
[2020-02-15] MEDS: FOLIC ACID 1 MG TABLET PO SCH (08:40)
[2020-02-15 09:06] VITALS: BP 112/88
[2020-02-15] MEDS: OLANZapine 5 MG RAPDIS TABLET PO PRN (13:43)
[2020-02-15] MEDS: GuaiFENesin/D-METHORPHAN [SUGAR-FREE] 200-20MG/10 ML SYRUP UDCUP PO PRN ×3 (13:44→23:37)
[2020-02-15] MEDS: FLUTICASONE PROPIONATE 50 MCG/SPRAY 16 GM NASAL SPRAY NASAL SCH (16:17)
[2020-02-15] MEDS: OLANZapine 5 MG TABLET PO SCH (20:13)
[2020-02-16] MEDS: ACETAMINOPHEN 325 MG TABLET PO PRN ×2 (06:01→10:55)
[2020-02-16] MEDS: GuaiFENesin/D-METHORPHAN [SUGAR-FREE] 200-20MG/10 ML SYRUP UDCUP PO PRN ×3 (06:01→20:14)
[2020-02-16 08:15] VITALS: BP 135/76
[2020-02-16] MEDS: MULTIVITAMINS WITH MINERALS, THERAPEUTIC TABLET PO SCH (10:48)
[2020-02-16] MEDS: FLUTICASONE PROPIONATE 50 MCG/SPRAY 16 GM NASAL SPRAY NASAL SCH ×2 (10:48→16:10)
[2020-02-16] MEDS: GABAPENTIN 400 MG CAPSULE PO SCH ×3 (10:48→16:10)
[2020-02-16] MEDS: THIAMINE HCL 100 MG TABLET PO SCH ×2 (10:48→16:10)
[2020-02-16] MEDS: OLANZapine 5 MG RAPDIS TABLET PO PRN (10:49)
[2020-02-16] MEDS: BACITRACIN 28.4 GM OINTMENT TP SCH ×2 (10:49→16:10)
[2020-02-16] MEDS: NALTREXONE HCL 50 MG TABLET PO SCH (10:49)
[2020-02-16] MEDS: FOLIC ACID 1 MG TABLET PO SCH (10:49)
[2020-02-16] MEDS: AmLODIPine BESYLATE 5 MG TABLET PO SCH (10:49)
[2020-02-16] MEDS: OLANZapine 5 MG TABLET PO SCH (20:14)
[2020-02-16] MEDS: GABAPENTIN 300 MG CAPSULE PO SCH (20:15)
[2020-02-17 05:43] VITALS: BP 127/87
[2020-02-17] MEDS: ACETAMINOPHEN 325 MG TABLET PO PRN (05:50)
[2020-02-17] MEDS: GuaiFENesin/D-METHORPHAN [SUGAR-FREE] 200-20MG/10 ML SYRUP UDCUP PO PRN (05:51)
[2020-02-17] MEDS: BACITRACIN 28.4 GM OINTMENT TP SCH (09:00)
[2020-02-17] MEDS: FLUTICASONE PROPIONATE 50 MCG/SPRAY 16 GM NASAL SPRAY NASAL SCH (09:00)
[2020-02-17] MEDS: GABAPENTIN 300 MG CAPSULE PO SCH (10:35)
[2020-02-17] MEDS: FOLIC ACID 1 MG TABLET PO SCH (10:35)
[2020-02-17] MEDS: AmLODIPine BESYLATE 5 MG TABLET PO SCH (10:36)
[2020-02-17] MEDS: THIAMINE HCL 100 MG TABLET PO SCH (10:36)
[2020-02-17] MEDS: NALTREXONE HCL 50 MG TABLET PO SCH (10:36)
[2020-02-17] MEDS: MULTIVITAMINS WITH MINERALS, THERAPEUTIC TABLET PO SCH (10:36)
== END 2020-02-17 11:00 | disposition short-term general hospital (02) | DRG 885 ==
LOC: EMS 17:26 → 3EI 21:04 → 3EC 02-11 14:10
PROVIDERS: ADMIT Psychiatry & Neurology Psychiatry; ATTEND Psychiatry & Neurology Psychiatry
DX: F25.0 Schizoaffective disorder, bipolar type (principal); B19.20 Unspecified viral hepatitis C without hepatic coma; R45.851 Suicidal ideations; F17.210 Nicotine dependence, cigarettes, uncomplicated; I10 Essential (primary) hypertension; M54.9 Dorsalgia, unspecified; F15.90 Other stimulant use, unspecified, uncomplicated; J44.9 Chronic obstructive pulmonary disease, unspecified; D72.829 Elevated white blood cell count, unspecified; E87.6 Hypokalemia; F12.90 Cannabis use, unspecified, uncomplicated; F14.90 Cocaine use, unspecified, uncomplicated; Z59.0 Homelessness; Z91.19 Patient's noncompliance with other medical treatment and regimen; Z91.14 Patient's other noncompliance with medication regimen; Z88.8 Allergy status to other drugs, medicaments and biological substances; Z79.899 Other long term (current) drug therapy; Z28.21 Immunization not carried out because of patient refusal
CPT/HCPCS: 84132; 87081; G0480; J3420

== ENCOUNTER 2020-02-17 11:05 | Inpatient (IN) | payer OTHER ==
[~2020-02-17] VITALS: Ht 185.4 cm; Wt 92.9 kg
[2020-02-17 12:39] VITALS: BP 107/72
[2020-02-17] MEDS ORDERED: AZITHROMYCIN 500 MG TABLET PO SCH (14:00)
[2020-02-17] MEDS ORDERED: BISACODYL 10 MG RECTAL RECTAL SUPPOSITORY PR PRN (14:00)
[2020-02-17] MEDS ORDERED: ACETAMINOPHEN 325 MG TABLET PO PRN (14:00)
[2020-02-17] MEDS ORDERED: MAGNESIUM HYDROXIDE SUSPENSION 30 ML UDCUP PO PRN (14:00)
[2020-02-17] MEDS: CefTRIAXone 1 GM/DEXTROSE 50 ML IV SCH (14:00)
[2020-02-17] MEDS ORDERED: LORazepam 1 MG TABLET PO PRN (14:00)
[2020-02-17] MEDS ORDERED: ZOLPIDEM TARTRATE 5 MG TABLET PO PRN (14:00)
[2020-02-17] MEDS ORDERED: ONDANSETRON HCL 4 MG/2 ML VIAL IVP PRN (14:00)
[2020-02-17] MEDS ORDERED: ALBUTEROL SULFATE HFA 90 MCG/PUFF 8 GM INHALER IH PRN (14:15)
[2020-02-17 16:01] VITALS: BP 114/67
[2020-02-17 16:12] LABS: INFLUENZA TYPE A NEGATIVE FOR TYPE A (NEGATIVE); INFLUENZA TYPE B NEGATIVE FOR TYPE B (NEGATIVE)
[2020-02-17 21:01] VITALS: BP 119/80
[2020-02-17] MEDS: OLANZapine 10 MG TABLET PO SCH (21:05)
[2020-02-17] MEDS: OLANZapine 2.5 MG TABLET PO SCH (21:05)
[2020-02-18 06:19] VITALS: BP 136/94
[2020-02-18 08:36] VITALS: BP 138/77
[2020-02-18] MEDS: PANTOPRAZOLE SODIUM 40 MG DR TABLET PO SCH (09:35)
[2020-02-18] MEDS: AZITHROMYCIN 250 MG TABLET PO SCH (09:35)
[2020-02-18] MEDS: ENOXAPARIN SODIUM 40 MG/0.4 ML PF SYRINGE SQ SCH (09:35)
[2020-02-18 13:24] VITALS: BP 127/96
[2020-02-18] MEDS: CefTRIAXone 1 GM/DEXTROSE 50 ML IV SCH (14:00)
[2020-02-18 16:35] VITALS: BP 132/86
[2020-02-18 19:27] VITALS: BP 118/75
[2020-02-18] MEDS: OLANZapine 10 MG TABLET PO SCH (19:55)
[2020-02-18] MEDS: OLANZapine 2.5 MG TABLET PO SCH (19:56)
[2020-02-19 00:03] VITALS: BP 129/84
[2020-02-19 05:25] VITALS: BP 126/75
[2020-02-19 08:28] VITALS: BP 139/108
[2020-02-19] MEDS ORDERED: AmLODIPine BESYLATE 2.5 MG TABLET PO SCH (09:00)
[2020-02-19] MEDS: PANTOPRAZOLE SODIUM 40 MG DR TABLET PO SCH (09:11)
[2020-02-19] MEDS: AZITHROMYCIN 250 MG TABLET PO SCH (09:11)
[2020-02-19] MEDS: ENOXAPARIN SODIUM 40 MG/0.4 ML PF SYRINGE SQ SCH (09:12)
[2020-02-19 09:40] LABS: BASOPHILS % (AUTO) 0.8 % (0.0-2.0); EOSINOPHILS % (AUTO) 2.6 % (1.0-6.0); HEMATOCRIT 44.8 % (41-53); HEMOGLOBIN 15.1 g/dL (13.5-17.5); LYMPHOCYTES # (AUTO) 2.4 K/uL (1.0-4.8); LYMPHOCYTES % (AUTO) 47.8 % (22.0-44.0); MEAN CORPUSCULAR HEMOGLOBIN 29.2 pg (26.0-34.0); MEAN CORPUSCULAR HGB CONC 33.7 G/dL (31.0-37.0); MEAN CORPUSCULAR VOLUME 87 fL (80-100); MONOCYTES # (AUTO) 0.7 K/uL (0.1-1.0); MONOCYTES % (AUTO) 13.2 % (2.0-9.0); NEUTROPHILS # (AUTO) 1.8 K/uL (1.8-7.7); NEUTROPHILS % (AUTO) 35.6 % (40.0-70.0); PLATELET COUNT (AUTO) 258 K/uL (150-450); RED BLOOD CELL COUNT(AUTO) 5.17 MIL/uL (4.50-5.90); RED CELL DISTRIBUTION WIDTH 13.1 % (11.5-14.5)
[2020-02-19 12:00] VITALS: BP 146/92
[2020-02-19] MEDS: CefTRIAXone 1 GM/DEXTROSE 50 ML IV SCH (13:33)
[2020-02-19] MEDS ORDERED: AZIT-84 PO (14:33)
[2020-02-19] MEDS ORDERED: PANT40TA25 PO (14:34)
[2020-02-19] MEDS ORDERED: ACET-2247 PO (14:35)
[2020-02-19] MEDS ORDERED: BISA10SU11 PR (14:36)
[2020-02-19] MEDS ORDERED: ALBU8HFA IH (14:36)
[2020-02-19] MEDS ORDERED: LORA-1000 PO (14:37)
[2020-02-19] MEDS ORDERED: AMLO2.5T4 PO (16:21)
[2020-02-19] MEDS ORDERED: OLAN5TAB2 PO (16:21)
== END 2020-02-19 15:35 | DRG 113 ==
LOC: 5N 11:05
PROVIDERS: ADMIT Internal Medicine Geriatric Medicine; ATTEND Internal Medicine Geriatric Medicine
DX: J06.9 Acute upper respiratory infection, unspecified (principal); F25.0 Schizoaffective disorder, bipolar type; R45.851 Suicidal ideations; J44.9 Chronic obstructive pulmonary disease, unspecified; B19.20 Unspecified viral hepatitis C without hepatic coma; Z20.828 Contact with and (suspected) exposure to other viral communicable diseases; Z56.0 Unemployment, unspecified; D72.829 Elevated white blood cell count, unspecified; I10 Essential (primary) hypertension; F10.20 Alcohol dependence, uncomplicated; F12.20 Cannabis dependence, uncomplicated; F14.90 Cocaine use, unspecified, uncomplicated; F15.90 Other stimulant use, unspecified, uncomplicated; Z91.19 Patient's noncompliance with other medical treatment and regimen
CPT/HCPCS: 87635; 87804; J0696; J1650; J3535

== ENCOUNTER 2020-02-19 13:55 | Inpatient (IN) | payer MEDICAID ==
[~2020-02-19] VITALS: Ht 172.7 cm; Wt 88.0 kg
[2020-02-19] MEDS ORDERED: AZIT-84 PO (14:33)
[2020-02-19] MEDS ORDERED: PANT40TA25 PO (14:34)
[2020-02-19] MEDS ORDERED: ACET-2247 PO (14:35)
[2020-02-19] MEDS ORDERED: BISA10SU11 PR (14:36)
[2020-02-19] MEDS ORDERED: ALBU8HFA IH (14:36)
[2020-02-19] MEDS ORDERED: LORA-1000 PO (14:37)
[2020-02-19] MEDS ORDERED: GuaiFENesin/D-METHORPHAN [SUGAR-FREE] 200-20MG/10 ML SYRUP UDCUP PO PRN (16:15)
[2020-02-19] MEDS ORDERED: LOPERAMIDE HCL 2 MG CAPSULE PO PRN (16:15)
[2020-02-19] MEDS ORDERED: ACETAMINOPHEN 325 MG TABLET PO PRN (16:15)
[2020-02-19] MEDS ORDERED: ZOLPIDEM TARTRATE 10 MG TABLET PO PRN (16:15)
[2020-02-19] MEDS ORDERED: HydrOXYzine PAMOATE 50 MG CAPSULE PO PRN (16:15)
[2020-02-19] MEDS ORDERED: OLANZapine 5 MG RAPDIS TABLET PO PRN (16:15)
[2020-02-19] MEDS ORDERED: PROMETHAZINE HCL 25 MG TABLET PO PRN (16:15)
[2020-02-19] MEDS ORDERED: MAG HYDROX/AL HYDROX/SIMETH ES 30 ML SUSPENSION UDCUP PO PRN (16:15)
[2020-02-19] MEDS ORDERED: MAGNESIUM HYDROXIDE SUSPENSION 30 ML UDCUP PO PRN (16:15)
[2020-02-19] MEDS ORDERED: OLAN5TAB2 PO (16:21)
[2020-02-19] MEDS ORDERED: AMLO2.5T4 PO (16:21)
[2020-02-19 17:55] VITALS: BP 129/98
[2020-02-19] MEDS ORDERED: PNEUMOCOCCAL VACCINE POLYVALENT 0.5 ML VIAL [PPSV23] IM ONE (18:00)
[2020-02-19] MEDS: LORazepam 2 MG TABLET PO PRN (18:08)
[2020-02-19] MEDS: THIAMINE HCL 100 MG TABLET PO SCH (18:08)
[2020-02-19] MEDS: OLANZapine 10 MG RAPDIS TABLET PO SCH (20:53)
[2020-02-19] MEDS: GABAPENTIN 300 MG CAPSULE PO SCH (20:54)
[2020-02-20 08:03] VITALS: BP 130/80
[2020-02-20] MEDS: MULTIVITAMINS WITH MINERALS, THERAPEUTIC TABLET PO SCH (09:08)
[2020-02-20] MEDS: NALTREXONE HCL 50 MG TABLET PO SCH (09:08)
[2020-02-20] MEDS: GABAPENTIN 300 MG CAPSULE PO SCH ×4 (09:08→20:49)
[2020-02-20] MEDS: THIAMINE HCL 100 MG TABLET PO SCH ×2 (09:08→16:48)
[2020-02-20] MEDS: FOLIC ACID 1 MG TABLET PO SCH (09:09)
[2020-02-20 16:00] VITALS: BP 145/72
[2020-02-20] MEDS: LORazepam 2 MG TABLET PO PRN (16:49)
[2020-02-20] MEDS: OLANZapine 10 MG RAPDIS TABLET PO SCH (20:49)
[2020-02-21] MEDS: FOLIC ACID 1 MG TABLET PO SCH (08:17)
[2020-02-21] MEDS: GABAPENTIN 300 MG CAPSULE PO SCH ×4 (08:17→20:29)
[2020-02-21] MEDS: BuPROPion HCL XL 150 MG ER TABLET PO SCH (08:17)
[2020-02-21] MEDS: AmLODIPine BESYLATE 5 MG TABLET PO SCH (08:17)
[2020-02-21] MEDS: MULTIVITAMINS WITH MINERALS, THERAPEUTIC TABLET PO SCH (08:17)
[2020-02-21] MEDS: THIAMINE HCL 100 MG TABLET PO SCH ×2 (08:17→16:19)
[2020-02-21] MEDS: NALTREXONE HCL 50 MG TABLET PO SCH (08:17)
[2020-02-21 16:02] VITALS: BP 133/87
[2020-02-21] MEDS: LORazepam 2 MG TABLET PO PRN (16:52)
[2020-02-21] MEDS: OLANZapine 10 MG RAPDIS TABLET PO SCH (20:29)
[2020-02-22 06:38] VITALS: BP 142/79
[2020-02-22 08:06] VITALS: BP 136/87
[2020-02-22] MEDS: FOLIC ACID 1 MG TABLET PO SCH (08:59)
[2020-02-22] MEDS: BuPROPion HCL XL 150 MG ER TABLET PO SCH (08:59)
[2020-02-22] MEDS: AmLODIPine BESYLATE 5 MG TABLET PO SCH (08:59)
[2020-02-22] MEDS: MULTIVITAMINS WITH MINERALS, THERAPEUTIC TABLET PO SCH (08:59)
[2020-02-22] MEDS: THIAMINE HCL 100 MG TABLET PO SCH ×2 (08:59→17:00)
[2020-02-22] MEDS: GABAPENTIN 300 MG CAPSULE PO SCH ×3 (08:59→20:25)
[2020-02-22] MEDS: NALTREXONE HCL 50 MG TABLET PO SCH (08:59)
[2020-02-22] MEDS ORDERED: OLAN10TA22 PO (12:19)
[2020-02-22] MEDS ORDERED: GABA-531 PO (12:19)
[2020-02-22] MEDS ORDERED: NALT50TA PO (12:19)
[2020-02-22] MEDS ORDERED: BUPR-47 PO (12:19)
[2020-02-22] MEDS ORDERED: GABAPENTIN 400 MG CAPSULE PO SCH (13:00)
[2020-02-22 16:02] VITALS: BP 126/80
[2020-02-22] MEDS: OLANZapine 10 MG RAPDIS TABLET PO SCH (20:24)
[2020-02-23 08:17] VITALS: BP 126/90
[2020-02-23] MEDS: THIAMINE HCL 100 MG TABLET PO SCH (08:43)
[2020-02-23] MEDS: MULTIVITAMINS WITH MINERALS, THERAPEUTIC TABLET PO SCH (08:43)
[2020-02-23] MEDS: GABAPENTIN 300 MG CAPSULE PO SCH ×2 (08:43→13:00)
[2020-02-23] MEDS: FOLIC ACID 1 MG TABLET PO SCH (08:44)
[2020-02-23] MEDS: NALTREXONE HCL 50 MG TABLET PO SCH (08:45)
[2020-02-23] MEDS: AmLODIPine BESYLATE 5 MG TABLET PO SCH (08:45)
[2020-02-23] MEDS ORDERED: BuPROPion HCL XL 150 MG ER TABLET PO SCH (09:00)
[2020-02-23] MEDS ORDERED: AMLO5TAB9 PO (09:37)
== END 2020-02-23 13:34 | disposition home or self-care (01) | DRG 750 ==
LOC: B3A 13:55
PROVIDERS: ADMIT Psychiatry & Neurology Psychiatry; ATTEND Psychiatry & Neurology Psychiatry
DX: F20.0 Paranoid schizophrenia (principal); Z59.0 Homelessness; B19.20 Unspecified viral hepatitis C without hepatic coma; Z91.19 Patient's noncompliance with other medical treatment and regimen; F14.90 Cocaine use, unspecified, uncomplicated; F15.90 Other stimulant use, unspecified, uncomplicated; F12.90 Cannabis use, unspecified, uncomplicated; J44.9 Chronic obstructive pulmonary disease, unspecified; I10 Essential (primary) hypertension; Z03.818 Encounter for observation for suspected exposure to other biological agents ruled out
CPT/HCPCS: 87081

== ENCOUNTER 2020-02-29 19:25 | Inpatient (IN) | payer MEDICAID ==
[~2020-02-29] VITALS: Ht 172.7 cm; Wt 88.9 kg
[~2020-02-29 19:25] MED LIST changes: -AMLO10TA7 PO; +AMLO5TAB9 PO; +OLAN10TA22 PO; -OLAN10TA3 PO
[2020-02-29] MEDS ORDERED: GABA-533 PO (20:03)
[2020-02-29] MEDS ORDERED: OLAN10TA3 PO (20:03)
[2020-02-29] MEDS ORDERED: NALT50TA6 PO (20:03)
[2020-02-29] MEDS ORDERED: OLANZapine 5 MG RAPDIS TABLET PO ONE (20:15)
[2020-02-29] MEDS ORDERED: LORazepam 2 MG/ML VIAL IM ONE (20:15)
[2020-02-29] MEDS ORDERED: DiphenhydrAMINE HCL 50 MG/ML VIAL IM ONE (20:15)
[2020-02-29] MEDS ORDERED: DiphenhydrAMINE HCL 50 MG/ML VIAL ONE (20:23)
[2020-02-29] MEDS ORDERED: OLANZapine 5 MG RAPDIS TABLET ONE (20:23)
[2020-02-29] MEDS ORDERED: LORazepam 2 MG/ML VIAL ONE (20:23)
[2020-02-29] MEDS ORDERED: OLANZapine 10 MG RAPDIS TABLET ONE (20:24)
[2020-02-29 20:25] VITALS: BP 136/88
[2020-02-29] MEDS ORDERED: LOPERAMIDE HCL 2 MG CAPSULE PO PRN (20:30)
[2020-02-29] MEDS ORDERED: GuaiFENesin/D-METHORPHAN [SUGAR-FREE] 200-20MG/10 ML SYRUP UDCUP PO PRN (20:30)
[2020-02-29] MEDS ORDERED: OLANZapine 5 MG RAPDIS TABLET PO PRN (20:30)
[2020-02-29] MEDS ORDERED: MAGNESIUM HYDROXIDE SUSPENSION 30 ML UDCUP PO PRN (20:30)
[2020-02-29] MEDS ORDERED: ACETAMINOPHEN 325 MG TABLET PO PRN (20:30)
[2020-02-29] MEDS ORDERED: HydrOXYzine PAMOATE 50 MG CAPSULE PO PRN (20:30)
[2020-02-29] MEDS ORDERED: PROMETHAZINE HCL 25 MG TABLET PO PRN (20:30)
[2020-02-29] MEDS ORDERED: PNEUMOCOCCAL VACCINE POLYVALENT 0.5 ML VIAL [PPSV23] IM ONE (20:30)
[2020-02-29] MEDS: GABAPENTIN 400 MG CAPSULE PO SCH (21:00)
[2020-02-29] MEDS: OLANZapine 5 MG RAPDIS TABLET PO SCH (21:00)
[2020-02-29 21:25] VITALS: BP 138/84
[2020-02-29 22:25] VITALS: BP 139/89
[2020-02-29 23:25] VITALS: BP 126/84
[2020-03-01] VITALS (8 sets, daily range): BP systolic 113–138; BP diastolic 75–92
[2020-03-01] MEDS: LORazepam 2 MG TABLET PO PRN (04:37)
[2020-03-01 07:51] LABS: BASOPHILS % (AUTO) 0.6 % (0.0-2.0); EOSINOPHILS % (AUTO) 3.1 % (1.0-6.0); HEMATOCRIT 43.2 % (41-53); HEMOGLOBIN 14.5 g/dL (13.5-17.5); LYMPHOCYTES % (AUTO) 32.2 % (22.0-44.0); MEAN CORPUSCULAR HEMOGLOBIN 28.8 pg (26.0-34.0); MEAN CORPUSCULAR HGB CONC 33.5 G/dL (31.0-37.0); MEAN CORPUSCULAR VOLUME 86 fL (80-100); MONOCYTES # (AUTO) 1.2 K/uL (0.1-1.0); MONOCYTES % (AUTO) 13.1 % (2.0-9.0); NEUTROPHILS # (AUTO) 4.7 K/uL (1.8-7.7); PLATELET COUNT (AUTO) 390 K/uL (150-450); RED BLOOD CELL COUNT(AUTO) 5.02 MIL/uL (4.50-5.90)
[2020-03-01 08:15] LABS: ALBUMIN 3.8 g/dL (3.4-5.0); CALCIUM, TOTAL 9.9 mg/dL (8.8-10.5); CREATININE 1.39 mg/dL (0.60-1.30); TOTAL PROTEIN, SERUM 7.9 g/dL (6.4-8.2)
[2020-03-01] MEDS ORDERED: PALIPERIDONE PALMITATE 234 MG/1.5 ML SYRINGE IM ONE (09:00)
[2020-03-01] MEDS: FOLIC ACID 1 MG TABLET PO SCH (09:41)
[2020-03-01] MEDS: GABAPENTIN 400 MG CAPSULE PO SCH ×4 (09:42→21:10)
[2020-03-01] MEDS: AmLODIPine BESYLATE 5 MG TABLET PO SCH (09:42)
[2020-03-01] MEDS: MULTIVITAMINS WITH MINERALS, THERAPEUTIC TABLET PO SCH (09:43)
[2020-03-01] MEDS: NALTREXONE HCL 50 MG TABLET PO SCH (09:43)
[2020-03-01] MEDS: THIAMINE HCL 100 MG TABLET PO SCH ×2 (09:43→17:32)
[2020-03-01] MEDS: NICOTINE 21 MG/24 HOUR PATCH TD SCH ×2 (13:06→13:23)
[2020-03-01] MEDS ORDERED: NICOTINE 21 MG/24 HOUR PATCH TD PRN (16:15)
[2020-03-01] MEDS: OLANZapine 5 MG RAPDIS TABLET PO SCH (21:11)
[2020-03-01] MEDS ORDERED: POTASSIUM CHLORIDE 20 MEQ ER TABLET PO ONE (22:45)
[2020-03-02 06:35] VITALS: BP 120/72
[2020-03-02 06:39] VITALS: BP 120/72
[2020-03-02 08:00] VITALS: BP 136/101
[2020-03-02] MEDS: GABAPENTIN 400 MG CAPSULE PO SCH ×4 (08:32→20:56)
[2020-03-02] MEDS: NALTREXONE HCL 50 MG TABLET PO SCH (08:32)
[2020-03-02] MEDS: FOLIC ACID 1 MG TABLET PO SCH (08:32)
[2020-03-02] MEDS: AmLODIPine BESYLATE 5 MG TABLET PO SCH (08:32)
[2020-03-02] MEDS: MULTIVITAMINS WITH MINERALS, THERAPEUTIC TABLET PO SCH (08:33)
[2020-03-02] MEDS: THIAMINE HCL 100 MG TABLET PO SCH ×2 (08:33→17:34)
[2020-03-02 16:21] VITALS: BP 109/68
[2020-03-02 16:30] VITALS: BP 109/68
[2020-03-02] MEDS: LORazepam 2 MG TABLET PO PRN (17:34)
[2020-03-02] MEDS: OLANZapine 5 MG RAPDIS TABLET PO SCH (20:56)
[2020-03-02] MEDS: ZOLPIDEM TARTRATE 10 MG TABLET PO PRN (20:57)
[2020-03-03 05:45] VITALS: BP 124/82
[2020-03-03 08:10] VITALS: BP 128/90
[2020-03-03 08:11] VITALS: BP 128/90
[2020-03-03] MEDS: AmLODIPine BESYLATE 5 MG TABLET PO SCH ×2 (08:36→13:33)
[2020-03-03] MEDS: THIAMINE HCL 100 MG TABLET PO SCH ×2 (08:37→18:13)
[2020-03-03] MEDS: MULTIVITAMINS WITH MINERALS, THERAPEUTIC TABLET PO SCH (08:37)
[2020-03-03] MEDS: FOLIC ACID 1 MG TABLET PO SCH (08:37)
[2020-03-03] MEDS: GABAPENTIN 400 MG CAPSULE PO SCH ×4 (08:37→20:20)
[2020-03-03] MEDS: NALTREXONE HCL 50 MG TABLET PO SCH (08:37)
[2020-03-03] MEDS: LORazepam 2 MG TABLET PO PRN (13:32)
[2020-03-03] MEDS: PANTOPRAZOLE SODIUM 40 MG DR TABLET PO SCH (13:32)
[2020-03-03] MEDS: MAG HYDROX/AL HYDROX/SIMETH ES 30 ML SUSPENSION UDCUP PO PRN (13:32)
[2020-03-03 16:21] VITALS: BP 130/77
[2020-03-03 16:22] VITALS: BP 130/77
[2020-03-03 16:23] VITALS: BP 130/77
[2020-03-03] MEDS: MAG HYDROX/AL HYDROX/SIMETH 30 ML SUSP UDCUP PO SCH (18:17)
[2020-03-03] MEDS: OLANZapine 5 MG RAPDIS TABLET PO SCH (20:20)
[2020-03-04 06:10] VITALS: BP 121/78
[2020-03-04] MEDS: NALTREXONE HCL 50 MG TABLET PO SCH (09:17)
[2020-03-04] MEDS: GABAPENTIN 400 MG CAPSULE PO SCH ×4 (09:17→20:35)
[2020-03-04] MEDS: FOLIC ACID 1 MG TABLET PO SCH (09:17)
[2020-03-04] MEDS: AmLODIPine BESYLATE 5 MG TABLET PO SCH (09:17)
[2020-03-04] MEDS: MULTIVITAMINS WITH MINERALS, THERAPEUTIC TABLET PO SCH (09:17)
[2020-03-04] MEDS: THIAMINE HCL 100 MG TABLET PO SCH ×2 (09:17→17:08)
[2020-03-04] MEDS: PANTOPRAZOLE SODIUM 40 MG DR TABLET PO SCH (09:17)
[2020-03-04] MEDS: MAG HYDROX/AL HYDROX/SIMETH 30 ML SUSP UDCUP PO SCH ×3 (09:19→17:09)
[2020-03-04 10:09] VITALS: BP 129/78
[2020-03-04 10:15] VITALS: BP 129/78
[2020-03-04 16:50] VITALS: BP 108/68
[2020-03-04 16:55] VITALS: BP 108/68
[2020-03-04] MEDS: LORazepam 2 MG TABLET PO PRN (17:08)
[2020-03-04] MEDS: OLANZapine 10 MG RAPDIS TABLET PO SCH (20:35)
[2020-03-04] MEDS: ZOLPIDEM TARTRATE 10 MG TABLET PO PRN (20:35)
[2020-03-04] MEDS ORDERED: POTASSIUM CHLORIDE 20 MEQ ER TABLET PO ONE (22:15)
[2020-03-05 05:08] VITALS: BP 142/91
[2020-03-05 06:10] VITALS: BP 142/91
[2020-03-05 08:30] VITALS: BP 109/68
[2020-03-05 08:48] LABS: ANION GAP 10 mmol/L (8-16); CARBON DIOXIDE 25 mmol/L (22-29); CHLORIDE 104 mmol/L (98-107); CREATININE 0.98 mg/dL (0.60-1.30); GLOMERULAR FILTR. RATE CALC > 60 mL/min (>60); GLUCOSE,RANDOM 130 mg/dL (70-110); POTASSIUM 4.2 mmol/L (3.5-5.1); SODIUM SERUM 139 mmol/L (136-145); UREA NITROGEN, BLOOD 11 mg/dL (7-18)
[2020-03-05] MEDS: MAG HYDROX/AL HYDROX/SIMETH 30 ML SUSP UDCUP PO SCH ×3 (09:00→16:51)
[2020-03-05] MEDS ORDERED: PALIPERIDONE PALMITATE 156 MG/ML SYRINGE IM ONE (09:00)
[2020-03-05] MEDS: NALTREXONE HCL 50 MG TABLET PO SCH (13:24)
[2020-03-05] MEDS: PANTOPRAZOLE SODIUM 40 MG DR TABLET PO SCH (13:24)
[2020-03-05] MEDS: MULTIVITAMINS WITH MINERALS, THERAPEUTIC TABLET PO SCH (13:24)
[2020-03-05] MEDS: FOLIC ACID 1 MG TABLET PO SCH (13:24)
[2020-03-05] MEDS: AmLODIPine BESYLATE 5 MG TABLET PO SCH (13:26)
[2020-03-05] MEDS: MAG HYDROX/AL HYDROX/SIMETH ES 30 ML SUSPENSION UDCUP PO PRN (13:27)
[2020-03-05] MEDS: THIAMINE HCL 100 MG TABLET PO SCH ×2 (13:27→16:35)
[2020-03-05] MEDS: GABAPENTIN 400 MG CAPSULE PO SCH ×2 (13:27→13:45)
[2020-03-05 16:30] VITALS: BP 123/83
[2020-03-05] MEDS: LORazepam 2 MG TABLET PO PRN (16:35)
[2020-03-05] MEDS: GABAPENTIN 300 MG CAPSULE PO SCH ×2 (16:37→20:10)
[2020-03-05] MEDS: ZOLPIDEM TARTRATE 10 MG TABLET PO PRN (20:10)
[2020-03-05] MEDS: OLANZapine 10 MG RAPDIS TABLET PO SCH (20:10)
[2020-03-06 05:15] VITALS: BP 112/83
[2020-03-06 06:00] VITALS: BP 112/83
[2020-03-06 08:05] VITALS: BP 132/92
[2020-03-06] MEDS: MULTIVITAMINS WITH MINERALS, THERAPEUTIC TABLET PO SCH (08:27)
[2020-03-06] MEDS: MAG HYDROX/AL HYDROX/SIMETH ES 30 ML SUSPENSION UDCUP PO PRN ×2 (08:27→12:06)
[2020-03-06] MEDS: AmLODIPine BESYLATE 5 MG TABLET PO SCH (08:29)
[2020-03-06] MEDS: FOLIC ACID 1 MG TABLET PO SCH (08:30)
[2020-03-06] MEDS: PANTOPRAZOLE SODIUM 40 MG DR TABLET PO SCH (08:30)
[2020-03-06] MEDS: NALTREXONE HCL 50 MG TABLET PO SCH (08:30)
[2020-03-06] MEDS: THIAMINE HCL 100 MG TABLET PO SCH ×2 (08:30→16:51)
[2020-03-06] MEDS: GABAPENTIN 300 MG CAPSULE PO SCH ×4 (08:30→20:00)
[2020-03-06 09:44] VITALS: BP 132/92
[2020-03-06] MEDS: MAG HYDROX/AL HYDROX/SIMETH 30 ML SUSP UDCUP PO SCH ×3 (09:47→17:02)
[2020-03-06] MEDS: LORazepam 2 MG TABLET PO PRN ×2 (13:34→18:03)
[2020-03-06 17:25] VITALS: BP 125/78
[2020-03-06] MEDS: OLANZapine 10 MG RAPDIS TABLET PO SCH (20:01)
[2020-03-06] MEDS: ZOLPIDEM TARTRATE 10 MG TABLET PO PRN (20:01)
[2020-03-07 02:40] VITALS: BP 143/92
[2020-03-07 08:14] VITALS: BP 134/86
[2020-03-07] MEDS: MAG HYDROX/AL HYDROX/SIMETH 30 ML SUSP UDCUP PO SCH ×3 (09:00→16:53)
[2020-03-07] MEDS: THIAMINE HCL 100 MG TABLET PO SCH ×2 (10:01→16:36)
[2020-03-07] MEDS: MULTIVITAMINS WITH MINERALS, THERAPEUTIC TABLET PO SCH (10:01)
[2020-03-07] MEDS: NALTREXONE HCL 50 MG TABLET PO SCH (10:01)
[2020-03-07] MEDS: AmLODIPine BESYLATE 5 MG TABLET PO SCH (10:02)
[2020-03-07] MEDS: PANTOPRAZOLE SODIUM 40 MG DR TABLET PO SCH (10:03)
[2020-03-07] MEDS: FOLIC ACID 1 MG TABLET PO SCH (10:03)
[2020-03-07] MEDS: GABAPENTIN 300 MG CAPSULE PO SCH ×4 (10:03→20:30)
[2020-03-07 16:10] VITALS: BP 100/72
[2020-03-07] MEDS: LORazepam 2 MG TABLET PO PRN (16:33)
[2020-03-07] MEDS ORDERED: PALIPERIDONE PALMITATE 234 MG/1.5 ML SYRINGE IM ONE (16:45)
[2020-03-07] MEDS: ZOLPIDEM TARTRATE 10 MG TABLET PO PRN (20:30)
[2020-03-07] MEDS: OLANZapine 10 MG RAPDIS TABLET PO SCH (20:30)
[2020-03-08 06:22] VITALS: BP 122/67
[2020-03-08] MEDS: MAG HYDROX/AL HYDROX/SIMETH ES 30 ML SUSPENSION UDCUP PO PRN ×2 (09:42→12:03)
[2020-03-08] MEDS: FOLIC ACID 1 MG TABLET PO SCH (09:42)
[2020-03-08] MEDS: MULTIVITAMINS WITH MINERALS, THERAPEUTIC TABLET PO SCH (09:42)
[2020-03-08] MEDS: NALTREXONE HCL 50 MG TABLET PO SCH (09:43)
[2020-03-08] MEDS: PANTOPRAZOLE SODIUM 40 MG DR TABLET PO SCH (09:43)
[2020-03-08] MEDS: GABAPENTIN 300 MG CAPSULE PO SCH ×4 (09:43→20:48)
[2020-03-08] MEDS: AmLODIPine BESYLATE 5 MG TABLET PO SCH (09:43)
[2020-03-08] MEDS: THIAMINE HCL 100 MG TABLET PO SCH ×2 (09:45→16:21)
[2020-03-08] MEDS: MAG HYDROX/AL HYDROX/SIMETH 30 ML SUSP UDCUP PO SCH ×3 (09:45→16:21)
[2020-03-08] MEDS: LORazepam 2 MG TABLET PO PRN ×2 (11:37→16:21)
[2020-03-08 16:16] VITALS: BP 124/80
[2020-03-08] MEDS: OLANZapine 10 MG RAPDIS TABLET PO SCH (20:48)
[2020-03-09 00:29] VITALS: BP 104/81
[2020-03-09] MEDS: THIAMINE HCL 100 MG TABLET PO SCH ×2 (09:15→16:51)
[2020-03-09] MEDS: FOLIC ACID 1 MG TABLET PO SCH (09:15)
[2020-03-09] MEDS: MULTIVITAMINS WITH MINERALS, THERAPEUTIC TABLET PO SCH (09:15)
[2020-03-09] MEDS: AmLODIPine BESYLATE 5 MG TABLET PO SCH (09:15)
[2020-03-09] MEDS: MAG HYDROX/AL HYDROX/SIMETH 30 ML SUSP UDCUP PO SCH ×3 (09:16→17:07)
[2020-03-09] MEDS: PANTOPRAZOLE SODIUM 40 MG DR TABLET PO SCH (09:16)
[2020-03-09] MEDS: GABAPENTIN 300 MG CAPSULE PO SCH ×4 (09:16→20:25)
[2020-03-09] MEDS: NALTREXONE HCL 50 MG TABLET PO SCH (09:22)
[2020-03-09 09:47] VITALS: BP 120/85
[2020-03-09] MEDS: LORazepam 2 MG TABLET PO PRN ×2 (09:50→16:51)
[2020-03-09 16:00] VITALS: BP 132/79
[2020-03-09] MEDS: ZOLPIDEM TARTRATE 10 MG TABLET PO PRN (20:26)
[2020-03-09] MEDS: OLANZapine 10 MG RAPDIS TABLET PO SCH (20:26)
[2020-03-10] VITALS: BP 135/93
[2020-03-10 08:45] VITALS: BP 129/88
[2020-03-10] MEDS: MAG HYDROX/AL HYDROX/SIMETH 30 ML SUSP UDCUP PO SCH ×3 (09:00→16:34)
[2020-03-10] MEDS: MULTIVITAMINS WITH MINERALS, THERAPEUTIC TABLET PO SCH (09:32)
[2020-03-10] MEDS: NALTREXONE HCL 50 MG TABLET PO SCH (09:32)
[2020-03-10] MEDS: GABAPENTIN 300 MG CAPSULE PO SCH ×4 (09:32→20:44)
[2020-03-10] MEDS: THIAMINE HCL 100 MG TABLET PO SCH (09:32)
[2020-03-10] MEDS: AmLODIPine BESYLATE 5 MG TABLET PO SCH (09:32)
[2020-03-10] MEDS: PANTOPRAZOLE SODIUM 40 MG DR TABLET PO SCH (09:33)
[2020-03-10] MEDS: FOLIC ACID 1 MG TABLET PO SCH (09:33)
[2020-03-10] MEDS: MAG HYDROX/AL HYDROX/SIMETH ES 30 ML SUSPENSION UDCUP PO PRN (12:15)
[2020-03-10] MEDS: LORazepam 2 MG TABLET PO PRN ×2 (16:13→20:44)
[2020-03-10 16:33] VITALS: BP 129/66
[2020-03-10] MEDS: OLANZapine 10 MG RAPDIS TABLET PO SCH (20:44)
[2020-03-11 05:46] VITALS: BP 116/61
[2020-03-11 08:26] VITALS: BP 123/66
[2020-03-11] MEDS ORDERED: PALIPERIDONE PALMITATE 156 MG/ML SYRINGE IM ONE (09:00)
[2020-03-11] MEDS: MAG HYDROX/AL HYDROX/SIMETH 30 ML SUSP UDCUP PO SCH ×2 (09:00→13:19)
[2020-03-11] MEDS: PANTOPRAZOLE SODIUM 40 MG DR TABLET PO SCH (09:34)
[2020-03-11] MEDS: MULTIVITAMINS WITH MINERALS, THERAPEUTIC TABLET PO SCH (09:34)
[2020-03-11] MEDS: GABAPENTIN 300 MG CAPSULE PO SCH ×2 (09:34→13:19)
[2020-03-11] MEDS: NALTREXONE HCL 50 MG TABLET PO SCH (09:34)
[2020-03-11] MEDS: AmLODIPine BESYLATE 5 MG TABLET PO SCH (09:35)
[2020-03-11] MEDS: MAG HYDROX/AL HYDROX/SIMETH ES 30 ML SUSPENSION UDCUP PO PRN (09:40)
[2020-03-11] MEDS ORDERED: NALT50TA PO (11:49)
[2020-03-11] MEDS ORDERED: GABA-531 PO (11:49)
[2020-03-11] MEDS ORDERED: OLAN10TA22 PO (11:49)
== END 2020-03-11 16:35 | disposition home or self-care (01) | DRG 750 ==
LOC: B3A 20:06
PROVIDERS: ADMIT Psychiatry & Neurology Psychiatry; ATTEND Psychiatry & Neurology Psychiatry
DX: F25.0 Schizoaffective disorder, bipolar type (principal); R45.850 Homicidal ideations; R45.851 Suicidal ideations; B19.20 Unspecified viral hepatitis C without hepatic coma; F12.90 Cannabis use, unspecified, uncomplicated; F15.90 Other stimulant use, unspecified, uncomplicated; F17.210 Nicotine dependence, cigarettes, uncomplicated; I10 Essential (primary) hypertension; J44.9 Chronic obstructive pulmonary disease, unspecified; K21.9 Gastro-esophageal reflux disease without esophagitis; Z88.8 Allergy status to other drugs, medicaments and biological substances; Z65.3 Problems related to other legal circumstances; Z59.0 Homelessness; Z79.899 Other long term (current) drug therapy
CPT/HCPCS: 87081; J1200; J2060

== ENCOUNTER 2020-03-16 23:57 | Emergency (ER) | payer MEDICAID, OTHER ==
[~2020-03-16] VITALS: Ht 172.7 cm; Wt 92.7 kg
[~2020-03-16 23:57] MED LIST changes: -BUPR-47 PO; +GABA-1201 PO
[2020-03-17 04:04] LABS: BASOPHILS % (AUTO) 0.8 % (0.0-2.0); EOSINOPHILS % (AUTO) 3.9 % (1.0-6.0); HEMATOCRIT 44.8 % (41-53); HEMOGLOBIN 15.1 g/dL (13.5-17.5); LYMPHOCYTES # (AUTO) 3.5 K/uL (1.0-4.8); MEAN CORPUSCULAR HEMOGLOBIN 29.2 pg (26.0-34.0); MEAN CORPUSCULAR HGB CONC 33.8 G/dL (31.0-37.0); MEAN CORPUSCULAR VOLUME 87 fL (80-100); MONOCYTES # (AUTO) 0.7 K/uL (0.1-1.0); MONOCYTES % (AUTO) 8.3 % (2.0-9.0); NEUTROPHILS # (AUTO) 4.1 K/uL (1.8-7.7); PLATELET COUNT (AUTO) 302 K/uL (150-450); RED BLOOD CELL COUNT(AUTO) 5.18 MIL/uL (4.50-5.90); RED CELL DISTRIBUTION WIDTH 13.1 % (11.5-14.5)
[2020-03-17 04:15] LABS: ANION GAP 15 mmol/L (8-16); CALCIUM, TOTAL 9.2 mg/dL (8.8-10.5); CARBON DIOXIDE 25 mmol/L (22-29); CHLORIDE 103 mmol/L (98-107); CREATININE 1.15 mg/dL (0.60-1.30); GLOMERULAR FILTR. RATE CALC > 60 mL/min (>60); GLUCOSE,RANDOM 119 mg/dL (70-110); POTASSIUM 3.5 mmol/L (3.5-5.1); SODIUM SERUM 143 mmol/L (136-145); UREA NITROGEN, BLOOD 13 mg/dL (7-18)
[2020-03-17 04:21] LABS: ALANINE AMINOTRANSFERASE 34 U/L (12-78); ALBUMIN 4.4 g/dL (3.4-5.0); ALKALINE PHOSPHATASE 142 U/L (46-116); ASPARTATE AMINOTRANSFERASE 24 U/L (15-37); BILIRUBIN,TOTAL 0.8 mg/dL (0.1-1.0); TOTAL PROTEIN, SERUM 8.4 g/dL (6.4-8.2)
[2020-03-17] MEDS ORDERED: CloNIDine HCL 0.2 MG TABLET PO ONE (04:45)
[2020-03-17] MEDS ORDERED: OLANZapine 5 MG TABLET PO ONE (05:00)
[2020-03-17] MEDS ORDERED: LORazepam 2 MG TABLET PO ONE (05:00)
[2020-03-17 05:02] VITALS: BP 147/104
== END 2020-03-17 06:02 | disposition home or self-care (01) ==
LOC: EMS 23:57
DX: F20.0 Paranoid schizophrenia (principal); I10 Essential (primary) hypertension; F32.9 Major depressive disorder, single episode, unspecified; F17.210 Nicotine dependence, cigarettes, uncomplicated; F19.90 Other psychoactive substance use, unspecified, uncomplicated; G89.29 Other chronic pain; Z88.1 Allergy status to other antibiotic agents; Z88.6 Allergy status to analgesic agent; Z88.8 Allergy status to other drugs, medicaments and biological substances
CPT/HCPCS: 80053; 85025; 99284; G0480

== ENCOUNTER 2020-03-18 23:05 | Emergency (ER) | payer MEDICAID, OTHER ==
[~2020-03-18] VITALS: Ht 172.7 cm; Wt 92.7 kg
[2020-03-18 23:44] LABS: BASOPHILS % (AUTO) 0.8 % (0.0-2.0); EOSINOPHILS % (AUTO) 1.2 % (1.0-6.0); HEMATOCRIT 46.2 % (41-53); HEMOGLOBIN 15.5 g/dL (13.5-17.5); LYMPHOCYTES # (AUTO) 2.4 K/uL (1.0-4.8); LYMPHOCYTES % (AUTO) 27.9 % (22.0-44.0); MEAN CORPUSCULAR HEMOGLOBIN 29.1 pg (26.0-34.0); MEAN CORPUSCULAR HGB CONC 33.5 G/dL (31.0-37.0); MEAN CORPUSCULAR VOLUME 87 fL (80-100); MONOCYTES # (AUTO) 0.8 K/uL (0.1-1.0); MONOCYTES % (AUTO) 9.1 % (2.0-9.0); NEUTROPHILS # (AUTO) 5.3 K/uL (1.8-7.7); PLATELET COUNT (AUTO) 316 K/uL (150-450); RED BLOOD CELL COUNT(AUTO) 5.33 MIL/uL (4.50-5.90); RED CELL DISTRIBUTION WIDTH 13.4 % (11.5-14.5)
[2020-03-18 23:58] LABS: PROTHROMBIN TIME 10.7 SEC (9.4-11.6)
[2020-03-19 00:02] LABS: ANION GAP 12 mmol/L (8-16); CALCIUM, TOTAL 10.1 mg/dL (8.8-10.5); CARBON DIOXIDE 24 mmol/L (22-29); CHLORIDE 100 mmol/L (98-107); CREATININE 1.39 mg/dL (0.60-1.30); GLOMERULAR FILTR. RATE CALC 52 mL/min (>60); GLUCOSE,RANDOM 139 mg/dL (70-110); POTASSIUM 3.4 mmol/L (3.5-5.1); SODIUM SERUM 136 mmol/L (136-145); UREA NITROGEN, BLOOD 14 mg/dL (7-18)
[2020-03-19 00:10] LABS: B-TYPE NATRIURETIC PEPTIDE 26 pg/mL (0-100)
[2020-03-19 00:31] LABS: ALANINE AMINOTRANSFERASE 34 U/L (12-78); ALBUMIN 4.8 g/dL (3.4-5.0); ALKALINE PHOSPHATASE 142 U/L (46-116); ASPARTATE AMINOTRANSFERASE 34 U/L (15-37); BILIRUBIN,TOTAL 0.7 mg/dL (0.1-1.0); CREATINE KINASE, TOTAL ONLY 330 U/L (39-308); TOTAL PROTEIN, SERUM 9.2 g/dL (6.4-8.2)
[2020-03-19] MEDS ORDERED: LORazepam 2 MG TABLET PO ONE (01:15)
[2020-03-19] MEDS ORDERED: OLANZapine 5 MG TABLET PO ONE (01:15)
[2020-03-19 03:30] VITALS: BP 151/83
== END 2020-03-19 03:50 | disposition home or self-care (01) ==
LOC: EMS 23:07
DX: R45.1 Restlessness and agitation (principal); F32.9 Major depressive disorder, single episode, unspecified; I10 Essential (primary) hypertension; F20.9 Schizophrenia, unspecified; F17.210 Nicotine dependence, cigarettes, uncomplicated; F15.90 Other stimulant use, unspecified, uncomplicated; Z88.8 Allergy status to other drugs, medicaments and biological substances; Z79.899 Other long term (current) drug therapy
CPT/HCPCS: 71045; 80053; 82550; 82962; 83880; 84484; 85025; 85610; 85730; 93005; 99285; G0480

== ENCOUNTER 2020-08-04 07:52 | Inpatient (IN) | payer MEDICAID, OTHER ==
[~2020-08-04] VITALS: Ht 182.9 cm; Wt 95.1 kg
[~2020-08-04 07:52] MED LIST changes: +AMLO-257 PO; -AMLO5TAB9 PO
[2020-08-04] MEDS ORDERED: LORazepam 2 MG/ML VIAL IM ONE ×2 (08:45→18:45)
[2020-08-04] MEDS ORDERED: DiphenhydrAMINE HCL 50 MG/ML VIAL IM ONE ×2 (08:45→18:45)
[2020-08-04 08:57] LABS: BASOPHILS % (AUTO) 0.2 % (0.0-2.0); EOSINOPHILS % (AUTO) 0.3 % (1.0-6.0); HEMATOCRIT 37.4 % (41-53); HEMOGLOBIN 12.8 g/dL (13.5-17.5); LYMPHOCYTES # (AUTO) 2.1 K/uL (1.0-4.8); LYMPHOCYTES % (AUTO) 21.3 % (22.0-44.0); MEAN CORPUSCULAR HEMOGLOBIN 29.7 pg (26.0-34.0); MEAN CORPUSCULAR HGB CONC 34.3 G/dL (31.0-37.0); MEAN CORPUSCULAR VOLUME 87 fL (80-100); MONOCYTES % (AUTO) 10.4 % (2.0-9.0); NEUTROPHILS # (AUTO) 6.8 K/uL (1.8-7.7); NEUTROPHILS % (AUTO) 67.8 % (40.0-70.0); PLATELET COUNT (AUTO) 296 K/uL (150-450); RED BLOOD CELL COUNT(AUTO) 4.31 MIL/uL (4.50-5.90); RED CELL DISTRIBUTION WIDTH 13.6 % (11.5-14.5)
[2020-08-04 09:07] LABS: ANION GAP 8 mmol/L (8-16); CALCIUM, TOTAL 9.6 mg/dL (8.8-10.5); CARBON DIOXIDE 26 mmol/L (22-29); CHLORIDE 105 mmol/L (98-107); CREATININE 1.24 mg/dL (0.60-1.30); GLOMERULAR FILTR. RATE CALC 60 mL/min (>60); GLUCOSE,RANDOM 117 mg/dL (70-110); POTASSIUM 3.9 mmol/L (3.5-5.1); SODIUM SERUM 139 mmol/L (136-145); UREA NITROGEN, BLOOD 27 mg/dL (7-18)
[2020-08-04 09:13] LABS: ALANINE AMINOTRANSFERASE 38 U/L (12-78); ALBUMIN 4.3 g/dL (3.4-5.0); ALKALINE PHOSPHATASE 130 U/L (46-116); ASPARTATE AMINOTRANSFERASE 47 U/L (15-37); BILIRUBIN,TOTAL 0.7 mg/dL (0.1-1.0); TOTAL PROTEIN, SERUM 7.5 g/dL (6.4-8.2)
[2020-08-04] MEDS ORDERED: CYCL10 PO (09:59)
[2020-08-04] MEDS ORDERED: GABA-1181 PO (09:59)
[2020-08-04] MEDS ORDERED: AMOX1TAB15 PO (09:59)
[2020-08-04] MEDS ORDERED: BUPR100SR PO (09:59)
[2020-08-04 10:42] LABS: AMPHET/METH SCREEN,URINE POSITIVE (NEGATIVE); BARBITURATE SCREEN, URINE NEGATIVE (NEGATIVE); BENZODIAZEPINES SCREEN,URINE NEGATIVE (NEGATIVE); CANNABINOID SCREEN,URINE NEGATIVE (NEGATIVE); COCAINE SCREEN,URINE NEGATIVE (NEGATIVE); METHADONE SCREEN, URINE NEGATIVE (NEGATIVE); OPIATE SCREEN,URINE NEGATIVE (NEGATIVE)
[2020-08-04 10:43] LABS: PHENCYCLIDINE SCREEN,URINE NEGATIVE (NEGATIVE)
[2020-08-04 12:31] LABS: SALICYLATE 1.9 mg/dL (2.8-20.0)
[2020-08-04 14:08] LABS: ACETAMINOPHEN < 2 mcg/mL (10-30)
[2020-08-04 14:19] LABS: COVID AG,FIA SOURCE NASOPHARYNGEAL
[2020-08-04] MEDS ORDERED: KETOROLAC TROMETHAMINE 60 MG/2 ML VIAL IM ONE (18:45)
[2020-08-04] MEDS: GABAPENTIN 300 MG CAPSULE PO SCH (20:17)
[2020-08-04 20:31] VITALS: BP 149/98
[2020-08-04] MEDS ORDERED: OLANZapine 10 MG TABLET PO SCH (21:00)
[2020-08-04 21:48] VITALS: BP 149/98
[2020-08-04] MEDS: ZOLPIDEM TARTRATE 10 MG TABLET PO PRN (23:54)
[2020-08-04] MEDS: LORazepam 2 MG TABLET PO PRN (23:54)
[2020-08-05] MEDS: OLANZapine 5 MG RAPDIS TABLET PO PRN ×3 (02:29→12:16)
[2020-08-05] MEDS: LORazepam 2 MG TABLET PO PRN ×2 (07:05→12:16)
[2020-08-05] MEDS: AmLODIPine BESYLATE 5 MG TABLET PO SCH (07:56)
[2020-08-05] MEDS: GABAPENTIN 300 MG CAPSULE PO SCH ×4 (07:56→21:35)
[2020-08-05] MEDS ORDERED: MAGNESIUM HYDROXIDE SUSPENSION 30 ML UDCUP PO PRN (10:15)
[2020-08-05] MEDS ORDERED: GuaiFENesin/D-METHORPHAN [SUGAR-FREE] 200-20MG/10 ML SYRUP UDCUP PO PRN (10:15)
[2020-08-05] MEDS ORDERED: PROMETHAZINE HCL 25 MG TABLET PO PRN (10:15)
[2020-08-05] MEDS ORDERED: LOPERAMIDE HCL 2 MG CAPSULE PO PRN (10:15)
[2020-08-05] MEDS ORDERED: MAG HYDROX/AL HYDROX/SIMETH ES 30 ML SUSPENSION UDCUP PO PRN (10:15)
[2020-08-05] MEDS ORDERED: TUBERCULIN, PURIFIED PROTEIN DERIVATIVE 5 TU/0.1 ML SYRINGE ID ONE (10:15)
[2020-08-05] MEDS: HydrOXYzine PAMOATE 50 MG CAPSULE PO PRN (11:52)
[2020-08-05] MEDS: ACETAMINOPHEN 325 MG TABLET PO PRN ×3 (11:52→21:48)
[2020-08-05 16:01] VITALS: BP 147/90
[2020-08-05] MEDS: THIAMINE 100 MG TABLET PO SCH (16:13)
[2020-08-05] MEDS ORDERED: OLANZapine 7.5 MG TABLET PO SCH (21:00)
[2020-08-05 21:39] VITALS: BP 136/88
[2020-08-06] MEDS: ZOLPIDEM TARTRATE 10 MG TABLET PO PRN (02:41)
[2020-08-06] MEDS: OLANZapine 5 MG RAPDIS TABLET PO PRN ×3 (02:41→12:49)
[2020-08-06] MEDS: LORazepam 2 MG TABLET PO PRN ×3 (02:41→12:45)
[2020-08-06] MEDS ORDERED: TUBERCULIN, PURIFIED PROTEIN DERIVATIVE 5 TU/0.1 ML SYRINGE ID ONE (07:00)
[2020-08-06] MEDS: NALTREXONE HCL 50 MG TABLET PO SCH (08:15)
[2020-08-06 08:16] VITALS: BP 161/99
[2020-08-06] MEDS: OMEGA-3/DHA/EPA/FISH OIL 1,000 MG CAPSULE PO SCH (08:16)
[2020-08-06] MEDS: THIAMINE 100 MG TABLET PO SCH ×2 (08:16→17:41)
[2020-08-06] MEDS: HydrOXYzine PAMOATE 50 MG CAPSULE PO PRN ×2 (08:16→12:45)
[2020-08-06] MEDS: ACETAMINOPHEN 325 MG TABLET PO PRN ×3 (08:16→21:58)
[2020-08-06] MEDS: AmLODIPine BESYLATE 5 MG TABLET PO SCH (08:17)
[2020-08-06] MEDS: GABAPENTIN 300 MG CAPSULE PO SCH ×4 (08:17→21:48)
[2020-08-06] MEDS: MULTIVITAMINS WITH MINERALS, THERAPEUTIC TABLET PO SCH (08:17)
[2020-08-06] MEDS: FOLIC ACID 1 MG TABLET PO SCH (08:17)
[2020-08-06 12:52] VITALS: BP 141/104
[2020-08-06 13:55] VITALS: BP 156/88
[2020-08-06 16:51] VITALS: BP 150/85
[2020-08-06] MEDS: CYCLOBENZAPRINE HCL 10 MG TABLET PO SCH (17:41)
[2020-08-06] MEDS: OLANZapine 10 MG TABLET PO SCH (21:48)
[2020-08-07] MEDS: ACETAMINOPHEN 325 MG TABLET PO PRN ×4 (02:48→20:51)
[2020-08-07] MEDS: ZOLPIDEM TARTRATE 10 MG TABLET PO PRN (02:48)
[2020-08-07] MEDS: NALTREXONE HCL 50 MG TABLET PO SCH (07:24)
[2020-08-07] MEDS: GABAPENTIN 300 MG CAPSULE PO SCH ×4 (07:24→20:20)
[2020-08-07] MEDS: OMEGA-3/DHA/EPA/FISH OIL 1,000 MG CAPSULE PO SCH (07:24)
[2020-08-07] MEDS: AmLODIPine BESYLATE 5 MG TABLET PO SCH (07:24)
[2020-08-07] MEDS: OLANZapine 5 MG RAPDIS TABLET PO PRN ×2 (07:24→12:14)
[2020-08-07] MEDS: HydrOXYzine PAMOATE 50 MG CAPSULE PO PRN ×2 (07:25→12:14)
[2020-08-07] MEDS: CYCLOBENZAPRINE HCL 10 MG TABLET PO SCH ×3 (07:25→17:44)
[2020-08-07] MEDS: FOLIC ACID 1 MG TABLET PO SCH (07:26)
[2020-08-07] MEDS: MULTIVITAMINS WITH MINERALS, THERAPEUTIC TABLET PO SCH (07:27)
[2020-08-07] MEDS: THIAMINE 100 MG TABLET PO SCH ×2 (07:27→17:44)
[2020-08-07 08:00] VITALS: BP 145/101
[2020-08-07] MEDS: LORazepam 2 MG TABLET PO PRN (12:14)
[2020-08-07] MEDS: OLANZapine 10 MG TABLET PO SCH (20:20)
[2020-08-07 20:52] VITALS: BP 136/80
[2020-08-07] MEDS: GABAPENTIN 400 MG CAPSULE PO SCH (21:00)
[2020-08-08] MEDS: ZOLPIDEM TARTRATE 10 MG TABLET PO PRN (01:37)
[2020-08-08] MEDS: ACETAMINOPHEN 325 MG TABLET PO PRN ×3 (01:38→16:24)
[2020-08-08 08:00] VITALS: BP 158/96
[2020-08-08] MEDS: THIAMINE 100 MG TABLET PO SCH ×2 (08:33→16:24)
[2020-08-08] MEDS: MULTIVITAMINS WITH MINERALS, THERAPEUTIC TABLET PO SCH (08:33)
[2020-08-08] MEDS: GABAPENTIN 400 MG CAPSULE PO SCH ×3 (08:33→16:23)
[2020-08-08] MEDS: FOLIC ACID 1 MG TABLET PO SCH (08:34)
[2020-08-08] MEDS: CYCLOBENZAPRINE HCL 10 MG TABLET PO SCH ×3 (08:34→16:25)
[2020-08-08] MEDS: OMEGA-3/DHA/EPA/FISH OIL 1,000 MG CAPSULE PO SCH (08:34)
[2020-08-08] MEDS: AmLODIPine BESYLATE 5 MG TABLET PO SCH (08:34)
[2020-08-08] MEDS: NALTREXONE HCL 50 MG TABLET PO SCH (08:34)
[2020-08-08 16:29] VITALS: BP 148/90
[2020-08-08] MEDS: GABAPENTIN 300 MG CAPSULE PO SCH (20:03)
[2020-08-08] MEDS: OLANZapine 10 MG TABLET PO SCH (20:03)
[2020-08-08] MEDS: LORazepam 2 MG TABLET PO PRN (20:14)
[2020-08-09] MEDS: LORazepam 2 MG TABLET PO PRN ×3 (03:14→12:20)
[2020-08-09] MEDS: ACETAMINOPHEN 325 MG TABLET PO PRN ×4 (03:16→20:41)
[2020-08-09 08:10] VITALS: BP 162/99
[2020-08-09] MEDS: GABAPENTIN 300 MG CAPSULE PO SCH ×3 (08:15→17:16)
[2020-08-09] MEDS: OMEGA-3/DHA/EPA/FISH OIL 1,000 MG CAPSULE PO SCH (08:15)
[2020-08-09] MEDS: THIAMINE 100 MG TABLET PO SCH ×2 (08:15→17:17)
[2020-08-09] MEDS: MULTIVITAMINS WITH MINERALS, THERAPEUTIC TABLET PO SCH (08:16)
[2020-08-09] MEDS: AmLODIPine BESYLATE 5 MG TABLET PO SCH (08:16)
[2020-08-09] MEDS: NALTREXONE HCL 50 MG TABLET PO SCH (08:17)
[2020-08-09] MEDS: CYCLOBENZAPRINE HCL 10 MG TABLET PO SCH ×3 (08:17→17:17)
[2020-08-09] MEDS: FOLIC ACID 1 MG TABLET PO SCH (08:17)
[2020-08-09] MEDS: OLANZapine 5 MG RAPDIS TABLET PO PRN (12:10)
[2020-08-09] MEDS: HydrOXYzine PAMOATE 50 MG CAPSULE PO PRN (12:10)
[2020-08-09 16:00] VITALS: BP 146/89
[2020-08-09] MEDS: GABAPENTIN 400 MG CAPSULE PO SCH (20:31)
[2020-08-09] MEDS: OLANZapine 10 MG TABLET PO SCH (20:31)
[2020-08-09 20:37] VITALS: BP 136/80
[2020-08-10 08:00] VITALS: BP 117/86
[2020-08-10] MEDS: AmLODIPine BESYLATE 5 MG TABLET PO SCH (08:19)
[2020-08-10] MEDS: ACETAMINOPHEN 325 MG TABLET PO PRN ×2 (08:19→20:02)
[2020-08-10] MEDS: LORazepam 2 MG TABLET PO PRN (08:19)
[2020-08-10] MEDS: GABAPENTIN 400 MG CAPSULE PO SCH ×4 (08:19→20:03)
[2020-08-10] MEDS: FOLIC ACID 1 MG TABLET PO SCH (08:20)
[2020-08-10] MEDS: OMEGA-3/DHA/EPA/FISH OIL 1,000 MG CAPSULE PO SCH (08:20)
[2020-08-10] MEDS: CYCLOBENZAPRINE HCL 10 MG TABLET PO SCH ×3 (08:20→16:01)
[2020-08-10] MEDS: THIAMINE 100 MG TABLET PO SCH ×2 (08:20→16:01)
[2020-08-10] MEDS: MULTIVITAMINS WITH MINERALS, THERAPEUTIC TABLET PO SCH (08:20)
[2020-08-10] MEDS: OLANZapine 5 MG RAPDIS TABLET PO PRN (08:21)
[2020-08-10] MEDS: NALTREXONE HCL 50 MG TABLET PO SCH (08:21)
[2020-08-10 08:30] VITALS: BP 158/96
[2020-08-10 16:09] VITALS: BP 139/99
[2020-08-10] MEDS: OLANZapine 10 MG TABLET PO SCH (20:03)
[2020-08-11] MEDS: CYCLOBENZAPRINE HCL 10 MG TABLET PO SCH ×3 (08:52→16:09)
[2020-08-11] MEDS: NALTREXONE HCL 50 MG TABLET PO SCH (08:52)
[2020-08-11] MEDS: AmLODIPine BESYLATE 5 MG TABLET PO SCH (08:52)
[2020-08-11 08:53] VITALS: BP 108/65
[2020-08-11] MEDS: LORazepam 2 MG TABLET PO PRN (08:53)
[2020-08-11] MEDS: MULTIVITAMINS WITH MINERALS, THERAPEUTIC TABLET PO SCH (08:53)
[2020-08-11] MEDS: ACETAMINOPHEN 325 MG TABLET PO PRN (08:53)
[2020-08-11] MEDS: GABAPENTIN 400 MG CAPSULE PO SCH ×4 (08:53→20:00)
[2020-08-11] MEDS: FOLIC ACID 1 MG TABLET PO SCH (08:53)
[2020-08-11] MEDS: OLANZapine 5 MG RAPDIS TABLET PO PRN (08:53)
[2020-08-11] MEDS: OMEGA-3/DHA/EPA/FISH OIL 1,000 MG CAPSULE PO SCH (08:53)
[2020-08-11] MEDS: THIAMINE 100 MG TABLET PO SCH ×2 (08:55→16:09)
[2020-08-11 16:12] VITALS: BP 149/98
[2020-08-11] MEDS: OLANZapine 10 MG TABLET PO SCH (20:00)
[2020-08-12 08:00] VITALS: BP 154/84
[2020-08-12] MEDS: LORazepam 2 MG TABLET PO PRN ×2 (08:07→12:30)
[2020-08-12] MEDS: OMEGA-3/DHA/EPA/FISH OIL 1,000 MG CAPSULE PO SCH (08:08)
[2020-08-12] MEDS: ACETAMINOPHEN 325 MG TABLET PO PRN ×2 (08:08→12:29)
[2020-08-12] MEDS: THIAMINE 100 MG TABLET PO SCH ×2 (08:08→16:49)
[2020-08-12] MEDS: GABAPENTIN 400 MG CAPSULE PO SCH ×4 (08:08→20:17)
[2020-08-12] MEDS: CYCLOBENZAPRINE HCL 10 MG TABLET PO SCH ×3 (08:08→16:48)
[2020-08-12] MEDS: FOLIC ACID 1 MG TABLET PO SCH (08:09)
[2020-08-12] MEDS: MULTIVITAMINS WITH MINERALS, THERAPEUTIC TABLET PO SCH (08:09)
[2020-08-12] MEDS: AmLODIPine BESYLATE 5 MG TABLET PO SCH (08:09)
[2020-08-12] MEDS: NALTREXONE HCL 50 MG TABLET PO SCH (08:09)
[2020-08-12 16:24] VITALS: BP 142/87
[2020-08-12] MEDS: OLANZapine 10 MG TABLET PO SCH (20:17)
[2020-08-13] MEDS: LORazepam 0.5 MG TABLET PO PRN ×2 (08:53→10:35)
[2020-08-13] MEDS: NALTREXONE HCL 50 MG TABLET PO SCH (09:14)
[2020-08-13] MEDS: GABAPENTIN 400 MG CAPSULE PO SCH ×4 (09:14→20:24)
[2020-08-13] MEDS: MULTIVITAMINS WITH MINERALS, THERAPEUTIC TABLET PO SCH (09:14)
[2020-08-13] MEDS: OMEGA-3/DHA/EPA/FISH OIL 1,000 MG CAPSULE PO SCH (09:14)
[2020-08-13] MEDS: CYCLOBENZAPRINE HCL 10 MG TABLET PO SCH ×3 (09:14→16:15)
[2020-08-13] MEDS: FOLIC ACID 1 MG TABLET PO SCH (09:15)
[2020-08-13] MEDS: AmLODIPine BESYLATE 5 MG TABLET PO SCH (09:15)
[2020-08-13] MEDS: THIAMINE 100 MG TABLET PO SCH ×2 (09:15→16:16)
[2020-08-13] MEDS: OLANZapine 5 MG RAPDIS TABLET PO PRN (10:35)
[2020-08-13 16:23] VITALS: BP 115/74
[2020-08-13] MEDS: OLANZapine 10 MG TABLET PO SCH (20:23)
[2020-08-14] MEDS: GABAPENTIN 400 MG CAPSULE PO SCH ×4 (08:07→20:35)
[2020-08-14] MEDS: ACETAMINOPHEN 325 MG TABLET PO PRN (08:07)
[2020-08-14] MEDS: NALTREXONE HCL 50 MG TABLET PO SCH (08:08)
[2020-08-14] MEDS: LORazepam 0.5 MG TABLET PO PRN (08:08)
[2020-08-14] MEDS: OMEGA-3/DHA/EPA/FISH OIL 1,000 MG CAPSULE PO SCH (08:08)
[2020-08-14] MEDS: AmLODIPine BESYLATE 5 MG TABLET PO SCH (08:08)
[2020-08-14] MEDS: FOLIC ACID 1 MG TABLET PO SCH (08:08)
[2020-08-14] MEDS: MULTIVITAMINS WITH MINERALS, THERAPEUTIC TABLET PO SCH (08:08)
[2020-08-14] MEDS: CYCLOBENZAPRINE HCL 10 MG TABLET PO SCH ×3 (08:08→16:10)
[2020-08-14] MEDS: OLANZapine 5 MG RAPDIS TABLET PO PRN (08:08)
[2020-08-14] MEDS: THIAMINE 100 MG TABLET PO SCH ×2 (08:09→16:10)
[2020-08-14 16:00] VITALS: BP 114/87
[2020-08-14] MEDS: OLANZapine 10 MG TABLET PO SCH (20:35)
[2020-08-15] MEDS: ZOLPIDEM TARTRATE 10 MG TABLET PO PRN (00:11)
[2020-08-15] MEDS: LORazepam 0.5 MG TABLET PO PRN (00:12)
[2020-08-15] MEDS: CYCLOBENZAPRINE HCL 10 MG TABLET PO SCH ×3 (09:33→16:27)
[2020-08-15] MEDS: OMEGA-3/DHA/EPA/FISH OIL 1,000 MG CAPSULE PO SCH (09:33)
[2020-08-15] MEDS: GABAPENTIN 400 MG CAPSULE PO SCH (09:33)
[2020-08-15] MEDS: FOLIC ACID 1 MG TABLET PO SCH (09:33)
[2020-08-15] MEDS: MULTIVITAMINS WITH MINERALS, THERAPEUTIC TABLET PO SCH (09:34)
[2020-08-15] MEDS: NALTREXONE HCL 50 MG TABLET PO SCH (09:34)
[2020-08-15] MEDS: AmLODIPine BESYLATE 5 MG TABLET PO SCH (09:34)
[2020-08-15] MEDS: THIAMINE 100 MG TABLET PO SCH (09:34)
[2020-08-15] MEDS: GABAPENTIN 300 MG CAPSULE PO SCH ×3 (13:40→20:29)
[2020-08-15 16:43] VITALS: BP 136/95
[2020-08-15] MEDS: OLANZapine 10 MG TABLET PO SCH (20:29)
[2020-08-16] MEDS: OMEGA-3/DHA/EPA/FISH OIL 1,000 MG CAPSULE PO SCH (07:50)
[2020-08-16] MEDS: GABAPENTIN 300 MG CAPSULE PO SCH ×4 (07:50→20:20)
[2020-08-16] MEDS: AmLODIPine BESYLATE 5 MG TABLET PO SCH (07:50)
[2020-08-16] MEDS: DULoxetine HCL 20 MG CAPSULE PO SCH (07:50)
[2020-08-16] MEDS: CYCLOBENZAPRINE HCL 10 MG TABLET PO SCH ×3 (07:50→16:51)
[2020-08-16] MEDS: MULTIVITAMINS WITH MINERALS, THERAPEUTIC TABLET PO SCH (07:51)
[2020-08-16] MEDS: NALTREXONE HCL 50 MG TABLET PO SCH (07:51)
[2020-08-16] MEDS: CEPHALEXIN MONOHYDRATE 500 MG CAPSULE PO SCH ×4 (09:12→20:20)
[2020-08-16 09:43] VITALS: BP 154/108
[2020-08-16 17:11] VITALS: BP 115/85
[2020-08-16] MEDS: OLANZapine 10 MG TABLET PO SCH (20:19)
[2020-08-17 08:00] VITALS: BP 143/77
[2020-08-17] MEDS: CYCLOBENZAPRINE HCL 10 MG TABLET PO SCH ×3 (08:28→16:26)
[2020-08-17] MEDS: GABAPENTIN 300 MG CAPSULE PO SCH ×4 (08:28→20:27)
[2020-08-17] MEDS: AmLODIPine BESYLATE 5 MG TABLET PO SCH (08:29)
[2020-08-17] MEDS: MULTIVITAMINS WITH MINERALS, THERAPEUTIC TABLET PO SCH (08:29)
[2020-08-17] MEDS: OMEGA-3/DHA/EPA/FISH OIL 1,000 MG CAPSULE PO SCH (08:29)
[2020-08-17] MEDS: DULoxetine HCL 20 MG CAPSULE PO SCH (08:29)
[2020-08-17] MEDS: CEPHALEXIN MONOHYDRATE 500 MG CAPSULE PO SCH ×4 (08:30→20:27)
[2020-08-17] MEDS: NALTREXONE HCL 50 MG TABLET PO SCH (08:30)
[2020-08-17 16:00] VITALS: BP 145/87
[2020-08-17] MEDS: OLANZapine 10 MG TABLET PO SCH (20:27)
[2020-08-18] MEDS: CEPHALEXIN MONOHYDRATE 500 MG CAPSULE PO SCH ×4 (08:29→21:11)
[2020-08-18] MEDS: OMEGA-3/DHA/EPA/FISH OIL 1,000 MG CAPSULE PO SCH (08:30)
[2020-08-18] MEDS: CYCLOBENZAPRINE HCL 10 MG TABLET PO SCH ×3 (08:30→16:40)
[2020-08-18] MEDS: GABAPENTIN 300 MG CAPSULE PO SCH ×4 (08:30→21:11)
[2020-08-18] MEDS: DULoxetine HCL 20 MG CAPSULE PO SCH (08:30)
[2020-08-18] MEDS: AmLODIPine BESYLATE 5 MG TABLET PO SCH (08:30)
[2020-08-18] MEDS: NALTREXONE HCL 50 MG TABLET PO SCH (08:31)
[2020-08-18] MEDS: MULTIVITAMINS WITH MINERALS, THERAPEUTIC TABLET PO SCH (08:31)
[2020-08-18 10:23] VITALS: BP 148/85
[2020-08-18] MEDS ORDERED: GABA-1181 PO (11:56)
[2020-08-18] MEDS ORDERED: DULO20CA27 PO (11:56)
[2020-08-18] MEDS ORDERED: OMEG-135 PO (11:56)
[2020-08-18] MEDS ORDERED: NALT50TA PO (11:56)
[2020-08-18] MEDS ORDERED: OLAN10TA20 PO (11:56)
[2020-08-18 16:53] VITALS: BP 138/93
[2020-08-18] MEDS: OLANZapine 10 MG TABLET PO SCH (21:11)
[2020-08-19 06:46] LABS: BASOPHILS % (AUTO) 0.5 % (0.0-2.0); HEMATOCRIT 40.7 % (41-53); HEMOGLOBIN 13.7 g/dL (13.5-17.5); LYMPHOCYTES # (AUTO) 2.9 K/uL (1.0-4.8); LYMPHOCYTES % (AUTO) 39.9 % (22.0-44.0); MEAN CORPUSCULAR HEMOGLOBIN 29.5 pg (26.0-34.0); MEAN CORPUSCULAR HGB CONC 33.7 G/dL (31.0-37.0); MEAN CORPUSCULAR VOLUME 87 fL (80-100); MONOCYTES # (AUTO) 0.7 K/uL (0.1-1.0); MONOCYTES % (AUTO) 9.8 % (2.0-9.0); NEUTROPHILS # (AUTO) 3.4 K/uL (1.8-7.7); NEUTROPHILS % (AUTO) 45.8 % (40.0-70.0); PLATELET COUNT (AUTO) 270 K/uL (150-450); RED BLOOD CELL COUNT(AUTO) 4.66 MIL/uL (4.50-5.90); RED CELL DISTRIBUTION WIDTH 13.4 % (11.5-14.5)
[2020-08-19 06:59] LABS: ALANINE AMINOTRANSFERASE 26 U/L (12-78); ALBUMIN 3.4 g/dL (3.4-5.0); ALKALINE PHOSPHATASE 100 U/L (46-116); ANION GAP 7 mmol/L (8-16); ASPARTATE AMINOTRANSFERASE 15 U/L (15-37); BILIRUBIN,TOTAL 0.5 mg/dL (0.1-1.0); CALCIUM, TOTAL 9.4 mg/dL (8.8-10.5); CARBON DIOXIDE 29 mmol/L (22-29); CHLORIDE 105 mmol/L (98-107); CREATININE 1.04 mg/dL (0.60-1.30); GLOMERULAR FILTR. RATE CALC > 60 mL/min (>60); GLUCOSE,RANDOM 97 mg/dL (70-110); POTASSIUM 4.5 mmol/L (3.5-5.1); SODIUM SERUM 141 mmol/L (136-145); TOTAL PROTEIN, SERUM 7.3 g/dL (6.4-8.2); UREA NITROGEN, BLOOD 22 mg/dL (7-18)
[2020-08-19] MEDS ORDERED: MULT-248 PO (08:34)
[2020-08-19] MEDS ORDERED: CEPH-582 PO (08:35)
[2020-08-19] MEDS: MULTIVITAMINS WITH MINERALS, THERAPEUTIC TABLET PO SCH (08:54)
[2020-08-19] MEDS: DULoxetine HCL 20 MG CAPSULE PO SCH (08:54)
[2020-08-19] MEDS: AmLODIPine BESYLATE 5 MG TABLET PO SCH (08:54)
[2020-08-19] MEDS: CEPHALEXIN MONOHYDRATE 500 MG CAPSULE PO SCH (08:54)
[2020-08-19] MEDS: OMEGA-3/DHA/EPA/FISH OIL 1,000 MG CAPSULE PO SCH (08:55)
[2020-08-19] MEDS: GABAPENTIN 300 MG CAPSULE PO SCH (08:55)
[2020-08-19] MEDS: NALTREXONE HCL 50 MG TABLET PO SCH (08:55)
[2020-08-19] MEDS: CYCLOBENZAPRINE HCL 10 MG TABLET PO SCH (08:55)
[2020-08-19 10:24] VITALS: BP 137/91
== END 2020-08-19 12:00 | disposition home or self-care (01) | DRG 750 ==
LOC: EMS 07:53 → 3EC 14:03
PROVIDERS: ADMIT Psychiatry & Neurology Psychiatry; ATTEND Psychiatry & Neurology Psychiatry
DX: F25.9 Schizoaffective disorder, unspecified (principal); B19.20 Unspecified viral hepatitis C without hepatic coma; D64.9 Anemia, unspecified; E78.5 Hyperlipidemia, unspecified; F41.9 Anxiety disorder, unspecified; I10 Essential (primary) hypertension; J44.9 Chronic obstructive pulmonary disease, unspecified; F17.210 Nicotine dependence, cigarettes, uncomplicated; M54.30 Sciatica, unspecified side; R45.851 Suicidal ideations; F32.9 Major depressive disorder, single episode, unspecified; G89.29 Other chronic pain; M54.9 Dorsalgia, unspecified; M25.551 Pain in right hip; R47.81 Slurred speech; Z55.9 Problems related to education and literacy, unspecified; Z59.9 Problem related to housing and economic circumstances, unspecified; Z65.3 Problems related to other legal circumstances; Z91.14 Patient's other noncompliance with medication regimen; Z88.8 Allergy status to other drugs, medicaments and biological substances; Z79.899 Other long term (current) drug therapy
CPT/HCPCS: 84550; 87426; G0480; G0481; J1200; J1885; J2060

== ENCOUNTER 2020-08-25 00:12 | Inpatient (IN) | payer MEDICAID, OTHER ==
[~2020-08-25] VITALS: Ht 177.8 cm; Wt 91.8 kg
[~2020-08-25 00:12] MED LIST changes: +CEPH-582 PO; +CYCL10 PO; +DULO20CA27 PO; +GABA-1181 PO; -GABA-1201 PO; -GABA-531 PO; +MULT-248 PO; +OLAN10TA20 PO; -OLAN10TA22 PO; +OMEG-135 PO
[2020-08-25 00:42] LABS: BASOPHILS % (AUTO) 0.6 % (0.0-2.0); EOSINOPHILS % (AUTO) 3.7 % (1.0-6.0); HEMATOCRIT 37.9 % (41-53); HEMOGLOBIN 12.7 g/dL (13.5-17.5); LYMPHOCYTES # (AUTO) 2.3 K/uL (1.0-4.8); LYMPHOCYTES % (AUTO) 24.1 % (22.0-44.0); MEAN CORPUSCULAR HEMOGLOBIN 29.1 pg (26.0-34.0); MEAN CORPUSCULAR HGB CONC 33.6 G/dL (31.0-37.0); MEAN CORPUSCULAR VOLUME 87 fL (80-100); MONOCYTES # (AUTO) 0.8 K/uL (0.1-1.0); NEUTROPHILS # (AUTO) 5.9 K/uL (1.8-7.7); NEUTROPHILS % (AUTO) 62.6 % (40.0-70.0); PLATELET COUNT (AUTO) 378 K/uL (150-450); RED BLOOD CELL COUNT(AUTO) 4.38 MIL/uL (4.50-5.90); RED CELL DISTRIBUTION WIDTH 13.2 % (11.5-14.5)
[2020-08-25 00:49] LABS: ANION GAP 14 mmol/L (8-16); CALCIUM, TOTAL 9.7 mg/dL (8.8-10.5); CARBON DIOXIDE 24 mmol/L (22-29); CHLORIDE 100 mmol/L (98-107); CREATININE 1.18 mg/dL (0.60-1.30); GLOMERULAR FILTR. RATE CALC > 60 mL/min (>60); GLUCOSE,RANDOM 103 mg/dL (70-110); POTASSIUM 3.7 mmol/L (3.5-5.1); SODIUM SERUM 138 mmol/L (136-145); UREA NITROGEN, BLOOD 15 mg/dL (7-18)
[2020-08-25 00:57] LABS: ALANINE AMINOTRANSFERASE 36 U/L (12-78); ALBUMIN 3.9 g/dL (3.4-5.0); ALKALINE PHOSPHATASE 110 U/L (46-116); ASPARTATE AMINOTRANSFERASE 32 U/L (15-37); BILIRUBIN,TOTAL 0.6 mg/dL (0.1-1.0); TOTAL PROTEIN, SERUM 7.6 g/dL (6.4-8.2)
[2020-08-25 02:37] LABS: COVID AG,FIA SOURCE NASOPHARYNGEAL
[2020-08-25] MEDS ORDERED: OLANZapine 5 MG RAPDIS TABLET PO PRN (03:30)
[2020-08-25] MEDS ORDERED: ZOLPIDEM TARTRATE 10 MG TABLET PO PRN (03:30)
[2020-08-25] MEDS ORDERED: INFLUENZA VIRUS VACCINE QVS 2020-21 (6MO+)/PF 60 MCG/0.5 ML SYRINGE IM ONE (05:30)
[2020-08-25] MEDS ORDERED: PNEUMOCOCCAL VACCINE POLYVALENT 0.5 ML VIAL [PPSV23] IM ONE (05:30)
[2020-08-25 08:00] VITALS: BP 117/73
[2020-08-25] MEDS: LORazepam 2 MG TABLET PO PRN (13:04)
[2020-08-25] MEDS: CYCLOBENZAPRINE HCL 10 MG TABLET PO SCH ×2 (15:09→17:03)
[2020-08-25 16:23] VITALS: BP 143/88
[2020-08-26 07:20] LABS: CHOL/HDL RATIO 3.1 (4.2-7.3)
[2020-08-26 08:00] VITALS: BP 132/91
[2020-08-26] MEDS: AmLODIPine BESYLATE 5 MG TABLET PO SCH (08:26)
[2020-08-26] MEDS: CYCLOBENZAPRINE HCL 10 MG TABLET PO SCH ×3 (08:26→16:22)
[2020-08-26] MEDS ORDERED: MULTIVITAMINS WITH MINERALS, THERAPEUTIC TABLET PO SCH (09:00)
[2020-08-26 16:19] VITALS: BP 140/92
[2020-08-26] MEDS: SULFAMETHOX/TRIMETH DS 800-160 MG/TABLET PO SCH (16:22)
[2020-08-26] MEDS: MUPIROCIN CALCIUM 2% 22 GM OINTMENT NASAL SCH (17:15)
[2020-08-26] MEDS ORDERED: MAG HYDROX/AL HYDROX/SIMETH ES 30 ML SUSPENSION UDCUP PO PRN (19:00)
[2020-08-26] MEDS ORDERED: MAGNESIUM HYDROXIDE SUSPENSION 30 ML UDCUP PO PRN (19:00)
[2020-08-26] MEDS ORDERED: PROMETHAZINE HCL 25 MG TABLET PO PRN (19:00)
[2020-08-26] MEDS ORDERED: GuaiFENesin/D-METHORPHAN [SUGAR-FREE] 200-20MG/10 ML SYRUP UDCUP PO PRN (19:00)
[2020-08-26] MEDS ORDERED: HydrOXYzine PAMOATE 50 MG CAPSULE PO PRN (19:00)
[2020-08-26] MEDS ORDERED: LOPERAMIDE HCL 2 MG CAPSULE PO PRN (19:00)
[2020-08-26] MEDS: LORazepam 2 MG TABLET PO PRN (20:54)
[2020-08-26] MEDS: GABAPENTIN 300 MG CAPSULE PO SCH (20:55)
[2020-08-26] MEDS: OLANZapine 10 MG RAPDIS TABLET PO SCH (20:55)
[2020-08-27 08:00] VITALS: BP 141/86
[2020-08-27] MEDS: MUPIROCIN CALCIUM 2% 22 GM OINTMENT NASAL SCH ×2 (08:08→16:46)
[2020-08-27] MEDS: THIAMINE 100 MG TABLET PO SCH ×2 (08:08→16:33)
[2020-08-27] MEDS: SULFAMETHOX/TRIMETH DS 800-160 MG/TABLET PO SCH ×2 (08:09→16:36)
[2020-08-27] MEDS: NALTREXONE HCL 50 MG TABLET PO SCH (08:09)
[2020-08-27] MEDS: OMEGA-3/DHA/EPA/FISH OIL 1,000 MG CAPSULE PO SCH (08:09)
[2020-08-27] MEDS: FOLIC ACID 1 MG TABLET PO SCH (08:09)
[2020-08-27] MEDS: MULTIVITAMINS WITH MINERALS, THERAPEUTIC TABLET PO SCH (08:09)
[2020-08-27] MEDS: GABAPENTIN 300 MG CAPSULE PO SCH ×4 (08:10→20:24)
[2020-08-27] MEDS: CYCLOBENZAPRINE HCL 10 MG TABLET PO SCH ×3 (08:10→16:33)
[2020-08-27] MEDS: AmLODIPine BESYLATE 5 MG TABLET PO SCH (08:10)
[2020-08-27] MEDS ORDERED: DULoxetine HCL 20 MG CAPSULE PO SCH (09:00)
[2020-08-27 16:32] VITALS: BP 126/77
[2020-08-27] MEDS: ACETAMINOPHEN 325 MG TABLET PO PRN (17:58)
[2020-08-27 17:59] VITALS: BP 132/80
[2020-08-27] MEDS: OLANZapine 10 MG RAPDIS TABLET PO SCH (20:24)
[2020-08-28] MEDS: CYCLOBENZAPRINE HCL 10 MG TABLET PO SCH ×3 (07:53→16:44)
[2020-08-28] MEDS: MULTIVITAMINS WITH MINERALS, THERAPEUTIC TABLET PO SCH (07:54)
[2020-08-28] MEDS: SULFAMETHOX/TRIMETH DS 800-160 MG/TABLET PO SCH ×2 (07:54→16:44)
[2020-08-28] MEDS: NALTREXONE HCL 50 MG TABLET PO SCH (07:54)
[2020-08-28] MEDS: GABAPENTIN 300 MG CAPSULE PO SCH ×3 (07:54→16:44)
[2020-08-28] MEDS: AmLODIPine BESYLATE 5 MG TABLET PO SCH (07:54)
[2020-08-28] MEDS: OMEGA-3/DHA/EPA/FISH OIL 1,000 MG CAPSULE PO SCH (07:54)
[2020-08-28] MEDS: FOLIC ACID 1 MG TABLET PO SCH (07:54)
[2020-08-28] MEDS: MUPIROCIN CALCIUM 2% 22 GM OINTMENT NASAL SCH ×2 (07:55→16:44)
[2020-08-28] MEDS: THIAMINE 100 MG TABLET PO SCH ×2 (07:56→16:44)
[2020-08-28 08:00] VITALS: BP 132/78
[2020-08-28] MEDS ORDERED: DULoxetine HCL 30 MG CAPSULE PO SCH (09:00)
[2020-08-28 16:51] VITALS: BP 129/83
[2020-08-28] MEDS: OLANZapine 10 MG RAPDIS TABLET PO SCH (20:23)
[2020-08-28] MEDS: GABAPENTIN 400 MG CAPSULE PO SCH (20:23)
[2020-08-29] MEDS: MUPIROCIN CALCIUM 2% 22 GM OINTMENT NASAL SCH ×2 (08:46→17:10)
[2020-08-29] MEDS: CYCLOBENZAPRINE HCL 10 MG TABLET PO SCH ×3 (08:46→17:09)
[2020-08-29] MEDS: OMEGA-3/DHA/EPA/FISH OIL 1,000 MG CAPSULE PO SCH (08:46)
[2020-08-29] MEDS: AmLODIPine BESYLATE 5 MG TABLET PO SCH (08:47)
[2020-08-29] MEDS: GABAPENTIN 400 MG CAPSULE PO SCH ×3 (08:47→17:09)
[2020-08-29] MEDS: SULFAMETHOX/TRIMETH DS 800-160 MG/TABLET PO SCH ×2 (08:47→17:09)
[2020-08-29] MEDS: NALTREXONE HCL 50 MG TABLET PO SCH (08:47)
[2020-08-29] MEDS: MULTIVITAMINS WITH MINERALS, THERAPEUTIC TABLET PO SCH (08:48)
[2020-08-29] MEDS: FOLIC ACID 1 MG TABLET PO SCH (08:48)
[2020-08-29] MEDS: THIAMINE 100 MG TABLET PO SCH ×2 (08:49→17:10)
[2020-08-29] MEDS ORDERED: DULoxetine HCL 20 MG CAPSULE PO SCH (09:00)
[2020-08-29 09:29] VITALS: BP 143/82
[2020-08-29 12:38] VITALS: BP 148/79
[2020-08-29 16:45] VITALS: BP 122/91
[2020-08-29] MEDS: OLANZapine 10 MG RAPDIS TABLET PO SCH (20:11)
[2020-08-29] MEDS: GABAPENTIN 300 MG CAPSULE PO SCH (20:12)
[2020-08-30] MEDS: ACETAMINOPHEN 325 MG TABLET PO PRN (04:02)
[2020-08-30 04:03] VITALS: BP 126/80
[2020-08-30] MEDS: LORazepam 2 MG TABLET PO PRN (04:03)
[2020-08-30] MEDS: NALTREXONE HCL 50 MG TABLET PO SCH (09:23)
[2020-08-30] MEDS: DULoxetine HCL 60 MG CAPSULE PO SCH (09:23)
[2020-08-30] MEDS: FOLIC ACID 1 MG TABLET PO SCH (09:23)
[2020-08-30] MEDS: AmLODIPine BESYLATE 5 MG TABLET PO SCH (09:23)
[2020-08-30] MEDS: CYCLOBENZAPRINE HCL 10 MG TABLET PO SCH ×3 (09:23→16:29)
[2020-08-30] MEDS: GABAPENTIN 300 MG CAPSULE PO SCH ×4 (09:24→21:00)
[2020-08-30] MEDS: SULFAMETHOX/TRIMETH DS 800-160 MG/TABLET PO SCH ×2 (09:27→16:29)
[2020-08-30] MEDS: OMEGA-3/DHA/EPA/FISH OIL 1,000 MG CAPSULE PO SCH (09:28)
[2020-08-30] MEDS: MUPIROCIN CALCIUM 2% 22 GM OINTMENT NASAL SCH ×2 (09:28→16:29)
[2020-08-30] MEDS: MULTIVITAMINS WITH MINERALS, THERAPEUTIC TABLET PO SCH (09:29)
[2020-08-30] MEDS: THIAMINE 100 MG TABLET PO SCH ×2 (09:29→16:29)
[2020-08-30 16:56] VITALS: BP 122/79
[2020-08-30] MEDS: OLANZapine 10 MG RAPDIS TABLET PO SCH (21:00)
[2020-08-31 08:00] VITALS: BP 130/70
[2020-08-31] MEDS: DULoxetine HCL 60 MG CAPSULE PO SCH (08:16)
[2020-08-31] MEDS: GABAPENTIN 300 MG CAPSULE PO SCH ×4 (08:16→20:42)
[2020-08-31] MEDS: SULFAMETHOX/TRIMETH DS 800-160 MG/TABLET PO SCH (08:16)
[2020-08-31] MEDS: OMEGA-3/DHA/EPA/FISH OIL 1,000 MG CAPSULE PO SCH (08:16)
[2020-08-31] MEDS: NALTREXONE HCL 50 MG TABLET PO SCH (08:16)
[2020-08-31] MEDS: MULTIVITAMINS WITH MINERALS, THERAPEUTIC TABLET PO SCH (08:17)
[2020-08-31] MEDS: AmLODIPine BESYLATE 5 MG TABLET PO SCH (08:17)
[2020-08-31] MEDS: FOLIC ACID 1 MG TABLET PO SCH (08:17)
[2020-08-31] MEDS: THIAMINE 100 MG TABLET PO SCH ×2 (08:18→16:37)
[2020-08-31] MEDS: CYCLOBENZAPRINE HCL 10 MG TABLET PO SCH ×3 (08:18→16:37)
[2020-08-31] MEDS: MUPIROCIN CALCIUM 2% 22 GM OINTMENT NASAL SCH (08:21)
[2020-08-31 16:26] VITALS: BP 135/81
[2020-08-31] MEDS: OLANZapine 10 MG RAPDIS TABLET PO SCH (20:46)
[2020-09-01 08:00] VITALS: BP 142/89
[2020-09-01] MEDS: DULoxetine HCL 60 MG CAPSULE PO SCH (08:35)
[2020-09-01] MEDS: OMEGA-3/DHA/EPA/FISH OIL 1,000 MG CAPSULE PO SCH (08:35)
[2020-09-01] MEDS: THIAMINE 100 MG TABLET PO SCH ×2 (08:35→16:08)
[2020-09-01] MEDS: MULTIVITAMINS WITH MINERALS, THERAPEUTIC TABLET PO SCH (08:36)
[2020-09-01] MEDS: FOLIC ACID 1 MG TABLET PO SCH (08:36)
[2020-09-01] MEDS: CYCLOBENZAPRINE HCL 10 MG TABLET PO SCH ×3 (08:36→16:08)
[2020-09-01] MEDS: NALTREXONE HCL 50 MG TABLET PO SCH (08:36)
[2020-09-01] MEDS: AmLODIPine BESYLATE 5 MG TABLET PO SCH (08:36)
[2020-09-01] MEDS: GABAPENTIN 300 MG CAPSULE PO SCH ×4 (08:41→20:25)
[2020-09-01 16:08] VITALS: BP 138/85
[2020-09-01] MEDS: OLANZapine 10 MG RAPDIS TABLET PO SCH (20:25)
[2020-09-02 01:08] VITALS: BP 119/82
[2020-09-02] MEDS: LORazepam 2 MG TABLET PO PRN (01:11)
[2020-09-02] MEDS: NALTREXONE HCL 50 MG TABLET PO SCH (08:22)
[2020-09-02] MEDS: DULoxetine HCL 60 MG CAPSULE PO SCH (08:22)
[2020-09-02] MEDS: OMEGA-3/DHA/EPA/FISH OIL 1,000 MG CAPSULE PO SCH (08:22)
[2020-09-02] MEDS: AmLODIPine BESYLATE 5 MG TABLET PO SCH (08:22)
[2020-09-02] MEDS: FOLIC ACID 1 MG TABLET PO SCH (08:22)
[2020-09-02] MEDS: CYCLOBENZAPRINE HCL 10 MG TABLET PO SCH ×3 (08:22→16:18)
[2020-09-02] MEDS: GABAPENTIN 300 MG CAPSULE PO SCH ×4 (08:22→20:30)
[2020-09-02] MEDS: THIAMINE 100 MG TABLET PO SCH ×2 (08:24→16:17)
[2020-09-02] MEDS: MULTIVITAMINS WITH MINERALS, THERAPEUTIC TABLET PO SCH (08:24)
[2020-09-02 16:20] VITALS: BP 109/69
[2020-09-02] MEDS: OLANZapine 10 MG RAPDIS TABLET PO SCH (20:30)
[2020-09-03 08:00] VITALS: BP 99/63
[2020-09-03] MEDS: DULoxetine HCL 60 MG CAPSULE PO SCH (09:25)
[2020-09-03] MEDS: MULTIVITAMINS WITH MINERALS, THERAPEUTIC TABLET PO SCH (09:25)
[2020-09-03] MEDS: GABAPENTIN 300 MG CAPSULE PO SCH ×3 (09:25→16:05)
[2020-09-03] MEDS: NALTREXONE HCL 50 MG TABLET PO SCH (09:25)
[2020-09-03] MEDS: CYCLOBENZAPRINE HCL 10 MG TABLET PO SCH ×3 (09:25→16:06)
[2020-09-03] MEDS: THIAMINE 100 MG TABLET PO SCH ×2 (09:25→16:06)
[2020-09-03] MEDS: FOLIC ACID 1 MG TABLET PO SCH (09:26)
[2020-09-03] MEDS: AmLODIPine BESYLATE 5 MG TABLET PO SCH (09:26)
[2020-09-03] MEDS: OMEGA-3/DHA/EPA/FISH OIL 1,000 MG CAPSULE PO SCH (09:27)
[2020-09-03 16:10] VITALS: BP 123/83
[2020-09-03] MEDS: GABAPENTIN 400 MG CAPSULE PO SCH (20:05)
[2020-09-03] MEDS: OLANZapine 10 MG RAPDIS TABLET PO SCH (20:05)
[2020-09-04 08:00] VITALS: BP 104/68
[2020-09-04] MEDS: GABAPENTIN 400 MG CAPSULE PO SCH ×4 (08:30→20:18)
[2020-09-04] MEDS: CYCLOBENZAPRINE HCL 10 MG TABLET PO SCH ×3 (08:31→15:54)
[2020-09-04] MEDS: THIAMINE 100 MG TABLET PO SCH ×2 (08:31→16:01)
[2020-09-04] MEDS: MULTIVITAMINS WITH MINERALS, THERAPEUTIC TABLET PO SCH (08:31)
[2020-09-04] MEDS: DULoxetine HCL 20 MG CAPSULE PO SCH (08:31)
[2020-09-04] MEDS: OMEGA-3/DHA/EPA/FISH OIL 1,000 MG CAPSULE PO SCH (08:31)
[2020-09-04] MEDS: FOLIC ACID 1 MG TABLET PO SCH (08:31)
[2020-09-04] MEDS: AmLODIPine BESYLATE 5 MG TABLET PO SCH (08:31)
[2020-09-04] MEDS: NALTREXONE HCL 50 MG TABLET PO SCH (08:31)
[2020-09-04 16:11] VITALS: BP 127/85
[2020-09-04] MEDS: OLANZapine 10 MG RAPDIS TABLET PO SCH (20:18)
[2020-09-05 08:00] VITALS: BP 119/89
[2020-09-05] MEDS: FOLIC ACID 1 MG TABLET PO SCH (08:05)
[2020-09-05] MEDS: AmLODIPine BESYLATE 5 MG TABLET PO SCH (08:05)
[2020-09-05] MEDS: CYCLOBENZAPRINE HCL 10 MG TABLET PO SCH ×3 (08:05→16:07)
[2020-09-05] MEDS: DULoxetine HCL 20 MG CAPSULE PO SCH (08:05)
[2020-09-05] MEDS: OMEGA-3/DHA/EPA/FISH OIL 1,000 MG CAPSULE PO SCH (08:05)
[2020-09-05] MEDS: GABAPENTIN 400 MG CAPSULE PO SCH ×4 (08:05→20:23)
[2020-09-05] MEDS: NALTREXONE HCL 50 MG TABLET PO SCH (08:06)
[2020-09-05] MEDS: MULTIVITAMINS WITH MINERALS, THERAPEUTIC TABLET PO SCH (08:06)
[2020-09-05] MEDS: LORazepam 2 MG TABLET PO PRN ×2 (08:06→13:43)
[2020-09-05] MEDS: THIAMINE 100 MG TABLET PO SCH ×2 (08:06→16:08)
[2020-09-05 16:24] VITALS: BP 102/75
[2020-09-05] MEDS ORDERED: OLAN10TA22 PO (20:12)
[2020-09-05] MEDS ORDERED: GABA-1201 PO (20:12)
[2020-09-05] MEDS ORDERED: NALT50TA PO (20:12)
[2020-09-05] MEDS ORDERED: DULO20CA27 PO (20:12)
[2020-09-05] MEDS: OLANZapine 10 MG RAPDIS TABLET PO SCH (20:24)
[2020-09-06 08:00] VITALS: BP 144/86
[2020-09-06] MEDS: CYCLOBENZAPRINE HCL 10 MG TABLET PO SCH ×2 (09:48→13:08)
[2020-09-06] MEDS: NALTREXONE HCL 50 MG TABLET PO SCH (09:50)
[2020-09-06] MEDS: GABAPENTIN 400 MG CAPSULE PO SCH ×2 (09:50→13:09)
[2020-09-06] MEDS: AmLODIPine BESYLATE 5 MG TABLET PO SCH (09:51)
[2020-09-06] MEDS: MULTIVITAMINS WITH MINERALS, THERAPEUTIC TABLET PO SCH (09:51)
[2020-09-06] MEDS: OMEGA-3/DHA/EPA/FISH OIL 1,000 MG CAPSULE PO SCH (09:54)
[2020-09-06] MEDS: DULoxetine HCL 20 MG CAPSULE PO SCH (09:55)
[2020-09-06] MEDS ORDERED: AMLO-257 PO (13:35)
[2020-09-06] MEDS ORDERED: MULT-1119 PO (13:36)
[2020-09-06] MEDS ORDERED: OMEG-135 PO (13:37)
== END 2020-09-06 14:00 | disposition home or self-care (01) | DRG 750 ==
LOC: EMS 00:12 → 3EC 03:28
PROVIDERS: ADMIT Psychiatry & Neurology Psychiatry; ATTEND Psychiatry & Neurology Psychiatry
PROC: 3E02340 Introduction of Influenza Vaccine into Muscle, Percutaneous Approach (ICD-10-PCS; principal; 2020-08-25)
PROC: 3E0234Z Introduction of Serum, Toxoid and Vaccine into Muscle, Percutaneous Approach (ICD-10-PCS; 2020-08-25)
DX: F25.9 Schizoaffective disorder, unspecified (principal); B18.2 Chronic viral hepatitis C; D64.9 Anemia, unspecified; I10 Essential (primary) hypertension; J44.9 Chronic obstructive pulmonary disease, unspecified; L03.115 Cellulitis of right lower limb; F32.9 Major depressive disorder, single episode, unspecified; G89.29 Other chronic pain; M54.9 Dorsalgia, unspecified; R41.843 Psychomotor deficit; F17.210 Nicotine dependence, cigarettes, uncomplicated; Z23 Encounter for immunization; Z55.9 Problems related to education and literacy, unspecified; Z59.9 Problem related to housing and economic circumstances, unspecified; Z65.3 Problems related to other legal circumstances; Z91.19 Patient's noncompliance with other medical treatment and regimen; Z79.899 Other long term (current) drug therapy; Z88.8 Allergy status to other drugs, medicaments and biological substances; Z03.818 Encounter for observation for suspected exposure to other biological agents ruled out
CPT/HCPCS: 87081; 87147; 87426; 90686; 90732; G0480

== ENCOUNTER 2020-09-07 05:27 | Emergency (ER) | payer MEDICAID, OTHER ==
[~2020-09-07] VITALS: Ht 172.7 cm; Wt 81.8 kg
[~2020-09-07 05:27] MED LIST changes: +GABA-1201 PO; +MULT-1119 PO; +OLAN10TA22 PO
[2020-09-07 07:02] LABS: BASOPHILS % (AUTO) 0.4 % (0.0-2.0); EOSINOPHILS % (AUTO) 0.7 % (1.0-6.0); HEMATOCRIT 42.9 % (41-53); HEMOGLOBIN 14.6 g/dL (13.5-17.5); LYMPHOCYTES % (AUTO) 23.1 % (22.0-44.0); MEAN CORPUSCULAR HEMOGLOBIN 29.8 pg (26.0-34.0); MEAN CORPUSCULAR VOLUME 88 fL (80-100); MONOCYTES # (AUTO) 1.1 K/uL (0.1-1.0); MONOCYTES % (AUTO) 13.2 % (2.0-9.0); NEUTROPHILS # (AUTO) 5.3 K/uL (1.8-7.7); NEUTROPHILS % (AUTO) 62.6 % (40.0-70.0); PLATELET COUNT (AUTO) 322 K/uL (150-450); RED CELL DISTRIBUTION WIDTH 13.5 % (11.5-14.5)
[2020-09-07 07:24] LABS: ANION GAP 14 mmol/L (8-16); CALCIUM, TOTAL 9.9 mg/dL (8.8-10.5); CARBON DIOXIDE 24 mmol/L (22-29); CHLORIDE 105 mmol/L (98-107); CREATININE 1.41 mg/dL (0.60-1.30); GLOMERULAR FILTR. RATE CALC 52 mL/min (>60); GLUCOSE,RANDOM 223 mg/dL (70-110); POTASSIUM 3.6 mmol/L (3.5-5.1); SODIUM SERUM 143 mmol/L (136-145); UREA NITROGEN, BLOOD 17 mg/dL (7-18)
[2020-09-07 07:29] LABS: ALANINE AMINOTRANSFERASE 33 U/L (12-78); ALBUMIN 4.3 g/dL (3.4-5.0); ALKALINE PHOSPHATASE 135 U/L (46-116); ASPARTATE AMINOTRANSFERASE 25 U/L (15-37); BILIRUBIN,TOTAL 0.3 mg/dL (0.1-1.0); TOTAL PROTEIN, SERUM 8.4 g/dL (6.4-8.2)
[2020-09-07 07:30] LABS: COVID AG,FIA SOURCE NASOPHARYNGEAL
[2020-09-07 09:30] VITALS: BP 129/80
[2020-09-07] MEDS ORDERED: LORazepam 2 MG TABLET PO ONE (09:45)
[2020-09-07] MEDS ORDERED: OLANZapine 5 MG TABLET PO ONE (09:45)
== END 2020-09-07 11:00 | disposition home or self-care (01) ==
LOC: EMS 05:28
DX: F20.0 Paranoid schizophrenia (principal); E11.65 Type 2 diabetes mellitus with hyperglycemia; F17.210 Nicotine dependence, cigarettes, uncomplicated; F15.90 Other stimulant use, unspecified, uncomplicated; F32.9 Major depressive disorder, single episode, unspecified; Z79.899 Other long term (current) drug therapy; Z88.8 Allergy status to other drugs, medicaments and biological substances
CPT/HCPCS: 36415; 80053; 85025; 87426; 99284; 99406; G0480

== ENCOUNTER 2020-09-11 20:11 | Inpatient (IN) | payer MEDICAID, OTHER ==
[~2020-09-11] VITALS: Ht 175.3 cm; Wt 94.3 kg
[~2020-09-11 20:11] MED LIST changes: -CEPH-582 PO; -GABA-1181 PO; -OLAN10TA20 PO
[2020-09-11] MEDS ORDERED: DiphenhydrAMINE HCL 50 MG/ML VIAL IM ONE (21:00)
[2020-09-11] MEDS ORDERED: LORazepam 2 MG/ML VIAL IM ONE (21:00)
[2020-09-11 21:47] LABS: BASOPHILS % (AUTO) 0.8 % (0.0-2.0); EOSINOPHILS % (AUTO) 2.6 % (1.0-6.0); HEMATOCRIT 40.7 % (41-53); HEMOGLOBIN 13.6 g/dL (13.5-17.5); LYMPHOCYTES # (AUTO) 2.6 K/uL (1.0-4.8); LYMPHOCYTES % (AUTO) 24.6 % (22.0-44.0); MEAN CORPUSCULAR HEMOGLOBIN 29.2 pg (26.0-34.0); MEAN CORPUSCULAR HGB CONC 33.5 G/dL (31.0-37.0); MEAN CORPUSCULAR VOLUME 87 fL (80-100); MONOCYTES % (AUTO) 9.2 % (2.0-9.0); NEUTROPHILS # (AUTO) 6.7 K/uL (1.8-7.7); NEUTROPHILS % (AUTO) 62.8 % (40.0-70.0); PLATELET COUNT (AUTO) 333 K/uL (150-450); RED BLOOD CELL COUNT(AUTO) 4.67 MIL/uL (4.50-5.90); RED CELL DISTRIBUTION WIDTH 13.2 % (11.5-14.5)
[2020-09-11 21:57] LABS: ANION GAP 13 mmol/L (8-16); CALCIUM, TOTAL 9.8 mg/dL (8.8-10.5); CARBON DIOXIDE 23 mmol/L (22-29); CHLORIDE 101 mmol/L (98-107); CREATININE 1.39 mg/dL (0.60-1.30); GLOMERULAR FILTR. RATE CALC 52 mL/min (>60); GLUCOSE,RANDOM 120 mg/dL (70-110); POTASSIUM 3.6 mmol/L (3.5-5.1); SODIUM SERUM 137 mmol/L (136-145); UREA NITROGEN, BLOOD 26 mg/dL (7-18)
[2020-09-11 22:02] LABS: ALANINE AMINOTRANSFERASE 31 U/L (12-78); ALKALINE PHOSPHATASE 127 U/L (46-116); ASPARTATE AMINOTRANSFERASE 28 U/L (15-37); BILIRUBIN,TOTAL 0.5 mg/dL (0.1-1.0); TOTAL PROTEIN, SERUM 8.5 g/dL (6.4-8.2)
[2020-09-11 22:49] LABS: COVID AG,FIA SOURCE NASOPHARYNGEAL
[2020-09-12] MEDS ORDERED: -PHARMACY VACCINE NOTE- MISC ONE (06:30)
[2020-09-12 06:33] VITALS: BP 121/72
[2020-09-12] MEDS ORDERED: NICOTINE 21 MG/24 HOUR PATCH TD PRN (07:00)
[2020-09-12 08:26] VITALS: BP 135/85
[2020-09-12] MEDS ORDERED: ACETAMINOPHEN 325 MG TABLET PO PRN (11:15)
[2020-09-12] MEDS ORDERED: PROMETHAZINE HCL 25 MG TABLET PO PRN (11:15)
[2020-09-12] MEDS ORDERED: MAG HYDROX/AL HYDROX/SIMETH ES 30 ML SUSPENSION UDCUP PO PRN (11:15)
[2020-09-12] MEDS ORDERED: LOPERAMIDE HCL 2 MG CAPSULE PO PRN (11:15)
[2020-09-12] MEDS ORDERED: GuaiFENesin/D-METHORPHAN [SUGAR-FREE] 200-20MG/10 ML SYRUP UDCUP PO PRN (11:15)
[2020-09-12] MEDS ORDERED: HydrOXYzine PAMOATE 50 MG CAPSULE PO PRN (11:15)
[2020-09-12] MEDS ORDERED: MAGNESIUM HYDROXIDE SUSPENSION 30 ML UDCUP PO PRN (11:15)
[2020-09-12] MEDS: LORazepam 2 MG TABLET PO PRN ×2 (11:29→16:40)
[2020-09-12] MEDS: GABAPENTIN 400 MG CAPSULE PO SCH ×2 (12:13→16:39)
[2020-09-12 16:16] VITALS: BP 118/68
[2020-09-12] MEDS: THIAMINE 100 MG TABLET PO SCH (16:40)
[2020-09-12] MEDS: OLANZapine 10 MG RAPDIS TABLET PO SCH (20:37)
[2020-09-13 06:13] VITALS: BP 116/74
[2020-09-13 08:08] VITALS: BP 141/83
[2020-09-13] MEDS: OMEGA-3/DHA/EPA/FISH OIL 1,000 MG CAPSULE PO SCH (08:32)
[2020-09-13] MEDS: MULTIVITAMINS WITH MINERALS, THERAPEUTIC TABLET PO SCH (08:32)
[2020-09-13] MEDS: GABAPENTIN 400 MG CAPSULE PO SCH ×3 (08:32→16:55)
[2020-09-13] MEDS: FOLIC ACID 1 MG TABLET PO SCH (08:32)
[2020-09-13] MEDS: LORazepam 2 MG TABLET PO PRN ×2 (08:33→16:55)
[2020-09-13] MEDS: THIAMINE 100 MG TABLET PO SCH ×2 (08:33→17:33)
[2020-09-13] MEDS: NALTREXONE HCL 50 MG TABLET PO SCH (08:52)
[2020-09-13] MEDS ORDERED: DULoxetine HCL 60 MG CAPSULE PO SCH (09:00)
[2020-09-13 18:29] VITALS: BP 132/92
[2020-09-13] MEDS: OLANZapine 10 MG RAPDIS TABLET PO SCH (21:19)
[2020-09-14 06:13] VITALS: BP 129/82
[2020-09-14 08:20] VITALS: BP 155/90
[2020-09-14] MEDS: NALTREXONE HCL 50 MG TABLET PO SCH (08:28)
[2020-09-14] MEDS: DULoxetine HCL 20 MG CAPSULE PO SCH (08:28)
[2020-09-14] MEDS: MULTIVITAMINS WITH MINERALS, THERAPEUTIC TABLET PO SCH (08:28)
[2020-09-14] MEDS: THIAMINE 100 MG TABLET PO SCH ×2 (08:28→16:38)
[2020-09-14] MEDS: OMEGA-3/DHA/EPA/FISH OIL 1,000 MG CAPSULE PO SCH (08:28)
[2020-09-14] MEDS: FOLIC ACID 1 MG TABLET PO SCH (08:29)
[2020-09-14] MEDS: GABAPENTIN 400 MG CAPSULE PO SCH ×3 (08:29→16:38)
[2020-09-14] MEDS: LORazepam 2 MG TABLET PO PRN (16:38)
[2020-09-14 20:00] VITALS: BP 121/88
[2020-09-14] MEDS: OLANZapine 10 MG RAPDIS TABLET PO SCH (21:01)
[2020-09-15 09:02] VITALS: BP 138/85
[2020-09-15] MEDS: NALTREXONE HCL 50 MG TABLET PO SCH (09:19)
[2020-09-15] MEDS: GABAPENTIN 400 MG CAPSULE PO SCH ×3 (09:19→16:17)
[2020-09-15] MEDS: OMEGA-3/DHA/EPA/FISH OIL 1,000 MG CAPSULE PO SCH (09:20)
[2020-09-15] MEDS: FOLIC ACID 1 MG TABLET PO SCH (09:20)
[2020-09-15] MEDS: THIAMINE 100 MG TABLET PO SCH ×2 (09:20→16:17)
[2020-09-15] MEDS: DULoxetine HCL 20 MG CAPSULE PO SCH (09:20)
[2020-09-15] MEDS: MULTIVITAMINS WITH MINERALS, THERAPEUTIC TABLET PO SCH (09:20)
[2020-09-15] MEDS: LORazepam 2 MG TABLET PO PRN ×2 (12:56→20:50)
[2020-09-15 16:32] VITALS: BP 129/80
[2020-09-15] MEDS: OLANZapine 10 MG RAPDIS TABLET PO SCH (20:50)
[2020-09-16 06:09] VITALS: BP 128/81
[2020-09-16 08:06] VITALS: BP 156/92
[2020-09-16 08:21] LABS: ANION GAP 7 mmol/L (8-16); CALCIUM, TOTAL 9.3 mg/dL (8.8-10.5); CARBON DIOXIDE 27 mmol/L (22-29); CHLORIDE 107 mmol/L (98-107); CREATININE 0.89 mg/dL (0.60-1.30); GLOMERULAR FILTR. RATE CALC > 60 mL/min (>60); GLUCOSE,RANDOM 99 mg/dL (70-110); POTASSIUM 4.2 mmol/L (3.5-5.1); SODIUM SERUM 141 mmol/L (136-145); UREA NITROGEN, BLOOD 17 mg/dL (7-18)
[2020-09-16] MEDS: NALTREXONE HCL 50 MG TABLET PO SCH (08:33)
[2020-09-16] MEDS: GABAPENTIN 400 MG CAPSULE PO SCH ×3 (08:33→16:40)
[2020-09-16] MEDS: LORazepam 2 MG TABLET PO PRN ×2 (08:33→16:40)
[2020-09-16] MEDS: DULoxetine HCL 20 MG CAPSULE PO SCH (08:33)
[2020-09-16] MEDS: THIAMINE 100 MG TABLET PO SCH ×2 (08:41→16:40)
[2020-09-16] MEDS: OMEGA-3/DHA/EPA/FISH OIL 1,000 MG CAPSULE PO SCH (08:41)
[2020-09-16] MEDS: FOLIC ACID 1 MG TABLET PO SCH (08:41)
[2020-09-16] MEDS: MULTIVITAMINS WITH MINERALS, THERAPEUTIC TABLET PO SCH (08:41)
[2020-09-16 16:14] VITALS: BP 122/89
[2020-09-16] MEDS: OLANZapine 10 MG RAPDIS TABLET PO SCH (20:32)
[2020-09-17 01:13] VITALS: BP 124/67
[2020-09-17 08:24] VITALS: BP 142/77
[2020-09-17] MEDS: MULTIVITAMINS WITH MINERALS, THERAPEUTIC TABLET PO SCH (08:32)
[2020-09-17] MEDS: DULoxetine HCL 30 MG CAPSULE PO SCH (08:33)
[2020-09-17] MEDS: NALTREXONE HCL 50 MG TABLET PO SCH (08:33)
[2020-09-17] MEDS: THIAMINE 100 MG TABLET PO SCH ×2 (08:33→16:44)
[2020-09-17] MEDS: OMEGA-3/DHA/EPA/FISH OIL 1,000 MG CAPSULE PO SCH (08:33)
[2020-09-17] MEDS: GABAPENTIN 400 MG CAPSULE PO SCH ×3 (08:34→16:43)
[2020-09-17] MEDS: FOLIC ACID 1 MG TABLET PO SCH (08:34)
[2020-09-17] MEDS: LORazepam 2 MG TABLET PO PRN (08:34)
[2020-09-17] MEDS: LORazepam 1 MG TABLET PO PRN (16:43)
[2020-09-17 16:47] VITALS: BP 146/89
[2020-09-17] MEDS: OLANZapine 10 MG RAPDIS TABLET PO SCH (20:19)
[2020-09-17] MEDS: ZOLPIDEM TARTRATE 10 MG TABLET PO PRN (20:19)
[2020-09-18 05:21] VITALS: BP 124/80
[2020-09-18 08:06] VITALS: BP 136/77
[2020-09-18 08:45] LABS: ANION GAP 6 mmol/L (8-16); CALCIUM, TOTAL 9.8 mg/dL (8.8-10.5); CARBON DIOXIDE 29 mmol/L (22-29); CHLORIDE 105 mmol/L (98-107); GLOMERULAR FILTR. RATE CALC > 60 mL/min (>60); GLUCOSE,RANDOM 139 mg/dL (70-110); POTASSIUM 4.2 mmol/L (3.5-5.1); SODIUM SERUM 140 mmol/L (136-145); UREA NITROGEN, BLOOD 18 mg/dL (7-18)
[2020-09-18] MEDS: GABAPENTIN 400 MG CAPSULE PO SCH ×3 (09:02→16:40)
[2020-09-18] MEDS: DULoxetine HCL 30 MG CAPSULE PO SCH (09:02)
[2020-09-18] MEDS: THIAMINE 100 MG TABLET PO SCH ×2 (09:02→16:40)
[2020-09-18] MEDS: FOLIC ACID 1 MG TABLET PO SCH (09:02)
[2020-09-18] MEDS: MULTIVITAMINS WITH MINERALS, THERAPEUTIC TABLET PO SCH (09:02)
[2020-09-18] MEDS: NALTREXONE HCL 50 MG TABLET PO SCH (09:02)
[2020-09-18] MEDS: OMEGA-3/DHA/EPA/FISH OIL 1,000 MG CAPSULE PO SCH (09:03)
[2020-09-18 16:09] VITALS: BP 140/98
[2020-09-18] MEDS: LORazepam 1 MG TABLET PO PRN (16:40)
[2020-09-18] MEDS: OLANZapine 10 MG RAPDIS TABLET PO SCH (20:37)
[2020-09-19 06:28] VITALS: BP 135/89
[2020-09-19 08:10] VITALS: BP 144/89
[2020-09-19] MEDS: DULoxetine HCL 30 MG CAPSULE PO SCH (08:39)
[2020-09-19] MEDS: NALTREXONE HCL 50 MG TABLET PO SCH (08:39)
[2020-09-19] MEDS: MULTIVITAMINS WITH MINERALS, THERAPEUTIC TABLET PO SCH (08:39)
[2020-09-19] MEDS: FOLIC ACID 1 MG TABLET PO SCH (08:39)
[2020-09-19] MEDS: OMEGA-3/DHA/EPA/FISH OIL 1,000 MG CAPSULE PO SCH (08:39)
[2020-09-19] MEDS: GABAPENTIN 400 MG CAPSULE PO SCH ×3 (08:40→16:23)
[2020-09-19] MEDS: THIAMINE 100 MG TABLET PO SCH ×2 (08:40→16:23)
[2020-09-19 16:14] VITALS: BP 136/84
[2020-09-19] MEDS: LORazepam 1 MG TABLET PO PRN (16:23)
[2020-09-19] MEDS: OLANZapine 5 MG RAPDIS TABLET PO SCH (20:16)
[2020-09-20] MEDS: FOLIC ACID 1 MG TABLET PO SCH (08:37)
[2020-09-20] MEDS: DULoxetine HCL 30 MG CAPSULE PO SCH (08:37)
[2020-09-20] MEDS: GABAPENTIN 400 MG CAPSULE PO SCH ×3 (08:38→16:03)
[2020-09-20] MEDS: MULTIVITAMINS WITH MINERALS, THERAPEUTIC TABLET PO SCH (08:38)
[2020-09-20] MEDS: THIAMINE 100 MG TABLET PO SCH ×2 (08:38→16:03)
[2020-09-20] MEDS: NALTREXONE HCL 50 MG TABLET PO SCH (08:38)
[2020-09-20] MEDS: OMEGA-3/DHA/EPA/FISH OIL 1,000 MG CAPSULE PO SCH (08:38)
[2020-09-20 08:42] VITALS: BP 141/77
[2020-09-20 17:09] VITALS: BP 156/107
[2020-09-20] MEDS: AmLODIPine BESYLATE 5 MG TABLET PO SCH (17:35)
[2020-09-20] MEDS: OLANZapine 5 MG RAPDIS TABLET PO SCH (20:49)
[2020-09-20] MEDS: ZOLPIDEM TARTRATE 10 MG TABLET PO PRN (20:49)
[2020-09-21] MEDS: MULTIVITAMINS WITH MINERALS, THERAPEUTIC TABLET PO SCH (08:36)
[2020-09-21] MEDS: AmLODIPine BESYLATE 5 MG TABLET PO SCH (08:36)
[2020-09-21] MEDS: GABAPENTIN 400 MG CAPSULE PO SCH ×3 (08:37→16:26)
[2020-09-21] MEDS: LORazepam 1 MG TABLET PO PRN ×2 (08:38→16:26)
[2020-09-21] MEDS: OMEGA-3/DHA/EPA/FISH OIL 1,000 MG CAPSULE PO SCH (08:38)
[2020-09-21] MEDS: FOLIC ACID 1 MG TABLET PO SCH (08:38)
[2020-09-21] MEDS: DULoxetine HCL 30 MG CAPSULE PO SCH (08:38)
[2020-09-21] MEDS: THIAMINE 100 MG TABLET PO SCH ×2 (08:38→16:26)
[2020-09-21] MEDS: NALTREXONE HCL 50 MG TABLET PO SCH (08:38)
[2020-09-21 09:22] VITALS: BP 118/80
[2020-09-21 16:11] VITALS: BP 124/79
[2020-09-21] MEDS: ZOLPIDEM TARTRATE 10 MG TABLET PO PRN (20:24)
[2020-09-21] MEDS: OLANZapine 5 MG RAPDIS TABLET PO SCH (20:24)
[2020-09-22 03:24] VITALS: BP 136/80
[2020-09-22] MEDS: OMEGA-3/DHA/EPA/FISH OIL 1,000 MG CAPSULE PO SCH (08:32)
[2020-09-22] MEDS: NALTREXONE HCL 50 MG TABLET PO SCH (08:32)
[2020-09-22] MEDS: DULoxetine HCL 30 MG CAPSULE PO SCH (08:32)
[2020-09-22] MEDS: GABAPENTIN 400 MG CAPSULE PO SCH ×3 (08:32→16:17)
[2020-09-22] MEDS: AmLODIPine BESYLATE 5 MG TABLET PO SCH (08:32)
[2020-09-22] MEDS: THIAMINE 100 MG TABLET PO SCH (08:32)
[2020-09-22] MEDS: LORazepam 1 MG TABLET PO PRN ×2 (08:33→16:18)
[2020-09-22] MEDS: FOLIC ACID 1 MG TABLET PO SCH (08:33)
[2020-09-22] MEDS: MULTIVITAMINS WITH MINERALS, THERAPEUTIC TABLET PO SCH (08:35)
[2020-09-22 08:39] VITALS: BP 125/78
[2020-09-22 16:58] VITALS: BP 132/90
[2020-09-22] MEDS: ZOLPIDEM TARTRATE 10 MG TABLET PO PRN (20:39)
[2020-09-22] MEDS: OLANZapine 5 MG RAPDIS TABLET PO SCH (20:39)
[2020-09-23 00:09] VITALS: BP 118/78
[2020-09-23 08:07] VITALS: BP 134/80
[2020-09-23] MEDS: MULTIVITAMINS WITH MINERALS, THERAPEUTIC TABLET PO SCH (08:56)
[2020-09-23] MEDS: GABAPENTIN 400 MG CAPSULE PO SCH ×3 (08:56→17:37)
[2020-09-23] MEDS: DULoxetine HCL 30 MG CAPSULE PO SCH (08:56)
[2020-09-23] MEDS: AmLODIPine BESYLATE 5 MG TABLET PO SCH (08:56)
[2020-09-23] MEDS: OMEGA-3/DHA/EPA/FISH OIL 1,000 MG CAPSULE PO SCH (08:56)
[2020-09-23] MEDS: NALTREXONE HCL 50 MG TABLET PO SCH (08:56)
[2020-09-23 16:34] VITALS: BP 133/94
[2020-09-23] MEDS: BuPROPion HCL 100 MG SR TABLET PO SCH (17:36)
[2020-09-23] MEDS: OLANZapine 5 MG RAPDIS TABLET PO SCH (21:02)
[2020-09-23] MEDS: LORazepam 1 MG TABLET PO PRN (21:23)
[2020-09-23] MEDS: ZOLPIDEM TARTRATE 10 MG TABLET PO PRN (21:23)
[2020-09-24 00:01] VITALS: BP 148/101
[2020-09-24 08:09] VITALS: BP 107/74
[2020-09-24] MEDS: BuPROPion HCL 100 MG SR TABLET PO SCH ×2 (08:39→17:02)
[2020-09-24] MEDS: OMEGA-3/DHA/EPA/FISH OIL 1,000 MG CAPSULE PO SCH (08:39)
[2020-09-24] MEDS: GABAPENTIN 400 MG CAPSULE PO SCH ×3 (08:39→17:02)
[2020-09-24] MEDS: AmLODIPine BESYLATE 5 MG TABLET PO SCH (08:39)
[2020-09-24] MEDS: DULoxetine HCL 30 MG CAPSULE PO SCH (08:40)
[2020-09-24] MEDS: MULTIVITAMINS WITH MINERALS, THERAPEUTIC TABLET PO SCH (08:40)
[2020-09-24] MEDS: NALTREXONE HCL 50 MG TABLET PO SCH (08:48)
[2020-09-24 16:12] VITALS: BP 135/97
[2020-09-24] MEDS: LORazepam 1 MG TABLET PO PRN (20:28)
[2020-09-24] MEDS: OLANZapine 5 MG RAPDIS TABLET PO SCH (20:28)
[2020-09-25 06:23] VITALS: BP 120/80
[2020-09-25 08:42] VITALS: BP 130/80
[2020-09-25] MEDS: NALTREXONE HCL 50 MG TABLET PO SCH (09:00)
[2020-09-25] MEDS: GABAPENTIN 400 MG CAPSULE PO SCH ×3 (10:27→17:13)
[2020-09-25] MEDS: DULoxetine HCL 30 MG CAPSULE PO SCH (10:27)
[2020-09-25] MEDS: OMEGA-3/DHA/EPA/FISH OIL 1,000 MG CAPSULE PO SCH (10:28)
[2020-09-25] MEDS: MULTIVITAMINS WITH MINERALS, THERAPEUTIC TABLET PO SCH (10:28)
[2020-09-25] MEDS: BuPROPion HCL 100 MG SR TABLET PO SCH ×2 (10:28→17:13)
[2020-09-25] MEDS: AmLODIPine BESYLATE 5 MG TABLET PO SCH (10:28)
[2020-09-25 16:46] VITALS: BP 140/81
[2020-09-25] MEDS: LORazepam 1 MG TABLET PO PRN (17:13)
[2020-09-25] MEDS: OLANZapine 5 MG RAPDIS TABLET PO SCH (20:37)
[2020-09-25] MEDS: ZOLPIDEM TARTRATE 10 MG TABLET PO PRN (20:37)
[2020-09-26 01:57] VITALS: BP 127/78
[2020-09-26] MEDS: OMEGA-3/DHA/EPA/FISH OIL 1,000 MG CAPSULE PO SCH (09:29)
[2020-09-26] MEDS: NALTREXONE HCL 50 MG TABLET PO SCH (09:30)
[2020-09-26] MEDS: BuPROPion HCL 100 MG SR TABLET PO SCH ×2 (09:30→16:46)
[2020-09-26] MEDS: DULoxetine HCL 30 MG CAPSULE PO SCH (09:30)
[2020-09-26] MEDS: AmLODIPine BESYLATE 5 MG TABLET PO SCH (09:30)
[2020-09-26] MEDS: MULTIVITAMINS WITH MINERALS, THERAPEUTIC TABLET PO SCH (09:30)
[2020-09-26] MEDS: GABAPENTIN 400 MG CAPSULE PO SCH ×3 (09:30→16:46)
[2020-09-26 13:29] VITALS: BP 122/68
[2020-09-26 16:13] VITALS: BP 149/94
[2020-09-26] MEDS: LORazepam 1 MG TABLET PO PRN (16:46)
[2020-09-26] MEDS: OLANZapine 5 MG RAPDIS TABLET PO SCH (20:13)
[2020-09-26] MEDS: ZOLPIDEM TARTRATE 10 MG TABLET PO PRN (20:13)
[2020-09-27 03:24] VITALS: BP 132/76
[2020-09-27 08:11] VITALS: BP 132/80
[2020-09-27] MEDS: BuPROPion HCL 100 MG SR TABLET PO SCH ×2 (08:55→16:37)
[2020-09-27] MEDS: AmLODIPine BESYLATE 5 MG TABLET PO SCH (08:55)
[2020-09-27] MEDS: NALTREXONE HCL 50 MG TABLET PO SCH (08:55)
[2020-09-27] MEDS: GABAPENTIN 400 MG CAPSULE PO SCH ×3 (08:56→16:37)
[2020-09-27] MEDS: DULoxetine HCL 30 MG CAPSULE PO SCH (08:56)
[2020-09-27] MEDS: MULTIVITAMINS WITH MINERALS, THERAPEUTIC TABLET PO SCH (08:56)
[2020-09-27] MEDS: OMEGA-3/DHA/EPA/FISH OIL 1,000 MG CAPSULE PO SCH (08:56)
[2020-09-27 16:15] VITALS: BP 124/91
[2020-09-27] MEDS: LORazepam 1 MG TABLET PO PRN (16:37)
[2020-09-27] MEDS: OLANZapine 5 MG RAPDIS TABLET PO SCH (20:22)
[2020-09-27] MEDS: ZOLPIDEM TARTRATE 10 MG TABLET PO PRN (20:22)
[2020-09-28 05:04] VITALS: BP 129/82
[2020-09-28 08:15] VITALS: BP 119/84
[2020-09-28] MEDS: GABAPENTIN 400 MG CAPSULE PO SCH ×3 (08:21→16:49)
[2020-09-28] MEDS: OMEGA-3/DHA/EPA/FISH OIL 1,000 MG CAPSULE PO SCH (08:21)
[2020-09-28] MEDS: DULoxetine HCL 30 MG CAPSULE PO SCH (08:21)
[2020-09-28] MEDS: NALTREXONE HCL 50 MG TABLET PO SCH (08:21)
[2020-09-28] MEDS: MULTIVITAMINS WITH MINERALS, THERAPEUTIC TABLET PO SCH (08:22)
[2020-09-28] MEDS: BuPROPion HCL 100 MG SR TABLET PO SCH ×2 (08:22→16:51)
[2020-09-28] MEDS: AmLODIPine BESYLATE 5 MG TABLET PO SCH (08:22)
[2020-09-28 16:16] VITALS: BP 143/94
[2020-09-28] MEDS: LORazepam 1 MG TABLET PO PRN (20:17)
[2020-09-28] MEDS: OLANZapine 5 MG RAPDIS TABLET PO SCH (20:17)
[2020-09-29 05:47] VITALS: BP 129/81
[2020-09-29] MEDS: NALTREXONE HCL 50 MG TABLET PO SCH (08:26)
[2020-09-29] MEDS: GABAPENTIN 400 MG CAPSULE PO SCH ×3 (08:26→17:12)
[2020-09-29] MEDS: OMEGA-3/DHA/EPA/FISH OIL 1,000 MG CAPSULE PO SCH (08:26)
[2020-09-29] MEDS: AmLODIPine BESYLATE 5 MG TABLET PO SCH (08:26)
[2020-09-29] MEDS: MULTIVITAMINS WITH MINERALS, THERAPEUTIC TABLET PO SCH (08:26)
[2020-09-29] MEDS: DULoxetine HCL 30 MG CAPSULE PO SCH (08:26)
[2020-09-29] MEDS: BuPROPion HCL 100 MG SR TABLET PO SCH ×2 (09:01→17:11)
[2020-09-29 10:00] VITALS: BP 130/80
[2020-09-29 17:07] VITALS: BP 142/100
[2020-09-29] MEDS: LORazepam 1 MG TABLET PO PRN (20:44)
[2020-09-29] MEDS: OLANZapine 5 MG RAPDIS TABLET PO SCH (20:44)
[2020-09-30 04:51] VITALS: BP 128/76
[2020-09-30 08:07] VITALS: BP 134/88
[2020-09-30] MEDS: DULoxetine HCL 30 MG CAPSULE PO SCH (08:17)
[2020-09-30] MEDS: MULTIVITAMINS WITH MINERALS, THERAPEUTIC TABLET PO SCH (08:17)
[2020-09-30] MEDS: OMEGA-3/DHA/EPA/FISH OIL 1,000 MG CAPSULE PO SCH (08:17)
[2020-09-30] MEDS: AmLODIPine BESYLATE 5 MG TABLET PO SCH (08:17)
[2020-09-30] MEDS: NALTREXONE HCL 50 MG TABLET PO SCH (08:17)
[2020-09-30] MEDS: GABAPENTIN 400 MG CAPSULE PO SCH ×3 (08:17→16:33)
[2020-09-30] MEDS: BuPROPion HCL 100 MG SR TABLET PO SCH ×2 (08:18→16:33)
[2020-09-30] MEDS: LORazepam 1 MG TABLET PO PRN ×2 (08:18→16:33)
[2020-09-30] MEDS: OLANZapine 5 MG RAPDIS TABLET PO SCH (20:21)
[2020-09-30] MEDS: ZOLPIDEM TARTRATE 10 MG TABLET PO PRN (20:22)
[2020-09-30 22:31] VITALS: BP 132/88
[2020-09-30 22:34] LABS: COVID AG,FIA SOURCE NASOPHARYNGEAL
[2020-10-01 04:20] VITALS: BP 145/84
[2020-10-01 08:06] VITALS: BP 119/83
[2020-10-01] MEDS: OMEGA-3/DHA/EPA/FISH OIL 1,000 MG CAPSULE PO SCH (08:12)
[2020-10-01] MEDS: DULoxetine HCL 30 MG CAPSULE PO SCH (08:12)
[2020-10-01] MEDS: BuPROPion HCL 100 MG SR TABLET PO SCH ×2 (08:13→16:07)
[2020-10-01] MEDS: GABAPENTIN 400 MG CAPSULE PO SCH ×3 (08:13→16:07)
[2020-10-01] MEDS: MULTIVITAMINS WITH MINERALS, THERAPEUTIC TABLET PO SCH (08:13)
[2020-10-01] MEDS: AmLODIPine BESYLATE 5 MG TABLET PO SCH (08:13)
[2020-10-01] MEDS: NALTREXONE HCL 50 MG TABLET PO SCH (08:13)
[2020-10-01 16:05] VITALS: BP 139/91
[2020-10-01] MEDS: LORazepam 1 MG TABLET PO PRN ×2 (16:07→20:20)
[2020-10-01] MEDS: OLANZapine 5 MG RAPDIS TABLET PO SCH (20:19)
[2020-10-01] MEDS: ZOLPIDEM TARTRATE 10 MG TABLET PO PRN (20:19)
[2020-10-02 02:16] VITALS: BP 126/71
[2020-10-02 08:06] VITALS: BP 115/73
[2020-10-02] MEDS: GABAPENTIN 400 MG CAPSULE PO SCH ×3 (09:00→16:26)
[2020-10-02] MEDS: DULoxetine HCL 30 MG CAPSULE PO SCH (09:00)
[2020-10-02] MEDS: NALTREXONE HCL 50 MG TABLET PO SCH (09:01)
[2020-10-02] MEDS: MULTIVITAMINS WITH MINERALS, THERAPEUTIC TABLET PO SCH (09:01)
[2020-10-02] MEDS: BuPROPion HCL 100 MG SR TABLET PO SCH ×2 (09:01→16:26)
[2020-10-02] MEDS: AmLODIPine BESYLATE 5 MG TABLET PO SCH (09:01)
[2020-10-02] MEDS: OMEGA-3/DHA/EPA/FISH OIL 1,000 MG CAPSULE PO SCH (09:01)
[2020-10-02 16:25] VITALS: BP 146/98
[2020-10-02] MEDS: LORazepam 1 MG TABLET PO PRN (16:26)
[2020-10-02] MEDS: ZOLPIDEM TARTRATE 10 MG TABLET PO PRN (20:32)
[2020-10-02] MEDS: OLANZapine 5 MG RAPDIS TABLET PO SCH (20:32)
[2020-10-03 02:27] VITALS: BP 118/85
[2020-10-03 08:05] VITALS: BP 122/75
[2020-10-03] MEDS: OMEGA-3/DHA/EPA/FISH OIL 1,000 MG CAPSULE PO SCH (08:39)
[2020-10-03] MEDS: NALTREXONE HCL 50 MG TABLET PO SCH (08:39)
[2020-10-03] MEDS: DULoxetine HCL 30 MG CAPSULE PO SCH (08:39)
[2020-10-03] MEDS: MULTIVITAMINS WITH MINERALS, THERAPEUTIC TABLET PO SCH (08:39)
[2020-10-03] MEDS: GABAPENTIN 400 MG CAPSULE PO SCH ×2 (08:39→12:14)
[2020-10-03] MEDS: BuPROPion HCL 100 MG SR TABLET PO SCH (08:39)
[2020-10-03] MEDS: AmLODIPine BESYLATE 5 MG TABLET PO SCH (08:39)
[2020-10-03] MEDS: LORazepam 1 MG TABLET PO PRN (08:40)
[2020-10-03] MEDS ORDERED: DULO30CA96 PO (12:16)
[2020-10-03] MEDS ORDERED: OLAN10TA6 PO (12:17)
[2020-10-03] MEDS ORDERED: BUPR100SR PO (12:17)
== END 2020-10-03 12:45 | disposition home or self-care (01) | DRG 750 ==
LOC: EMS 20:15 → INTOOBSV 09-12 01:30 → B3A 09-12 01:30 → OBSVTOIN 09-12 01:30
PROVIDERS: ADMIT Psychiatry & Neurology Psychiatry; ATTEND Psychiatry & Neurology Psychiatry
DX: F25.0 Schizoaffective disorder, bipolar type (principal); F60.0 Paranoid personality disorder; M54.9 Dorsalgia, unspecified; G89.29 Other chronic pain; I10 Essential (primary) hypertension; J44.9 Chronic obstructive pulmonary disease, unspecified; N17.9 Acute kidney failure, unspecified; F17.210 Nicotine dependence, cigarettes, uncomplicated; F19.20 Other psychoactive substance dependence, uncomplicated; B18.2 Chronic viral hepatitis C; D64.9 Anemia, unspecified; F10.20 Alcohol dependence, uncomplicated; Z20.828 Contact with and (suspected) exposure to other viral communicable diseases; F15.90 Other stimulant use, unspecified, uncomplicated; Z59.0 Homelessness; Z88.8 Allergy status to other drugs, medicaments and biological substances; Z79.899 Other long term (current) drug therapy
CPT/HCPCS: 83036; 87081; 87426; 99219; 99291; G0480; J1200; J2060

== ENCOUNTER 2021-05-22 20:23 | Emergency (ER) | payer MEDICAID, OTHER ==
[~2021-05-22] VITALS: Ht 175.3 cm; Wt 90.9 kg
[~2021-05-22 20:23] MED LIST changes: +BUPR-121 PO; +BUPR100SR PO; -CYCL10 PO; -DULO20CA27 PO; -MULT-1119 PO; -MULT-248 PO; -NALT50TA PO; -OLAN10TA22 PO; +OLAN10TA26 PO; -OMEG-135 PO; +TERB250 TP
[2021-05-23] VITALS: BP 144/73
== END 2021-05-22 23:58 | disposition home or self-care (01) ==
LOC: EMS 20:25
DX: M54.41 Lumbago with sciatica, right side (principal); F32.9 Major depressive disorder, single episode, unspecified; F20.9 Schizophrenia, unspecified; I10 Essential (primary) hypertension; Z79.899 Other long term (current) drug therapy; Z88.8 Allergy status to other drugs, medicaments and biological substances; F17.210 Nicotine dependence, cigarettes, uncomplicated; F15.90 Other stimulant use, unspecified, uncomplicated; F11.90 Opioid use, unspecified, uncomplicated
CPT/HCPCS: 99283; Z7502

== ENCOUNTER 2021-05-31 19:06 | Inpatient (IN) | payer MEDICAID, OTHER ==
[~2021-05-31] VITALS: Ht 175.3 cm; Wt 95.5 kg
[2021-05-31] MEDS ORDERED: OLANZapine 5 MG RAPDIS TABLET PO ONE (20:00)
[2021-05-31] MEDS ORDERED: AmLODIPine BESYLATE 5 MG TABLET PO ONE (20:00)
[2021-05-31 20:07] LABS: BASOPHILS % (AUTO) 0.6 % (0.0-2.0); EOSINOPHILS % (AUTO) 3.5 % (1.0-6.0); HEMATOCRIT 41.7 % (41-53); HEMOGLOBIN 14.2 g/dL (13.5-17.5); LYMPHOCYTES # (AUTO) 1.6 K/uL (1.0-4.8); LYMPHOCYTES % (AUTO) 21.8 % (22.0-44.0); MEAN CORPUSCULAR HEMOGLOBIN 29.6 pg (26.0-34.0); MEAN CORPUSCULAR VOLUME 87 fL (80-100); MONOCYTES # (AUTO) 0.7 K/uL (0.1-1.0); MONOCYTES % (AUTO) 8.8 % (2.0-9.0); NEUTROPHILS # (AUTO) 4.9 K/uL (1.8-7.7); NEUTROPHILS % (AUTO) 65.3 % (40.0-70.0); PLATELET COUNT (AUTO) 314 K/uL (150-450); RED BLOOD CELL COUNT(AUTO) 4.79 MIL/uL (4.50-5.90); RED CELL DISTRIBUTION WIDTH 13.3 % (11.5-14.5)
[2021-05-31 20:18] LABS: ANION GAP 12 mmol/L (8-16); CALCIUM, TOTAL 9.4 mg/dL (8.8-10.5); CARBON DIOXIDE 25 mmol/L (22-29); CHLORIDE 113 mmol/L (98-107); CREATININE 0.86 mg/dL (0.60-1.30); GLOMERULAR FILTR. RATE CALC > 60 mL/min (>60); GLUCOSE,RANDOM 113 mg/dL (70-110); POTASSIUM 3.4 mmol/L (3.5-5.1); SODIUM SERUM 150 mmol/L (136-145); UREA NITROGEN, BLOOD 12 mg/dL (7-18)
[2021-05-31 20:24] LABS: ALANINE AMINOTRANSFERASE 37 U/L (12-78); ALBUMIN 4.3 g/dL (3.4-5.0); ALKALINE PHOSPHATASE 125 U/L (46-116); ASPARTATE AMINOTRANSFERASE 26 U/L (15-37); BILIRUBIN,TOTAL 0.4 mg/dL (0.1-1.0); TOTAL PROTEIN, SERUM 8.7 g/dL (6.4-8.2)
[2021-05-31] MEDS ORDERED: OLANZapine 5 MG RAPDIS TABLET PO PRN (22:00)
[2021-05-31 23:28] LABS: COVID AG,FIA SOURCE NASOPHARYNGEAL
[2021-06-01] MEDS: ZOLPIDEM TARTRATE 10 MG TABLET PO PRN (00:11)
[2021-06-01] MEDS: LORazepam 2 MG TABLET PO PRN (00:11)
[2021-06-01] MEDS ORDERED: -PHARMACY VACCINE NOTE- MISC ONE (00:45)
[2021-06-01] MEDS ORDERED: MAG HYDROX/AL HYDROX/SIMETH ES 30 ML SUSPENSION UDCUP PO PRN (06:30)
[2021-06-01] MEDS ORDERED: POTASSIUM CHLORIDE 20 MEQ ER TABLET PO ONE (06:30)
[2021-06-01] MEDS ORDERED: ALBUTEROL SULFATE HFA 90 MCG/PUFF 8 GM INHALER IH PRN (06:30)
[2021-06-01] MEDS ORDERED: DOCUSATE SODIUM 100 MG CAPSULE PO PRN (06:30)
[2021-06-01] MEDS ORDERED: CloNIDine HCL 0.1 MG TABLET PO PRN (06:30)
[2021-06-01] MEDS ORDERED: MAGNESIUM HYDROXIDE SUSPENSION 30 ML UDCUP PO PRN (06:30)
[2021-06-01] MEDS ORDERED: ONDANSETRON HCL 4 MG TABLET PO PRN (06:30)
[2021-06-01] MEDS ORDERED: PETROLATUM,WHITE 28 GM JELLY TP PRN (06:30)
[2021-06-01] MEDS ORDERED: ACETAMINOPHEN 325 MG TABLET PO PRN (06:30)
[2021-06-01] MEDS ORDERED: OMEPRAZOLE 20 MG CAPSULE PO PRN (06:30)
[2021-06-01] MEDS ORDERED: BENZOCAINE/MENTHOL LOZENGE PO PRN (06:30)
[2021-06-01] MEDS ORDERED: LOPERAMIDE HCL 2 MG CAPSULE PO PRN (06:30)
[2021-06-01] MEDS ORDERED: BACITRACIN 28 GM OINTMENT TP PRN (06:30)
[2021-06-01] MEDS: AmLODIPine BESYLATE 5 MG TABLET PO SCH (08:16)
[2021-06-01 09:25] VITALS: BP 158/106
[2021-06-01 10:52] LABS: CHOL/HDL RATIO 5.3 (4.2-7.3)
[2021-06-01] MEDS: IBUPROFEN 600 MG TABLET PO PRN (12:12)
[2021-06-01] MEDS: GABAPENTIN 400 MG CAPSULE PO SCH ×2 (16:16→20:18)
[2021-06-01 16:40] VITALS: BP 146/85
[2021-06-01] MEDS: OLANZapine 10 MG TABLET PO SCH (20:18)
[2021-06-02 07:39] LABS: ANION GAP 7 mmol/L (8-16); CALCIUM, TOTAL 9.3 mg/dL (8.8-10.5); CARBON DIOXIDE 27 mmol/L (22-29); CHLORIDE 107 mmol/L (98-107); CREATININE 0.89 mg/dL (0.60-1.30); GLOMERULAR FILTR. RATE CALC > 60 mL/min (>60); GLUCOSE,RANDOM 117 mg/dL (70-110); POTASSIUM 3.6 mmol/L (3.5-5.1); SODIUM SERUM 141 mmol/L (136-145); UREA NITROGEN, BLOOD 14 mg/dL (7-18)
[2021-06-02 08:15] VITALS: BP 149/93
[2021-06-02] MEDS: AmLODIPine BESYLATE 5 MG TABLET PO SCH (08:41)
[2021-06-02] MEDS: BuPROPion HCL 150 MG SR TABLET PO SCH ×2 (08:41→12:11)
[2021-06-02] MEDS: GABAPENTIN 400 MG CAPSULE PO SCH ×4 (08:41→21:09)
[2021-06-02 16:33] VITALS: BP 152/93
[2021-06-02 20:00] VITALS: BP 145/91
[2021-06-02] MEDS: OLANZapine 10 MG TABLET PO SCH (21:09)
[2021-06-02] MEDS: ZOLPIDEM TARTRATE 10 MG TABLET PO PRN (21:11)
[2021-06-03 08:43] VITALS: BP 126/86
[2021-06-03] MEDS: BuPROPion HCL 150 MG SR TABLET PO SCH ×2 (09:21→12:39)
[2021-06-03] MEDS: GABAPENTIN 400 MG CAPSULE PO SCH ×4 (09:24→20:44)
[2021-06-03] MEDS: AmLODIPine BESYLATE 5 MG TABLET PO SCH (09:24)
[2021-06-03 16:00] VITALS: BP 143/88
[2021-06-03 20:42] VITALS: BP 139/78
[2021-06-03] MEDS: IBUPROFEN 600 MG TABLET PO PRN (20:42)
[2021-06-03] MEDS: OLANZapine 10 MG TABLET PO SCH (20:43)
[2021-06-03] MEDS: ZOLPIDEM TARTRATE 10 MG TABLET PO PRN (20:44)
[2021-06-03 21:42] VITALS: BP 123/88
[2021-06-04] MEDS: LORazepam 2 MG TABLET PO PRN ×2 (01:25→20:55)
[2021-06-04 02:04] VITALS: BP 148/104
[2021-06-04] MEDS: BuPROPion HCL 150 MG SR TABLET PO SCH ×2 (08:40→12:19)
[2021-06-04] MEDS: GABAPENTIN 400 MG CAPSULE PO SCH ×4 (08:40→20:55)
[2021-06-04] MEDS: AmLODIPine BESYLATE 5 MG TABLET PO SCH (08:40)
[2021-06-04 16:05] VITALS: BP 131/87
[2021-06-04 20:00] VITALS: BP 133/84
[2021-06-04] MEDS: OLANZapine 10 MG TABLET PO SCH (20:55)
[2021-06-04] MEDS: ZOLPIDEM TARTRATE 10 MG TABLET PO PRN (23:58)
[2021-06-05] MEDS: GABAPENTIN 400 MG CAPSULE PO SCH ×2 (08:01→12:12)
[2021-06-05] MEDS: AmLODIPine BESYLATE 5 MG TABLET PO SCH (08:01)
[2021-06-05] MEDS: BuPROPion HCL 150 MG SR TABLET PO SCH ×2 (08:01→12:14)
[2021-06-05] MEDS ORDERED: FOLIC ACID 1 MG TABLET PO SCH (09:00)
[2021-06-05] MEDS ORDERED: THIAMINE 100 MG TABLET PO SCH (09:00)
[2021-06-05 09:07] VITALS: BP 153/83
== END 2021-06-05 14:45 | disposition home or self-care (01) | DRG 750 ==
LOC: EMS 19:08 → 3EC 21:48
PROVIDERS: ADMIT Psychiatry & Neurology Psychiatry; ATTEND Psychiatry & Neurology Psychiatry
DX: F25.9 Schizoaffective disorder, unspecified (principal); E87.0 Hyperosmolality and hypernatremia; R45.851 Suicidal ideations; Z20.822 Contact with and (suspected) exposure to COVID-19; F10.10 Alcohol abuse, uncomplicated; I10 Essential (primary) hypertension; B19.20 Unspecified viral hepatitis C without hepatic coma; G89.29 Other chronic pain; M54.9 Dorsalgia, unspecified; J44.9 Chronic obstructive pulmonary disease, unspecified; R45.850 Homicidal ideations; Z72.0 Tobacco use; Z91.14 Patient's other noncompliance with medication regimen
CPT/HCPCS: 80048; 80053; 80061; 85025; 99285; G0480

== ENCOUNTER 2021-08-22 16:46 | Emergency (ER) | payer MEDICAID, OTHER ==
[~2021-08-22] VITALS: Ht 172.7 cm; Wt 95.5 kg
[~2021-08-22 16:46] MED LIST changes: -TERB250 TP
[2021-08-22 19:46] LABS: BASOPHILS % (AUTO) 0.8 % (0.0-2.0); EOSINOPHILS % (AUTO) 5.8 % (1.0-6.0); HEMATOCRIT 41.1 % (41-53); LYMPHOCYTES # (AUTO) 2.5 K/uL (1.0-4.8); LYMPHOCYTES % (AUTO) 27.9 % (22.0-44.0); MEAN CORPUSCULAR HEMOGLOBIN 29.2 pg (26.0-34.0); MEAN CORPUSCULAR VOLUME 86 fL (80-100); MONOCYTES # (AUTO) 0.7 K/uL (0.1-1.0); MONOCYTES % (AUTO) 7.4 % (2.0-9.0); NEUTROPHILS # (AUTO) 5.2 K/uL (1.8-7.7); NEUTROPHILS % (AUTO) 58.1 % (40.0-70.0); PLATELET COUNT (AUTO) 321 K/uL (150-450); RED BLOOD CELL COUNT(AUTO) 4.78 MIL/uL (4.50-5.90); RED CELL DISTRIBUTION WIDTH 13.5 % (11.5-14.5)
[2021-08-22 19:57] LABS: ANION GAP 13 mmol/L (8-16); CARBON DIOXIDE 31 mmol/L (22-29); CHLORIDE 105 mmol/L (98-107); CREATININE 1.13 mg/dL (0.60-1.30); GLOMERULAR FILTR. RATE CALC > 60 mL/min (>60); GLUCOSE,RANDOM 138 mg/dL (70-110); SODIUM SERUM 149 mmol/L (136-145); UREA NITROGEN, BLOOD 9 mg/dL (7-18)
[2021-08-22 20:03] LABS: ALANINE AMINOTRANSFERASE 39 U/L (12-78); ALKALINE PHOSPHATASE 113 U/L (46-116); ASPARTATE AMINOTRANSFERASE 27 U/L (15-37); BILIRUBIN,TOTAL 0.6 mg/dL (0.1-1.0); TOTAL PROTEIN, SERUM 7.9 g/dL (6.4-8.2)
[2021-08-22] MEDS ORDERED: POTASSIUM CHLORIDE 20 MEQ ER TABLET PO ONE (20:30)
[2021-08-22 22:27] VITALS: BP 155/106
== END 2021-08-22 23:03 | disposition home or self-care (01) ==
LOC: EMS 16:48
DX: R60.0 Localized edema (principal); E87.6 Hypokalemia; F32.9 Major depressive disorder, single episode, unspecified; I10 Essential (primary) hypertension; F20.9 Schizophrenia, unspecified; F17.210 Nicotine dependence, cigarettes, uncomplicated; F12.90 Cannabis use, unspecified, uncomplicated; F11.90 Opioid use, unspecified, uncomplicated; Z88.8 Allergy status to other drugs, medicaments and biological substances
CPT/HCPCS: 80053; 85025; 93970; 99284

== ENCOUNTER 2021-09-18 15:08 | Emergency (ER) | payer OTHER ==
[~2021-09-18] VITALS: Ht 170.2 cm; Wt 86.4 kg
[2021-09-18] MEDS ORDERED: FLUORESCEIN SODIUM 1 MG STRIP OD ONE (16:00)
[2021-09-18] MEDS ORDERED: PROPARACAINE HCL 0.5% 15 ML OPHTHALMIC SOLUTION OU ONE (16:00)
[2021-09-18] MEDS ORDERED: FLUORESCEIN SODIUM 1 MG STRIP OS ONE (16:00)
[2021-09-18] MEDS ORDERED: ERYTHROMYCIN 0.5% 3.5 GM TUBE OPHTHALMIC OINTMENT OS ONE (16:30)
[2021-09-18 16:54] VITALS: BP 141/85
== END 2021-09-18 17:00 | disposition home or self-care (01) ==
LOC: EMS 15:08
DX: H00.014 Hordeolum externum left upper eyelid (principal); I10 Essential (primary) hypertension; F20.9 Schizophrenia, unspecified; F32.9 Major depressive disorder, single episode, unspecified; Z79.899 Other long term (current) drug therapy
CPT/HCPCS: 99283

== ENCOUNTER 2021-12-06 17:11 | Emergency (ER) | payer OTHER ==
[~2021-12-06] VITALS: Ht 175.3 cm; Wt 95.5 kg
[2021-12-06 21:51] LABS: COVID AG,FIA SOURCE NASAL SWAB
[2021-12-06] MEDS ORDERED: MOLN200C PO (22:39)
[2021-12-06 22:42] VITALS: BP 159/105
[2021-12-07] MEDS ORDERED: MOLN200C PO (16:01)
== END 2021-12-07 04:50 | disposition home or self-care (01) ==
LOC: EMS 17:14
DX: U07.1 COVID-19 (principal); F31.9 Bipolar disorder, unspecified; F20.9 Schizophrenia, unspecified; F15.90 Other stimulant use, unspecified, uncomplicated; F17.210 Nicotine dependence, cigarettes, uncomplicated; Z88.8 Allergy status to other drugs, medicaments and biological substances; Z79.899 Other long term (current) drug therapy
CPT/HCPCS: 99283

== ENCOUNTER 2022-04-07 23:16 | Inpatient (IN) | payer MEDICAID, OTHER ==
[~2022-04-07] VITALS: Ht 175.3 cm; Wt 79.8 kg
[~2022-04-07 23:16] MED LIST changes: -BUPR-121 PO; +BUPR-225 PO; +BUPR-345 PO; -BUPR100SR PO; +MOLN200C PO
[2022-04-08 00:36] LABS: BASOPHILS % (AUTO) 0.9 % (0.0-2.0); EOSINOPHILS % (AUTO) 7.7 % (1.0-6.0); HEMOGLOBIN 13.9 g/dL (13.5-17.5); LYMPHOCYTES % (AUTO) 28.5 % (22.0-44.0); MEAN CORPUSCULAR HEMOGLOBIN 29.5 pg (26.0-34.0); MEAN CORPUSCULAR HGB CONC 34.6 G/dL (31.0-37.0); MEAN CORPUSCULAR VOLUME 85 fL (80-100); MONOCYTES # (AUTO) 0.7 K/uL (0.1-1.0); MONOCYTES % (AUTO) 10.6 % (2.0-9.0); NEUTROPHILS # (AUTO) 3.7 K/uL (1.8-7.7); NEUTROPHILS % (AUTO) 52.3 % (40.0-70.0); PLATELET COUNT (AUTO) 280 K/uL (150-450); RED BLOOD CELL COUNT(AUTO) 4.69 MIL/uL (4.50-5.90); RED CELL DISTRIBUTION WIDTH 13.2 % (11.5-14.5)
[2022-04-08 00:44] LABS: AMPHET/METH SCREEN,URINE POSITIVE (NEGATIVE); BARBITURATE SCREEN, URINE NEGATIVE (NEGATIVE); BENZODIAZEPINES SCREEN,URINE NEGATIVE (NEGATIVE); CANNABINOID SCREEN,URINE POSITIVE (NEGATIVE); COCAINE SCREEN,URINE NEGATIVE (NEGATIVE); METHADONE SCREEN, URINE NEGATIVE (NEGATIVE); OPIATE SCREEN,URINE NEGATIVE (NEGATIVE)
[2022-04-08 00:44] LABS: ANION GAP 6 mmol/L (8-16); CALCIUM, TOTAL 9.1 mg/dL (8.8-10.5); CARBON DIOXIDE 30 mmol/L (22-29); CHLORIDE 103 mmol/L (98-107); CREATININE 1.12 mg/dL (0.60-1.30); GLOMERULAR FILTR. RATE CALC > 60 mL/min (>60); GLUCOSE,RANDOM 99 mg/dL (70-110); POTASSIUM 3.3 mmol/L (3.5-5.1); SODIUM SERUM 139 mmol/L (136-145); UREA NITROGEN, BLOOD 13 mg/dL (7-18)
[2022-04-08 00:49] LABS: PHENCYCLIDINE SCREEN,URINE NEGATIVE (NEGATIVE)
[2022-04-08 00:50] LABS: ALANINE AMINOTRANSFERASE 29 U/L (12-78); ALBUMIN 3.9 g/dL (3.4-5.0); ALKALINE PHOSPHATASE 133 U/L (46-116); ASPARTATE AMINOTRANSFERASE 24 U/L (15-37); BILIRUBIN,TOTAL 0.4 mg/dL (0.1-1.0); TOTAL PROTEIN, SERUM 7.8 g/dL (6.4-8.2)
[2022-04-08] MEDS ORDERED: CEPHALEXIN MONOHYDRATE 500 MG CAPSULE PO ONE ×2 (02:00→09:00)
[2022-04-08 02:05] LABS: COVID AG,FIA SOURCE NASAL SWAB
[2022-04-08] MEDS ORDERED: LORazepam 2 MG TABLET PO ONE (02:15)
[2022-04-08] MEDS ORDERED: POTASSIUM CHLORIDE 10% 40 MEQ/30 ML LIQUID UDCUP PO ONE (02:15)
[2022-04-08] MEDS ORDERED: OLANZapine 5 MG RAPDIS TABLET PO PRN (02:45)
[2022-04-08 02:51] LABS: APPEARANCE,URINE CLEAR (CLEAR); BILIRUBIN,URINE NEGATIVE (NEGATIVE); GLUCOSE, URINE (UA) TRACE mg/dL (NEGATIVE); KETONES,URINE NEGATIVE (NEGATIVE); LEUKOCYTE ESTERASE ,URINE TRACE (NEGATIVE); NITRATE,URINE NEGATIVE (NEGATIVE); OCCULT BLOOD,URINE NEGATIVE (NEGATIVE); PH,URINE 6.5 (5.0-8.0); PROTEIN,URINE NEGATIVE (NEGATIVE); SPECIFIC GRAVITIY, URINE 1.006 (1.003-1.030); UROBILINOGEN,URINE <=1.0 mg/dL (<=1.0)
[2022-04-08 03:02] LABS: BACTERIA,URINE None Seen /HPF (None Seen); RBC,URINE None Seen /HPF (0-2); WBC,URINE 0-2 /HPF (0-5)
[2022-04-08 19:35] VITALS: BP 172/98
[2022-04-08] MEDS: LORazepam 2 MG TABLET PO PRN (19:35)
[2022-04-08] MEDS ORDERED: AmLODIPine BESYLATE 5 MG TABLET PO ONE (20:00)
[2022-04-08] MEDS ORDERED: GABAPENTIN 400 MG CAPSULE PO SCH (21:00)
[2022-04-09 05:34] VITALS: BP 107/75
[2022-04-09] MEDS ORDERED: LOPERAMIDE HCL 2 MG CAPSULE PO PRN (06:30)
[2022-04-09] MEDS ORDERED: GuaiFENesin/D-METHORPHAN [SUGAR-FREE] 200-20MG/10 ML SYRUP UDCUP PO PRN (06:30)
[2022-04-09] MEDS ORDERED: DOCUSATE SODIUM 100 MG CAPSULE PO PRN (06:30)
[2022-04-09] MEDS ORDERED: MAG HYDROX/AL HYDROX/SIMETH ES 30 ML SUSPENSION UDCUP PO PRN (06:30)
[2022-04-09] MEDS ORDERED: NICOTINE 14 MG/24 HOUR PATCH TD PRN (06:30)
[2022-04-09] MEDS ORDERED: CloNIDine HCL 0.1 MG TABLET PO PRN (06:30)
[2022-04-09] MEDS ORDERED: ONDANSETRON HCL 4 MG TABLET PO PRN (06:30)
[2022-04-09] MEDS ORDERED: PETROLATUM,WHITE 28 GM JELLY TP PRN (06:30)
[2022-04-09] MEDS ORDERED: MOLNUPIRAVIR PO SCH (06:30)
[2022-04-09] MEDS ORDERED: ACETAMINOPHEN 325 MG TABLET PO PRN (06:30)
[2022-04-09] MEDS ORDERED: MAGNESIUM HYDROXIDE SUSPENSION 30 ML UDCUP PO PRN (06:30)
[2022-04-09] MEDS ORDERED: ALBUTEROL SULFATE HFA 90 MCG/PUFF 8 GM INHALER IH PRN (06:30)
[2022-04-09] MEDS: GABAPENTIN 400 MG CAPSULE PO SCH ×4 (08:59→20:34)
[2022-04-09 09:00] VITALS: BP 112/74
[2022-04-09] MEDS: AmLODIPine BESYLATE 5 MG TABLET PO SCH (09:00)
[2022-04-09] MEDS: BACITRACIN 28 GM OINTMENT TP SCH ×2 (09:00→17:01)
[2022-04-09 16:10] VITALS: BP 140/81
[2022-04-09] MEDS: LORazepam 2 MG TABLET PO PRN (17:01)
[2022-04-10 04:38] VITALS: BP 148/93
[2022-04-10] MEDS: LORazepam 2 MG TABLET PO PRN ×2 (06:26→17:02)
[2022-04-10 08:23] VITALS: BP 137/79
[2022-04-10] MEDS: AmLODIPine BESYLATE 5 MG TABLET PO SCH (08:34)
[2022-04-10] MEDS: BACITRACIN 28 GM OINTMENT TP SCH ×2 (08:34→17:02)
[2022-04-10] MEDS: GABAPENTIN 400 MG CAPSULE PO SCH ×4 (08:34→21:05)
[2022-04-10 16:17] VITALS: BP 116/66
[2022-04-11 00:50] VITALS: BP 159/107
[2022-04-11] MEDS: LORazepam 2 MG TABLET PO PRN ×3 (05:08→16:35)
[2022-04-11] MEDS: IBUPROFEN 400 MG TABLET PO PRN (05:09)
[2022-04-11 08:25] VITALS: BP 140/89
[2022-04-11] MEDS: AmLODIPine BESYLATE 5 MG TABLET PO SCH (08:53)
[2022-04-11] MEDS: GABAPENTIN 400 MG CAPSULE PO SCH ×4 (08:53→20:13)
[2022-04-11] MEDS: BACITRACIN 28 GM OINTMENT TP SCH ×2 (08:54→16:35)
[2022-04-11 16:10] VITALS: BP 140/98
[2022-04-11] MEDS: ZOLPIDEM TARTRATE 10 MG TABLET PO PRN (20:13)
[2022-04-12] MEDS: LORazepam 2 MG TABLET PO PRN (05:30)
[2022-04-12 08:13] VITALS: BP 141/100
[2022-04-12] MEDS: AmLODIPine BESYLATE 5 MG TABLET PO SCH (09:55)
[2022-04-12] MEDS: BACITRACIN 28 GM OINTMENT TP SCH ×2 (09:56→16:32)
[2022-04-12] MEDS: GABAPENTIN 400 MG CAPSULE PO SCH ×4 (09:56→20:43)
[2022-04-12 12:44] VITALS: BP 134/90
[2022-04-12 16:31] VITALS: BP 149/84
[2022-04-12] MEDS ORDERED: OLAN1TAB5 PO (17:37)
[2022-04-12] MEDS ORDERED: PROP10TA72 PO (17:37)
[2022-04-12] MEDS ORDERED: AMLO10TA55 PO (17:37)
[2022-04-12] MEDS ORDERED: ATOR20TA65 PO (17:37)
[2022-04-12] MEDS ORDERED: BUPR-113 PO (17:37)
[2022-04-12] MEDS ORDERED: GABA-533 PO (17:37)
[2022-04-12] MEDS: ZOLPIDEM TARTRATE 10 MG TABLET PO PRN (23:12)
[2022-04-13] MEDS: LORazepam 2 MG TABLET PO PRN ×2 (02:56→08:20)
[2022-04-13 03:53] VITALS: BP 136/78
[2022-04-13] MEDS: GABAPENTIN 400 MG CAPSULE PO SCH ×2 (08:19→13:05)
[2022-04-13] MEDS: AmLODIPine BESYLATE 5 MG TABLET PO SCH (08:20)
[2022-04-13] MEDS: BACITRACIN 28 GM OINTMENT TP SCH (08:21)
[2022-04-13] MEDS: IBUPROFEN 400 MG TABLET PO PRN (09:23)
[2022-04-13] MEDS ORDERED: AMLO-257 PO (11:37)
== END 2022-04-13 13:30 | disposition home or self-care (01) | DRG 750 ==
LOC: EMS 23:18 → B3A 04-08 16:31
PROVIDERS: ADMIT Psychiatry & Neurology Psychiatry; ATTEND Psychiatry & Neurology Psychiatry
DX: F25.1 Schizoaffective disorder, depressive type (principal); L03.116 Cellulitis of left lower limb; R45.851 Suicidal ideations; E11.9 Type 2 diabetes mellitus without complications; E03.9 Hypothyroidism, unspecified; Z20.822 Contact with and (suspected) exposure to COVID-19; E78.5 Hyperlipidemia, unspecified; E87.6 Hypokalemia; F10.10 Alcohol abuse, uncomplicated; F15.10 Other stimulant abuse, uncomplicated; I10 Essential (primary) hypertension; J44.9 Chronic obstructive pulmonary disease, unspecified; M19.90 Unspecified osteoarthritis, unspecified site; R45.850 Homicidal ideations; K21.9 Gastro-esophageal reflux disease without esophagitis; F17.210 Nicotine dependence, cigarettes, uncomplicated; Z88.8 Allergy status to other drugs, medicaments and biological substances
CPT/HCPCS: 80053; 81001; 81003; 84132; 85025; 99285; G0480

== ENCOUNTER 2022-05-10 22:26 | Emergency (ER) | payer MEDICAID, OTHER ==
[~2022-05-10] VITALS: Ht 172.7 cm; Wt 95.0 kg
[~2022-05-10 22:26] MED LIST changes: -BUPR-225 PO; -BUPR-345 PO; +GABA-533 PO; -MOLN200C PO; -OLAN10TA26 PO; +OLAN10TA74 PO
[2022-05-10 22:28] VITALS: BP 137/109
== END 2022-05-10 23:45 | disposition home or self-care (01) ==
LOC: EMS 22:28
DX: M79.672 Pain in left foot (principal); M79.671 Pain in right foot; M54.50 Low back pain, unspecified; G89.29 Other chronic pain; F20.9 Schizophrenia, unspecified; F31.9 Bipolar disorder, unspecified; F17.210 Nicotine dependence, cigarettes, uncomplicated; F15.90 Other stimulant use, unspecified, uncomplicated; Z87.19 Personal history of other diseases of the digestive system; Z88.8 Allergy status to other drugs, medicaments and biological substances; Z76.5 Malingerer [conscious simulation]; Z59.00 Homelessness unspecified
CPT/HCPCS: 99281; Z7502

== ENCOUNTER 2022-06-21 03:19 | Inpatient (IN) | payer MEDICAID, OTHER ==
[~2022-06-21] VITALS: Ht 172.7 cm; Wt 89.5 kg
[2022-06-21] MEDS ORDERED: PROP10TA72 PO (03:40)
[2022-06-21] MEDS ORDERED: OLAN1TAB5 PO (03:40)
[2022-06-21] MEDS ORDERED: BUPR75TA8 PO (03:40)
[2022-06-21 04:13] LABS: BASOPHILS % (AUTO) 0.8 % (0.0-2.0); EOSINOPHILS % (AUTO) 3.6 % (1.0-6.0); HEMATOCRIT 43.9 % (41-53); HEMOGLOBIN 15.2 g/dL (13.5-17.5); LYMPHOCYTES # (AUTO) 2.5 K/uL (1.0-4.8); LYMPHOCYTES % (AUTO) 28.6 % (22.0-44.0); MEAN CORPUSCULAR HEMOGLOBIN 29.3 pg (26.0-34.0); MEAN CORPUSCULAR HGB CONC 34.6 G/dL (31.0-37.0); MEAN CORPUSCULAR VOLUME 85 fL (80-100); MONOCYTES # (AUTO) 0.9 K/uL (0.1-1.0); MONOCYTES % (AUTO) 10.2 % (2.0-9.0); NEUTROPHILS # (AUTO) 5.1 K/uL (1.8-7.7); NEUTROPHILS % (AUTO) 56.8 % (40.0-70.0); PLATELET COUNT (AUTO) 349 K/uL (150-450); RED BLOOD CELL COUNT(AUTO) 5.19 MIL/uL (4.50-5.90); RED CELL DISTRIBUTION WIDTH 13.5 % (11.5-14.5)
[2022-06-21 04:16] LABS: ANION GAP 8 mmol/L (8-16); CALCIUM, TOTAL 9.4 mg/dL (8.8-10.5); CARBON DIOXIDE 30 mmol/L (22-29); CHLORIDE 100 mmol/L (98-107); CREATININE 1.13 mg/dL (0.60-1.30); GLUCOSE,RANDOM 110 mg/dL (70-110); POTASSIUM 3.3 mmol/L (3.5-5.1); SODIUM SERUM 138 mmol/L (136-145); UREA NITROGEN, BLOOD 14 mg/dL (7-18)
[2022-06-21 04:18] LABS: GLOMERULAR FILTR. RATE CALC > 60 mL/min (>60)
[2022-06-21 04:21] LABS: ALANINE AMINOTRANSFERASE 43 U/L (12-78); ALBUMIN 4.3 g/dL (3.4-5.0); ALKALINE PHOSPHATASE 140 U/L (46-116); ASPARTATE AMINOTRANSFERASE 30 U/L (15-37); BILIRUBIN,TOTAL 0.5 mg/dL (0.1-1.0); TOTAL PROTEIN, SERUM 8.4 g/dL (6.4-8.2)
[2022-06-21] MEDS ORDERED: POTASSIUM CHLORIDE 10% 40 MEQ/30 ML LIQUID UDCUP PO ONE (10:30)
[2022-06-21 14:27] LABS: COVID AG,FIA SOURCE NASAL SWAB
[2022-06-21] MEDS: LORazepam 2 MG TABLET PO PRN (17:58)
[2022-06-21] MEDS ORDERED: NORT10CA2 PO (20:05)
[2022-06-21] MEDS ORDERED: FLUT16H NASAL (20:05)
[2022-06-21] MEDS ORDERED: ATOR20TA65 PO (20:05)
[2022-06-21] MEDS ORDERED: AMLO10TA55 PO (20:05)
[2022-06-21] MEDS ORDERED: LORA10TA7 PO (20:05)
[2022-06-21] MEDS ORDERED: MIDAZOLAM HCL 2 MG/2 ML VIAL IM STA (23:25)
[2022-06-22 01:05] VITALS: BP 150/90
[2022-06-22 01:41] VITALS: BP 150/90
[2022-06-22] MEDS ORDERED: -PHARMACY VACCINE NOTE- MISC ONE (03:15)
[2022-06-22 08:10] VITALS: BP 166/106
[2022-06-22] MEDS ORDERED: PETROLATUM,WHITE 28 GM JELLY TP PRN (09:15)
[2022-06-22] MEDS ORDERED: BENZOCAINE/MENTHOL LOZENGE PO PRN (09:15)
[2022-06-22] MEDS ORDERED: BACITRACIN 28 GM OINTMENT TP PRN (09:15)
[2022-06-22] MEDS ORDERED: CloNIDine HCL 0.1 MG TABLET PO PRN (09:15)
[2022-06-22] MEDS ORDERED: MAGNESIUM HYDROXIDE SUSPENSION 30 ML UDCUP PO PRN (09:15)
[2022-06-22] MEDS ORDERED: ACETAMINOPHEN 325 MG TABLET PO PRN (09:15)
[2022-06-22] MEDS ORDERED: ALBUTEROL SULFATE HFA 90 MCG/PUFF 8 GM INHALER IH PRN (09:15)
[2022-06-22] MEDS ORDERED: MAG HYDROX/AL HYDROX/SIMETH ES 30 ML SUSPENSION UDCUP PO PRN (09:15)
[2022-06-22] MEDS ORDERED: DOCUSATE SODIUM 100 MG CAPSULE PO PRN (09:15)
[2022-06-22] MEDS ORDERED: IBUPROFEN 600 MG TABLET PO PRN (09:15)
[2022-06-22] MEDS ORDERED: LOPERAMIDE HCL 2 MG CAPSULE PO PRN (09:15)
[2022-06-22] MEDS ORDERED: OMEPRAZOLE 20 MG CAPSULE PO PRN (09:15)
[2022-06-22] MEDS ORDERED: ONDANSETRON HCL 4 MG TABLET PO PRN (09:15)
[2022-06-22] MEDS: AmLODIPine BESYLATE 5 MG TABLET PO SCH (10:27)
[2022-06-22] MEDS: GABAPENTIN 400 MG CAPSULE PO SCH ×3 (13:26→20:14)
[2022-06-22] MEDS ORDERED: BuPROPion HCL 75 MG TABLET PO SCH (15:45)
[2022-06-22 16:15] VITALS: BP 158/108
[2022-06-22] MEDS: BuPROPion HCL 75 MG TABLET PO SCH (16:22)
[2022-06-22] MEDS: OLANZapine 5 MG RAPDIS TABLET PO PRN (18:00)
[2022-06-22] MEDS: OLANZapine 10 MG TABLET PO SCH (20:14)
[2022-06-23 08:03] VITALS: BP 151/111
[2022-06-23] MEDS: AmLODIPine BESYLATE 5 MG TABLET PO SCH (09:54)
[2022-06-23] MEDS: BuPROPion HCL 75 MG TABLET PO SCH ×2 (09:54→13:46)
[2022-06-23] MEDS: GABAPENTIN 400 MG CAPSULE PO SCH ×4 (09:55→21:17)
[2022-06-23 16:09] VITALS: BP 150/95
[2022-06-23] MEDS: OLANZapine 10 MG TABLET PO SCH (21:00)
[2022-06-23 22:01] VITALS: BP 145/89
[2022-06-24 01:22] VITALS: BP 148/92
[2022-06-24] MEDS: LORazepam 2 MG TABLET PO PRN ×2 (01:24→16:13)
[2022-06-24 08:17] VITALS: BP 151/86
[2022-06-24] MEDS: GABAPENTIN 400 MG CAPSULE PO SCH ×4 (09:44→22:05)
[2022-06-24] MEDS: BuPROPion HCL 75 MG TABLET PO SCH ×2 (09:44→13:04)
[2022-06-24] MEDS: AmLODIPine BESYLATE 5 MG TABLET PO SCH (09:44)
[2022-06-24] MEDS: OLANZapine 5 MG RAPDIS TABLET PO PRN (16:13)
[2022-06-24 16:34] VITALS: BP 145/87
[2022-06-24] MEDS: OLANZapine 10 MG TABLET PO SCH (21:00)
[2022-06-24] MEDS: MUPIROCIN CALCIUM 2% 15 GM CREAM TP SCH (22:05)
[2022-06-25] MEDS: LORazepam 2 MG TABLET PO PRN ×3 (02:15→23:50)
[2022-06-25] MEDS: ZOLPIDEM TARTRATE 10 MG TABLET PO PRN ×2 (02:15→23:50)
[2022-06-25] MEDS: BuPROPion HCL 75 MG TABLET PO SCH ×2 (09:03→12:31)
[2022-06-25] MEDS: AmLODIPine BESYLATE 5 MG TABLET PO SCH (09:04)
[2022-06-25] MEDS: GABAPENTIN 400 MG CAPSULE PO SCH ×4 (09:04→20:25)
[2022-06-25] MEDS: MUPIROCIN CALCIUM 2% 15 GM CREAM TP SCH ×2 (09:10→17:14)
[2022-06-25 09:40] VITALS: BP 127/79
[2022-06-25 16:15] VITALS: BP 148/98
[2022-06-25] MEDS: OLANZapine 10 MG TABLET PO SCH (21:00)
[2022-06-26 08:00] VITALS: BP 144/84
[2022-06-26] MEDS: GABAPENTIN 400 MG CAPSULE PO SCH ×3 (08:51→16:45)
[2022-06-26] MEDS: AmLODIPine BESYLATE 5 MG TABLET PO SCH (08:51)
[2022-06-26] MEDS: BuPROPion HCL 75 MG TABLET PO SCH ×2 (08:52→12:22)
[2022-06-26] MEDS: MUPIROCIN CALCIUM 2% 15 GM CREAM TP SCH ×2 (08:53→16:45)
[2022-06-26] MEDS ORDERED: ATOR20TA65 PO (22:06)
[2022-06-26] MEDS ORDERED: GABA-533 PO (22:06)
[2022-06-26] MEDS ORDERED: LORA10TA7 PO (22:06)
[2022-06-26] MEDS ORDERED: AMLO10TA55 PO (22:07)
== END 2022-06-26 16:45 | disposition home or self-care (01) | DRG 750 ==
LOC: EMS 03:20 → UNDOADMIN 20:06 → 3EC 20:06 → B3A 20:06
PROVIDERS: ADMIT Psychiatry & Neurology Psychiatry; ATTEND Psychiatry & Neurology Psychiatry
DX: F20.0 Paranoid schizophrenia (principal); R45.850 Homicidal ideations; F12.10 Cannabis abuse, uncomplicated; F10.10 Alcohol abuse, uncomplicated; B18.2 Chronic viral hepatitis C; E87.6 Hypokalemia; F15.10 Other stimulant abuse, uncomplicated; Z20.822 Contact with and (suspected) exposure to COVID-19; I10 Essential (primary) hypertension; J44.9 Chronic obstructive pulmonary disease, unspecified; K21.9 Gastro-esophageal reflux disease without esophagitis; Z91.19 Patient's noncompliance with other medical treatment and regimen; Z88.8 Allergy status to other drugs, medicaments and biological substances; Z72.0 Tobacco use; Z71.6 Tobacco abuse counseling
CPT/HCPCS: 80053; 83036; 85025; 87081; 99285; G0480; J2250

== ENCOUNTER 2022-07-09 17:12 | Inpatient (IN) | payer MEDICAID, OTHER ==
[~2022-07-09] VITALS: Ht 177.8 cm; Wt 89.4 kg
[~2022-07-09 17:12] MED LIST changes: -AMLO-257 PO; +AMLO10TA55 PO; +ATOR20TA65 PO; +BUPR75TA8 PO; +FLUT16H NASAL; -GABA-1201 PO; +LORA10TA7 PO; +NORT10CA2 PO; -OLAN10TA74 PO; +OLAN1TAB5 PO; +PROP10TA72 PO
[2022-07-09 18:33] LABS: BASOPHILS % (AUTO) 0.7 % (0.0-2.0); HEMATOCRIT 43.1 % (41-53); HEMOGLOBIN 14.6 g/dL (13.5-17.5); LYMPHOCYTES % (AUTO) 25.3 % (22.0-44.0); MEAN CORPUSCULAR HEMOGLOBIN 28.9 pg (26.0-34.0); MEAN CORPUSCULAR VOLUME 85 fL (80-100); MONOCYTES # (AUTO) 0.7 K/uL (0.1-1.0); MONOCYTES % (AUTO) 8.4 % (2.0-9.0); NEUTROPHILS # (AUTO) 4.9 K/uL (1.8-7.7); NEUTROPHILS % (AUTO) 60.6 % (40.0-70.0); PLATELET COUNT (AUTO) 312 K/uL (150-450); RED BLOOD CELL COUNT(AUTO) 5.06 MIL/uL (4.50-5.90); RED CELL DISTRIBUTION WIDTH 13.3 % (11.5-14.5)
[2022-07-09 18:33] LABS: COVID AG,FIA SOURCE NASOPHARYNGEAL
[2022-07-09 18:44] LABS: ANION GAP 16 mmol/L (8-16); CALCIUM, TOTAL 9.4 mg/dL (8.8-10.5); CARBON DIOXIDE 20 mmol/L (22-29); CHLORIDE 106 mmol/L (98-107); CREATININE 1.31 mg/dL (0.60-1.30); GLUCOSE,RANDOM 115 mg/dL (70-110); POTASSIUM 3.3 mmol/L (3.5-5.1); SODIUM SERUM 142 mmol/L (136-145); UREA NITROGEN, BLOOD 18 mg/dL (7-18)
[2022-07-09 18:49] LABS: GLOMERULAR FILTR. RATE CALC 56 mL/min (>60)
[2022-07-09 18:50] LABS: ALANINE AMINOTRANSFERASE 42 U/L (12-78); ALBUMIN 4.4 g/dL (3.4-5.0); ALKALINE PHOSPHATASE 107 U/L (46-116); ASPARTATE AMINOTRANSFERASE 38 U/L (15-37); TOTAL PROTEIN, SERUM 8.5 g/dL (6.4-8.2)
[2022-07-09] MEDS: OLANZapine 5 MG RAPDIS TABLET PO PRN (21:46)
[2022-07-09] MEDS: LORazepam 2 MG TABLET PO PRN (21:46)
[2022-07-09 22:08] LABS: AMPHET/METH SCREEN,URINE NEGATIVE (NEGATIVE); BARBITURATE SCREEN, URINE NEGATIVE (NEGATIVE); BENZODIAZEPINES SCREEN,URINE NEGATIVE (NEGATIVE); CANNABINOID SCREEN,URINE NEGATIVE (NEGATIVE); COCAINE SCREEN,URINE NEGATIVE (NEGATIVE); METHADONE SCREEN, URINE NEGATIVE (NEGATIVE); OPIATE SCREEN,URINE NEGATIVE (NEGATIVE)
[2022-07-09 22:09] LABS: APPEARANCE,URINE CLEAR (CLEAR); BILIRUBIN,URINE NEGATIVE (NEGATIVE); GLUCOSE, URINE (UA) NEGATIVE (NEGATIVE); KETONES,URINE NEGATIVE (NEGATIVE); LEUKOCYTE ESTERASE ,URINE NEGATIVE (NEGATIVE); NITRATE,URINE NEGATIVE (NEGATIVE); OCCULT BLOOD,URINE NEGATIVE (NEGATIVE); PROTEIN,URINE NEGATIVE (NEGATIVE); SPECIFIC GRAVITIY, URINE 1.015 (1.003-1.030); UROBILINOGEN,URINE <=1.0 mg/dL (<=1.0)
[2022-07-09 22:11] LABS: PHENCYCLIDINE SCREEN,URINE NEGATIVE (NEGATIVE)
[2022-07-10] MEDS: OLANZapine 5 MG RAPDIS TABLET PO PRN (09:58)
[2022-07-10] MEDS ORDERED: LORazepam 2 MG/ML VIAL IM ONE (10:00)
[2022-07-10] MEDS ORDERED: DiphenhydrAMINE HCL 50 MG/ML VIAL IM ONE (10:00)
[2022-07-10 16:30] VITALS: BP 142/90
[2022-07-10 20:52] VITALS: BP 139/90
[2022-07-11 08:25] VITALS: BP 154/84
[2022-07-11] MEDS: LORazepam 2 MG TABLET PO PRN (12:06)
[2022-07-11] MEDS: OLANZapine 5 MG RAPDIS TABLET PO PRN (12:06)
[2022-07-11] MEDS: AmLODIPine BESYLATE 10 MG TABLET PO SCH (13:59)
[2022-07-11 20:12] VITALS: BP 110/64
[2022-07-11] MEDS: ZOLPIDEM TARTRATE 10 MG TABLET PO PRN (20:44)
[2022-07-11] MEDS: OLANZapine 5 MG RAPDIS TABLET PO SCH (20:44)
[2022-07-11] MEDS: ATORVASTATIN CALCIUM 20 MG TABLET PO SCH (20:44)
[2022-07-11] MEDS ORDERED: ACETAMINOPHEN 325 MG TABLET PO PRN (22:00)
[2022-07-11] MEDS ORDERED: POTASSIUM CHLORIDE 20 MEQ ER TABLET PO ONE (22:00)
[2022-07-11] MEDS ORDERED: BENZOCAINE/MENTHOL LOZENGE PO PRN (22:00)
[2022-07-11] MEDS ORDERED: PETROLATUM,WHITE 28 GM JELLY TP PRN (22:00)
[2022-07-11] MEDS ORDERED: CloNIDine HCL 0.1 MG TABLET PO PRN (22:00)
[2022-07-11] MEDS ORDERED: BACITRACIN 28 GM OINTMENT TP PRN (22:00)
[2022-07-11] MEDS ORDERED: OMEPRAZOLE 20 MG CAPSULE PO PRN (22:00)
[2022-07-11] MEDS ORDERED: DOCUSATE SODIUM 100 MG CAPSULE PO PRN (22:00)
[2022-07-11] MEDS ORDERED: LOPERAMIDE HCL 2 MG CAPSULE PO PRN (22:00)
[2022-07-11] MEDS ORDERED: MAG HYDROX/AL HYDROX/SIMETH ES 30 ML SUSPENSION UDCUP PO PRN (22:00)
[2022-07-11] MEDS ORDERED: MAGNESIUM HYDROXIDE SUSPENSION 30 ML UDCUP PO PRN (22:00)
[2022-07-11] MEDS ORDERED: ALBUTEROL SULFATE HFA 90 MCG/PUFF 8 GM INHALER IH PRN (22:00)
[2022-07-11] MEDS ORDERED: ONDANSETRON HCL 4 MG TABLET PO PRN (22:00)
[2022-07-12] MEDS: LORazepam 2 MG TABLET PO PRN (08:08)
[2022-07-12] MEDS: AmLODIPine BESYLATE 10 MG TABLET PO SCH (08:08)
[2022-07-12 09:33] LABS: ANION GAP 7 mmol/L (8-16); CALCIUM, TOTAL 8.7 mg/dL (8.8-10.5); CARBON DIOXIDE 24 mmol/L (22-29); CHLORIDE 108 mmol/L (98-107); GLUCOSE,RANDOM 139 mg/dL (70-110); POTASSIUM 3.2 mmol/L (3.5-5.1); SODIUM SERUM 139 mmol/L (136-145); UREA NITROGEN, BLOOD 15 mg/dL (7-18)
[2022-07-12 09:34] LABS: GLOMERULAR FILTR. RATE CALC > 60 mL/min (>60)
[2022-07-12 10:20] VITALS: BP 149/87
[2022-07-12] MEDS ORDERED: BuPROPion HCL 150 MG SR TABLET PO ONE (12:00)
[2022-07-12] MEDS: IBUPROFEN 600 MG TABLET PO PRN (12:26)
[2022-07-12 20:09] VITALS: BP 140/82
[2022-07-12] MEDS: ATORVASTATIN CALCIUM 20 MG TABLET PO SCH (20:19)
[2022-07-12] MEDS: OLANZapine 5 MG RAPDIS TABLET PO SCH (20:19)
[2022-07-12] MEDS: ZOLPIDEM TARTRATE 10 MG TABLET PO PRN (21:31)
[2022-07-13] MEDS: LORazepam 2 MG TABLET PO PRN (07:38)
[2022-07-13] MEDS: BuPROPion HCL 150 MG SR TABLET PO SCH (08:22)
[2022-07-13] MEDS: AmLODIPine BESYLATE 10 MG TABLET PO SCH (08:22)
[2022-07-13 08:48] VITALS: BP 131/87
[2022-07-13] MEDS: IBUPROFEN 600 MG TABLET PO PRN (14:20)
[2022-07-13 20:06] VITALS: BP 142/82
[2022-07-13] MEDS: ZOLPIDEM TARTRATE 10 MG TABLET PO PRN (20:06)
[2022-07-13] MEDS: ATORVASTATIN CALCIUM 20 MG TABLET PO SCH (20:06)
[2022-07-13] MEDS: OLANZapine 5 MG RAPDIS TABLET PO SCH (20:07)
[2022-07-14] MEDS: AmLODIPine BESYLATE 10 MG TABLET PO SCH (08:16)
[2022-07-14] MEDS: BuPROPion HCL 150 MG SR TABLET PO SCH (08:16)
[2022-07-14 08:53] VITALS: BP 122/70
[2022-07-14] MEDS ORDERED: MULTIVITAMINS WITH MINERALS, THERAPEUTIC TABLET PO SCH (09:00)
[2022-07-14] MEDS: IBUPROFEN 600 MG TABLET PO PRN (11:39)
[2022-07-14] MEDS ORDERED: BUPR-72 PO (15:01)
[2022-07-14] MEDS ORDERED: OLAN5TAB94 PO (15:01)
[2022-07-15] MEDS ORDERED: AMLO10TA55 PO (09:37)
[2022-07-15] MEDS ORDERED: ATOR20TA65 PO (09:37)
== END 2022-07-14 21:21 | disposition home or self-care (01) | DRG 750 ==
LOC: EMS 17:12 → B3A 07-10 08:21
PROVIDERS: ADMIT Psychiatry & Neurology Psychiatry; ATTEND Psychiatry & Neurology Psychiatry
DX: F25.1 Schizoaffective disorder, depressive type (principal); R45.851 Suicidal ideations; B18.2 Chronic viral hepatitis C; I10 Essential (primary) hypertension; E87.6 Hypokalemia; F10.10 Alcohol abuse, uncomplicated; F12.10 Cannabis abuse, uncomplicated; F15.10 Other stimulant abuse, uncomplicated; F17.200 Nicotine dependence, unspecified, uncomplicated; J44.9 Chronic obstructive pulmonary disease, unspecified; K21.9 Gastro-esophageal reflux disease without esophagitis; B19.20 Unspecified viral hepatitis C without hepatic coma; G89.29 Other chronic pain; Z20.822 Contact with and (suspected) exposure to COVID-19; M54.9 Dorsalgia, unspecified; Z79.899 Other long term (current) drug therapy; Z88.8 Allergy status to other drugs, medicaments and biological substances; Z71.6 Tobacco abuse counseling
CPT/HCPCS: 80048; 80053; 81003; 85025; 87081; 99285; G0480; J1200; J2060

== ENCOUNTER 2022-09-07 19:17 | Inpatient (IN) | payer MEDICAID, OTHER ==
[~2022-09-07] VITALS: Ht 175.3 cm; Wt 91.2 kg
[~2022-09-07 19:17] MED LIST changes: +BUPR-72 PO; -BUPR75TA8 PO; -FLUT16H NASAL; -GABA-533 PO; -LORA10TA7 PO; -NORT10CA2 PO; -OLAN1TAB5 PO; +OLAN5TAB94 PO; -PROP10TA72 PO
[2022-09-07 20:09] LABS: BASOPHILS % (AUTO) 1.2 % (0.0-2.0); EOSINOPHILS % (AUTO) 2.8 % (1.0-6.0); HEMATOCRIT 44.5 % (41-53); HEMOGLOBIN 14.8 g/dL (13.5-17.5); LYMPHOCYTES # (AUTO) 2.1 K/uL (1.0-4.8); LYMPHOCYTES % (AUTO) 27.1 % (22.0-44.0); MEAN CORPUSCULAR HEMOGLOBIN 29.2 pg (26.0-34.0); MEAN CORPUSCULAR HGB CONC 33.2 G/dL (31.0-37.0); MEAN CORPUSCULAR VOLUME 88 fL (80-100); MONOCYTES # (AUTO) 0.9 K/uL (0.1-1.0); MONOCYTES % (AUTO) 11.8 % (2.0-9.0); NEUTROPHILS # (AUTO) 4.4 K/uL (1.8-7.7); NEUTROPHILS % (AUTO) 57.1 % (40.0-70.0); PLATELET COUNT (AUTO) 303 K/uL (150-450); RED BLOOD CELL COUNT(AUTO) 5.07 MIL/uL (4.50-5.90); RED CELL DISTRIBUTION WIDTH 14.1 % (11.5-14.5)
[2022-09-07 20:16] LABS: ANION GAP 5 mmol/L (8-16); CALCIUM, TOTAL 9.6 mg/dL (8.8-10.5); CARBON DIOXIDE 32 mmol/L (22-29); CHLORIDE 104 mmol/L (98-107); CREATININE 1.09 mg/dL (0.60-1.30); GLUCOSE,RANDOM 116 mg/dL (70-110); POTASSIUM 4.4 mmol/L (3.5-5.1); SODIUM SERUM 141 mmol/L (136-145); UREA NITROGEN, BLOOD 14 mg/dL (7-18)
[2022-09-07 20:18] LABS: GLOMERULAR FILTR. RATE CALC > 60 mL/min (>60)
[2022-09-07 20:22] LABS: ALANINE AMINOTRANSFERASE 35 U/L (12-78); ALBUMIN 4.1 g/dL (3.4-5.0); ALKALINE PHOSPHATASE 148 U/L (46-116); ASPARTATE AMINOTRANSFERASE 25 U/L (15-37); BILIRUBIN,TOTAL 0.4 mg/dL (0.1-1.0); TOTAL PROTEIN, SERUM 8.2 g/dL (6.4-8.2)
[2022-09-08 02:26] LABS: COVID AG,FIA SOURCE NASOPHARYNGEAL
[2022-09-08 02:35] LABS: AMPHET/METH SCREEN,URINE POSITIVE (NEGATIVE); BARBITURATE SCREEN, URINE NEGATIVE (NEGATIVE); BENZODIAZEPINES SCREEN,URINE NEGATIVE (NEGATIVE); CANNABINOID SCREEN,URINE NEGATIVE (NEGATIVE); COCAINE SCREEN,URINE NEGATIVE (NEGATIVE); METHADONE SCREEN, URINE NEGATIVE (NEGATIVE); OPIATE SCREEN,URINE NEGATIVE (NEGATIVE)
[2022-09-08 02:36] LABS: PHENCYCLIDINE SCREEN,URINE NEGATIVE (NEGATIVE)
[2022-09-08] MEDS ORDERED: ZOLPIDEM TARTRATE 10 MG TABLET PO PRN (10:45)
[2022-09-08] MEDS: AmLODIPine BESYLATE 10 MG TABLET PO SCH (11:37)
[2022-09-08 16:23] VITALS: BP 150/84
[2022-09-08 20:06] VITALS: BP 146/82
[2022-09-08] MEDS: HydrOXYzine PAMOATE 50 MG CAPSULE PO PRN (20:53)
[2022-09-08] MEDS ORDERED: LOPERAMIDE HCL 2 MG CAPSULE PO PRN (21:00)
[2022-09-08] MEDS ORDERED: ACETAMINOPHEN 325 MG TABLET PO PRN (21:00)
[2022-09-08] MEDS ORDERED: MAGNESIUM HYDROXIDE SUSPENSION 30 ML UDCUP PO PRN (21:00)
[2022-09-08] MEDS ORDERED: DOCUSATE SODIUM 100 MG CAPSULE PO PRN (21:15)
[2022-09-08] MEDS ORDERED: ONDANSETRON HCL 4 MG TABLET PO PRN (21:15)
[2022-09-08] MEDS ORDERED: IBUPROFEN 400 MG TABLET PO PRN (21:15)
[2022-09-09 06:46] LABS: BASOPHILS % (AUTO) 0.8 % (0.0-2.0); EOSINOPHILS % (AUTO) 3.9 % (1.0-6.0); HEMATOCRIT 44.8 % (41-53); HEMOGLOBIN 14.7 g/dL (13.5-17.5); LYMPHOCYTES # (AUTO) 2.5 K/uL (1.0-4.8); LYMPHOCYTES % (AUTO) 39.5 % (22.0-44.0); MEAN CORPUSCULAR HEMOGLOBIN 29.3 pg (26.0-34.0); MEAN CORPUSCULAR HGB CONC 32.9 G/dL (31.0-37.0); MEAN CORPUSCULAR VOLUME 89 fL (80-100); MONOCYTES # (AUTO) 0.5 K/uL (0.1-1.0); MONOCYTES % (AUTO) 8.1 % (2.0-9.0); NEUTROPHILS % (AUTO) 47.7 % (40.0-70.0); PLATELET COUNT (AUTO) 270 K/uL (150-450); RED BLOOD CELL COUNT(AUTO) 5.03 MIL/uL (4.50-5.90); RED CELL DISTRIBUTION WIDTH 13.8 % (11.5-14.5)
[2022-09-09 07:11] LABS: HEMOGLOBIN A1C 5.9 % (3.8-5.6)
[2022-09-09 07:16] LABS: ALANINE AMINOTRANSFERASE 27 U/L (12-78); ALBUMIN 3.4 g/dL (3.4-5.0); ALKALINE PHOSPHATASE 115 U/L (46-116); ANION GAP 2 mmol/L (8-16); ASPARTATE AMINOTRANSFERASE 19 U/L (15-37); BILIRUBIN,TOTAL 0.5 mg/dL (0.1-1.0); CALCIUM, TOTAL 9.4 mg/dL (8.8-10.5); CARBON DIOXIDE 33 mmol/L (22-29); CHLORIDE 104 mmol/L (98-107); CHOL/HDL RATIO 5.3 (4.2-7.3); CHOLESTEROL 190 mg/dL (131-200); CREATININE 1.08 mg/dL (0.60-1.30); FREE T4 (FREE THYROXINE) 0.69 ng/dL (0.76-1.46); GLUCOSE,RANDOM 114 mg/dL (70-110); HDL CHOLESTEROL 36 mg/dL (40-60); LDL CHOL (CALC.) 126 mg/dL (0-130); SODIUM SERUM 139 mmol/L (136-145); THYROID STIMULATING HORMONE 1.76 uIU/mL (0.36-3.74); TOTAL PROTEIN, SERUM 7.2 g/dL (6.4-8.2); TRIGLYCERIDES 139 mg/dL (15-150); UREA NITROGEN, BLOOD 12 mg/dL (7-18)
[2022-09-09 07:18] LABS: GLOMERULAR FILTR. RATE CALC > 60 mL/min (>60)
[2022-09-09 08:14] VITALS: BP 145/78
[2022-09-09] MEDS: AmLODIPine BESYLATE 10 MG TABLET PO SCH (08:19)
[2022-09-09] MEDS: BuPROPion HCL 150 MG SR TABLET PO SCH (11:13)
[2022-09-09] MEDS ORDERED: GuaiFENesin/D-METHORPHAN [SUGAR-FREE] 200-20MG/10 ML SYRUP UDCUP PO PRN (15:00)
[2022-09-09] MEDS ORDERED: IBUPROFEN 400 MG TABLET PO PRN (15:00)
[2022-09-09] MEDS ORDERED: ALBUTEROL SULFATE HFA 90 MCG/PUFF 8 GM INHALER IH PRN (15:00)
[2022-09-09] MEDS ORDERED: DOCUSATE SODIUM 100 MG CAPSULE PO PRN (15:00)
[2022-09-09] MEDS ORDERED: ACETAMINOPHEN 325 MG TABLET PO PRN (15:00)
[2022-09-09] MEDS ORDERED: LOPERAMIDE HCL 2 MG CAPSULE PO PRN (15:00)
[2022-09-09] MEDS ORDERED: MAGNESIUM HYDROXIDE SUSPENSION 30 ML UDCUP PO PRN (15:00)
[2022-09-09] MEDS ORDERED: MAG HYDROX/AL HYDROX/SIMETH ES 30 ML SUSPENSION UDCUP PO PRN (15:00)
[2022-09-09] MEDS ORDERED: ONDANSETRON HCL 4 MG TABLET PO PRN (15:00)
[2022-09-09] MEDS ORDERED: NICOTINE 14 MG/24 HOUR PATCH TD PRN (15:00)
[2022-09-09] MEDS ORDERED: CloNIDine HCL 0.1 MG TABLET PO PRN (15:00)
[2022-09-09] MEDS ORDERED: PETROLATUM,WHITE 28 GM JELLY TP PRN (15:00)
[2022-09-09] MEDS: HydrOXYzine PAMOATE 50 MG CAPSULE PO PRN (18:26)
[2022-09-09 20:00] VITALS: BP 111/68
[2022-09-09] MEDS ORDERED: ATORVASTATIN CALCIUM 20 MG TABLET PO SCH (21:00)
[2022-09-09] MEDS ORDERED: OLANZapine 7.5 MG TABLET PO SCH (21:00)
[2022-09-10 08:06] VITALS: BP 131/83
[2022-09-10] MEDS: BuPROPion HCL 150 MG SR TABLET PO SCH (08:12)
[2022-09-10] MEDS: AmLODIPine BESYLATE 10 MG TABLET PO SCH (08:12)
[2022-09-10] MEDS ORDERED: AmLODIPine BESYLATE 10 MG TABLET PO SCH (09:00)
[2022-09-10] MEDS ORDERED: BUPR-72 PO (12:26)
[2022-09-10] MEDS ORDERED: AMLO-258 PO (12:29)
[2022-09-10] MEDS ORDERED: OLAN7.5T22 PO (12:29)
[2022-09-10] MEDS ORDERED: ATOR20TA86 PO (12:30)
== END 2022-09-10 13:00 | disposition home or self-care (01) | DRG 750 ==
LOC: EMS 19:22 → B3A 09-08 07:00
PROVIDERS: ADMIT Psychiatry & Neurology Child & Adolescent Psychiatry; ATTEND Psychiatry & Neurology Child & Adolescent Psychiatry
DX: F20.9 Schizophrenia, unspecified (principal); E11.9 Type 2 diabetes mellitus without complications; B19.20 Unspecified viral hepatitis C without hepatic coma; E03.9 Hypothyroidism, unspecified; E78.5 Hyperlipidemia, unspecified; F17.200 Nicotine dependence, unspecified, uncomplicated; I10 Essential (primary) hypertension; J44.9 Chronic obstructive pulmonary disease, unspecified; F32.A Depression, unspecified; F41.9 Anxiety disorder, unspecified; G89.29 Other chronic pain; M54.9 Dorsalgia, unspecified; Z20.822 Contact with and (suspected) exposure to COVID-19; F15.90 Other stimulant use, unspecified, uncomplicated; Z79.899 Other long term (current) drug therapy; Z88.8 Allergy status to other drugs, medicaments and biological substances
CPT/HCPCS: 80053; 80061; 83036; 84436; 84439; 84443; 85025; 86592; 99285; G0480

== ENCOUNTER 2022-09-10 17:57 | Emergency (ER) | payer MEDICAID ==
[~2022-09-10] VITALS: Ht 175.3 cm; Wt 95.5 kg
[~2022-09-10 17:57] MED LIST changes: +AMLO-258 PO; +ATOR20TA86 PO; +OLAN7.5T22 PO
[2022-09-10] MEDS ORDERED: LORazepam 2 MG/ML VIAL IVP ONE (19:15)
[2022-09-10 19:37] LABS: COVID AG,FIA SOURCE NASOPHARYNGEAL
[2022-09-10 19:43] LABS: BASOPHILS % (AUTO) 0.7 % (0.0-2.0); EOSINOPHILS % (AUTO) 2.7 % (1.0-6.0); HEMATOCRIT 45.2 % (41-53); HEMOGLOBIN 15.2 g/dL (13.5-17.5); LYMPHOCYTES # (AUTO) 1.5 K/uL (1.0-4.8); LYMPHOCYTES % (AUTO) 22.8 % (22.0-44.0); MEAN CORPUSCULAR HEMOGLOBIN 29.6 pg (26.0-34.0); MEAN CORPUSCULAR HGB CONC 33.6 G/dL (31.0-37.0); MEAN CORPUSCULAR VOLUME 88 fL (80-100); MONOCYTES # (AUTO) 0.8 K/uL (0.1-1.0); MONOCYTES % (AUTO) 11.5 % (2.0-9.0); NEUTROPHILS # (AUTO) 4.1 K/uL (1.8-7.7); NEUTROPHILS % (AUTO) 62.3 % (40.0-70.0); PLATELET COUNT (AUTO) 280 K/uL (150-450); RED BLOOD CELL COUNT(AUTO) 5.14 MIL/uL (4.50-5.90); RED CELL DISTRIBUTION WIDTH 13.6 % (11.5-14.5)
[2022-09-10 19:52] LABS: ANION GAP 5 mmol/L (8-16); CALCIUM, TOTAL 10.1 mg/dL (8.8-10.5); CARBON DIOXIDE 30 mmol/L (22-29); CHLORIDE 101 mmol/L (98-107); CREATININE 1.03 mg/dL (0.60-1.30); GLUCOSE,RANDOM 102 mg/dL (70-110); POTASSIUM 3.8 mmol/L (3.5-5.1); SODIUM SERUM 136 mmol/L (136-145); UREA NITROGEN, BLOOD 18 mg/dL (7-18)
[2022-09-10 19:54] LABS: GLOMERULAR FILTR. RATE CALC > 60 mL/min (>60)
[2022-09-10 19:56] LABS: ALANINE AMINOTRANSFERASE 39 U/L (12-78); ALBUMIN 4.1 g/dL (3.4-5.0); ALKALINE PHOSPHATASE 113 U/L (46-116); ASPARTATE AMINOTRANSFERASE 38 U/L (15-37); BILIRUBIN,TOTAL 0.5 mg/dL (0.1-1.0); TOTAL PROTEIN, SERUM 8.3 g/dL (6.4-8.2)
[2022-09-10 20:12] VITALS: BP 155/118
[2022-09-10] MEDS ORDERED: AmLODIPine BESYLATE 5 MG TABLET PO ONE (20:15)
== END 2022-09-10 20:45 | disposition home or self-care (01) ==
LOC: EMS 17:58
DX: F20.9 Schizophrenia, unspecified (principal); I10 Essential (primary) hypertension; Z20.822 Contact with and (suspected) exposure to COVID-19; F32.9 Major depressive disorder, single episode, unspecified; F10.20 Alcohol dependence, uncomplicated; F17.210 Nicotine dependence, cigarettes, uncomplicated; F15.10 Other stimulant abuse, uncomplicated; G89.29 Other chronic pain; Z88.6 Allergy status to analgesic agent
CPT/HCPCS: 99283; 87426; 80053; 85025; 36415; G0480

== ENCOUNTER 2023-01-31 23:45 | Inpatient (IN) | payer MEDICAID, OTHER ==
[~2023-01-31] VITALS: Ht 172.7 cm; Wt 90.5 kg
[~2023-01-31 23:45] MED LIST changes: -AMLO10TA55 PO; -ATOR20TA65 PO; -OLAN5TAB94 PO
[2023-02-01 01:27] LABS: BASOPHILS % (AUTO) 0.4 % (0.0-2.0); EOSINOPHILS % (AUTO) 2.3 % (1.0-6.0); HEMOGLOBIN 14.8 g/dL (13.5-17.5); LYMPHOCYTES # (AUTO) 1.9 K/uL (1.0-4.8); LYMPHOCYTES % (AUTO) 24.9 % (22.0-44.0); MEAN CORPUSCULAR HEMOGLOBIN 30.2 pg (26.0-34.0); MEAN CORPUSCULAR HGB CONC 34.3 G/dL (31.0-37.0); MEAN CORPUSCULAR VOLUME 88 fL (80-100); MONOCYTES # (AUTO) 0.7 K/uL (0.1-1.0); MONOCYTES % (AUTO) 8.8 % (2.0-9.0); NEUTROPHILS # (AUTO) 4.8 K/uL (1.8-7.7); NEUTROPHILS % (AUTO) 63.6 % (40.0-70.0); PLATELET COUNT (AUTO) 267 K/uL (150-450); RED BLOOD CELL COUNT(AUTO) 4.89 MIL/uL (4.50-5.90); RED CELL DISTRIBUTION WIDTH 13.3 % (11.5-14.5)
[2023-02-01 01:36] LABS: ANION GAP 9 mmol/L (8-16); CALCIUM, TOTAL 9.2 mg/dL (8.8-10.5); CARBON DIOXIDE 30 mmol/L (22-29); CHLORIDE 106 mmol/L (98-107); CREATININE 1.18 mg/dL (0.60-1.30); GLOMERULAR FILTR. RATE CALC > 60 mL/min (>60); GLUCOSE,RANDOM 107 mg/dL (70-110); POTASSIUM 4.4 mmol/L (3.5-5.1); SODIUM SERUM 145 mmol/L (136-145); UREA NITROGEN, BLOOD 12 mg/dL (7-18)
[2023-02-01 01:41] LABS: ALANINE AMINOTRANSFERASE 35 U/L (12-78); ALBUMIN 4.2 g/dL (3.4-5.0); ALKALINE PHOSPHATASE 101 U/L (46-116); ASPARTATE AMINOTRANSFERASE 35 U/L (15-37); BILIRUBIN,TOTAL 0.5 mg/dL (0.1-1.0)
[2023-02-01] MEDS ORDERED: OLANZapine 5 MG TABLET PO ONE ×2 (02:00→05:45)
[2023-02-01] MEDS ORDERED: DiphenhydrAMINE HCL 25 MG CAPSULE PO ONE (02:00)
[2023-02-01] MEDS ORDERED: LORazepam 2 MG TABLET PO ONE ×2 (02:00→05:45)
[2023-02-01 03:51] LABS: COVID AG,FIA SOURCE NASOPHARYNGEAL
[2023-02-01] MEDS ORDERED: ZOLPIDEM TARTRATE 10 MG TABLET PO PRN (05:45)
[2023-02-01] MEDS ORDERED: OLANZapine 5 MG RAPDIS TABLET PO PRN (05:45)
[2023-02-01 16:30] VITALS: BP 152/99
[2023-02-02] MEDS ORDERED: DOCUSATE SODIUM 100 MG CAPSULE PO PRN (07:15)
[2023-02-02] MEDS ORDERED: GuaiFENesin/D-METHORPHAN [SUGAR-FREE] 200-20MG/10 ML SYRUP UDCUP PO PRN (07:15)
[2023-02-02] MEDS ORDERED: LOPERAMIDE HCL 2 MG CAPSULE PO PRN (07:15)
[2023-02-02] MEDS ORDERED: NICOTINE 14 MG/24 HOUR PATCH TD PRN (07:15)
[2023-02-02] MEDS ORDERED: ONDANSETRON HCL 4 MG TABLET PO PRN (07:15)
[2023-02-02] MEDS ORDERED: PETROLATUM,WHITE 28 GM JELLY TP PRN (07:15)
[2023-02-02] MEDS ORDERED: CloNIDine HCL 0.1 MG TABLET PO PRN (07:15)
[2023-02-02] MEDS ORDERED: ALBUTEROL SULFATE HFA 90 MCG/PUFF 8 GM INHALER IH PRN (07:15)
[2023-02-02] MEDS ORDERED: ACETAMINOPHEN 325 MG TABLET PO PRN (07:15)
[2023-02-02] MEDS ORDERED: MAGNESIUM HYDROXIDE SUSPENSION 30 ML UDCUP PO PRN (07:15)
[2023-02-02] MEDS ORDERED: MAG HYDROX/AL HYDROX/SIMETH ES 30 ML SUSPENSION UDCUP PO PRN (07:15)
[2023-02-02] MEDS: BuPROPion HCL 150 MG SR TABLET PO SCH ×2 (09:45→15:22)
[2023-02-02] MEDS: AmLODIPine BESYLATE 10 MG TABLET PO SCH (12:07)
[2023-02-02] MEDS: IBUPROFEN 400 MG TABLET PO PRN (14:53)
[2023-02-02] MEDS: LORazepam 2 MG TABLET PO PRN (17:55)
[2023-02-02 20:18] VITALS: BP 150/90
[2023-02-02] MEDS: ATORVASTATIN CALCIUM 20 MG TABLET PO SCH (21:22)
[2023-02-02] MEDS: OLANZapine 7.5 MG TABLET PO SCH (21:22)
[2023-02-03] MEDS: AmLODIPine BESYLATE 10 MG TABLET PO SCH (10:29)
[2023-02-03] MEDS: BuPROPion HCL 150 MG SR TABLET PO SCH (10:30)
[2023-02-03 16:52] VITALS: BP 150/90
[2023-02-03] MEDS: LORazepam 2 MG TABLET PO PRN (18:41)
[2023-02-03 20:19] VITALS: BP 151/81
[2023-02-03] MEDS: OLANZapine 7.5 MG TABLET PO SCH (20:32)
[2023-02-03] MEDS: ATORVASTATIN CALCIUM 20 MG TABLET PO SCH (20:32)
[2023-02-04 08:01] VITALS: BP 155/86
[2023-02-04] MEDS: AmLODIPine BESYLATE 10 MG TABLET PO SCH (10:00)
[2023-02-04] MEDS: BuPROPion HCL 150 MG SR TABLET PO SCH (10:00)
[2023-02-04 16:07] VITALS: BP 150/95
[2023-02-04 20:00] VITALS: BP 145/80
[2023-02-04] MEDS: ATORVASTATIN CALCIUM 20 MG TABLET PO SCH (20:52)
[2023-02-04] MEDS: OLANZapine 7.5 MG TABLET PO SCH (20:53)
[2023-02-05 08:10] VITALS: BP 149/83
[2023-02-05] MEDS: AmLODIPine BESYLATE 10 MG TABLET PO SCH (10:26)
[2023-02-05] MEDS: BuPROPion HCL 150 MG SR TABLET PO SCH (10:26)
[2023-02-05] MEDS: LORazepam 2 MG TABLET PO PRN (14:55)
[2023-02-05 16:36] VITALS: BP 150/88
[2023-02-05] MEDS: ATORVASTATIN CALCIUM 20 MG TABLET PO SCH (20:06)
[2023-02-05] MEDS: OLANZapine 7.5 MG TABLET PO SCH (20:06)
[2023-02-05 20:57] VITALS: BP 140/80
[2023-02-06 08:47] VITALS: BP 139/92
[2023-02-06] MEDS: BuPROPion HCL 150 MG SR TABLET PO SCH (09:48)
[2023-02-06] MEDS: AmLODIPine BESYLATE 10 MG TABLET PO SCH (09:48)
[2023-02-06 16:03] VITALS: BP 141/84
[2023-02-06] MEDS: LORazepam 2 MG TABLET PO PRN (19:28)
[2023-02-06 20:50] VITALS: BP 139/80
[2023-02-06] MEDS: ATORVASTATIN CALCIUM 20 MG TABLET PO SCH (21:05)
[2023-02-06] MEDS: OLANZapine 7.5 MG TABLET PO SCH (21:06)
[2023-02-07 07:46] LABS: COVID AG,FIA SOURCE NASAL SWAB
[2023-02-07 08:59] VITALS: BP 152/78
[2023-02-07] MEDS: AmLODIPine BESYLATE 10 MG TABLET PO SCH (10:06)
[2023-02-07] MEDS: BuPROPion HCL 150 MG SR TABLET PO SCH (10:06)
[2023-02-07 16:54] VITALS: BP 139/93
[2023-02-07] MEDS: LORazepam 2 MG TABLET PO PRN (18:04)
[2023-02-07] MEDS: OLANZapine 7.5 MG TABLET PO SCH (20:14)
[2023-02-07] MEDS: ATORVASTATIN CALCIUM 20 MG TABLET PO SCH (20:14)
[2023-02-07 20:30] VITALS: BP 135/70
[2023-02-08] MEDS: BuPROPion HCL 150 MG SR TABLET PO SCH (08:08)
[2023-02-08] MEDS: AmLODIPine BESYLATE 10 MG TABLET PO SCH (08:08)
[2023-02-08 16:18] VITALS: BP 166/99
[2023-02-08] MEDS: IBUPROFEN 400 MG TABLET PO PRN (16:27)
[2023-02-08 17:27] VITALS: BP 146/84
[2023-02-08] MEDS: OLANZapine 7.5 MG TABLET PO SCH (20:16)
[2023-02-08] MEDS: ATORVASTATIN CALCIUM 20 MG TABLET PO SCH (20:16)
[2023-02-09] MEDS: BuPROPion HCL 150 MG SR TABLET PO SCH (08:11)
[2023-02-09] MEDS: AmLODIPine BESYLATE 10 MG TABLET PO SCH (08:11)
[2023-02-09 08:28] VITALS: BP 148/74
[2023-02-09 17:07] VITALS: BP 135/87
[2023-02-09 20:12] VITALS: BP 140/92
[2023-02-09] MEDS: OLANZapine 7.5 MG TABLET PO SCH (20:52)
[2023-02-09] MEDS: ATORVASTATIN CALCIUM 20 MG TABLET PO SCH (20:52)
[2023-02-09] MEDS: LORazepam 2 MG TABLET PO PRN (22:22)
[2023-02-10 08:03] VITALS: BP 115/74
[2023-02-10] MEDS: BuPROPion HCL 150 MG SR TABLET PO SCH (08:17)
[2023-02-10] MEDS: AmLODIPine BESYLATE 10 MG TABLET PO SCH (08:23)
[2023-02-10 16:34] VITALS: BP 120/81
[2023-02-10] MEDS: ATORVASTATIN CALCIUM 20 MG TABLET PO SCH (20:28)
[2023-02-10] MEDS: LORazepam 2 MG TABLET PO PRN (20:29)
[2023-02-10 20:50] VITALS: BP 133/73
[2023-02-10] MEDS ORDERED: OLANZapine 5 MG TABLET PO SCH (21:00)
[2023-02-11 09:00] VITALS: BP 152/76
[2023-02-11] MEDS ORDERED: BUPR-113 PO (09:32)
[2023-02-11] MEDS ORDERED: OLAN5TAB52 PO (09:32)
[2023-02-11] MEDS: AmLODIPine BESYLATE 10 MG TABLET PO SCH (09:40)
[2023-02-11] MEDS: BuPROPion HCL 150 MG SR TABLET PO SCH (09:40)
== END 2023-02-11 13:10 | disposition home or self-care (01) | DRG 750 ==
LOC: EMS 23:47 → UNDOADMIN 02-01 16:02 → 3EC 02-01 16:02
PROVIDERS: ADMIT Psychiatry & Neurology Child & Adolescent Psychiatry; ATTEND Psychiatry & Neurology Child & Adolescent Psychiatry
DX: F20.0 Paranoid schizophrenia (principal); R45.851 Suicidal ideations; Z91.199 Patient's noncompliance with other medical treatment and regimen due to unspecified reason; E03.9 Hypothyroidism, unspecified; Z20.822 Contact with and (suspected) exposure to COVID-19; E78.5 Hyperlipidemia, unspecified; I10 Essential (primary) hypertension; J30.9 Allergic rhinitis, unspecified; J44.9 Chronic obstructive pulmonary disease, unspecified; F17.210 Nicotine dependence, cigarettes, uncomplicated; Z88.8 Allergy status to other drugs, medicaments and biological substances
CPT/HCPCS: 80053; 85025; 99285; G0480

== ENCOUNTER 2023-06-25 00:29 | Inpatient (IN) | payer MEDICAID, OTHER ==
[~2023-06-25] VITALS: Ht 172.7 cm; Wt 90.3 kg
[~2023-06-25 00:29] MED LIST changes: +ATOR20TA PO; -ATOR20TA86 PO; +BUPR-113 PO; +BUPR-344 PO; -BUPR-72 PO; +OLAN10TA74 PO; +OLAN5TAB52 PO; -OLAN7.5T22 PO
[2023-06-25 01:04] LABS: BASOPHILS % (AUTO) 0.6 % (0.0-2.0); EOSINOPHILS % (AUTO) 4.2 % (1.0-6.0); HEMATOCRIT 43.8 % (41-53); HEMOGLOBIN 14.7 g/dL (13.5-17.5); LYMPHOCYTES # (AUTO) 2.7 K/uL (1.0-4.8); LYMPHOCYTES % (AUTO) 33.6 % (22.0-44.0); MEAN CORPUSCULAR HEMOGLOBIN 29.4 pg (26.0-34.0); MEAN CORPUSCULAR HGB CONC 33.6 G/dL (31.0-37.0); MEAN CORPUSCULAR VOLUME 88 fL (80-100); MONOCYTES # (AUTO) 0.9 K/uL (0.1-1.0); MONOCYTES % (AUTO) 11.1 % (2.0-9.0); NEUTROPHILS # (AUTO) 4.1 K/uL (1.8-7.7); NEUTROPHILS % (AUTO) 50.5 % (40.0-70.0); PLATELET COUNT (AUTO) 283 K/uL (150-450); RED CELL DISTRIBUTION WIDTH 13.5 % (11.5-14.5)
[2023-06-25 01:14] LABS: ANION GAP 7 mmol/L (8-16); CALCIUM, TOTAL 9.7 mg/dL (8.8-10.5); CARBON DIOXIDE 29 mmol/L (22-29); CHLORIDE 106 mmol/L (98-107); CREATININE 1.07 mg/dL (0.60-1.30); GLOMERULAR FILTR. RATE CALC > 60 mL/min (>60); GLUCOSE,RANDOM 118 mg/dL (70-110); POTASSIUM 3.8 mmol/L (3.5-5.1); SODIUM SERUM 142 mmol/L (136-145)
[2023-06-25 01:19] LABS: ALANINE AMINOTRANSFERASE 24 U/L (12-78); ALKALINE PHOSPHATASE 117 U/L (46-116); ASPARTATE AMINOTRANSFERASE 18 U/L (15-37); BILIRUBIN,TOTAL 0.5 mg/dL (0.1-1.0); TOTAL PROTEIN, SERUM 7.8 g/dL (6.4-8.2)
[2023-06-25] MEDS ORDERED: LORazepam 2 MG TABLET PO PRN (03:30)
[2023-06-25] MEDS ORDERED: OLANZapine 5 MG RAPDIS TABLET PO PRN ×2 (03:30→06:30)
[2023-06-25] MEDS ORDERED: ZOLPIDEM TARTRATE 10 MG TABLET PO PRN (03:30)
[2023-06-25 07:42] LABS: COVID AG,FIA SOURCE NASOPHARYNGEAL
[2023-06-25 10:23] LABS: AMPHET/METH SCREEN,URINE NEGATIVE (NEGATIVE); BARBITURATE SCREEN, URINE NEGATIVE (NEGATIVE); BENZODIAZEPINES SCREEN,URINE NEGATIVE (NEGATIVE); CANNABINOID SCREEN,URINE NEGATIVE (NEGATIVE); COCAINE SCREEN,URINE NEGATIVE (NEGATIVE); METHADONE SCREEN, URINE NEGATIVE (NEGATIVE); OPIATE SCREEN,URINE NEGATIVE (NEGATIVE); PHENCYCLIDINE SCREEN,URINE NEGATIVE (NEGATIVE)
[2023-06-25] MEDS: LORazepam 2 MG TABLET PO PRN (14:59)
[2023-06-25 21:36] VITALS: BP 149/98; PULSE 90; RESP 18; TEMP 97.2; O2SAT 98
[2023-06-26 08:32] VITALS: BP 158/98; PULSE 83; RESP 18; TEMP 97.6; O2SAT 96
[2023-06-26] MEDS: BuPROPion HCL 150 MG SR TABLET PO SCH (10:04)
[2023-06-26] MEDS ORDERED: GuaiFENesin/D-METHORPHAN [SUGAR-FREE] 200-20MG/10 ML SYRUP UDCUP PO PRN (17:15)
[2023-06-26] MEDS ORDERED: PETROLATUM,WHITE 28 GM JELLY TP PRN (17:15)
[2023-06-26] MEDS ORDERED: MAG HYDROX/AL HYDROX/SIMETH ES 30 ML SUSPENSION UDCUP PO PRN (17:15)
[2023-06-26] MEDS ORDERED: CloNIDine HCL 0.1 MG TABLET PO PRN (17:15)
[2023-06-26] MEDS ORDERED: NICOTINE 14 MG/24 HOUR PATCH TD PRN (17:15)
[2023-06-26] MEDS ORDERED: ONDANSETRON HCL 4 MG TABLET PO PRN (17:15)
[2023-06-26] MEDS ORDERED: ACETAMINOPHEN 325 MG TABLET PO PRN (17:15)
[2023-06-26] MEDS ORDERED: ALBUTEROL SULFATE HFA 90 MCG/PUFF 8 GM INHALER IH PRN (17:15)
[2023-06-26] MEDS ORDERED: MAGNESIUM HYDROXIDE SUSPENSION 30 ML UDCUP PO PRN (17:15)
[2023-06-26] MEDS ORDERED: DOCUSATE SODIUM 100 MG CAPSULE PO PRN (17:15)
[2023-06-26] MEDS ORDERED: LOPERAMIDE HCL 2 MG CAPSULE PO PRN (17:15)
[2023-06-26 19:53] VITALS: RESP 18
[2023-06-26] MEDS: IBUPROFEN 400 MG TABLET PO PRN (19:53)
[2023-06-26 20:21] VITALS: BP 148/84; PULSE 90; RESP 19; TEMP 97.8; O2SAT 99
[2023-06-26] MEDS: ATORVASTATIN CALCIUM 20 MG TABLET PO SCH (20:38)
[2023-06-26] MEDS: OLANZapine 10 MG TABLET PO SCH (20:38)
[2023-06-26 20:53] VITALS: RESP 18
[2023-06-27] MEDS: AmLODIPine BESYLATE 10 MG TABLET PO SCH (09:59)
[2023-06-27] MEDS: BuPROPion HCL 150 MG SR TABLET PO SCH (09:59)
[2023-06-27 16:40] VITALS: BP 140/80; PULSE 80; RESP 18; TEMP 98.2; O2SAT 98
[2023-06-27] MEDS: LORazepam 2 MG TABLET PO PRN (16:49)
[2023-06-27] MEDS: OLANZapine 10 MG TABLET PO SCH (20:35)
[2023-06-27] MEDS: ATORVASTATIN CALCIUM 20 MG TABLET PO SCH (20:36)
[2023-06-28 00:34] VITALS: RESP 20; TEMP 97.9
[2023-06-28 08:15] VITALS: RESP 18
[2023-06-28 08:17] LABS: HEMOGLOBIN A1C 5.8 % (3.8-5.6)
[2023-06-28 08:29] LABS: CHOL/HDL RATIO 3.4 (4.2-7.3); THYROID STIMULATING HORMONE 2.01 uIU/mL (0.36-3.74)
[2023-06-28 09:20] VITALS: BP 148/95; PULSE 89; RESP 18; TEMP 98.1; O2SAT 97
[2023-06-28] MEDS: BuPROPion HCL 150 MG SR TABLET PO SCH (09:22)
[2023-06-28] MEDS: AmLODIPine BESYLATE 10 MG TABLET PO SCH (09:22)
[2023-06-28] MEDS: LORazepam 2 MG TABLET PO PRN (17:18)
[2023-06-28] MEDS: MUPIROCIN CALCIUM 2% 22 GM OINTMENT NASAL SCH (17:18)
[2023-06-28] MEDS: OLANZapine 10 MG TABLET PO SCH (20:03)
[2023-06-28] MEDS: ATORVASTATIN CALCIUM 20 MG TABLET PO SCH (20:03)
[2023-06-28 20:09] VITALS: BP 106/70; PULSE 85; RESP 18; TEMP 98; O2SAT 97
[2023-06-29 08:27] VITALS: BP 153/84; PULSE 77; RESP 18; TEMP 97.9; O2SAT 98
[2023-06-29] MEDS: MUPIROCIN CALCIUM 2% 22 GM OINTMENT NASAL SCH ×2 (08:30→16:55)
[2023-06-29] MEDS: BuPROPion HCL 150 MG SR TABLET PO SCH (08:30)
[2023-06-29] MEDS: AmLODIPine BESYLATE 10 MG TABLET PO SCH (08:30)
[2023-06-29 20:04] VITALS: BP 149/93; PULSE 96; RESP 19; TEMP 98.2; O2SAT 98
[2023-06-29] MEDS: LORazepam 2 MG TABLET PO PRN (22:32)
[2023-06-29] MEDS: OLANZapine 10 MG TABLET PO SCH (22:32)
[2023-06-29] MEDS: ATORVASTATIN CALCIUM 20 MG TABLET PO SCH (22:32)
[2023-06-30 08:09] VITALS: BP 148/86; PULSE 74; RESP 18; TEMP 97.3; O2SAT 96
[2023-06-30] MEDS: BuPROPion HCL 150 MG SR TABLET PO SCH ×2 (08:10→17:29)
[2023-06-30] MEDS: AmLODIPine BESYLATE 10 MG TABLET PO SCH (08:10)
[2023-06-30] MEDS: MUPIROCIN CALCIUM 2% 22 GM OINTMENT NASAL SCH ×2 (08:12→17:30)
[2023-06-30] MEDS: ATORVASTATIN CALCIUM 20 MG TABLET PO SCH (20:14)
[2023-06-30] MEDS: OLANZapine 10 MG TABLET PO SCH (20:14)
[2023-06-30 21:12] VITALS: BP 143/82; PULSE 80; RESP 18; TEMP 97.3
[2023-06-30] MEDS: LORazepam 2 MG TABLET PO PRN (22:53)
[2023-07-01] MEDS: AmLODIPine BESYLATE 10 MG TABLET PO SCH (08:09)
[2023-07-01] MEDS: MUPIROCIN CALCIUM 2% 22 GM OINTMENT NASAL SCH ×2 (08:10→16:40)
[2023-07-01] MEDS: BuPROPion HCL 150 MG SR TABLET PO SCH ×2 (08:10→16:39)
[2023-07-01 08:28] VITALS: BP 136/78; PULSE 71; RESP 18; TEMP 98.5; O2SAT 95
[2023-07-01] MEDS: LORazepam 2 MG TABLET PO PRN ×2 (16:39→22:37)
[2023-07-01 20:10] VITALS: BP 140/70; PULSE 80; RESP 20; TEMP 98; O2SAT 98
[2023-07-01] MEDS: ATORVASTATIN CALCIUM 20 MG TABLET PO SCH (20:11)
[2023-07-01] MEDS: OLANZapine 10 MG TABLET PO SCH (20:11)
[2023-07-02 08:24] VITALS: BP 137/75; PULSE 74; RESP 18; TEMP 98.1; O2SAT 94
[2023-07-02] MEDS: LORazepam 2 MG TABLET PO PRN (09:01)
[2023-07-02] MEDS: MUPIROCIN CALCIUM 2% 22 GM OINTMENT NASAL SCH ×2 (09:01→17:10)
[2023-07-02] MEDS: AmLODIPine BESYLATE 10 MG TABLET PO SCH (09:01)
[2023-07-02] MEDS: BuPROPion HCL 150 MG SR TABLET PO SCH ×2 (09:01→17:10)
[2023-07-02 20:14] VITALS: BP 142/82; PULSE 98; RESP 20; TEMP 98.4; O2SAT 99
[2023-07-02] MEDS: ATORVASTATIN CALCIUM 20 MG TABLET PO SCH (20:43)
[2023-07-02] MEDS: OLANZapine 10 MG TABLET PO SCH (20:43)
[2023-07-03 08:27] VITALS: BP 128/87; PULSE 69; RESP 20; TEMP 98.5; O2SAT 99
[2023-07-03] MEDS: MUPIROCIN CALCIUM 2% 22 GM OINTMENT NASAL SCH (09:55)
[2023-07-03] MEDS: AmLODIPine BESYLATE 10 MG TABLET PO SCH (09:56)
[2023-07-03] MEDS: BuPROPion HCL 150 MG SR TABLET PO SCH ×2 (09:56→16:54)
[2023-07-03] MEDS: OLANZapine 10 MG TABLET PO SCH (20:24)
[2023-07-03] MEDS: ATORVASTATIN CALCIUM 20 MG TABLET PO SCH (20:25)
[2023-07-03 20:40] VITALS: BP 142/87; PULSE 97; RESP 17; TEMP 98.3; O2SAT 98
[2023-07-04] MEDS: IBUPROFEN 400 MG TABLET PO PRN ×2 (00:08→20:50)
[2023-07-04] MEDS: ZOLPIDEM TARTRATE 10 MG TABLET PO PRN ×2 (00:08→23:01)
[2023-07-04] MEDS: LORazepam 2 MG TABLET PO PRN (00:09)
[2023-07-04] MEDS: AmLODIPine BESYLATE 10 MG TABLET PO SCH (09:42)
[2023-07-04] MEDS: BuPROPion HCL 150 MG SR TABLET PO SCH ×2 (09:43→17:02)
[2023-07-04 14:47] VITALS: BP 135/82; PULSE 85; RESP 18; TEMP 95.6; O2SAT 99
[2023-07-04 19:51] VITALS: BP 163/99; PULSE 93; RESP 18; TEMP 97.9; O2SAT 96
[2023-07-04 20:05] VITALS: RESP 18
[2023-07-04] MEDS: ATORVASTATIN CALCIUM 20 MG TABLET PO SCH (20:50)
[2023-07-04] MEDS: OLANZapine 10 MG TABLET PO SCH (20:50)
[2023-07-05 08:12] VITALS: BP 124/78; PULSE 65; RESP 18; TEMP 97.3; O2SAT 95
[2023-07-05] MEDS: BuPROPion HCL 150 MG SR TABLET PO SCH ×2 (08:19→16:45)
[2023-07-05] MEDS: AmLODIPine BESYLATE 10 MG TABLET PO SCH (08:19)
[2023-07-05] MEDS: IBUPROFEN 400 MG TABLET PO PRN (16:46)
[2023-07-05 16:47] VITALS: RESP 18
[2023-07-05 17:46] VITALS: RESP 18
[2023-07-05 20:10] VITALS: BP 130/82; PULSE 90; RESP 20; TEMP 97.8; O2SAT 98
[2023-07-05] MEDS: OLANZapine 10 MG TABLET PO SCH (20:24)
[2023-07-05] MEDS: ATORVASTATIN CALCIUM 20 MG TABLET PO SCH (20:24)
[2023-07-05] MEDS: LORazepam 2 MG TABLET PO PRN (22:01)
[2023-07-06] MEDS: BuPROPion HCL 150 MG SR TABLET PO SCH ×2 (08:03→16:18)
[2023-07-06] MEDS: AmLODIPine BESYLATE 10 MG TABLET PO SCH (08:04)
[2023-07-06 08:29] VITALS: BP 146/89; PULSE 65; RESP 18; TEMP 98.6; O2SAT 98
[2023-07-06] MEDS: LORazepam 2 MG TABLET PO PRN ×2 (16:18→23:08)
[2023-07-06] MEDS: OLANZapine 10 MG TABLET PO SCH (20:17)
[2023-07-06] MEDS: ATORVASTATIN CALCIUM 20 MG TABLET PO SCH (20:18)
[2023-07-06 21:34] VITALS: BP 144/94; PULSE 92; RESP 18; TEMP 98; O2SAT 99
[2023-07-07] MEDS: AmLODIPine BESYLATE 10 MG TABLET PO SCH (08:01)
[2023-07-07] MEDS: BuPROPion HCL 150 MG SR TABLET PO SCH ×2 (08:02→16:12)
[2023-07-07 08:11] VITALS: BP 147/91; PULSE 76; RESP 18; TEMP 97.9; O2SAT 98
[2023-07-07] MEDS: LORazepam 2 MG TABLET PO PRN ×2 (16:37→21:59)
[2023-07-07 20:00] VITALS: BP 138/78; PULSE 80; RESP 18; TEMP 97.9
[2023-07-07] MEDS: ATORVASTATIN CALCIUM 20 MG TABLET PO SCH (20:55)
[2023-07-07] MEDS: OLANZapine 10 MG TABLET PO SCH (20:55)
[2023-07-07] MEDS: IBUPROFEN 400 MG TABLET PO PRN (21:59)
[2023-07-07 22:00] VITALS: RESP 20
[2023-07-07 22:59] VITALS: RESP 18
[2023-07-08] MEDS: BuPROPion HCL 150 MG SR TABLET PO SCH (08:04)
[2023-07-08] MEDS: AmLODIPine BESYLATE 10 MG TABLET PO SCH (08:04)
[2023-07-08 08:19] VITALS: BP 110/86; PULSE 67; RESP 18; TEMP 98; O2SAT 97
== END 2023-07-08 15:15 | disposition home or self-care (01) | DRG 750 ==
LOC: EMS 00:29 → B3A 15:42
PROVIDERS: ADMIT Psychiatry & Neurology Child & Adolescent Psychiatry; ATTEND Psychiatry & Neurology Child & Adolescent Psychiatry
DX: F25.1 Schizoaffective disorder, depressive type (principal); K74.60 Unspecified cirrhosis of liver; E11.9 Type 2 diabetes mellitus without complications; R45.851 Suicidal ideations; E03.9 Hypothyroidism, unspecified; I10 Essential (primary) hypertension; J44.9 Chronic obstructive pulmonary disease, unspecified; K21.9 Gastro-esophageal reflux disease without esophagitis; Z20.822 Contact with and (suspected) exposure to COVID-19; M19.90 Unspecified osteoarthritis, unspecified site; F31.9 Bipolar disorder, unspecified; E78.5 Hyperlipidemia, unspecified; G89.29 Other chronic pain; F10.20 Alcohol dependence, uncomplicated; F41.9 Anxiety disorder, unspecified; M54.9 Dorsalgia, unspecified; Z88.8 Allergy status to other drugs, medicaments and biological substances; Z59.00 Homelessness unspecified; Z79.899 Other long term (current) drug therapy; Z87.891 Personal history of nicotine dependence
CPT/HCPCS: 80053; 80061; 80307; 83036; 84443; 85025; 87081; 99285; G0480

== ENCOUNTER 2023-07-11 01:55 | Inpatient (IN) | payer MEDICAID ==
[~2023-07-11] VITALS: Ht 172.7 cm; Wt 93.0 kg
[~2023-07-11 01:55] MED LIST changes: -BUPR-344 PO; -OLAN10TA74 PO
[2023-07-11 03:06] LABS: GLUCOMETER DEV NAME(LOC) POC.BV; POC SARS-COV2 AG, FIA NEGATIVE (NEGATIVE)
[2023-07-11 15:56] LABS: GLUCOMETER DEV NAME(LOC) POC.BV; POC SARS-COV2 AG, FIA NEGATIVE (NEGATIVE)
[2023-07-11] MEDS ORDERED: OLANZapine 5 MG RAPDIS TABLET PO PRN (16:00)
[2023-07-11] MEDS ORDERED: -PHARMACY VACCINE NOTE- MISC ONE (17:15)
[2023-07-11 20:11] VITALS: BP 148/84; PULSE 106; RESP 20; TEMP 98.4; O2SAT 98
[2023-07-11] MEDS: LORazepam 2 MG TABLET PO PRN (20:20)
[2023-07-12] MEDS ORDERED: PETROLATUM,WHITE 28 GM JELLY TP PRN (06:45)
[2023-07-12] MEDS ORDERED: DOCUSATE SODIUM 100 MG CAPSULE PO PRN (06:45)
[2023-07-12] MEDS ORDERED: BENZOCAINE/MENTHOL LOZENGE PO PRN (06:45)
[2023-07-12] MEDS ORDERED: ONDANSETRON HCL 4 MG TABLET PO PRN (06:45)
[2023-07-12] MEDS ORDERED: ALBUTEROL SULFATE HFA 90 MCG/PUFF 8 GM INHALER IH PRN (06:45)
[2023-07-12] MEDS ORDERED: LOPERAMIDE HCL 2 MG CAPSULE PO PRN (06:45)
[2023-07-12] MEDS ORDERED: MAGNESIUM HYDROXIDE SUSPENSION 30 ML UDCUP PO PRN (06:45)
[2023-07-12] MEDS ORDERED: BACITRACIN 28 GM OINTMENT TP PRN (06:45)
[2023-07-12] MEDS ORDERED: CloNIDine HCL 0.1 MG TABLET PO PRN (06:45)
[2023-07-12] MEDS ORDERED: MAG HYDROX/AL HYDROX/SIMETH ES 30 ML SUSPENSION UDCUP PO PRN (06:45)
[2023-07-12] MEDS ORDERED: OMEPRAZOLE 20 MG CAPSULE PO PRN (06:45)
[2023-07-12 07:24] LABS: BASOPHILS % (AUTO) 0.5 % (0.0-2.0); EOSINOPHILS % (AUTO) 4.5 % (1.0-6.0); HEMATOCRIT 43.4 % (41-53); HEMOGLOBIN 14.2 g/dL (13.5-17.5); LYMPHOCYTES # (AUTO) 2.8 K/uL (1.0-4.8); LYMPHOCYTES % (AUTO) 34.3 % (22.0-44.0); MEAN CORPUSCULAR HEMOGLOBIN 28.5 pg (26.0-34.0); MEAN CORPUSCULAR HGB CONC 32.6 G/dL (31.0-37.0); MEAN CORPUSCULAR VOLUME 87 fL (80-100); MONOCYTES # (AUTO) 0.9 K/uL (0.1-1.0); MONOCYTES % (AUTO) 10.6 % (2.0-9.0); NEUTROPHILS # (AUTO) 4.2 K/uL (1.8-7.7); NEUTROPHILS % (AUTO) 50.1 % (40.0-70.0); PLATELET COUNT (AUTO) 300 K/uL (150-450); RED BLOOD CELL COUNT(AUTO) 4.97 MIL/uL (4.50-5.90); RED CELL DISTRIBUTION WIDTH 13.2 % (11.5-14.5); WHITE BLOOD COUNT (AUTO) 8.3 K/uL (4.5-11.0)
[2023-07-12 07:37] LABS: HEMOGLOBIN A1C 5.9 % (3.8-5.6)
[2023-07-12 07:48] LABS: ALANINE AMINOTRANSFERASE 30 U/L (12-78); ALBUMIN 3.4 g/dL (3.4-5.0); ALKALINE PHOSPHATASE 114 U/L (46-116); ASPARTATE AMINOTRANSFERASE 23 U/L (15-37); BILIRUBIN,TOTAL 1.5 mg/dL (0.1-1.0); CALCIUM, TOTAL 8.7 mg/dL (8.8-10.5); CARBON DIOXIDE 27 mmol/L (22-29); CHLORIDE 102 mmol/L (98-107); CHOL/HDL RATIO 2.3 (4.2-7.3); CHOLESTEROL 93 mg/dL (131-200); CREATININE 0.91 mg/dL (0.60-1.30); FREE T4 (FREE THYROXINE) 0.93 ng/dL (0.76-1.46); GLOMERULAR FILTR. RATE CALC > 60 mL/min (>60); GLUCOSE,RANDOM 92 mg/dL (70-110); HDL CHOLESTEROL 41 mg/dL (40-60); LDL CHOL (CALC.) 27 mg/dL (0-130); POTASSIUM 3.5 mmol/L (3.5-5.1); THYROID STIMULATING HORMONE 2.43 uIU/mL (0.36-3.74); TOTAL PROTEIN, SERUM 6.9 g/dL (6.4-8.2); TRIGLYCERIDES 125 mg/dL (15-150); UREA NITROGEN, BLOOD 15 mg/dL (7-18)
[2023-07-12 07:51] LABS: ANION GAP 11 mmol/L (8-16); SODIUM SERUM 140 mmol/L (136-145)
[2023-07-12] MEDS: NICOTINE 21 MG/24 HOUR PATCH TD SCH (08:05)
[2023-07-12] MEDS: AmLODIPine BESYLATE 10 MG TABLET PO SCH (08:05)
[2023-07-12 08:22] VITALS: BP 136/78; PULSE 92; RESP 16; TEMP 98.2; O2SAT 98
[2023-07-12 20:11] VITALS: BP 130/72; PULSE 100; RESP 18; TEMP 98.4; O2SAT 97
[2023-07-12] MEDS: ATORVASTATIN CALCIUM 20 MG TABLET PO SCH (20:40)
[2023-07-12] MEDS: OLANZapine 10 MG TABLET PO SCH (20:40)
[2023-07-12] MEDS: LORazepam 2 MG TABLET PO PRN (21:50)
[2023-07-13 08:08] VITALS: BP 126/60; PULSE 70; RESP 22; TEMP 98; O2SAT 96
[2023-07-13] MEDS: NICOTINE 21 MG/24 HOUR PATCH TD SCH (08:34)
[2023-07-13] MEDS: AmLODIPine BESYLATE 10 MG TABLET PO SCH (08:34)
[2023-07-13] MEDS: BuPROPion HCL 150 MG SR TABLET PO SCH ×2 (08:34→13:16)
[2023-07-13] MEDS ORDERED: OLAN10TA74 PO (14:49)
[2023-07-13] MEDS ORDERED: BUPR-50 PO (14:50)
[2023-07-13] MEDS: MUPIROCIN CALCIUM 2% 22 GM OINTMENT NASAL SCH (16:44)
[2023-07-13] MEDS: LORazepam 2 MG TABLET PO PRN ×2 (16:44→21:36)
[2023-07-13 17:01] LABS: GLUCOMETER DEV NAME(LOC) POC.BV; POC SARS-COV2 AG, FIA NEGATIVE (NEGATIVE)
[2023-07-13 20:11] VITALS: BP 118/64; PULSE 78; RESP 20; TEMP 98.2; O2SAT 98
[2023-07-13] MEDS: ATORVASTATIN CALCIUM 20 MG TABLET PO SCH (20:30)
[2023-07-13] MEDS: OLANZapine 10 MG TABLET PO SCH (20:30)
[2023-07-14] VITALS (7 sets, daily range): BP systolic 109–151; BP diastolic 66–88; PULSE 80–87; RESP 17–19; TEMP 97.3–98; O2SAT 98–99
[2023-07-14 07:07] LABS: HEPATITIS C AB (EIA) Reactive (Non Reactive)
[2023-07-14] MEDS: AmLODIPine BESYLATE 10 MG TABLET PO SCH (09:10)
[2023-07-14] MEDS: BuPROPion HCL 150 MG SR TABLET PO SCH ×2 (09:10→12:05)
[2023-07-14] MEDS: MUPIROCIN CALCIUM 2% 22 GM OINTMENT NASAL SCH ×2 (09:10→17:23)
[2023-07-14] MEDS: NICOTINE 21 MG/24 HOUR PATCH TD SCH (09:13)
[2023-07-14] MEDS: OLANZapine 10 MG TABLET PO SCH (20:27)
[2023-07-14] MEDS: ATORVASTATIN CALCIUM 20 MG TABLET PO SCH (20:27)
[2023-07-14] MEDS: LORazepam 2 MG TABLET PO PRN (20:28)
[2023-07-15] VITALS (11 sets, daily range): BP systolic 128–133; BP diastolic 78–83; PULSE 67–80; RESP 18; TEMP 97.6–98.2; O2SAT 96–97
[2023-07-15] MEDS: ACETAMINOPHEN 325 MG TABLET PO PRN (00:35)
[2023-07-15] MEDS: AmLODIPine BESYLATE 10 MG TABLET PO SCH (08:46)
[2023-07-15] MEDS: BuPROPion HCL 150 MG SR TABLET PO SCH ×2 (08:46→12:21)
[2023-07-15] MEDS: NICOTINE 21 MG/24 HOUR PATCH TD SCH (08:48)
[2023-07-15] MEDS: MUPIROCIN CALCIUM 2% 22 GM OINTMENT NASAL SCH ×2 (09:06→17:04)
[2023-07-15] MEDS: LORazepam 2 MG TABLET PO PRN (17:05)
[2023-07-15] MEDS: ATORVASTATIN CALCIUM 20 MG TABLET PO SCH (20:24)
[2023-07-15] MEDS: OLANZapine 10 MG TABLET PO SCH (20:24)
[2023-07-15] MEDS: ZOLPIDEM TARTRATE 10 MG TABLET PO PRN (22:15)
[2023-07-15] MEDS: IBUPROFEN 600 MG TABLET PO PRN (22:15)
[2023-07-16] VITALS (8 sets, daily range): BP systolic 116–136; BP diastolic 69–82; PULSE 72–90; RESP 18–20; TEMP 97.1–98.9; O2SAT 97
[2023-07-16] MEDS: BuPROPion HCL 150 MG SR TABLET PO SCH ×2 (08:55→12:11)
[2023-07-16] MEDS: AmLODIPine BESYLATE 10 MG TABLET PO SCH (08:55)
[2023-07-16] MEDS: MUPIROCIN CALCIUM 2% 22 GM OINTMENT NASAL SCH ×2 (08:55→17:07)
[2023-07-16] MEDS: LORazepam 2 MG TABLET PO PRN ×2 (08:56→20:42)
[2023-07-16] MEDS: NICOTINE 21 MG/24 HOUR PATCH TD SCH (08:56)
[2023-07-16] MEDS: OLANZapine 10 MG TABLET PO SCH (20:41)
[2023-07-16] MEDS: ATORVASTATIN CALCIUM 20 MG TABLET PO SCH (20:42)
[2023-07-16] MEDS: ZOLPIDEM TARTRATE 10 MG TABLET PO PRN (20:42)
[2023-07-17] VITALS (7 sets, daily range): BP systolic 118–147; BP diastolic 78–98; PULSE 85–93; RESP 18; TEMP 97.6–98.3; O2SAT 95–96
[2023-07-17 03:11] LABS: GLUCOMETER DEV NAME(LOC) POC.BV; POC SARS-COV2 AG, FIA NEGATIVE (NEGATIVE)
[2023-07-17] MEDS: NICOTINE 21 MG/24 HOUR PATCH TD SCH (09:00)
[2023-07-17] MEDS: BuPROPion HCL 150 MG SR TABLET PO SCH ×2 (09:00→12:23)
[2023-07-17] MEDS: AmLODIPine BESYLATE 10 MG TABLET PO SCH (09:00)
[2023-07-17] MEDS: MUPIROCIN CALCIUM 2% 22 GM OINTMENT NASAL SCH ×2 (09:01→16:53)
[2023-07-17 10:07] LABS: HEPATITIS C RT-PCR,QNT HCV Not Detected IU/mL
[2023-07-17] MEDS: OLANZapine 10 MG TABLET PO SCH (20:43)
[2023-07-17] MEDS: ZOLPIDEM TARTRATE 10 MG TABLET PO PRN (20:43)
[2023-07-17] MEDS: ATORVASTATIN CALCIUM 20 MG TABLET PO SCH (20:43)
[2023-07-18 03:36] VITALS: TEMP 97.9
[2023-07-18 06:03] VITALS: TEMP 97.7
[2023-07-18] MEDS: AmLODIPine BESYLATE 10 MG TABLET PO SCH (08:19)
[2023-07-18] MEDS: NICOTINE 21 MG/24 HOUR PATCH TD SCH (08:19)
[2023-07-18] MEDS: BuPROPion HCL 150 MG SR TABLET PO SCH ×2 (08:19→12:42)
[2023-07-18] MEDS: MUPIROCIN CALCIUM 2% 22 GM OINTMENT NASAL SCH ×2 (08:21→16:36)
[2023-07-18 10:19] VITALS: RESP 16
[2023-07-18 17:02] VITALS: TEMP 98.7
[2023-07-18 18:16] VITALS: TEMP 96.7
[2023-07-18 20:54] VITALS: BP 145/78; PULSE 89; RESP 18; TEMP 97.1; O2SAT 97
[2023-07-18] MEDS: OLANZapine 10 MG TABLET PO SCH (20:59)
[2023-07-18] MEDS: ATORVASTATIN CALCIUM 20 MG TABLET PO SCH (20:59)
[2023-07-18] MEDS: LORazepam 2 MG TABLET PO PRN (21:00)
[2023-07-18] MEDS: ZOLPIDEM TARTRATE 10 MG TABLET PO PRN (21:00)
[2023-07-19] VITALS (10 sets, daily range): BP systolic 127–146; BP diastolic 76–84; PULSE 72–90; RESP 18–20; TEMP 97.6–98.1; O2SAT 93–96
[2023-07-19] MEDS: MUPIROCIN CALCIUM 2% 22 GM OINTMENT NASAL SCH ×2 (08:33→17:08)
[2023-07-19] MEDS: AmLODIPine BESYLATE 10 MG TABLET PO SCH (08:34)
[2023-07-19] MEDS: LORazepam 2 MG TABLET PO PRN ×2 (08:34→18:57)
[2023-07-19] MEDS: BuPROPion HCL 150 MG SR TABLET PO SCH ×2 (08:34→12:13)
[2023-07-19] MEDS: NICOTINE 21 MG/24 HOUR PATCH TD SCH (08:36)
[2023-07-19] MEDS: IBUPROFEN 600 MG TABLET PO PRN (18:57)
[2023-07-19] MEDS: OLANZapine 10 MG TABLET PO SCH (21:22)
[2023-07-19] MEDS: ATORVASTATIN CALCIUM 20 MG TABLET PO SCH (21:22)
[2023-07-19] MEDS: ZOLPIDEM TARTRATE 10 MG TABLET PO PRN (21:51)
[2023-07-20 02:02] VITALS: TEMP 97.9
[2023-07-20 06:04] VITALS: TEMP 97.8
[2023-07-20] MEDS: NICOTINE 21 MG/24 HOUR PATCH TD SCH (08:08)
[2023-07-20] MEDS: BuPROPion HCL 150 MG SR TABLET PO SCH ×2 (08:08→12:49)
[2023-07-20] MEDS: AmLODIPine BESYLATE 10 MG TABLET PO SCH (08:08)
[2023-07-20 08:42] VITALS: BP 145/97; PULSE 100; RESP 17; TEMP 97.8; O2SAT 97
[2023-07-20] MEDS: MUPIROCIN CALCIUM 2% 22 GM OINTMENT NASAL SCH (10:14)
[2023-07-20 20:06] VITALS: BP 148/84; PULSE 96; RESP 20; TEMP 98.2; O2SAT 97
[2023-07-20] MEDS: ATORVASTATIN CALCIUM 20 MG TABLET PO SCH (20:18)
[2023-07-20] MEDS: OLANZapine 10 MG TABLET PO SCH (20:18)
[2023-07-20] MEDS: LORazepam 2 MG TABLET PO PRN (20:18)
[2023-07-20] MEDS: ZOLPIDEM TARTRATE 10 MG TABLET PO PRN (21:22)
[2023-07-21] MEDS: AmLODIPine BESYLATE 10 MG TABLET PO SCH (08:03)
[2023-07-21] MEDS: NICOTINE 21 MG/24 HOUR PATCH TD SCH (08:03)
[2023-07-21] MEDS: BuPROPion HCL 150 MG SR TABLET PO SCH ×2 (08:03→12:28)
[2023-07-21 08:34] VITALS: BP 122/75; PULSE 74; RESP 18; TEMP 98.5; O2SAT 96
[2023-07-21 20:06] VITALS: BP 148/80; PULSE 93; RESP 20; TEMP 98.2; O2SAT 96
[2023-07-21] MEDS: ATORVASTATIN CALCIUM 20 MG TABLET PO SCH (20:16)
[2023-07-21] MEDS: LORazepam 2 MG TABLET PO PRN (20:16)
[2023-07-21] MEDS: OLANZapine 10 MG TABLET PO SCH (20:16)
[2023-07-22] MEDS: BuPROPion HCL 150 MG SR TABLET PO SCH ×2 (08:05→12:05)
[2023-07-22] MEDS: AmLODIPine BESYLATE 10 MG TABLET PO SCH (08:05)
[2023-07-22] MEDS: NICOTINE 21 MG/24 HOUR PATCH TD SCH (08:06)
[2023-07-22 08:10] VITALS: BP 129/74; PULSE 71; RESP 18; TEMP 97.8; O2SAT 96
[2023-07-22] MEDS: LORazepam 2 MG TABLET PO PRN ×2 (16:35→20:37)
[2023-07-22 20:13] VITALS: BP 123/84; PULSE 96; RESP 20; TEMP 98.4; O2SAT 98
[2023-07-22] MEDS: OLANZapine 10 MG TABLET PO SCH (20:36)
[2023-07-22] MEDS: ATORVASTATIN CALCIUM 20 MG TABLET PO SCH (20:36)
[2023-07-22] MEDS: ZOLPIDEM TARTRATE 10 MG TABLET PO PRN (20:37)
[2023-07-23 08:02] VITALS: BP 136/74; PULSE 72; RESP 18; TEMP 97.8; O2SAT 96
[2023-07-23] MEDS: BuPROPion HCL 150 MG SR TABLET PO SCH ×2 (08:04→12:27)
[2023-07-23] MEDS: AmLODIPine BESYLATE 10 MG TABLET PO SCH (08:04)
[2023-07-23] MEDS: NICOTINE 21 MG/24 HOUR PATCH TD SCH (08:09)
[2023-07-23] MEDS: LORazepam 2 MG TABLET PO PRN ×2 (16:14→20:33)
[2023-07-23] MEDS: ACETAMINOPHEN 325 MG TABLET PO PRN (16:14)
[2023-07-23] MEDS: ATORVASTATIN CALCIUM 20 MG TABLET PO SCH (20:32)
[2023-07-23] MEDS: OLANZapine 10 MG TABLET PO SCH (20:33)
[2023-07-23 20:37] VITALS: BP 137/95; PULSE 92; RESP 16; TEMP 97.5; O2SAT 96
[2023-07-23] MEDS: ZOLPIDEM TARTRATE 10 MG TABLET PO PRN (21:04)
[2023-07-24] MEDS: BuPROPion HCL 150 MG SR TABLET PO SCH ×2 (08:04→12:31)
[2023-07-24] MEDS: AmLODIPine BESYLATE 10 MG TABLET PO SCH (08:04)
[2023-07-24 08:05] VITALS: BP 138/85; PULSE 67; RESP 18; TEMP 97.9; O2SAT 96
[2023-07-24] MEDS: NICOTINE 21 MG/24 HOUR PATCH TD SCH (08:05)
[2023-07-24] MEDS: ATORVASTATIN CALCIUM 20 MG TABLET PO SCH (20:05)
[2023-07-24] MEDS: LORazepam 2 MG TABLET PO PRN (20:05)
[2023-07-24] MEDS: OLANZapine 10 MG TABLET PO SCH (20:05)
[2023-07-24] MEDS: ZOLPIDEM TARTRATE 10 MG TABLET PO PRN (20:06)
[2023-07-24 20:10] VITALS: BP 147/86; PULSE 106; RESP 20; TEMP 97.6; O2SAT 98
[2023-07-25 08:16] VITALS: BP 143/95; PULSE 86; RESP 18; TEMP 98.2; O2SAT 96
[2023-07-25] MEDS: BuPROPion HCL 150 MG SR TABLET PO SCH ×2 (08:48→11:51)
[2023-07-25] MEDS: AmLODIPine BESYLATE 10 MG TABLET PO SCH (08:48)
[2023-07-25] MEDS: NICOTINE 21 MG/24 HOUR PATCH TD SCH (09:00)
[2023-07-25] MEDS ORDERED: MUPIROCIN CALCIUM 2% 15 GM CREAM TP SCH (17:00)
[2023-07-25] MEDS: ATORVASTATIN CALCIUM 20 MG TABLET PO SCH (20:11)
[2023-07-25] MEDS: OLANZapine 10 MG TABLET PO SCH (20:11)
[2023-07-25] MEDS: LORazepam 2 MG TABLET PO PRN (20:11)
[2023-07-25 20:20] VITALS: BP 142/84; PULSE 92; RESP 20; TEMP 98; O2SAT 98
[2023-07-26] MEDS: BuPROPion HCL 150 MG SR TABLET PO SCH ×2 (08:23→12:11)
[2023-07-26] MEDS: AmLODIPine BESYLATE 10 MG TABLET PO SCH (08:23)
[2023-07-26] MEDS: NICOTINE 21 MG/24 HOUR PATCH TD SCH (08:23)
[2023-07-26] MEDS: MUPIROCIN CALCIUM 2% 22 GM OINTMENT NASAL SCH ×2 (08:25→17:12)
[2023-07-26 08:27] VITALS: BP 129/78; PULSE 75; RESP 18; TEMP 98; O2SAT 97
[2023-07-26] MEDS: LORazepam 2 MG TABLET PO PRN ×2 (17:18→21:25)
[2023-07-26 20:16] VITALS: BP 136/86; PULSE 104; RESP 18; TEMP 97.6; O2SAT 99
[2023-07-26] MEDS: ATORVASTATIN CALCIUM 20 MG TABLET PO SCH (21:25)
[2023-07-26] MEDS: OLANZapine 10 MG TABLET PO SCH (21:25)
[2023-07-26] MEDS: ZOLPIDEM TARTRATE 10 MG TABLET PO PRN (21:25)
[2023-07-27] MEDS: AmLODIPine BESYLATE 10 MG TABLET PO SCH (08:37)
[2023-07-27] MEDS: BuPROPion HCL 150 MG SR TABLET PO SCH ×2 (08:37→12:29)
[2023-07-27] MEDS: MUPIROCIN CALCIUM 2% 22 GM OINTMENT NASAL SCH ×2 (08:38→17:00)
[2023-07-27 08:42] VITALS: BP 139/55; PULSE 83; RESP 18; TEMP 99; O2SAT 98
[2023-07-27] MEDS: NICOTINE 21 MG/24 HOUR PATCH TD SCH (09:08)
== END 2023-07-27 17:00 | disposition home or self-care (01) | DRG 750 ==
LOC: B3A 16:04
PROVIDERS: ADMIT Psychiatry & Neurology Psychiatry; ATTEND Psychiatry & Neurology Psychiatry
DX: F20.9 Schizophrenia, unspecified (principal); R45.851 Suicidal ideations; J44.9 Chronic obstructive pulmonary disease, unspecified; B18.2 Chronic viral hepatitis C; I10 Essential (primary) hypertension; K21.9 Gastro-esophageal reflux disease without esophagitis; F12.10 Cannabis abuse, uncomplicated; F10.10 Alcohol abuse, uncomplicated; F17.200 Nicotine dependence, unspecified, uncomplicated; Z20.822 Contact with and (suspected) exposure to COVID-19; F15.10 Other stimulant abuse, uncomplicated; Z71.6 Tobacco abuse counseling; Z71.41 Alcohol abuse counseling and surveillance of alcoholic
CPT/HCPCS: 80053; 80061; 83036; 84439; 84443; 85025; 86803; 87081; 87340; 87522

== ENCOUNTER 2023-09-15 18:59 | Inpatient (IN) | payer MEDICAID ==
[~2023-09-15] VITALS: Ht 172.7 cm; Wt 90.7 kg
[~2023-09-15 18:59] MED LIST changes: -BUPR-113 PO; +BUPR-50 PO; +OLAN10TA74 PO; -OLAN5TAB52 PO
[2023-09-15] MEDS ORDERED: OLANZapine 5 MG RAPDIS TABLET PO PRN (20:00)
[2023-09-15 20:06] LABS: GLUCOMETER DEV NAME(LOC) POC.BV; POC SARS-COV2 AG, FIA NEGATIVE (NEGATIVE)
[2023-09-15] MEDS ORDERED: -PHARMACY VACCINE NOTE- MISC ONE (20:30)
[2023-09-15] MEDS ORDERED: INFLUENZA VIRUS VACCINE QVS 2023-24 (6MO+)/PF 60 MCG/0.5 ML SYRINGE IM. ONE (20:30)
[2023-09-15] MEDS: LORazepam 2 MG TABLET PO PRN (21:22)
[2023-09-15] MEDS: ZOLPIDEM TARTRATE 10 MG TABLET PO PRN (21:22)
[2023-09-15 21:44] VITALS: BP 146/92; PULSE 86; RESP 18; TEMP 97.9; O2SAT 99
[2023-09-16 07:55] LABS: BASOPHILS % (AUTO) 0.6 % (0.0-2.0); HEMATOCRIT 42.3 % (41-53); HEMOGLOBIN 14.5 g/dL (13.5-17.5); LYMPHOCYTES # (AUTO) 2.4 K/uL (1.0-4.8); LYMPHOCYTES % (AUTO) 34.6 % (22.0-44.0); MEAN CORPUSCULAR HGB CONC 34.3 G/dL (31.0-37.0); MEAN CORPUSCULAR VOLUME 88 fL (80-100); MONOCYTES # (AUTO) 0.7 K/uL (0.1-1.0); MONOCYTES % (AUTO) 9.9 % (2.0-9.0); NEUTROPHILS # (AUTO) 3.5 K/uL (1.8-7.7); NEUTROPHILS % (AUTO) 49.9 % (40.0-70.0); PLATELET COUNT (AUTO) 254 K/uL (150-450); RED BLOOD CELL COUNT(AUTO) 4.83 MIL/uL (4.50-5.90); RED CELL DISTRIBUTION WIDTH 13.8 % (11.5-14.5); WHITE BLOOD COUNT (AUTO) 6.9 K/uL (4.5-11.0)
[2023-09-16 08:09] LABS: HEMOGLOBIN A1C 5.9 % (3.8-5.6)
[2023-09-16 08:31] LABS: ALANINE AMINOTRANSFERASE 27 U/L (12-78); ALBUMIN 3.4 g/dL (3.4-5.0); ALKALINE PHOSPHATASE 80 U/L (46-116); ANION GAP 7 mmol/L (8-16); ASPARTATE AMINOTRANSFERASE 19 U/L (15-37); BILIRUBIN,TOTAL 0.8 mg/dL (0.1-1.0); CALCIUM, TOTAL 8.9 mg/dL (8.8-10.5); CARBON DIOXIDE 27 mmol/L (22-29); CHLORIDE 104 mmol/L (98-107); CHOL/HDL RATIO 5.1 (4.2-7.3); CHOLESTEROL 157 mg/dL (131-200); CREATININE 0.93 mg/dL (0.60-1.30); GLOMERULAR FILTR. RATE CALC > 60 mL/min (>60); GLUCOSE,RANDOM 105 mg/dL (70-110); HDL CHOLESTEROL 31 mg/dL (40-60); LDL CHOL (CALC.) 99 mg/dL (0-130); POTASSIUM 3.6 mmol/L (3.5-5.1); SODIUM SERUM 138 mmol/L (136-145); THYROID STIMULATING HORMONE 1.49 uIU/mL (0.36-3.74); TOTAL PROTEIN, SERUM 7.3 g/dL (6.4-8.2); TRIGLYCERIDES 137 mg/dL (15-150); UREA NITROGEN, BLOOD 15 mg/dL (7-18)
[2023-09-16 08:39] VITALS: BP 127/88; PULSE 80; RESP 18; TEMP 98.2; O2SAT 97
[2023-09-16] MEDS: BuPROPion HCL 150 MG SR TABLET PO SCH (16:54)
[2023-09-16] MEDS ORDERED: PETROLATUM,WHITE 28 GM JELLY TP PRN (17:15)
[2023-09-16] MEDS ORDERED: BACITRACIN 28 GM OINTMENT TP PRN (17:15)
[2023-09-16] MEDS ORDERED: ACETAMINOPHEN 325 MG TABLET PO PRN (17:15)
[2023-09-16] MEDS ORDERED: DOCUSATE SODIUM 100 MG CAPSULE PO PRN (17:15)
[2023-09-16] MEDS ORDERED: ALBUTEROL SULFATE HFA 90 MCG/PUFF 8 GM INHALER IH PRN (17:15)
[2023-09-16] MEDS ORDERED: MAG HYDROX/ALUMINUM HYD/SIMETH ES 30 ML SUSPENSION UDCUP PO PRN (17:15)
[2023-09-16] MEDS ORDERED: OMEPRAZOLE 20 MG CAPSULE PO PRN (17:15)
[2023-09-16] MEDS ORDERED: LOPERAMIDE HCL 2 MG CAPSULE PO PRN (17:15)
[2023-09-16] MEDS ORDERED: ONDANSETRON HCL 4 MG TABLET PO PRN (17:15)
[2023-09-16] MEDS ORDERED: BENZOCAINE/MENTHOL LOZENGE PO PRN (17:15)
[2023-09-16] MEDS ORDERED: IBUPROFEN 600 MG TABLET PO PRN (17:15)
[2023-09-16] MEDS ORDERED: CloNIDine HCL 0.1 MG TABLET PO PRN (17:15)
[2023-09-16] MEDS ORDERED: MAGNESIUM HYDROXIDE SUSPENSION 30 ML UDCUP PO PRN (17:15)
[2023-09-16] MEDS: ZOLPIDEM TARTRATE 10 MG TABLET PO PRN (20:07)
[2023-09-16] MEDS: LORazepam 2 MG TABLET PO PRN (20:07)
[2023-09-16] MEDS: OLANZapine 10 MG TABLET PO SCH (20:07)
[2023-09-16 20:08] VITALS: BP 140/86; PULSE 86; RESP 20; TEMP 97.7; O2SAT 99
[2023-09-16] MEDS: ATORVASTATIN CALCIUM 20 MG TABLET PO SCH (20:52)
[2023-09-17 08:17] VITALS: BP 139/80; PULSE 75; RESP 18; TEMP 97.6; O2SAT 98
[2023-09-17] MEDS: NICOTINE 21 MG/24 HOUR PATCH TD SCH (08:47)
[2023-09-17] MEDS: BuPROPion HCL 150 MG SR TABLET PO SCH ×2 (08:47→16:29)
[2023-09-17] MEDS: AmLODIPine BESYLATE 10 MG TABLET PO SCH (08:47)
[2023-09-17] MEDS: ATORVASTATIN CALCIUM 20 MG TABLET PO SCH (20:05)
[2023-09-17] MEDS: ZOLPIDEM TARTRATE 10 MG TABLET PO PRN (20:05)
[2023-09-17] MEDS: OLANZapine 10 MG TABLET PO SCH (20:06)
[2023-09-18 04:41] VITALS: RESP 18; TEMP 98
[2023-09-18 08:16] VITALS: BP 135/83; PULSE 79; RESP 18; TEMP 97.3; O2SAT 95
[2023-09-18] MEDS: AmLODIPine BESYLATE 10 MG TABLET PO SCH (08:19)
[2023-09-18] MEDS: LORazepam 2 MG TABLET PO PRN ×2 (08:20→17:11)
[2023-09-18] MEDS: BuPROPion HCL 150 MG SR TABLET PO SCH ×2 (08:20→17:11)
[2023-09-18] MEDS: NICOTINE 21 MG/24 HOUR PATCH TD SCH (08:21)
[2023-09-18 08:43] LABS: APPEARANCE,URINE CLEAR (CLEAR); BILIRUBIN,URINE NEGATIVE (NEGATIVE); COLOR,URINE LIGHT YELLOW (YELLOW); GLUCOSE, URINE (UA) NEGATIVE (NEGATIVE); KETONES,URINE NEGATIVE (NEGATIVE); LEUKOCYTE ESTERASE ,URINE NEGATIVE (NEGATIVE); NITRATE,URINE NEGATIVE (NEGATIVE); OCCULT BLOOD,URINE NEGATIVE (NEGATIVE); PH,URINE 6.5 (5.0-8.0); PH,URINE DRUG SCREEN 6.5 (5.0-8.0); PROTEIN,URINE NEGATIVE (NEGATIVE); SPECIFIC GRAVITIY, URINE 1.013 (1.003-1.030); UROBILINOGEN,URINE <=1.0 mg/dL (<=1.0)
[2023-09-18 08:55] LABS: AMPHET/METH SCREEN,URINE NEGATIVE (NEGATIVE); BARBITURATE SCREEN, URINE NEGATIVE (NEGATIVE); BENZODIAZEPINES SCREEN,URINE NEGATIVE (NEGATIVE); CANNABINOID SCREEN,URINE NEGATIVE (NEGATIVE); COCAINE SCREEN,URINE NEGATIVE (NEGATIVE); METHADONE SCREEN, URINE NEGATIVE (NEGATIVE); OPIATE SCREEN,URINE NEGATIVE (NEGATIVE); PHENCYCLIDINE SCREEN,URINE NEGATIVE (NEGATIVE)
[2023-09-18 08:56] LABS: ALCOHOL, URINE DRUG SCREEN NEGATIVE (NEGATIVE)
[2023-09-18 20:12] VITALS: BP 128/84; PULSE 80; RESP 20; TEMP 97.6; O2SAT 97
[2023-09-18] MEDS: OLANZapine 10 MG TABLET PO SCH (20:26)
[2023-09-18] MEDS: ATORVASTATIN CALCIUM 20 MG TABLET PO SCH (20:26)
[2023-09-18] MEDS: ZOLPIDEM TARTRATE 10 MG TABLET PO PRN (20:26)
[2023-09-19 08:14] VITALS: BP 150/81; PULSE 76; RESP 18; TEMP 97.1; O2SAT 94
[2023-09-19] MEDS: AmLODIPine BESYLATE 10 MG TABLET PO SCH (08:45)
[2023-09-19] MEDS: BuPROPion HCL 150 MG SR TABLET PO SCH ×2 (08:45→16:20)
[2023-09-19] MEDS: LORazepam 2 MG TABLET PO PRN ×2 (08:45→16:20)
[2023-09-19] MEDS: NICOTINE 21 MG/24 HOUR PATCH TD SCH (09:00)
[2023-09-19 20:39] VITALS: BP 125/76; PULSE 85; RESP 18; TEMP 97.8
[2023-09-19] MEDS: ZOLPIDEM TARTRATE 10 MG TABLET PO PRN (20:53)
[2023-09-19] MEDS: OLANZapine 10 MG TABLET PO SCH (20:53)
[2023-09-19] MEDS: ATORVASTATIN CALCIUM 20 MG TABLET PO SCH (20:53)
[2023-09-20] MEDS: NICOTINE 21 MG/24 HOUR PATCH TD SCH (08:33)
[2023-09-20] MEDS: AmLODIPine BESYLATE 10 MG TABLET PO SCH (08:34)
[2023-09-20] MEDS: BuPROPion HCL 150 MG SR TABLET PO SCH ×2 (08:34→16:00)
[2023-09-20 08:35] VITALS: BP 147/90; PULSE 75; RESP 20; TEMP 98; O2SAT 95
[2023-09-20] MEDS ORDERED: BUPR-72 PO (14:25)
== END 2023-09-20 17:00 | disposition home or self-care (01) | DRG 750 ==
LOC: B3A 20:29
PROVIDERS: ADMIT Psychiatry & Neurology Psychiatry; ATTEND Psychiatry & Neurology Psychiatry
DX: F25.9 Schizoaffective disorder, unspecified (principal); R45.851 Suicidal ideations; B18.2 Chronic viral hepatitis C; J44.9 Chronic obstructive pulmonary disease, unspecified; K21.9 Gastro-esophageal reflux disease without esophagitis; Z20.822 Contact with and (suspected) exposure to COVID-19; F10.10 Alcohol abuse, uncomplicated; F12.10 Cannabis abuse, uncomplicated; I10 Essential (primary) hypertension; F15.10 Other stimulant abuse, uncomplicated; Z79.899 Other long term (current) drug therapy; Z72.0 Tobacco use
CPT/HCPCS: 80053; 80061; 80307; 81003; 83036; 84439; 84443; 85025; 87081

== ENCOUNTER 2023-09-21 11:52 | Emergency (ER) | payer MEDICAID, OTHER ==
[~2023-09-21] VITALS: Ht 172.7 cm; Wt 90.9 kg
[~2023-09-21 11:52] MED LIST changes: -BUPR-50 PO; +BUPR-72 PO
[2023-09-21 12:04] VITALS: BP 160/97; PULSE 102; RESP 16; TEMP 98.7
[2023-09-21 12:59] LABS: BASOPHILS % (AUTO) 0.7 % (0.0-2.0); EOSINOPHILS % (AUTO) 3.3 % (1.0-6.0); HEMATOCRIT 45.2 % (41-53); HEMOGLOBIN 15.4 g/dL (13.5-17.5); LYMPHOCYTES # (AUTO) 1.7 K/uL (1.0-4.8); LYMPHOCYTES % (AUTO) 21.4 % (22.0-44.0); MEAN CORPUSCULAR HEMOGLOBIN 30.3 pg (26.0-34.0); MEAN CORPUSCULAR HGB CONC 34.1 G/dL (31.0-37.0); MEAN CORPUSCULAR VOLUME 89 fL (80-100); MONOCYTES # (AUTO) 0.8 K/uL (0.1-1.0); MONOCYTES % (AUTO) 10.2 % (2.0-9.0); NEUTROPHILS % (AUTO) 64.4 % (40.0-70.0); PLATELET COUNT (AUTO) 298 K/uL (150-450); RED BLOOD CELL COUNT(AUTO) 5.09 MIL/uL (4.50-5.90); RED CELL DISTRIBUTION WIDTH 13.5 % (11.5-14.5); WHITE BLOOD COUNT (AUTO) 7.7 K/uL (4.5-11.0)
[2023-09-21 13:05] LABS: ANION GAP 8 mmol/L (8-16); CALCIUM, TOTAL 10.1 mg/dL (8.8-10.5); CARBON DIOXIDE 30 mmol/L (22-29); CHLORIDE 105 mmol/L (98-107); CREATININE 1.21 mg/dL (0.60-1.30); GLOMERULAR FILTR. RATE CALC > 60 mL/min (>60); GLUCOSE,RANDOM 109 mg/dL (70-110); POTASSIUM 4.6 mmol/L (3.5-5.1); SODIUM SERUM 143 mmol/L (136-145); UREA NITROGEN, BLOOD 14 mg/dL (7-18)
[2023-09-21 13:12] LABS: ALANINE AMINOTRANSFERASE 33 U/L (12-78); ALBUMIN 4.3 g/dL (3.4-5.0); ALKALINE PHOSPHATASE 97 U/L (46-116); ASPARTATE AMINOTRANSFERASE 26 U/L (15-37); BILIRUBIN,TOTAL 0.9 mg/dL (0.1-1.0); LIPASE 81 U/L (16-77); TOTAL PROTEIN, SERUM 8.8 g/dL (6.4-8.2)
[2023-09-21] MEDS ORDERED: SODIUM CHLORIDE 0.9% 1,000 ML IV ONE (13:30)
[2023-09-21] MEDS ORDERED: KETOROLAC TROMETHAMINE 30 MG/ML VIAL IVP ONE (13:30)
[2023-09-21] MEDS ORDERED: KETOROLAC TROMETHAMINE 60 MG/2 ML VIAL IM ONE (14:15)
== END 2023-09-21 15:28 | disposition home or self-care (01) ==
LOC: EMS 11:53
DX: R10.30 Lower abdominal pain, unspecified (principal); K85.90 Acute pancreatitis without necrosis or infection, unspecified; F41.9 Anxiety disorder, unspecified; F31.9 Bipolar disorder, unspecified; F20.9 Schizophrenia, unspecified; F17.210 Nicotine dependence, cigarettes, uncomplicated; F15.90 Other stimulant use, unspecified, uncomplicated; Z88.8 Allergy status to other drugs, medicaments and biological substances
CPT/HCPCS: 99283; 80053; 83690; 85025; 36415; 96372; J1885 ×2; J7030

== ENCOUNTER 2023-10-26 20:59 | Inpatient (IN) | payer MEDICAID, OTHER ==
[~2023-10-26] VITALS: Ht 172.7 cm; Wt 89.9 kg
[2023-10-26 22:05] LABS: BASOPHILS % (AUTO) 0.5 % (0.0-2.0); HEMATOCRIT 43.4 % (41-53); LYMPHOCYTES # (AUTO) 1.8 K/uL (1.0-4.8); LYMPHOCYTES % (AUTO) 23.3 % (22.0-44.0); MEAN CORPUSCULAR HEMOGLOBIN 30.2 pg (26.0-34.0); MEAN CORPUSCULAR HGB CONC 34.6 G/dL (31.0-37.0); MEAN CORPUSCULAR VOLUME 87 fL (80-100); MONOCYTES # (AUTO) 0.7 K/uL (0.1-1.0); MONOCYTES % (AUTO) 8.5 % (2.0-9.0); NEUTROPHILS % (AUTO) 65.7 % (40.0-70.0); PLATELET COUNT (AUTO) 290 K/uL (150-450); RED BLOOD CELL COUNT(AUTO) 4.97 MIL/uL (4.50-5.90); RED CELL DISTRIBUTION WIDTH 13.1 % (11.5-14.5); WHITE BLOOD COUNT (AUTO) 7.7 K/uL (4.5-11.0)
[2023-10-26 22:23] LABS: ANION GAP 4 mmol/L (8-16); CALCIUM, TOTAL 9.9 mg/dL (8.8-10.5); CARBON DIOXIDE 30 mmol/L (22-29); CHLORIDE 102 mmol/L (98-107); CREATININE 1.01 mg/dL (0.60-1.30); GLOMERULAR FILTR. RATE CALC > 60 mL/min (>60); GLUCOSE,RANDOM 106 mg/dL (70-110); POTASSIUM 4.1 mmol/L (3.5-5.1); SODIUM SERUM 136 mmol/L (136-145); UREA NITROGEN, BLOOD 15 mg/dL (7-18)
[2023-10-26 22:26] LABS: ALANINE AMINOTRANSFERASE 36 U/L (12-78); ALBUMIN 4.4 g/dL (3.4-5.0); ALKALINE PHOSPHATASE 94 U/L (46-116); ASPARTATE AMINOTRANSFERASE 52 U/L (15-37); BILIRUBIN,TOTAL 0.6 mg/dL (0.1-1.0); TOTAL PROTEIN, SERUM 8.6 g/dL (6.4-8.2)
[2023-10-26 22:36] LABS: ALCOHOL, BLOOD (SERUM) < 3 mg/dL (0-10)
[2023-10-26] MEDS ORDERED: LORazepam 2 MG TABLET PO ONE (23:15)
[2023-10-26 23:40] LABS: COVID AG,FIA SOURCE NASAL SWAB
[2023-10-26 23:41] LABS: PH,URINE DRUG SCREEN 6.5 (5.0-8.0)
[2023-10-26 23:45] LABS: ALCOHOL, URINE DRUG SCREEN NEGATIVE (NEGATIVE); AMPHET/METH SCREEN,URINE POSITIVE (NEGATIVE); BARBITURATE SCREEN, URINE NEGATIVE (NEGATIVE); BENZODIAZEPINES SCREEN,URINE NEGATIVE (NEGATIVE); CANNABINOID SCREEN,URINE NEGATIVE (NEGATIVE); COCAINE SCREEN,URINE NEGATIVE (NEGATIVE); METHADONE SCREEN, URINE NEGATIVE (NEGATIVE); OPIATE SCREEN,URINE NEGATIVE (NEGATIVE); PHENCYCLIDINE SCREEN,URINE NEGATIVE (NEGATIVE)
[2023-10-26 23:57] LABS: SARS-COV2 (COVID) ANTIGEN,FIA Negative (Negative)
[2023-10-27 10:50] VITALS: BP 179/107; PULSE 93; RESP 18; TEMP 97.8; O2SAT 97
[2023-10-27] MEDS ORDERED: NICOTINE 14 MG/24 HOUR PATCH TD PRN (11:45)
[2023-10-27] MEDS: AmLODIPine BESYLATE 10 MG TABLET PO SCH (11:51)
[2023-10-27] MEDS ORDERED: -PHARMACY VACCINE NOTE- MISC ONE (13:30)
[2023-10-27 20:09] VITALS: BP 149/96; PULSE 78; RESP 18; TEMP 97.6; O2SAT 98
[2023-10-27] MEDS: ATORVASTATIN CALCIUM 20 MG TABLET PO SCH (20:52)
[2023-10-27] MEDS: LORazepam 2 MG TABLET PO PRN (21:26)
[2023-10-28] MEDS ORDERED: MAGNESIUM HYDROXIDE SUSPENSION 30 ML UDCUP PO PRN (07:00)
[2023-10-28] MEDS ORDERED: DOCUSATE SODIUM 100 MG CAPSULE PO PRN (07:00)
[2023-10-28] MEDS ORDERED: CloNIDine HCL 0.1 MG TABLET PO PRN (07:00)
[2023-10-28] MEDS ORDERED: LOPERAMIDE HCL 2 MG CAPSULE PO PRN (07:00)
[2023-10-28] MEDS ORDERED: ACETAMINOPHEN 325 MG TABLET PO PRN (07:00)
[2023-10-28] MEDS ORDERED: ALBUTEROL SULFATE HFA 90 MCG/PUFF 8 GM INHALER IH PRN (07:00)
[2023-10-28] MEDS ORDERED: GuaiFENesin/D-METHORPHAN [SUGAR-FREE] 200-20MG/10 ML SYRUP UDCUP PO PRN (07:00)
[2023-10-28] MEDS ORDERED: ONDANSETRON HCL 4 MG TABLET PO PRN (07:00)
[2023-10-28] MEDS ORDERED: MAG HYDROX/ALUMINUM HYD/SIMETH ES 30 ML SUSPENSION UDCUP PO PRN (07:00)
[2023-10-28] MEDS ORDERED: PETROLATUM,WHITE 28 GM JELLY TP PRN (07:00)
[2023-10-28] MEDS ORDERED: NICOTINE 14 MG/24 HOUR PATCH TD PRN (07:00)
[2023-10-28] MEDS ORDERED: IBUPROFEN 400 MG TABLET PO PRN (07:00)
[2023-10-28 08:35] VITALS: BP 159/103; PULSE 77; RESP 18; TEMP 98.4; O2SAT 97
[2023-10-28] MEDS: AmLODIPine BESYLATE 10 MG TABLET PO SCH (08:48)
[2023-10-28] MEDS: BuPROPion HCL 150 MG SR TABLET PO SCH ×2 (11:14→16:35)
[2023-10-28] MEDS: LACTOBACILLUS ACIDOPHILUS/BULGARICUS GRANULES PACKET PO SCH (18:31)
[2023-10-28] MEDS: LORazepam 2 MG TABLET PO PRN (20:04)
[2023-10-28] MEDS: OLANZapine 10 MG TABLET PO SCH (20:41)
[2023-10-28] MEDS: ATORVASTATIN CALCIUM 20 MG TABLET PO SCH (20:41)
[2023-10-28 21:41] VITALS: BP 148/89; PULSE 107; RESP 18; TEMP 97; O2SAT 98
[2023-10-29] MEDS: ZOLPIDEM TARTRATE 10 MG TABLET PO PRN (01:30)
[2023-10-29] MEDS: LORazepam 2 MG TABLET PO PRN (01:30)
[2023-10-29 08:03] LABS: HEMOGLOBIN A1C 5.9 % (3.8-5.6)
[2023-10-29 08:18] LABS: CHOL/HDL RATIO 2.5 (4.2-7.3); THYROID STIMULATING HORMONE 0.47 uIU/mL (0.36-3.74)
[2023-10-29 09:40] VITALS: RESP 19
[2023-10-29] MEDS: BuPROPion HCL 150 MG SR TABLET PO SCH ×2 (10:54→18:55)
[2023-10-29] MEDS: LACTOBACILLUS ACIDOPHILUS/BULGARICUS GRANULES PACKET PO SCH ×3 (10:55→18:55)
[2023-10-29] MEDS: AmLODIPine BESYLATE 10 MG TABLET PO SCH (10:56)
[2023-10-29] MEDS ORDERED: OLANZapine 5 MG RAPDIS TABLET PO PRN (13:45)
[2023-10-29] MEDS: ATORVASTATIN CALCIUM 20 MG TABLET PO SCH (20:03)
[2023-10-29] MEDS: OLANZapine 10 MG TABLET PO SCH (20:04)
[2023-10-29 20:16] VITALS: RESP 18
[2023-10-30] MEDS: BuPROPion HCL 150 MG SR TABLET PO SCH ×2 (08:18→16:11)
[2023-10-30] MEDS: AmLODIPine BESYLATE 10 MG TABLET PO SCH (08:18)
[2023-10-30] MEDS: LACTOBACILLUS ACIDOPHILUS/BULGARICUS GRANULES PACKET PO SCH ×3 (08:19→16:13)
[2023-10-30 09:01] VITALS: BP 122/72; PULSE 80; RESP 18; TEMP 97.5
[2023-10-30 20:00] VITALS: BP 155/90; PULSE 89; RESP 22; TEMP 97.8; O2SAT 97
[2023-10-30] MEDS: OLANZapine 10 MG TABLET PO SCH (20:17)
[2023-10-30] MEDS: ATORVASTATIN CALCIUM 20 MG TABLET PO SCH (20:17)
[2023-10-30] MEDS: LORazepam 2 MG TABLET PO PRN (20:55)
[2023-10-30] MEDS: ZOLPIDEM TARTRATE 10 MG TABLET PO PRN (20:55)
[2023-10-31] MEDS: LACTOBACILLUS ACIDOPHILUS/BULGARICUS GRANULES PACKET PO SCH ×3 (09:00→17:00)
[2023-10-31] MEDS: AmLODIPine BESYLATE 10 MG TABLET PO SCH (10:44)
[2023-10-31] MEDS: BuPROPion HCL 150 MG SR TABLET PO SCH ×2 (10:44→17:38)
[2023-10-31] MEDS: ATORVASTATIN CALCIUM 20 MG TABLET PO SCH (20:16)
[2023-10-31] MEDS: OLANZapine 10 MG TABLET PO SCH (20:16)
[2023-10-31 21:03] VITALS: BP 130/79; PULSE 85; RESP 18; TEMP 97.5
[2023-10-31] MEDS: ZOLPIDEM TARTRATE 10 MG TABLET PO PRN (22:15)
[2023-11-01 08:24] VITALS: BP 150/95; PULSE 91; RESP 17; TEMP 97.6
[2023-11-01] MEDS: LACTOBACILLUS ACIDOPHILUS/BULGARICUS GRANULES PACKET PO SCH ×3 (09:00→16:26)
[2023-11-01] MEDS: BuPROPion HCL 150 MG SR TABLET PO SCH ×2 (10:30→16:23)
[2023-11-01] MEDS: AmLODIPine BESYLATE 10 MG TABLET PO SCH (10:30)
[2023-11-01] MEDS: LORazepam 2 MG TABLET PO PRN (20:48)
[2023-11-01] MEDS: ATORVASTATIN CALCIUM 20 MG TABLET PO SCH (20:49)
[2023-11-01] MEDS: OLANZapine 10 MG TABLET PO SCH (20:50)
[2023-11-02 02:35] VITALS: RESP 18
[2023-11-02] MEDS: LORazepam 2 MG TABLET PO PRN (02:50)
[2023-11-02] MEDS: ZOLPIDEM TARTRATE 10 MG TABLET PO PRN ×2 (02:50→21:25)
[2023-11-02] MEDS: AmLODIPine BESYLATE 10 MG TABLET PO SCH (08:31)
[2023-11-02] MEDS: BuPROPion HCL 150 MG SR TABLET PO SCH ×2 (08:31→17:04)
[2023-11-02] MEDS: LACTOBACILLUS ACIDOPHILUS/BULGARICUS GRANULES PACKET PO SCH ×3 (08:31→17:00)
[2023-11-02 09:49] VITALS: BP 148/78; PULSE 72; RESP 18; TEMP 98.1; O2SAT 95
[2023-11-02 21:05] VITALS: BP 142/99; PULSE 95; RESP 18; TEMP 98.1; O2SAT 97
[2023-11-02] MEDS: ATORVASTATIN CALCIUM 20 MG TABLET PO SCH (21:25)
[2023-11-02] MEDS: OLANZapine 10 MG TABLET PO SCH (21:25)
[2023-11-03] MEDS: LORazepam 2 MG TABLET PO PRN (03:02)
[2023-11-03] MEDS: BuPROPion HCL 150 MG SR TABLET PO SCH ×2 (08:24→16:06)
[2023-11-03] MEDS: AmLODIPine BESYLATE 10 MG TABLET PO SCH (08:24)
[2023-11-03] MEDS: LACTOBACILLUS ACIDOPHILUS/BULGARICUS GRANULES PACKET PO SCH ×4 (08:25→16:06)
[2023-11-03 10:30] VITALS: BP 160/98; PULSE 63; RESP 20; TEMP 97.8; O2SAT 96
[2023-11-03 20:43] VITALS: RESP 18
[2023-11-03] MEDS: OLANZapine 10 MG TABLET PO SCH (20:43)
[2023-11-03] MEDS: ATORVASTATIN CALCIUM 20 MG TABLET PO SCH (20:44)
[2023-11-04] MEDS: ZOLPIDEM TARTRATE 10 MG TABLET PO PRN ×2 (01:55→21:00)
[2023-11-04] MEDS: BuPROPion HCL 150 MG SR TABLET PO SCH ×2 (08:43→16:21)
[2023-11-04] MEDS: AmLODIPine BESYLATE 10 MG TABLET PO SCH (08:44)
[2023-11-04] MEDS: LACTOBACILLUS ACIDOPHILUS/BULGARICUS GRANULES PACKET PO SCH ×3 (08:45→16:22)
[2023-11-04 09:00] VITALS: BP 145/79; PULSE 73; RESP 20; TEMP 97.2; O2SAT 97
[2023-11-04] MEDS: OLANZapine 5 MG TABLET PO SCH ×2 (11:00→13:03)
[2023-11-04] MEDS: ATORVASTATIN CALCIUM 20 MG TABLET PO SCH (20:46)
[2023-11-04] MEDS: OLANZapine 10 MG TABLET PO SCH (20:46)
[2023-11-04] MEDS: LORazepam 2 MG TABLET PO PRN (21:00)
[2023-11-05] MEDS: AmLODIPine BESYLATE 10 MG TABLET PO SCH (08:34)
[2023-11-05] MEDS: BuPROPion HCL 150 MG SR TABLET PO SCH ×2 (08:34→16:18)
[2023-11-05] MEDS: OLANZapine 5 MG TABLET PO SCH (08:34)
[2023-11-05] MEDS: OLANZapine 10 MG TABLET PO SCH (20:39)
[2023-11-05] MEDS: ATORVASTATIN CALCIUM 20 MG TABLET PO SCH (20:39)
[2023-11-05] MEDS: LORazepam 2 MG TABLET PO PRN (22:25)
[2023-11-05] MEDS: ZOLPIDEM TARTRATE 10 MG TABLET PO PRN (22:25)
[2023-11-06] MEDS: BuPROPion HCL 150 MG SR TABLET PO SCH ×2 (08:37→16:36)
[2023-11-06] MEDS: AmLODIPine BESYLATE 10 MG TABLET PO SCH (08:38)
[2023-11-06] MEDS: OLANZapine 5 MG TABLET PO SCH (08:40)
[2023-11-06 08:57] VITALS: BP 140/90; PULSE 80; TEMP 97.4
[2023-11-06] MEDS: OLANZapine 10 MG TABLET PO SCH (20:41)
[2023-11-06] MEDS: ATORVASTATIN CALCIUM 20 MG TABLET PO SCH (20:41)
[2023-11-06 21:57] VITALS: BP 157/109; PULSE 78; RESP 18; TEMP 97.7
[2023-11-07] MEDS: ZOLPIDEM TARTRATE 10 MG TABLET PO PRN (00:35)
[2023-11-07] MEDS: LORazepam 2 MG TABLET PO PRN (03:45)
[2023-11-07] MEDS: AmLODIPine BESYLATE 10 MG TABLET PO SCH (08:29)
[2023-11-07] MEDS: BuPROPion HCL 150 MG SR TABLET PO SCH ×2 (08:29→17:02)
[2023-11-07] MEDS: OLANZapine 5 MG TABLET PO SCH (08:29)
[2023-11-07 08:59] VITALS: BP 126/79; PULSE 75; RESP 18; TEMP 97.4; O2SAT 98
[2023-11-07 20:41] VITALS: BP 147/97; PULSE 89; RESP 18; TEMP 98.3; O2SAT 97
[2023-11-07] MEDS: OLANZapine 10 MG TABLET PO SCH (20:42)
[2023-11-07] MEDS: ATORVASTATIN CALCIUM 20 MG TABLET PO SCH (20:42)
[2023-11-08] MEDS: ZOLPIDEM TARTRATE 10 MG TABLET PO PRN ×2 (01:19→20:55)
[2023-11-08] MEDS: LORazepam 2 MG TABLET PO PRN (03:25)
[2023-11-08 08:12] VITALS: BP 163/111; PULSE 76; RESP 18; TEMP 97.6; O2SAT 98
[2023-11-08] MEDS: BuPROPion HCL 150 MG SR TABLET PO SCH ×2 (08:14→16:27)
[2023-11-08] MEDS: AmLODIPine BESYLATE 10 MG TABLET PO SCH (08:15)
[2023-11-08] MEDS: OLANZapine 5 MG TABLET PO SCH (08:16)
[2023-11-08] MEDS: ATORVASTATIN CALCIUM 20 MG TABLET PO SCH (20:55)
[2023-11-08] MEDS: OLANZapine 10 MG TABLET PO SCH (20:55)
[2023-11-08 21:57] VITALS: RESP 18
[2023-11-09] MEDS: LORazepam 2 MG TABLET PO PRN ×2 (02:37→22:45)
[2023-11-09 08:18] VITALS: BP 153/97; PULSE 85; RESP 17; TEMP 97.6; O2SAT 98
[2023-11-09] MEDS: OLANZapine 5 MG TABLET PO SCH (08:24)
[2023-11-09] MEDS: BuPROPion HCL 150 MG SR TABLET PO SCH ×2 (08:24→17:10)
[2023-11-09] MEDS: AmLODIPine BESYLATE 10 MG TABLET PO SCH (08:24)
[2023-11-09] MEDS: ZOLPIDEM TARTRATE 10 MG TABLET PO PRN (20:35)
[2023-11-09] MEDS: OLANZapine 10 MG TABLET PO SCH (20:35)
[2023-11-09] MEDS: ATORVASTATIN CALCIUM 20 MG TABLET PO SCH (20:45)
[2023-11-09 20:53] VITALS: BP 147/95; PULSE 87; RESP 18; TEMP 97.4; O2SAT 97
[2023-11-10] MEDS: BuPROPion HCL 150 MG SR TABLET PO SCH (08:37)
[2023-11-10] MEDS: AmLODIPine BESYLATE 10 MG TABLET PO SCH (08:37)
[2023-11-10] MEDS: OLANZapine 5 MG TABLET PO SCH (08:37)
[2023-11-10] MEDS ORDERED: OLAN5TAB52 PO (08:48)
[2023-11-10] MEDS ORDERED: OLAN10TA74 PO (08:48)
[2023-11-10] MEDS ORDERED: BUPR-113 PO (08:48)
[2023-11-10] MEDS ORDERED: ATOR20TA65 PO (08:48)
[2023-11-10] MEDS ORDERED: AMLO-258 PO (08:48)
[2023-11-10 09:10] VITALS: BP 142/85; PULSE 74; RESP 20; TEMP 97.1; O2SAT 98
== END 2023-11-10 16:42 | disposition home or self-care (01) | DRG 750 ==
LOC: EMS 21:01 → 3EC 10-27 10:32
PROVIDERS: ADMIT Psychiatry & Neurology Psychiatry; ATTEND Psychiatry & Neurology Psychiatry
PROC: GZHZZZZ Group Psychotherapy (ICD-10-PCS; principal; 2023-10-28)
PROC: GZ56ZZZ Individual Psychotherapy, Supportive (ICD-10-PCS; 2023-10-28)
DX: F25.1 Schizoaffective disorder, depressive type (principal); R45.851 Suicidal ideations; R45.850 Homicidal ideations; F17.200 Nicotine dependence, unspecified, uncomplicated; F12.10 Cannabis abuse, uncomplicated; F31.9 Bipolar disorder, unspecified; K21.9 Gastro-esophageal reflux disease without esophagitis; J44.9 Chronic obstructive pulmonary disease, unspecified; I10 Essential (primary) hypertension; E78.5 Hyperlipidemia, unspecified; Z20.822 Contact with and (suspected) exposure to COVID-19; E11.9 Type 2 diabetes mellitus without complications; E03.9 Hypothyroidism, unspecified; Y90.9 Presence of alcohol in blood, level not specified; B18.2 Chronic viral hepatitis C; G89.29 Other chronic pain; F41.9 Anxiety disorder, unspecified; F10.20 Alcohol dependence, uncomplicated; M19.09 Primary osteoarthritis, other specified site; F15.10 Other stimulant abuse, uncomplicated; Z91.51 Personal history of suicidal behavior; Z79.899 Other long term (current) drug therapy; Z59.00 Homelessness unspecified; Z88.8 Allergy status to other drugs, medicaments and biological substances; Z71.51 Drug abuse counseling and surveillance of drug abuser; Z71.41 Alcohol abuse counseling and surveillance of alcoholic; Z71.6 Tobacco abuse counseling
CPT/HCPCS: 80053; 80061; 80307; 83036; 84443; 85025; 99285; G0480; Q0162

== ENCOUNTER 2023-11-11 17:31 | Emergency (ER) | payer MEDICAID, OTHER ==
[~2023-11-11] VITALS: Ht 175.3 cm; Wt 88.6 kg
[~2023-11-11 17:31] MED LIST changes: -ATOR20TA PO; +ATOR20TA65 PO; +BUPR-113 PO; -BUPR-72 PO; +OLAN5TAB52 PO
[2023-11-11 17:48] VITALS: TEMP 98
[2023-11-11 18:19] LABS: BASOPHILS % (AUTO) 0.6 % (0.0-2.0); EOSINOPHILS % (AUTO) 1.5 % (1.0-6.0); HEMATOCRIT 45.4 % (41-53); HEMOGLOBIN 15.2 g/dL (13.5-17.5); LYMPHOCYTES % (AUTO) 15.1 % (22.0-44.0); MEAN CORPUSCULAR HEMOGLOBIN 29.3 pg (26.0-34.0); MEAN CORPUSCULAR HGB CONC 33.5 G/dL (31.0-37.0); MEAN CORPUSCULAR VOLUME 88 fL (80-100); MONOCYTES # (AUTO) 1.4 K/uL (0.1-1.0); MONOCYTES % (AUTO) 10.5 % (2.0-9.0); NEUTROPHILS # (AUTO) 9.4 K/uL (1.8-7.7); NEUTROPHILS % (AUTO) 72.3 % (40.0-70.0); PLATELET COUNT (AUTO) 365 K/uL (150-450); RED BLOOD CELL COUNT(AUTO) 5.18 MIL/uL (4.50-5.90)
[2023-11-11 18:35] LABS: ANION GAP 9 mmol/L (8-16); CALCIUM, TOTAL 9.6 mg/dL (8.8-10.5); CARBON DIOXIDE 27 mmol/L (22-29); CHLORIDE 103 mmol/L (98-107); CREATININE 1.23 mg/dL (0.60-1.30); GLOMERULAR FILTR. RATE CALC 60 mL/min (>60); GLUCOSE,RANDOM 98 mg/dL (70-110); POTASSIUM 4.3 mmol/L (3.5-5.1); SODIUM SERUM 139 mmol/L (136-145); UREA NITROGEN, BLOOD 15 mg/dL (7-18)
[2023-11-11 18:42] LABS: ALANINE AMINOTRANSFERASE 34 U/L (12-78); ALBUMIN 4.8 g/dL (3.4-5.0); ALKALINE PHOSPHATASE 106 U/L (46-116); ASPARTATE AMINOTRANSFERASE 29 U/L (15-37); BILIRUBIN,TOTAL 0.8 mg/dL (0.1-1.0); TOTAL PROTEIN, SERUM 9.2 g/dL (6.4-8.2)
[2023-11-11 19:06] LABS: ALCOHOL, BLOOD (SERUM) < 3 mg/dL (0-10)
[2023-11-11 22:40] VITALS: BP 145/82; PULSE 90; RESP 16
== END 2023-11-11 22:45 | disposition home or self-care (01) ==
LOC: EMS 17:32
DX: F25.1 Schizoaffective disorder, depressive type (principal); F15.10 Other stimulant abuse, uncomplicated; F69 Unspecified disorder of adult personality and behavior; F41.9 Anxiety disorder, unspecified; F10.20 Alcohol dependence, uncomplicated; G89.29 Other chronic pain; M54.9 Dorsalgia, unspecified; F17.210 Nicotine dependence, cigarettes, uncomplicated; Z88.8 Allergy status to other drugs, medicaments and biological substances; Y90.9 Presence of alcohol in blood, level not specified
CPT/HCPCS: 99284; 80053; 85025; 36415; G0480

== ENCOUNTER 2023-11-22 18:10 | Emergency (ER) | payer OTHER ==
[~2023-11-22] VITALS: Ht 175.3 cm; Wt 90.9 kg
[~2023-11-22 18:10] MED LIST changes: -OLAN5TAB52 PO
[2023-11-22 19:17] VITALS: TEMP 98
[2023-11-23 01:42] LABS: BASOPHILS % (AUTO) 0.7 % (0.0-2.0); EOSINOPHILS % (AUTO) 4.6 % (1.0-6.0); HEMATOCRIT 42.4 % (41-53); HEMOGLOBIN 14.7 g/dL (13.5-17.5); LYMPHOCYTES # (AUTO) 2.2 K/uL (1.0-4.8); LYMPHOCYTES % (AUTO) 27.4 % (22.0-44.0); MEAN CORPUSCULAR HEMOGLOBIN 30.3 pg (26.0-34.0); MEAN CORPUSCULAR HGB CONC 34.7 G/dL (31.0-37.0); MEAN CORPUSCULAR VOLUME 87 fL (80-100); MONOCYTES # (AUTO) 0.6 K/uL (0.1-1.0); MONOCYTES % (AUTO) 7.5 % (2.0-9.0); NEUTROPHILS # (AUTO) 4.9 K/uL (1.8-7.7); NEUTROPHILS % (AUTO) 59.8 % (40.0-70.0); PLATELET COUNT (AUTO) 259 K/uL (150-450); RED BLOOD CELL COUNT(AUTO) 4.86 MIL/uL (4.50-5.90); RED CELL DISTRIBUTION WIDTH 13.1 % (11.5-14.5); WHITE BLOOD COUNT (AUTO) 8.2 K/uL (4.5-11.0)
[2023-11-23 01:53] LABS: ANION GAP 11 mmol/L (8-16); CALCIUM, TOTAL 8.8 mg/dL (8.8-10.5); CARBON DIOXIDE 26 mmol/L (22-29); CHLORIDE 104 mmol/L (98-107); CREATININE 0.96 mg/dL (0.60-1.30); GLOMERULAR FILTR. RATE CALC > 60 mL/min (>60); GLUCOSE,RANDOM 158 mg/dL (70-110); POTASSIUM 3.6 mmol/L (3.5-5.1); SODIUM SERUM 141 mmol/L (136-145); UREA NITROGEN, BLOOD 16 mg/dL (7-18)
[2023-11-23 01:59] LABS: ALBUMIN 3.9 g/dL (3.4-5.0); ALKALINE PHOSPHATASE 113 U/L (46-116); ASPARTATE AMINOTRANSFERASE 17 U/L (15-37); BILIRUBIN,TOTAL 0.3 mg/dL (0.1-1.0); TOTAL PROTEIN, SERUM 7.2 g/dL (6.4-8.2)
[2023-11-23 02:03] LABS: ALANINE AMINOTRANSFERASE 25 U/L (12-78); ALCOHOL, BLOOD (SERUM) < 3 mg/dL (0-10)
[2023-11-23 05:48] VITALS: BP 122/63; PULSE 74; RESP 14
== END 2023-11-23 10:50 | disposition left against medical advice (07) ==
LOC: EMS 19:48
DX: F41.9 Anxiety disorder, unspecified (principal); F22 Delusional disorders; I10 Essential (primary) hypertension; G89.29 Other chronic pain; M54.9 Dorsalgia, unspecified; F17.210 Nicotine dependence, cigarettes, uncomplicated
CPT/HCPCS: 99283; 80053; 85025; 36415; G0480

== ENCOUNTER 2023-12-23 20:42 | Inpatient (IN) | payer MEDICAID, OTHER ==
[~2023-12-23] VITALS: Ht 172.7 cm; Wt 99.8 kg
[2023-12-23 21:24] LABS: BASOPHILS % (AUTO) 0.7 % (0.0-2.0); EOSINOPHILS % (AUTO) 2.9 % (1.0-6.0); HEMATOCRIT 34.2 % (41-53); HEMOGLOBIN 11.4 g/dL (13.5-17.5); LYMPHOCYTES % (AUTO) 18.5 % (22.0-44.0); MEAN CORPUSCULAR HEMOGLOBIN 29.7 pg (26.0-34.0); MEAN CORPUSCULAR HGB CONC 33.4 G/dL (31.0-37.0); MEAN CORPUSCULAR VOLUME 89 fL (80-100); MONOCYTES # (AUTO) 1.3 K/uL (0.1-1.0); MONOCYTES % (AUTO) 11.7 % (2.0-9.0); NEUTROPHILS # (AUTO) 7.3 K/uL (1.8-7.7); NEUTROPHILS % (AUTO) 66.2 % (40.0-70.0); PLATELET COUNT (AUTO) 461 K/uL (150-450); RED BLOOD CELL COUNT(AUTO) 3.85 MIL/uL (4.50-5.90); RED CELL DISTRIBUTION WIDTH 14.4 % (11.5-14.5)
[2023-12-23 21:37] LABS: ANION GAP 11 mmol/L (8-16); CALCIUM, TOTAL 10.3 mg/dL (8.8-10.5); CARBON DIOXIDE 26 mmol/L (22-29); CHLORIDE 103 mmol/L (98-107); CREATININE 1.01 mg/dL (0.60-1.30); GLOMERULAR FILTR. RATE CALC > 60 mL/min (>60); GLUCOSE,RANDOM 105 mg/dL (70-110); POTASSIUM 3.7 mmol/L (3.5-5.1); SODIUM SERUM 140 mmol/L (136-145); UREA NITROGEN, BLOOD 12 mg/dL (7-18)
[2023-12-23 21:41] LABS: ALANINE AMINOTRANSFERASE 39 U/L (12-78); ALBUMIN 4.5 g/dL (3.4-5.0); ALCOHOL, BLOOD (SERUM) 8 mg/dL (0-10); ALKALINE PHOSPHATASE 104 U/L (46-116); ASPARTATE AMINOTRANSFERASE 27 U/L (15-37); BILIRUBIN,TOTAL 1.1 mg/dL (0.1-1.0)
[2023-12-23] MEDS: LORazepam 2 MG/ML VIAL IM ONE (23:44)
[2023-12-23] MEDS: ZIPRASIDONE MESYLATE 20 MG/VIAL IM ONE (23:45)
[2023-12-24 00:40] LABS: COVID AG,FIA SOURCE NASAL SWAB
[2023-12-24 00:53] LABS: SARS-COV2 (COVID) ANTIGEN,FIA Negative (Negative)
[2023-12-24 01:23] LABS: ALCOHOL, URINE DRUG SCREEN NEGATIVE (NEGATIVE); AMPHET/METH SCREEN,URINE POSITIVE (NEGATIVE); BARBITURATE SCREEN, URINE NEGATIVE (NEGATIVE); BENZODIAZEPINES SCREEN,URINE NEGATIVE (NEGATIVE); CANNABINOID SCREEN,URINE NEGATIVE (NEGATIVE); COCAINE SCREEN,URINE NEGATIVE (NEGATIVE); METHADONE SCREEN, URINE NEGATIVE (NEGATIVE); OPIATE SCREEN,URINE POSITIVE (NEGATIVE); PHENCYCLIDINE SCREEN,URINE NEGATIVE (NEGATIVE)
[2023-12-24 01:26] LABS: APPEARANCE,URINE CLEAR (CLEAR); BILIRUBIN,URINE NEGATIVE (NEGATIVE); COLOR,URINE LIGHT YELLOW (YELLOW); GLUCOSE, URINE (UA) NEGATIVE (NEGATIVE); LEUKOCYTE ESTERASE ,URINE NEGATIVE (NEGATIVE); NITRATE,URINE NEGATIVE (NEGATIVE); OCCULT BLOOD,URINE NEGATIVE (NEGATIVE); PROTEIN,URINE NEGATIVE (NEGATIVE); SPECIFIC GRAVITIY, URINE 1.015 (1.003-1.030); UROBILINOGEN,URINE <=1.0 mg/dL (<=1.0)
[2023-12-24 03:57] VITALS: BP 167/89; PULSE 94; RESP 18; TEMP 97.5; O2SAT 99
[2023-12-24 04:06] LABS: GLUCOMETER DEV NAME(LOC) BV3N.; GLUCOSE,POINT OF CARE 122 MG/DL (70-110)
[2023-12-24 08:13] VITALS: BP 159/94; PULSE 93; RESP 18; TEMP 98.3; O2SAT 95
[2023-12-24] MEDS: OLANZapine 5 MG RAPDIS TABLET PO PRN (08:35)
[2023-12-24] MEDS: LORazepam 2 MG TABLET PO PRN (08:36)
[2023-12-24] MEDS ORDERED: DOCUSATE SODIUM 100 MG CAPSULE PO PRN (11:15)
[2023-12-24] MEDS ORDERED: LOPERAMIDE HCL 2 MG CAPSULE PO PRN (11:15)
[2023-12-24] MEDS ORDERED: MAG HYDROX/ALUMINUM HYD/SIMETH ES 30 ML SUSPENSION UDCUP PO PRN (11:15)
[2023-12-24] MEDS ORDERED: ONDANSETRON HCL 4 MG TABLET PO PRN (11:15)
[2023-12-24] MEDS ORDERED: PETROLATUM,WHITE 28 GM JELLY TP PRN (11:15)
[2023-12-24] MEDS ORDERED: CloNIDine HCL 0.1 MG TABLET PO PRN (11:15)
[2023-12-24] MEDS ORDERED: NICOTINE 14 MG/24 HOUR PATCH TD PRN (11:15)
[2023-12-24] MEDS ORDERED: ALBUTEROL SULFATE HFA 90 MCG/PUFF 8 GM INHALER IH PRN (11:15)
[2023-12-24] MEDS ORDERED: GuaiFENesin/D-METHORPHAN [SUGAR-FREE] 200-20MG/10 ML SYRUP UDCUP PO PRN (11:15)
[2023-12-24] MEDS ORDERED: MAGNESIUM HYDROXIDE SUSPENSION 30 ML UDCUP PO PRN (11:15)
[2023-12-24] MEDS: BACITRACIN 28 GM OINTMENT TP SCH (12:33)
[2023-12-24] MEDS: AmLODIPine BESYLATE 10 MG TABLET PO SCH (12:38)
[2023-12-24 19:40] VITALS: BP 159/85; PULSE 95; RESP 18; TEMP 98
[2023-12-24] MEDS: ATORVASTATIN CALCIUM 20 MG TABLET PO SCH (20:50)
[2023-12-24] MEDS: OLANZapine 10 MG TABLET PO SCH (20:50)
[2023-12-25 08:20] VITALS: BP 144/92; PULSE 81; RESP 18; TEMP 98; O2SAT 97
[2023-12-25 08:22] VITALS: BP 144/92; PULSE 81; RESP 18; TEMP 98; O2SAT 97
[2023-12-25] MEDS: BuPROPion HCL 150 MG SR TABLET PO SCH (08:22)
[2023-12-25 10:15] LABS: HEMOGLOBIN A1C 5.5 % (3.8-5.6)
[2023-12-25 10:43] LABS: THYROID STIMULATING HORMONE 0.83 uIU/mL (0.36-3.74)
[2023-12-25] MEDS: DOXYCYCLINE HYCLATE 100 MG TABLET PO SCH (17:01)
[2023-12-25 19:06] VITALS: RESP 18
[2023-12-25] MEDS: IBUPROFEN 400 MG TABLET PO PRN (19:06)
[2023-12-25 20:06] VITALS: RESP 18
[2023-12-25] MEDS: ZOLPIDEM TARTRATE 10 MG TABLET PO PRN (20:47)
[2023-12-26 08:42] VITALS: BP 142/72; PULSE 72; RESP 18; TEMP 97.8; O2SAT 97
[2023-12-26] MEDS: OLANZapine 10 MG TABLET PO ONE (10:36)
[2023-12-26 10:40] LABS: CHOL/HDL RATIO 3.1 (4.2-7.3)
[2023-12-26] MEDS: IBUPROFEN 600 MG TABLET PO PRN (18:20)
[2023-12-26 18:21] VITALS: RESP 18
[2023-12-26 19:20] VITALS: RESP 18
[2023-12-26 20:53] VITALS: BP 148/78; PULSE 68; RESP 16; TEMP 97.6; O2SAT 98
[2023-12-26] MEDS ORDERED: IBUPROFEN 600 MG TABLET PO PRN (23:15)
[2023-12-27 02:45] VITALS: RESP 18
[2023-12-27] MEDS: TraMADol HCL 50 MG TABLET PO PRN (03:46)
[2023-12-27 15:32] VITALS: BP 135/82; PULSE 80; RESP 18; TEMP 98.4
[2023-12-27 15:59] VITALS: RESP 18
[2023-12-27 16:59] VITALS: RESP 18
[2023-12-27 20:52] VITALS: RESP 18
[2023-12-27 21:51] VITALS: RESP 18
[2023-12-28 09:48] VITALS: BP 135/85; PULSE 80; RESP 17; TEMP 97.9; O2SAT 97
[2023-12-28 21:21] VITALS: BP 117/86; PULSE 96; RESP 18; TEMP 97.6; O2SAT 98
[2023-12-29 08:45] VITALS: BP 135/78; PULSE 80; RESP 17; TEMP 97.9; O2SAT 92
[2023-12-29 16:21] VITALS: RESP 19
[2023-12-29 17:21] VITALS: RESP 18
[2023-12-29 18:06] VITALS: RESP 18
[2023-12-29 19:06] VITALS: RESP 17
[2023-12-29 21:57] VITALS: BP 126/62; PULSE 76; RESP 18; TEMP 98.2; O2SAT 99
[2023-12-30 08:53] VITALS: BP 136/72; PULSE 75; RESP 18; TEMP 97.7; O2SAT 99
[2023-12-30 09:32] VITALS: BP 136/72; PULSE 75; RESP 18; TEMP 97.7; O2SAT 99
[2023-12-30] MEDS: BuPROPion HCL 150 MG SR TABLET PO SCH (16:01)
[2023-12-30 18:13] VITALS: RESP 18
[2023-12-30 19:13] VITALS: RESP 18
[2023-12-30 21:43] VITALS: BP 158/96; PULSE 87; RESP 18; TEMP 98; O2SAT 100
[2023-12-31 08:33] VITALS: BP 155/90; PULSE 74; RESP 17; TEMP 98; O2SAT 97
[2023-12-31 12:25] VITALS: RESP 18
[2023-12-31 13:25] VITALS: RESP 16
[2023-12-31 18:27] VITALS: RESP 18
[2023-12-31 19:27] VITALS: RESP 18
[2023-12-31 20:11] VITALS: BP 142/82; PULSE 64; RESP 19; TEMP 98.2; O2SAT 99
[2024-01-01 08:50] VITALS: BP 152/72; PULSE 79; RESP 17; TEMP 98.2; O2SAT 98
[2024-01-01 15:50] VITALS: BP 132/75; RESP 16
[2024-01-01 20:30] VITALS: BP 142/76; PULSE 76; RESP 19; TEMP 97.6; O2SAT 99
[2024-01-02 08:30] VITALS: BP 143/74; PULSE 78; RESP 18; TEMP 98.3; O2SAT 97
[2024-01-02 10:33] VITALS: RESP 20
[2024-01-02 11:42] VITALS: RESP 20
[2024-01-02] MEDS: TraMADol HCL 50 MG TABLET PO ONE (17:59)
[2024-01-02] MEDS: DiphenhydrAMINE HCL 50 MG/ML VIAL IM ONE (19:00)
[2024-01-02 22:13] VITALS: BP 148/82; PULSE 86; RESP 19; TEMP 98.6; O2SAT 99
[2024-01-03 08:24] VITALS: BP 145/83; PULSE 83; RESP 17; TEMP 97.6; O2SAT 97
[2024-01-03 08:30] VITALS: RESP 20
[2024-01-03 09:33] VITALS: RESP 18
[2024-01-03 16:23] VITALS: BP 142/79; PULSE 78; RESP 19; TEMP 97.8
[2024-01-03 21:29] VITALS: BP 147/81; PULSE 94; RESP 16; TEMP 98; O2SAT 97
[2024-01-04 08:25] VITALS: BP 145/86; PULSE 81; RESP 17; TEMP 97.8; O2SAT 95
[2024-01-04 16:16] VITALS: RESP 18
[2024-01-04 17:15] VITALS: RESP 18
[2024-01-04 20:20] VITALS: BP 148/76; PULSE 78; RESP 18; RESP 19; TEMP 98; O2SAT 98
[2024-01-04 21:19] VITALS: RESP 18
[2024-01-05 08:14] VITALS: BP 125/73; PULSE 68; RESP 17; TEMP 97.6; O2SAT 96
[2024-01-05 23:19] VITALS: BP 136/68; PULSE 72; RESP 19; TEMP 98.2; O2SAT 99
[2024-01-06] VITALS (7 sets, daily range): BP systolic 132–142; BP diastolic 71–89; PULSE 72–91; RESP 18–28; TEMP 97.5–98.1; O2SAT 98
[2024-01-07 09:22] VITALS: BP 147/77; PULSE 82; RESP 18; TEMP 97.6; O2SAT 99
[2024-01-07] MEDS: ACETAMINOPHEN 325 MG TABLET PO PRN (11:33)
[2024-01-07 20:02] VITALS: BP 122/84; PULSE 98; RESP 17; TEMP 97.8; O2SAT 100
[2024-01-08 08:19] VITALS: BP 143/70; PULSE 79; RESP 18; TEMP 98.1; O2SAT 99
[2024-01-08 14:29] VITALS: RESP 18
[2024-01-08 16:20] VITALS: RESP 18
[2024-01-08 17:19] VITALS: RESP 18
[2024-01-08 21:05] VITALS: BP 126/95; PULSE 85; RESP 17; TEMP 97.6; O2SAT 100
[2024-01-09] VITALS (7 sets, daily range): BP systolic 128–137; BP diastolic 76–84; PULSE 84–88; RESP 17–18; TEMP 97.6–98; O2SAT 96–97
[2024-01-10 08:30] VITALS: BP 129/61; PULSE 76; RESP 18; TEMP 98; O2SAT 97
== END 2024-01-10 13:33 | disposition home or self-care (01) | DRG 750 ==
LOC: EMS 20:42 → B3A 12-24 00:42
PROVIDERS: ADMIT Psychiatry & Neurology Psychiatry; ATTEND Psychiatry & Neurology Psychiatry
PROC: GZHZZZZ Group Psychotherapy (ICD-10-PCS; principal; 2023-12-27)
PROC: GZ51ZZZ Individual Psychotherapy, Behavioral (ICD-10-PCS; 2023-12-27)
DX: F25.1 Schizoaffective disorder, depressive type (principal); R45.850 Homicidal ideations; B19.20 Unspecified viral hepatitis C without hepatic coma; E78.5 Hyperlipidemia, unspecified; F15.20 Other stimulant dependence, uncomplicated; F41.9 Anxiety disorder, unspecified; Z20.822 Contact with and (suspected) exposure to COVID-19; I10 Essential (primary) hypertension; J44.9 Chronic obstructive pulmonary disease, unspecified; K21.9 Gastro-esophageal reflux disease without esophagitis; M54.9 Dorsalgia, unspecified; G89.29 Other chronic pain; Z79.899 Other long term (current) drug therapy; Z87.891 Personal history of nicotine dependence; Z88.8 Allergy status to other drugs, medicaments and biological substances
CPT/HCPCS: 80053; 80061; 80307; 81003; 82962; 83036; 84443; 85025; G0480; J1200; J2060; J3486

== ENCOUNTER 2024-02-18 21:23 | Inpatient (IN) | payer MEDICAID ==
[~2024-02-18 21:23] MED LIST changes: +ATOR PO; +DOXY PO; +OLANZAPINE PO
[2024-02-18 22:55] LABS: GLUCOMETER DEV NAME(LOC) POC.BV; POC SARS-COV2 AG, FIA NEGATIVE (NEGATIVE)
[2024-02-19] MEDS: ZOLPIDEM TARTRATE 10 MG TABLET PO PRN (01:01)
[2024-02-19] MEDS: LORazepam 2 MG TABLET PO PRN (01:01)
[2024-02-19] MEDS: OLANZapine 5 MG RAPDIS TABLET PO PRN (01:01)
[2024-02-19 01:22] VITALS: BP 145/82; PULSE 88; RESP 18; TEMP 97.8; O2SAT 100
[2024-02-19] MEDS ORDERED: MAG HYDROX/ALUMINUM HYD/SIMETH ES 30 ML SUSPENSION UDCUP PO PRN (07:00)
[2024-02-19] MEDS ORDERED: PETROLATUM,WHITE 28 GM JELLY TP PRN (07:00)
[2024-02-19] MEDS ORDERED: ONDANSETRON HCL 4 MG TABLET PO PRN (07:00)
[2024-02-19] MEDS ORDERED: MAGNESIUM HYDROXIDE SUSPENSION 30 ML UDCUP PO PRN (07:00)
[2024-02-19] MEDS ORDERED: GuaiFENesin/D-METHORPHAN [SUGAR-FREE] 200-20MG/10 ML SYRUP UDCUP PO PRN (07:00)
[2024-02-19] MEDS ORDERED: LOPERAMIDE HCL 2 MG CAPSULE PO PRN (07:00)
[2024-02-19] MEDS ORDERED: CloNIDine HCL 0.1 MG TABLET PO PRN (07:00)
[2024-02-19] MEDS ORDERED: ACETAMINOPHEN 325 MG TABLET PO PRN (07:00)
[2024-02-19] MEDS ORDERED: DOCUSATE SODIUM 100 MG CAPSULE PO PRN (07:00)
[2024-02-19] MEDS ORDERED: NICOTINE 14 MG/24 HOUR PATCH TD PRN (07:00)
[2024-02-19] MEDS ORDERED: ALBUTEROL SULFATE HFA 90 MCG/PUFF 8 GM INHALER IH PRN (07:00)
[2024-02-19 08:04] VITALS: BP 132/82; PULSE 87; RESP 16; TEMP 98
[2024-02-19] MEDS: AmLODIPine BESYLATE 10 MG TABLET PO SCH (08:29)
[2024-02-19] MEDS: BuPROPion HCL 150 MG SR TABLET PO SCH (08:31)
[2024-02-19 20:22] VITALS: BP 136/86; PULSE 76; RESP 18; TEMP 97.6
[2024-02-19] MEDS: ATORVASTATIN CALCIUM 20 MG TABLET PO SCH (20:34)
[2024-02-19] MEDS: OLANZapine 10 MG TABLET PO SCH (20:37)
[2024-02-20 08:27] VITALS: BP 152/98; PULSE 81; RESP 18; TEMP 98; O2SAT 99
[2024-02-20 10:06] LABS: BASOPHILS % (AUTO) 0.7 % (0.0-2.0); EOSINOPHILS % (AUTO) 3.4 % (1.0-6.0); HEMATOCRIT 39.4 % (41-53); LYMPHOCYTES # (AUTO) 1.2 K/uL (1.0-4.8); LYMPHOCYTES % (AUTO) 17.5 % (22.0-44.0); MEAN CORPUSCULAR HEMOGLOBIN 28.4 pg (26.0-34.0); MEAN CORPUSCULAR VOLUME 86 fL (80-100); MONOCYTES # (AUTO) 0.6 K/uL (0.1-1.0); MONOCYTES % (AUTO) 8.4 % (2.0-9.0); NEUTROPHILS # (AUTO) 4.8 K/uL (1.8-7.7); PLATELET COUNT (AUTO) 308 K/uL (150-450); RED BLOOD CELL COUNT(AUTO) 4.58 MIL/uL (4.50-5.90); WHITE BLOOD COUNT (AUTO) 6.8 K/uL (4.5-11.0)
[2024-02-20 10:16] LABS: HEMOGLOBIN A1C 5.1 % (3.8-5.6)
[2024-02-20 10:29] LABS: ALANINE AMINOTRANSFERASE 19 U/L (12-78); ALBUMIN 3.3 g/dL (3.4-5.0); ALKALINE PHOSPHATASE 106 U/L (46-116); ANION GAP 10 mmol/L (8-16); ASPARTATE AMINOTRANSFERASE 23 U/L (15-37); BILIRUBIN,TOTAL 0.5 mg/dL (0.1-1.0); CALCIUM, TOTAL 8.6 mg/dL (8.8-10.5); CARBON DIOXIDE 26 mmol/L (22-29); CHLORIDE 105 mmol/L (98-107); CHOL/HDL RATIO 4.6 (4.2-7.3); CHOLESTEROL 146 mg/dL (131-200); CREATININE 0.95 mg/dL (0.60-1.30); FREE T4 (FREE THYROXINE) 0.72 ng/dL (0.76-1.46); GLOMERULAR FILTR. RATE CALC > 60 mL/min (>60); GLUCOSE,RANDOM 159 mg/dL (70-110); HDL CHOLESTEROL 32 mg/dL (40-60); LDL CHOL (CALC.) 82 mg/dL (0-130); POTASSIUM 3.3 mmol/L (3.5-5.1); SODIUM SERUM 141 mmol/L (136-145); THYROID STIMULATING HORMONE 0.63 uIU/mL (0.36-3.74); TOTAL PROTEIN, SERUM 7.1 g/dL (6.4-8.2); TRIGLYCERIDES 160 mg/dL (15-150); UREA NITROGEN, BLOOD 12 mg/dL (7-18)
[2024-02-20] MEDS: POTASSIUM CHLORIDE 20 MEQ ER TABLET PO ONE (13:36)
[2024-02-20 20:30] VITALS: BP 143/90; PULSE 89; RESP 18; TEMP 98; O2SAT 96
[2024-02-21 08:43] VITALS: BP 126/82; PULSE 73; RESP 18; TEMP 97.6; O2SAT 96
[2024-02-21 20:17] VITALS: BP 152/91; PULSE 83; RESP 16; TEMP 97.7; O2SAT 97
[2024-02-21] MEDS: IBUPROFEN 400 MG TABLET PO PRN (20:48)
[2024-02-22 08:22] VITALS: BP 135/73; PULSE 77; RESP 18; TEMP 97.6; O2SAT 96
[2024-02-22 20:53] VITALS: BP 134/74; PULSE 74; TEMP 97.3; O2SAT 96
[2024-02-23 08:30] VITALS: BP 138/75; PULSE 72; RESP 18; TEMP 97.8; O2SAT 95
[2024-02-23 20:42] VITALS: BP 145/90; PULSE 94; TEMP 97.7; O2SAT 98
[2024-02-24 08:12] VITALS: BP 128/89; PULSE 85; RESP 18; TEMP 97.8; O2SAT 98
[2024-02-24 20:20] VITALS: BP 127/91; PULSE 86; RESP 18; TEMP 98; O2SAT 99
[2024-02-25] MEDS: LEVOTHYROXINE SODIUM 25 MCG TABLET PO SCH (06:07)
[2024-02-25 08:19] VITALS: BP 125/86; PULSE 65; RESP 18; TEMP 97.4; O2SAT 98
[2024-02-25 21:25] VITALS: BP 143/76; PULSE 89; RESP 18; TEMP 96.4; O2SAT 98
[2024-02-26 08:41] VITALS: BP 144/88; PULSE 73; RESP 18; TEMP 98.3; O2SAT 96
[2024-02-26] MEDS: OLANZapine 5 MG TABLET PO SCH (10:09)
[2024-02-26 20:09] VITALS: RESP 10
[2024-02-27 08:25] VITALS: BP 150/70; PULSE 70; RESP 18; TEMP 98; O2SAT 100
[2024-02-27 11:11] VITALS: BP 137/89; PULSE 89; RESP 18
[2024-02-27 20:47] VITALS: BP 150/101; PULSE 104; RESP 18; TEMP 97.7; O2SAT 96
[2024-02-28 08:51] VITALS: BP 138/85; PULSE 66; RESP 18; TEMP 98; O2SAT 98
[2024-02-28 21:13] VITALS: BP 145/98; PULSE 86; RESP 16; TEMP 97.8; O2SAT 98
[2024-02-29 08:30] VITALS: BP 131/75; PULSE 63; RESP 17; TEMP 97.5; O2SAT 96
[2024-02-29 21:44] VITALS: BP 147/74; PULSE 75; RESP 16; TEMP 97.7; O2SAT 98
[2024-03-01 09:24] VITALS: BP 133/79; PULSE 65; RESP 18; TEMP 97.8; O2SAT 95
[2024-03-01 20:15] VITALS: BP 149/83; PULSE 88; TEMP 98.2; O2SAT 99
[2024-03-02 08:24] VITALS: BP 144/77; PULSE 71; RESP 18; TEMP 98.3; O2SAT 96
[2024-03-02 20:18] VITALS: BP 150/99; PULSE 88; TEMP 98; O2SAT 100
[2024-03-03 08:16] VITALS: BP 129/80; PULSE 69; RESP 18; TEMP 98; O2SAT 95
[2024-03-03 08:24] LABS: APPEARANCE,URINE CLEAR (CLEAR); BILIRUBIN,URINE NEGATIVE (NEGATIVE); COLOR,URINE LIGHT YELLOW (YELLOW); GLUCOSE, URINE (UA) NEGATIVE (NEGATIVE); KETONES,URINE NEGATIVE (NEGATIVE); LEUKOCYTE ESTERASE ,URINE NEGATIVE (NEGATIVE); NITRATE,URINE NEGATIVE (NEGATIVE); OCCULT BLOOD,URINE NEGATIVE (NEGATIVE); PROTEIN,URINE NEGATIVE (NEGATIVE); SPECIFIC GRAVITIY, URINE 1.009 (1.003-1.030); UROBILINOGEN,URINE <=1.0 mg/dL (<=1.0)
[2024-03-03 08:30] LABS: ALCOHOL, URINE DRUG SCREEN NEGATIVE (NEGATIVE); AMPHET/METH SCREEN,URINE NEGATIVE (NEGATIVE); BARBITURATE SCREEN, URINE NEGATIVE (NEGATIVE); BENZODIAZEPINES SCREEN,URINE NEGATIVE (NEGATIVE); CANNABINOID SCREEN,URINE NEGATIVE (NEGATIVE); COCAINE SCREEN,URINE NEGATIVE (NEGATIVE); METHADONE SCREEN, URINE NEGATIVE (NEGATIVE); OPIATE SCREEN,URINE NEGATIVE (NEGATIVE); PHENCYCLIDINE SCREEN,URINE NEGATIVE (NEGATIVE)
[2024-03-03] MEDS ORDERED: OLAN5TAB52 PO (16:32)
[2024-03-03] MEDS ORDERED: LEVO25TA9 PO (16:33)
== END 2024-03-03 17:45 | disposition home or self-care (01) | DRG 750 ==
LOC: B3A 22:09
PROVIDERS: ADMIT Psychiatry & Neurology Psychiatry; ATTEND Psychiatry & Neurology Psychiatry
PROC: GZHZZZZ Group Psychotherapy (ICD-10-PCS; principal; 2024-02-19)
DX: F25.1 Schizoaffective disorder, depressive type (principal); Z91.148 Patient's other noncompliance with medication regimen for other reason; B19.20 Unspecified viral hepatitis C without hepatic coma; E03.9 Hypothyroidism, unspecified; E78.5 Hyperlipidemia, unspecified; I10 Essential (primary) hypertension; J44.9 Chronic obstructive pulmonary disease, unspecified; K21.9 Gastro-esophageal reflux disease without esophagitis; F41.9 Anxiety disorder, unspecified; M54.9 Dorsalgia, unspecified; Z20.822 Contact with and (suspected) exposure to COVID-19; G89.29 Other chronic pain; E87.6 Hypokalemia; Z79.899 Other long term (current) drug therapy; Z88.8 Allergy status to other drugs, medicaments and biological substances; Z59.00 Homelessness unspecified
CPT/HCPCS: 80053; 80061; 80307; 81003; 83036; 84132; 84439; 84443; 85025; 87081; J3535

== ENCOUNTER 2024-03-15 04:52 | Inpatient (IN) | payer MEDICAID ==
[~2024-03-15] VITALS: Ht 172.7 cm; Wt 91.3 kg
[~2024-03-15 04:52] MED LIST changes: -ATOR PO; -DOXY PO; +LEVO25TA9 PO; +OLAN5TAB52 PO; -OLANZAPINE PO
[2024-03-15] MEDS ORDERED: OLANZapine 5 MG RAPDIS TABLET PO PRN (05:30)
[2024-03-15 05:55] LABS: GLUCOMETER DEV NAME(LOC) POC.BV; POC SARS-COV2 AG, FIA NEGATIVE (NEGATIVE)
[2024-03-15 06:25] VITALS: BP 131/83; PULSE 82; RESP 18; TEMP 97.5
[2024-03-15] MEDS: -PHARMACY VACCINE NOTE- MISC ONE (06:39)
[2024-03-15] MEDS ORDERED: ACETAMINOPHEN 325 MG TABLET PO PRN (06:45)
[2024-03-15] MEDS ORDERED: ALBUTEROL SULFATE HFA 90 MCG/PUFF 8 GM INHALER IH PRN (06:45)
[2024-03-15] MEDS ORDERED: GuaiFENesin/D-METHORPHAN [SUGAR-FREE] 200-20MG/10 ML SYRUP UDCUP PO PRN (06:45)
[2024-03-15] MEDS ORDERED: PETROLATUM,WHITE 28 GM JELLY TP PRN (06:45)
[2024-03-15] MEDS ORDERED: MAGNESIUM HYDROXIDE SUSPENSION 30 ML UDCUP PO PRN (06:45)
[2024-03-15] MEDS ORDERED: NICOTINE 14 MG/24 HOUR PATCH TD PRN (06:45)
[2024-03-15] MEDS ORDERED: LOPERAMIDE HCL 2 MG CAPSULE PO PRN (06:45)
[2024-03-15] MEDS ORDERED: DOCUSATE SODIUM 100 MG CAPSULE PO PRN (06:45)
[2024-03-15] MEDS ORDERED: MAG HYDROX/ALUMINUM HYD/SIMETH ES 30 ML SUSPENSION UDCUP PO PRN (06:45)
[2024-03-15] MEDS ORDERED: CloNIDine HCL 0.1 MG TABLET PO PRN (06:45)
[2024-03-15] MEDS ORDERED: IBUPROFEN 400 MG TABLET PO PRN (06:45)
[2024-03-15] MEDS ORDERED: ONDANSETRON HCL 4 MG TABLET PO PRN (06:45)
[2024-03-15] MEDS: LEVOTHYROXINE SODIUM 25 MCG TABLET PO SCH (07:10)
[2024-03-15] MEDS: AmLODIPine BESYLATE 10 MG TABLET PO SCH (08:28)
[2024-03-15 08:54] VITALS: BP 133/92; PULSE 76; RESP 20; TEMP 97.5; O2SAT 95
[2024-03-15] MEDS ORDERED: GLUCAGON,HUMAN RECOMBINANT 1 MG VIAL IM PRN (09:45)
[2024-03-15] MEDS ORDERED: INSULIN LISPRO 100 UNITS/ML SQ PRN (09:45)
[2024-03-15 12:00] LABS: GLUCOMETER DEV NAME(LOC) BV3N.; GLUCOSE,POINT OF CARE 120 MG/DL (70-110)
[2024-03-15] MEDS: BuPROPion HCL 150 MG SR TABLET PO SCH (16:51)
[2024-03-15 20:50] VITALS: BP 115/71; PULSE 81; TEMP 97.3; O2SAT 99
[2024-03-15] MEDS: OLANZapine 10 MG TABLET PO SCH (21:50)
[2024-03-15] MEDS: ATORVASTATIN CALCIUM 20 MG TABLET PO SCH (21:50)
[2024-03-16] MEDS: LORazepam 2 MG TABLET PO PRN (08:16)
[2024-03-16] MEDS: OLANZapine 5 MG TABLET PO SCH (08:16)
[2024-03-16 08:48] LABS: BASOPHILS % (AUTO) 0.4 % (0.0-2.0); EOSINOPHILS % (AUTO) 6.8 % (1.0-6.0); HEMATOCRIT 42.7 % (41-53); LYMPHOCYTES # (AUTO) 2.3 K/uL (1.0-4.8); LYMPHOCYTES % (AUTO) 31.8 % (22.0-44.0); MEAN CORPUSCULAR HEMOGLOBIN 27.5 pg (26.0-34.0); MEAN CORPUSCULAR HGB CONC 32.9 G/dL (31.0-37.0); MEAN CORPUSCULAR VOLUME 84 fL (80-100); MONOCYTES # (AUTO) 0.7 K/uL (0.1-1.0); MONOCYTES % (AUTO) 9.9 % (2.0-9.0); NEUTROPHILS # (AUTO) 3.7 K/uL (1.8-7.7); NEUTROPHILS % (AUTO) 51.1 % (40.0-70.0); PLATELET COUNT (AUTO) 264 K/uL (150-450); RED CELL DISTRIBUTION WIDTH 14.3 % (11.5-14.5); WHITE BLOOD COUNT (AUTO) 7.1 K/uL (4.5-11.0)
[2024-03-16 08:59] LABS: HEMOGLOBIN A1C 5.7 % (3.8-5.6)
[2024-03-16 09:18] VITALS: BP 121/70; PULSE 75; RESP 18; TEMP 98.6; O2SAT 97
[2024-03-16 09:21] LABS: ALANINE AMINOTRANSFERASE 27 U/L (12-78); ALBUMIN 3.6 g/dL (3.4-5.0); ALKALINE PHOSPHATASE 112 U/L (46-116); ANION GAP 8 mmol/L (8-16); ASPARTATE AMINOTRANSFERASE 22 U/L (15-37); BILIRUBIN,TOTAL 0.4 mg/dL (0.1-1.0); CALCIUM, TOTAL 9.1 mg/dL (8.8-10.5); CARBON DIOXIDE 29 mmol/L (22-29); CHLORIDE 106 mmol/L (98-107); CHOL/HDL RATIO 3.2 (4.2-7.3); CHOLESTEROL 133 mg/dL (131-200); CREATININE 1.04 mg/dL (0.60-1.30); FREE T4 (FREE THYROXINE) 0.85 ng/dL (0.76-1.46); GLOMERULAR FILTR. RATE CALC > 60 mL/min (>60); GLUCOSE,RANDOM 125 mg/dL (70-110); HDL CHOLESTEROL 42 mg/dL (40-60); LDL CHOL (CALC.) 62 mg/dL (0-130); POTASSIUM 3.6 mmol/L (3.5-5.1); SODIUM SERUM 143 mmol/L (136-145); THYROID STIMULATING HORMONE 1.12 uIU/mL (0.36-3.74); TOTAL PROTEIN, SERUM 7.3 g/dL (6.4-8.2); TRIGLYCERIDES 146 mg/dL (15-150); UREA NITROGEN, BLOOD 12 mg/dL (7-18)
[2024-03-16 09:51] LABS: ALCOHOL, URINE DRUG SCREEN NEGATIVE (NEGATIVE); AMPHET/METH SCREEN,URINE POSITIVE (NEGATIVE); BARBITURATE SCREEN, URINE NEGATIVE (NEGATIVE); BENZODIAZEPINES SCREEN,URINE NEGATIVE (NEGATIVE); CANNABINOID SCREEN,URINE POSITIVE (NEGATIVE); COCAINE SCREEN,URINE NEGATIVE (NEGATIVE); METHADONE SCREEN, URINE NEGATIVE (NEGATIVE); OPIATE SCREEN,URINE NEGATIVE (NEGATIVE); PHENCYCLIDINE SCREEN,URINE NEGATIVE (NEGATIVE)
[2024-03-16 11:03] LABS: APPEARANCE,URINE CLEAR (CLEAR); BILIRUBIN,URINE NEGATIVE (NEGATIVE); COLOR,URINE YELLOW (YELLOW); GLUCOSE, URINE (UA) NEGATIVE (NEGATIVE); KETONES,URINE NEGATIVE (NEGATIVE); LEUKOCYTE ESTERASE ,URINE NEGATIVE (NEGATIVE); NITRATE,URINE NEGATIVE (NEGATIVE); OCCULT BLOOD,URINE NEGATIVE (NEGATIVE); PH,URINE 6.5 (5.0-8.0); PH,URINE DRUG SCREEN 6.5 (5.0-8.0); PROTEIN,URINE NEGATIVE (NEGATIVE); SPECIFIC GRAVITIY, URINE 1.018 (1.003-1.030); UROBILINOGEN,URINE <=1.0 mg/dL (<=1.0)
[2024-03-16 20:27] VITALS: BP 165/70; PULSE 89; RESP 18; TEMP 97.3; O2SAT 100
[2024-03-17 08:43] VITALS: BP 142/80; PULSE 69; RESP 16; TEMP 98.1; O2SAT 98
[2024-03-17 20:23] VITALS: BP 141/110; PULSE 91; RESP 19; TEMP 98; O2SAT 99
[2024-03-17] MEDS: ZOLPIDEM TARTRATE 10 MG TABLET PO PRN (21:14)
[2024-03-18 14:37] VITALS: BP 147/84; PULSE 98; RESP 16; TEMP 98.6; O2SAT 97
[2024-03-18 21:12] VITALS: BP 122/62; PULSE 95; RESP 16; TEMP 98.4; O2SAT 95
[2024-03-19 06:41] LABS: GLUCOMETER DEV NAME(LOC) BV3N.; GLUCOSE,POINT OF CARE 116 MG/DL (70-110)
[2024-03-19 08:29] VITALS: BP 124/68; PULSE 82; RESP 18; TEMP 98; O2SAT 95
[2024-03-19 20:01] VITALS: BP 135/75; PULSE 86; RESP 18; TEMP 98.6
[2024-03-20 08:57] VITALS: BP 135/82; PULSE 77; RESP 18; TEMP 97.3; O2SAT 98
[2024-03-20] MEDS ORDERED: BUPR-72 PO (18:12)
[2024-03-20] MEDS ORDERED: OLAN10TA74 PO (18:13)
[2024-03-20] MEDS ORDERED: AMLO-258 PO (18:17)
[2024-03-20] MEDS ORDERED: ATOR20TA PO (18:18)
== END 2024-03-20 19:13 | disposition home or self-care (01) | DRG 750 ==
LOC: B3A 05:32
PROVIDERS: ADMIT Psychiatry & Neurology Child & Adolescent Psychiatry; ATTEND Psychiatry & Neurology Psychiatry
PROC: GZHZZZZ Group Psychotherapy (ICD-10-PCS; principal; 2024-03-15)
DX: F25.1 Schizoaffective disorder, depressive type (principal); B19.20 Unspecified viral hepatitis C without hepatic coma; F15.10 Other stimulant abuse, uncomplicated; I10 Essential (primary) hypertension; K21.9 Gastro-esophageal reflux disease without esophagitis; J44.9 Chronic obstructive pulmonary disease, unspecified; E03.9 Hypothyroidism, unspecified; G89.29 Other chronic pain; M54.9 Dorsalgia, unspecified; E78.5 Hyperlipidemia, unspecified; F17.200 Nicotine dependence, unspecified, uncomplicated; Z20.822 Contact with and (suspected) exposure to COVID-19; Z79.899 Other long term (current) drug therapy
CPT/HCPCS: 80053; 80061; 80307; 81003; 82962; 83036; 84439; 84443; 85025; 87081

== ENCOUNTER 2024-03-21 01:29 | Inpatient (IN) | payer MEDICAID, OTHER ==
[~2024-03-21] VITALS: Ht 172.7 cm; Wt 91.0 kg
[~2024-03-21 01:29] MED LIST changes: +ATOR20TA PO; -ATOR20TA65 PO
[2024-03-21 04:17] LABS: COVID AG,FIA SOURCE NASAL SWAB
[2024-03-21 04:22] LABS: BASOPHILS % (AUTO) 0.6 % (0.0-2.0); EOSINOPHILS % (AUTO) 2.2 % (1.0-6.0); HEMATOCRIT 45.4 % (41-53); HEMOGLOBIN 15.1 g/dL (13.5-17.5); LYMPHOCYTES # (AUTO) 1.9 K/uL (1.0-4.8); LYMPHOCYTES % (AUTO) 17.6 % (22.0-44.0); MEAN CORPUSCULAR HEMOGLOBIN 27.5 pg (26.0-34.0); MEAN CORPUSCULAR HGB CONC 33.4 G/dL (31.0-37.0); MEAN CORPUSCULAR VOLUME 82 fL (80-100); MONOCYTES # (AUTO) 0.9 K/uL (0.1-1.0); MONOCYTES % (AUTO) 8.3 % (2.0-9.0); NEUTROPHILS # (AUTO) 7.7 K/uL (1.8-7.7); NEUTROPHILS % (AUTO) 71.3 % (40.0-70.0); PLATELET COUNT (AUTO) 287 K/uL (150-450); RED BLOOD CELL COUNT(AUTO) 5.51 MIL/uL (4.50-5.90); RED CELL DISTRIBUTION WIDTH 14.6 % (11.5-14.5); WHITE BLOOD COUNT (AUTO) 10.8 K/uL (4.5-11.0)
[2024-03-21 04:31] LABS: ANION GAP 10 mmol/L (8-16); CALCIUM, TOTAL 10.2 mg/dL (8.8-10.5); CARBON DIOXIDE 28 mmol/L (22-29); CHLORIDE 102 mmol/L (98-107); CREATININE 1.19 mg/dL (0.60-1.30); GLOMERULAR FILTR. RATE CALC > 60 mL/min (>60); GLUCOSE,RANDOM 130 mg/dL (70-110); POTASSIUM 4.4 mmol/L (3.5-5.1); SODIUM SERUM 140 mmol/L (136-145); UREA NITROGEN, BLOOD 17 mg/dL (7-18)
[2024-03-21 04:35] LABS: ALCOHOL, BLOOD (SERUM) < 3 mg/dL (0-10)
[2024-03-21 04:37] LABS: ALANINE AMINOTRANSFERASE 28 U/L (12-78); ALBUMIN 4.3 g/dL (3.4-5.0); ALKALINE PHOSPHATASE 115 U/L (46-116); ASPARTATE AMINOTRANSFERASE 21 U/L (15-37); BILIRUBIN,TOTAL 0.4 mg/dL (0.1-1.0); TOTAL PROTEIN, SERUM 9.2 g/dL (6.4-8.2)
[2024-03-21 04:38] LABS: SARS-COV2 (COVID) ANTIGEN,FIA Negative (Negative)
[2024-03-21 05:07] LABS: PH,URINE DRUG SCREEN 6.5 (5.0-8.0)
[2024-03-21 05:14] LABS: ALCOHOL, URINE DRUG SCREEN NEGATIVE (NEGATIVE); AMPHET/METH SCREEN,URINE POSITIVE (NEGATIVE); BARBITURATE SCREEN, URINE NEGATIVE (NEGATIVE); BENZODIAZEPINES SCREEN,URINE NEGATIVE (NEGATIVE); CANNABINOID SCREEN,URINE NEGATIVE (NEGATIVE); COCAINE SCREEN,URINE NEGATIVE (NEGATIVE); METHADONE SCREEN, URINE NEGATIVE (NEGATIVE); OPIATE SCREEN,URINE NEGATIVE (NEGATIVE); PHENCYCLIDINE SCREEN,URINE NEGATIVE (NEGATIVE)
[2024-03-21] MEDS ORDERED: PROMETHAZINE HCL 25 MG TABLET PO PRN (09:45)
[2024-03-21] MEDS ORDERED: GuaiFENesin/D-METHORPHAN [SUGAR-FREE] 200-20MG/10 ML SYRUP UDCUP PO PRN (09:45)
[2024-03-21] MEDS ORDERED: LOPERAMIDE HCL 2 MG CAPSULE PO PRN (09:45)
[2024-03-21] MEDS ORDERED: MAGNESIUM HYDROXIDE SUSPENSION 30 ML UDCUP PO PRN (09:45)
[2024-03-21] MEDS ORDERED: MAG HYDROX/ALUMINUM HYD/SIMETH ES 30 ML SUSPENSION UDCUP PO PRN (09:45)
[2024-03-21] MEDS ORDERED: TUBERCULIN, PURIFIED PROTEIN DERIVATIVE 5 TU/0.1 ML SYRINGE ID ONE (09:45)
[2024-03-21] MEDS ORDERED: ACETAMINOPHEN 325 MG TABLET PO PRN ×2 (09:45→21:15)
[2024-03-21] MEDS ORDERED: OLAN10TA74 PO (11:03)
[2024-03-21] MEDS: LORazepam 2 MG TABLET PO PRN (11:48)
[2024-03-21] MEDS: DIVALPROEX SODIUM 500 MG ER TABLET PO SCH (13:36)
[2024-03-21] MEDS: OLANZapine 5 MG RAPDIS TABLET PO SCH (13:41)
[2024-03-21] MEDS ORDERED: PALIPERIDONE PALMITATE 234 MG/1.5 ML SYRINGE IM ONE (16:00)
[2024-03-21] MEDS: BuPROPion HCL 150 MG SR TABLET PO SCH (17:05)
[2024-03-21] MEDS: THIAMINE 100 MG TABLET PO SCH (17:05)
[2024-03-21 17:12] VITALS: BP 134/84; PULSE 98; RESP 18; TEMP 97.8; O2SAT 97
[2024-03-21] MEDS: MELATONIN 5 MG TABLET PO SCH (20:12)
[2024-03-21] MEDS: ZOLPIDEM TARTRATE 10 MG TABLET PO PRN (20:12)
[2024-03-21 21:09] VITALS: BP 109/70; PULSE 78; TEMP 97.8; O2SAT 96
[2024-03-21] MEDS ORDERED: IBUPROFEN 600 MG TABLET PO PRN (21:15)
[2024-03-21] MEDS: ATORVASTATIN CALCIUM 20 MG TABLET PO SCH (23:17)
[2024-03-22] MEDS: LEVOTHYROXINE SODIUM 25 MCG TABLET PO SCH (06:10)
[2024-03-22] MEDS: AmLODIPine BESYLATE 10 MG TABLET PO SCH (08:15)
[2024-03-22] MEDS: FOLIC ACID 1 MG TABLET PO SCH (08:15)
[2024-03-22] MEDS: OMEGA-3/DHA/EPA/FISH OIL 1,000 MG CAPSULE PO SCH (08:16)
[2024-03-22] MEDS: NALTREXONE HCL 50 MG TABLET PO SCH (08:16)
[2024-03-22] MEDS: MULTIVITAMINS WITH MINERALS, THERAPEUTIC TABLET PO SCH (08:16)
[2024-03-22 08:35] VITALS: BP 120/83; PULSE 73; RESP 18; TEMP 98.3; O2SAT 98
[2024-03-22] MEDS: OLANZapine 5 MG RAPDIS TABLET PO PRN (20:13)
[2024-03-22 20:28] VITALS: BP 120/85; PULSE 79; TEMP 97.8; O2SAT 99
[2024-03-22] MEDS ORDERED: GABAPENTIN 300 MG CAPSULE PO PRN (23:00)
[2024-03-23 08:29] VITALS: BP 103/74; PULSE 73; RESP 17; TEMP 97.2; O2SAT 98
[2024-03-23 08:38] LABS: BASOPHILS % (AUTO) 0.5 % (0.0-2.0); EOSINOPHILS % (AUTO) 3.8 % (1.0-6.0); HEMATOCRIT 44.2 % (41-53); HEMOGLOBIN 14.6 g/dL (13.5-17.5); LYMPHOCYTES % (AUTO) 28.6 % (22.0-44.0); MEAN CORPUSCULAR HEMOGLOBIN 27.4 pg (26.0-34.0); MEAN CORPUSCULAR HGB CONC 32.9 G/dL (31.0-37.0); MEAN CORPUSCULAR VOLUME 83 fL (80-100); MONOCYTES # (AUTO) 0.7 K/uL (0.1-1.0); MONOCYTES % (AUTO) 9.9 % (2.0-9.0); NEUTROPHILS % (AUTO) 57.2 % (40.0-70.0); PLATELET COUNT (AUTO) 263 K/uL (150-450); RED BLOOD CELL COUNT(AUTO) 5.32 MIL/uL (4.50-5.90); RED CELL DISTRIBUTION WIDTH 14.5 % (11.5-14.5)
[2024-03-23] MEDS: HydrOXYzine PAMOATE 50 MG CAPSULE PO PRN (10:04)
[2024-03-23] MEDS: CloZAPine 25 MG TABLET PO SCH (10:09)
[2024-03-23 21:03] VITALS: BP 143/103; PULSE 87; TEMP 97.6; O2SAT 97
[2024-03-24] MEDS: CloZAPine 25 MG TABLET PO SCH ×2 (08:22→21:29)
[2024-03-24 09:03] VITALS: BP 130/76; PULSE 79; RESP 18; TEMP 97.7; O2SAT 98
[2024-03-25 07:20] VITALS: RESP 20; TEMP 98
[2024-03-25] MEDS: CloZAPine 25 MG TABLET PO SCH ×2 (08:37→20:42)
[2024-03-25] MEDS ORDERED: PALIPERIDONE PALMITATE 156 MG/ML SYRINGE IM ONE (09:00)
[2024-03-25 10:51] VITALS: BP 126/87; PULSE 73; RESP 18; TEMP 97.5; O2SAT 98
[2024-03-25 22:43] VITALS: BP 108/77; PULSE 89; RESP 16; TEMP 97.6; O2SAT 96
[2024-03-26 08:29] VITALS: BP 145/71; PULSE 98; RESP 18; TEMP 98.1; O2SAT 97
[2024-03-26] MEDS: CloZAPine 25 MG TABLET PO SCH (09:07)
[2024-03-26 20:18] VITALS: BP 147/84; PULSE 85; TEMP 98; O2SAT 100
[2024-03-27 09:13] VITALS: BP 145/73; PULSE 95; RESP 16; TEMP 97.6; O2SAT 95
[2024-03-27 20:28] VITALS: BP 132/88; PULSE 88; RESP 18; TEMP 98
[2024-03-28] MEDS: CloZAPine 25 MG TABLET PO SCH (08:25)
[2024-03-28 08:27] VITALS: BP 146/70; PULSE 87; RESP 17; TEMP 97.6; O2SAT 97
[2024-03-28] MEDS ORDERED: NALT50TA33 PO (14:56)
[2024-03-28] MEDS: CloZAPine 100 MG TABLET PO SCH (20:10)
[2024-03-28 20:47] VITALS: BP 144/92; PULSE 84; TEMP 97.4; O2SAT 98
[2024-03-29] MEDS ORDERED: NALT50TA33 PO (07:36)
[2024-03-29] MEDS ORDERED: MELA5TAB40 PO (07:37)
[2024-03-29] MEDS ORDERED: AMLO10TA4 PO (07:37)
[2024-03-29 08:10] VITALS: BP 140/83; PULSE 87; RESP 18; TEMP 98; O2SAT 97
[2024-03-29] MEDS: CloZAPine 25 MG TABLET PO SCH (09:00)
[2024-03-29] MEDS ORDERED: CloZAPine 100 MG TABLET PO SCH (21:00)
[2024-03-30] MEDS ORDERED: CloZAPine 25 MG TABLET PO SCH (09:00)
[2024-03-30] MEDS ORDERED: CloZAPine 100 MG TABLET PO SCH (21:00)
[2024-03-31] MEDS ORDERED: CloZAPine 100 MG TABLET PO SCH (09:00)
[2024-04-02] MEDS ORDERED: CloZAPine 25 MG TABLET PO SCH (09:00)
[2024-04-02] MEDS ORDERED: CloZAPine 100 MG TABLET PO SCH (21:00)
[2024-04-03] MEDS ORDERED: CloZAPine 25 MG TABLET PO SCH (09:00)
[2024-04-03] MEDS ORDERED: CloZAPine 100 MG TABLET PO SCH (21:00)
[2024-04-04] MEDS ORDERED: CloZAPine 100 MG TABLET PO SCH ×2 (09:00→21:00)
== END 2024-03-29 10:05 | disposition left against medical advice (07) | DRG 750 ==
LOC: EMS 01:31 → B3A 12:49 → B2S 12:49 → B3A 17:33
PROVIDERS: ADMIT Psychiatry & Neurology Psychiatry; ATTEND Psychiatry & Neurology Psychiatry
PROC: GZHZZZZ Group Psychotherapy (ICD-10-PCS; principal; 2024-03-21)
PROC: GZ51ZZZ Individual Psychotherapy, Behavioral (ICD-10-PCS; 2024-03-21)
PROC: GZ58ZZZ Individual Psychotherapy, Cognitive-Behavioral (ICD-10-PCS; 2024-03-21)
PROC: GZ56ZZZ Individual Psychotherapy, Supportive (ICD-10-PCS; 2024-03-22)
DX: F25.9 Schizoaffective disorder, unspecified (principal); R45.851 Suicidal ideations; E78.5 Hyperlipidemia, unspecified; F15.10 Other stimulant abuse, uncomplicated; F32.A Depression, unspecified; I10 Essential (primary) hypertension; J44.9 Chronic obstructive pulmonary disease, unspecified; E03.9 Hypothyroidism, unspecified; F17.210 Nicotine dependence, cigarettes, uncomplicated; D64.9 Anemia, unspecified; Z20.822 Contact with and (suspected) exposure to COVID-19; B19.20 Unspecified viral hepatitis C without hepatic coma; Z53.21 Procedure and treatment not carried out due to patient leaving prior to being seen by health care provider; G89.29 Other chronic pain; K21.9 Gastro-esophageal reflux disease without esophagitis; M54.9 Dorsalgia, unspecified; Z91.199 Patient's noncompliance with other medical treatment and regimen due to unspecified reason; Z88.8 Allergy status to other drugs, medicaments and biological substances; Z79.899 Other long term (current) drug therapy
CPT/HCPCS: 80053; 80164; 80307; 85025; 87081; 99285; G0480; Q9967

== ENCOUNTER 2024-04-05 00:11 | Inpatient (IN) | payer MEDICAID, OTHER ==
[~2024-04-05] VITALS: Ht 172.7 cm; Wt 88.5 kg
[~2024-04-05 00:11] MED LIST changes: -AMLO-258 PO; +AMLO10TA4 PO; -BUPR-113 PO; +MELA5TAB40 PO; +NALT50TA33 PO; -OLAN10TA74 PO; -OLAN5TAB52 PO
[2024-04-05 04:42] LABS: BASOPHILS % (AUTO) 0.5 % (0.0-2.0); EOSINOPHILS % (AUTO) 3.7 % (1.0-6.0); HEMOGLOBIN 13.9 g/dL (13.5-17.5); LYMPHOCYTES # (AUTO) 2.1 K/uL (1.0-4.8); LYMPHOCYTES % (AUTO) 24.8 % (22.0-44.0); MEAN CORPUSCULAR HGB CONC 33.2 G/dL (31.0-37.0); MEAN CORPUSCULAR VOLUME 82 fL (80-100); MONOCYTES # (AUTO) 1.1 K/uL (0.1-1.0); MONOCYTES % (AUTO) 12.4 % (2.0-9.0); NEUTROPHILS % (AUTO) 58.6 % (40.0-70.0); PLATELET COUNT (AUTO) 324 K/uL (150-450); RED BLOOD CELL COUNT(AUTO) 5.14 MIL/uL (4.50-5.90); RED CELL DISTRIBUTION WIDTH 15.1 % (11.5-14.5); WHITE BLOOD COUNT (AUTO) 8.5 K/uL (4.5-11.0)
[2024-04-05 04:51] LABS: ANION GAP 9 mmol/L (8-16); CALCIUM, TOTAL 9.5 mg/dL (8.8-10.5); CARBON DIOXIDE 29 mmol/L (22-29); CHLORIDE 103 mmol/L (98-107); CREATININE 0.98 mg/dL (0.60-1.30); GLOMERULAR FILTR. RATE CALC > 60 mL/min (>60); GLUCOSE,RANDOM 139 mg/dL (70-110); POTASSIUM 3.3 mmol/L (3.5-5.1); SODIUM SERUM 141 mmol/L (136-145); UREA NITROGEN, BLOOD 7 mg/dL (7-18)
[2024-04-05 04:54] LABS: ALCOHOL, BLOOD (SERUM) < 3 mg/dL (0-10)
[2024-04-05 04:57] LABS: ALANINE AMINOTRANSFERASE 32 U/L (12-78); ALBUMIN 3.8 g/dL (3.4-5.0); ALKALINE PHOSPHATASE 126 U/L (46-116); ASPARTATE AMINOTRANSFERASE 27 U/L (15-37); BILIRUBIN,TOTAL 0.4 mg/dL (0.1-1.0); TOTAL PROTEIN, SERUM 8.6 g/dL (6.4-8.2)
[2024-04-05] MEDS: LORazepam 2 MG TABLET PO ONE (05:11)
[2024-04-05] MEDS: POTASSIUM CHLORIDE 20 MEQ ER TABLET PO ONE (05:11)
[2024-04-05 06:40] LABS: COVID AG,FIA SOURCE NASAL SWAB
[2024-04-05 08:08] LABS: SARS-COV2 (COVID) ANTIGEN,FIA Negative (Negative)
[2024-04-05] MEDS ORDERED: LOPERAMIDE HCL 2 MG CAPSULE PO PRN (10:45)
[2024-04-05] MEDS ORDERED: ACETAMINOPHEN 325 MG TABLET PO PRN (10:45)
[2024-04-05] MEDS ORDERED: OLANZapine 5 MG RAPDIS TABLET PO PRN (10:45)
[2024-04-05] MEDS ORDERED: MAGNESIUM HYDROXIDE SUSPENSION 30 ML UDCUP PO PRN (10:45)
[2024-04-05] MEDS ORDERED: PROMETHAZINE HCL 25 MG TABLET PO PRN (10:45)
[2024-04-05] MEDS ORDERED: MAG HYDROX/ALUMINUM HYD/SIMETH ES 30 ML SUSPENSION UDCUP PO PRN (10:45)
[2024-04-05 13:52] VITALS: BP 144/113; PULSE 86; RESP 18; TEMP 98.4; O2SAT 99
[2024-04-05] MEDS ORDERED: PALIPERIDONE PALMITATE 234 MG/1.5 ML SYRINGE IM ONE (16:00)
[2024-04-05 20:23] VITALS: BP 141/103; PULSE 109; TEMP 96.9; O2SAT 97
[2024-04-05] MEDS: MELATONIN 5 MG TABLET PO SCH (20:41)
[2024-04-05] MEDS: OLANZapine 5 MG RAPDIS TABLET PO SCH (20:42)
[2024-04-05] MEDS: DIVALPROEX SODIUM 500 MG ER TABLET PO SCH (20:51)
[2024-04-05] MEDS: ZOLPIDEM TARTRATE 10 MG TABLET PO PRN (21:24)
[2024-04-06] MEDS: LEVOTHYROXINE SODIUM 25 MCG TABLET PO SCH (06:46)
[2024-04-06 08:13] VITALS: BP 138/93; PULSE 79; RESP 18; TEMP 97.7; O2SAT 97
[2024-04-06] MEDS: AmLODIPine BESYLATE 10 MG TABLET PO SCH (08:17)
[2024-04-06] MEDS: CloZAPine 25 MG TABLET PO SCH (08:17)
[2024-04-06] MEDS: OMEGA-3/DHA/EPA/FISH OIL 1,000 MG CAPSULE PO SCH (08:17)
[2024-04-06] MEDS: NALTREXONE HCL 50 MG TABLET PO SCH (08:18)
[2024-04-06] MEDS: POTASSIUM CHLORIDE 20 MEQ ER TABLET PO ONE (11:52)
[2024-04-06 20:29] VITALS: BP 146/82; PULSE 84; TEMP 97.7; O2SAT 98
[2024-04-06] MEDS: ATORVASTATIN CALCIUM 20 MG TABLET PO SCH (22:10)
[2024-04-07] MEDS: CloZAPine 25 MG TABLET PO SCH ×2 (08:27→20:35)
[2024-04-07 08:40] VITALS: BP 141/86; PULSE 72; RESP 17; TEMP 98.4; O2SAT 98
[2024-04-07] MEDS: OLANZapine 5 MG RAPDIS TABLET PO PRN (14:30)
[2024-04-07] MEDS: GABAPENTIN 300 MG CAPSULE PO PRN (14:30)
[2024-04-07 20:25] VITALS: BP 136/85; PULSE 81; RESP 18; TEMP 98.2
[2024-04-07] MEDS ORDERED: OLAN5TAB94 PO (21:55)
[2024-04-07] MEDS ORDERED: DIVA500T69 PO (21:55)
[2024-04-07] MEDS ORDERED: MELA5TAB40 PO (21:55)
[2024-04-08] MEDS: CloZAPine 25 MG TABLET PO SCH (08:31)
[2024-04-08 08:54] LABS: POTASSIUM 3.7 mmol/L (3.5-5.1)
[2024-04-08 08:56] LABS: VALPROIC ACID < 3 mcg/mL (50-100)
[2024-04-08] MEDS ORDERED: CloZAPine 25 MG TABLET PO SCH (21:00)
[2024-04-09] MEDS ORDERED: PALIPERIDONE PALMITATE 156 MG/ML SYRINGE IM ONE (09:00)
[2024-04-09] MEDS ORDERED: CloZAPine 25 MG TABLET PO SCH (09:00)
[2024-04-11] MEDS ORDERED: CloZAPine 25 MG TABLET PO SCH (09:00)
[2024-04-11] MEDS ORDERED: CloZAPine 100 MG TABLET PO SCH (21:00)
[2024-04-12] MEDS ORDERED: CloZAPine 25 MG TABLET PO SCH (09:00)
[2024-04-12] MEDS ORDERED: CloZAPine 100 MG TABLET PO SCH (21:00)
[2024-04-13] MEDS ORDERED: CloZAPine 25 MG TABLET PO SCH (09:00)
[2024-04-13] MEDS ORDERED: CloZAPine 100 MG TABLET PO SCH (21:00)
[2024-04-14] MEDS ORDERED: CloZAPine 100 MG TABLET PO SCH (09:00)
[2024-04-16] MEDS ORDERED: CloZAPine 25 MG TABLET PO SCH (09:00)
[2024-04-16] MEDS ORDERED: CloZAPine 100 MG TABLET PO SCH (21:00)
[2024-04-17] MEDS ORDERED: CloZAPine 25 MG TABLET PO SCH (09:00)
[2024-04-17] MEDS ORDERED: CloZAPine 100 MG TABLET PO SCH (21:00)
[2024-04-18] MEDS ORDERED: CloZAPine 100 MG TABLET PO SCH ×2 (09:00→21:00)
== END 2024-04-08 14:45 | disposition home or self-care (01) | DRG 750 ==
LOC: EMS 00:12 → B3A 10:12
PROVIDERS: ADMIT Psychiatry & Neurology Psychiatry; ATTEND Psychiatry & Neurology Psychiatry
PROC: GZHZZZZ Group Psychotherapy (ICD-10-PCS; principal; 2024-04-05)
PROC: GZ51ZZZ Individual Psychotherapy, Behavioral (ICD-10-PCS; 2024-04-05)
PROC: GZ58ZZZ Individual Psychotherapy, Cognitive-Behavioral (ICD-10-PCS; 2024-04-05)
PROC: GZ56ZZZ Individual Psychotherapy, Supportive (ICD-10-PCS; 2024-04-07)
DX: F25.9 Schizoaffective disorder, unspecified (principal); K74.60 Unspecified cirrhosis of liver; E11.9 Type 2 diabetes mellitus without complications; E87.6 Hypokalemia; E03.9 Hypothyroidism, unspecified; D64.9 Anemia, unspecified; E78.5 Hyperlipidemia, unspecified; Z20.822 Contact with and (suspected) exposure to COVID-19; F15.10 Other stimulant abuse, uncomplicated; F17.210 Nicotine dependence, cigarettes, uncomplicated; J44.9 Chronic obstructive pulmonary disease, unspecified; I10 Essential (primary) hypertension; M54.9 Dorsalgia, unspecified; G89.29 Other chronic pain; Z59.02 Unsheltered homelessness; Z79.899 Other long term (current) drug therapy; Z88.8 Allergy status to other drugs, medicaments and biological substances
CPT/HCPCS: 80053; 80164; 84132; 85025; 99285; G0480; Q9967

== ENCOUNTER 2024-04-12 14:15 | Inpatient (IN) | payer MEDICAID, OTHER ==
[~2024-04-12] VITALS: Ht 172.7 cm; Wt 86.6 kg
[~2024-04-12 14:15] MED LIST changes: +DIVA500T69 PO; +OLAN5TAB94 PO
[2024-04-12 16:04] LABS: COVID AG,FIA SOURCE NPH
[2024-04-12 16:43] LABS: SARS-COV2 (COVID) ANTIGEN,FIA Negative (Negative)
[2024-04-12 17:24] LABS: EOSINOPHILS % (AUTO) 4.4 % (1.0-6.0); HEMATOCRIT 44.5 % (41-53); HEMOGLOBIN 14.8 g/dL (13.5-17.5); LYMPHOCYTES # (AUTO) 2.4 K/uL (1.0-4.8); LYMPHOCYTES % (AUTO) 28.2 % (22.0-44.0); MEAN CORPUSCULAR HEMOGLOBIN 26.9 pg (26.0-34.0); MEAN CORPUSCULAR HGB CONC 33.1 G/dL (31.0-37.0); MEAN CORPUSCULAR VOLUME 81 fL (80-100); MONOCYTES # (AUTO) 0.7 K/uL (0.1-1.0); MONOCYTES % (AUTO) 8.4 % (2.0-9.0); PLATELET COUNT (AUTO) 308 K/uL (150-450); RED BLOOD CELL COUNT(AUTO) 5.48 MIL/uL (4.50-5.90); RED CELL DISTRIBUTION WIDTH 15.4 % (11.5-14.5); WHITE BLOOD COUNT (AUTO) 8.7 K/uL (4.5-11.0)
[2024-04-12 17:32] LABS: ANION GAP 6 mmol/L (8-16); CALCIUM, TOTAL 9.6 mg/dL (8.8-10.5); CARBON DIOXIDE 28 mmol/L (22-29); CHLORIDE 103 mmol/L (98-107); GLOMERULAR FILTR. RATE CALC > 60 mL/min (>60); GLUCOSE,RANDOM 97 mg/dL (70-110); POTASSIUM 3.8 mmol/L (3.5-5.1); SODIUM SERUM 137 mmol/L (136-145); UREA NITROGEN, BLOOD 12 mg/dL (7-18)
[2024-04-12 17:36] LABS: ALCOHOL, BLOOD (SERUM) < 3 mg/dL (0-10)
[2024-04-12 17:38] LABS: ALANINE AMINOTRANSFERASE 26 U/L (12-78); ALBUMIN 3.7 g/dL (3.4-5.0); ALKALINE PHOSPHATASE 119 U/L (46-116); ASPARTATE AMINOTRANSFERASE 20 U/L (15-37); BILIRUBIN,TOTAL 0.5 mg/dL (0.1-1.0); TOTAL PROTEIN, SERUM 8.2 g/dL (6.4-8.2)
[2024-04-12 18:32] LABS: APPEARANCE,URINE CLEAR (CLEAR); BILIRUBIN,URINE NEGATIVE (NEGATIVE); COLOR,URINE YELLOW (YELLOW); GLUCOSE, URINE (UA) NEGATIVE (NEGATIVE); KETONES,URINE NEGATIVE (NEGATIVE); LEUKOCYTE ESTERASE ,URINE NEGATIVE (NEGATIVE); NITRATE,URINE NEGATIVE (NEGATIVE); OCCULT BLOOD,URINE NEGATIVE (NEGATIVE); PROTEIN,URINE TRACE mg/dL (NEGATIVE); SPECIFIC GRAVITIY, URINE 1.018 (1.003-1.030); UROBILINOGEN,URINE <=1.0 mg/dL (<=1.0)
[2024-04-12 18:38] LABS: ALCOHOL, URINE DRUG SCREEN NEGATIVE (NEGATIVE); AMPHET/METH SCREEN,URINE POSITIVE (NEGATIVE); BARBITURATE SCREEN, URINE NEGATIVE (NEGATIVE); BENZODIAZEPINES SCREEN,URINE NEGATIVE (NEGATIVE); CANNABINOID SCREEN,URINE NEGATIVE (NEGATIVE); COCAINE SCREEN,URINE NEGATIVE (NEGATIVE); METHADONE SCREEN, URINE NEGATIVE (NEGATIVE); OPIATE SCREEN,URINE NEGATIVE (NEGATIVE); PHENCYCLIDINE SCREEN,URINE NEGATIVE (NEGATIVE)
[2024-04-12] MEDS ORDERED: GuaiFENesin/D-METHORPHAN [SUGAR-FREE] 200-20MG/10 ML SYRUP UDCUP PO PRN (20:00)
[2024-04-12] MEDS ORDERED: LOPERAMIDE HCL 2 MG CAPSULE PO PRN (20:00)
[2024-04-12] MEDS ORDERED: PROMETHAZINE HCL 25 MG TABLET PO PRN (20:00)
[2024-04-12] MEDS ORDERED: MAG HYDROX/ALUMINUM HYD/SIMETH ES 30 ML SUSPENSION UDCUP PO PRN (20:00)
[2024-04-12] MEDS ORDERED: MAGNESIUM HYDROXIDE SUSPENSION 30 ML UDCUP PO PRN (20:00)
[2024-04-12] MEDS ORDERED: OLANZapine 5 MG RAPDIS TABLET PO PRN (20:15)
[2024-04-12] MEDS ORDERED: LORazepam 2 MG TABLET PO PRN (20:15)
[2024-04-12] MEDS ORDERED: ZOLPIDEM TARTRATE 10 MG TABLET PO PRN (20:15)
[2024-04-12] MEDS: DIVALPROEX SODIUM 500 MG ER TABLET PO SCH (20:27)
[2024-04-12] MEDS: OLANZapine 5 MG RAPDIS TABLET PO SCH (20:27)
[2024-04-12] MEDS: THIAMINE 100 MG TABLET PO SCH (20:27)
[2024-04-12] MEDS: MELATONIN 5 MG TABLET PO PRN (21:37)
[2024-04-12] MEDS: ZOLPIDEM TARTRATE 10 MG TABLET PO PRN (21:38)
[2024-04-13] MEDS ORDERED: PROMETHAZINE HCL 25 MG TABLET PO PRN (01:15)
[2024-04-13 05:55] VITALS: BP 138/98; PULSE 79; RESP 18; TEMP 97.8; O2SAT 98
[2024-04-13 06:50] LABS: GLUCOMETER DEV NAME(LOC) BV2S.; GLUCOSE,POINT OF CARE 94 MG/DL (70-110)
[2024-04-13 08:17] VITALS: BP 134/81; PULSE 77; RESP 18; TEMP 97.8; O2SAT 96
[2024-04-13] MEDS ORDERED: NALTREXONE HCL 50 MG TABLET PO SCH (09:00)
[2024-04-13] MEDS ORDERED: CloZAPine 25 MG TABLET PO SCH (09:00)
[2024-04-13] MEDS: OMEGA-3/DHA/EPA/FISH OIL 1,000 MG CAPSULE PO SCH (09:08)
[2024-04-13] MEDS: MULTIVITAMINS WITH MINERALS, THERAPEUTIC TABLET PO SCH (09:08)
[2024-04-13] MEDS: CloZAPine 25 MG TABLET PO SCH (09:09)
[2024-04-13] MEDS: FOLIC ACID 1 MG TABLET PO SCH (09:09)
[2024-04-13] MEDS: NALTREXONE HCL 50 MG TABLET PO SCH (09:10)
[2024-04-13] MEDS ORDERED: DiphenhydrAMINE HCL 50 MG/ML VIAL IM ONE (15:30)
[2024-04-13] MEDS ORDERED: LORazepam 2 MG/ML VIAL IM ONE (15:30)
[2024-04-13] MEDS: HALOPERIDOL LACTATE 5 MG/ML VIAL IM ONE (16:11)
[2024-04-13] MEDS: GABAPENTIN 300 MG CAPSULE PO PRN (17:26)
[2024-04-13] MEDS: ATORVASTATIN CALCIUM 20 MG TABLET PO SCH (20:17)
[2024-04-14] MEDS: LEVOTHYROXINE SODIUM 25 MCG TABLET PO SCH (06:37)
[2024-04-14 08:13] VITALS: BP 131/88; PULSE 67; RESP 18; TEMP 96.5; O2SAT 96
[2024-04-14] MEDS: CloZAPine 25 MG TABLET PO SCH ×2 (08:53→20:19)
[2024-04-14] MEDS: AmLODIPine BESYLATE 10 MG TABLET PO SCH (08:53)
[2024-04-14] MEDS ORDERED: CloZAPine 25 MG TABLET PO SCH ×2 (09:00→21:00)
[2024-04-14] MEDS ORDERED: DIVALPROEX SODIUM 500 MG ER TABLET PO SCH (11:00)
[2024-04-14] MEDS: ETHYL ALCOHOL 62% ANTISEPTIC NASAL SANITIZER 0.6 ML AMPUL NASAL SCH (11:10)
[2024-04-14] MEDS ORDERED: ETHYL ALCOHOL 62% ANTISEPTIC NASAL SANITIZER 0.6 ML AMPUL NASAL SCH (11:15)
[2024-04-14] MEDS: HydrOXYzine PAMOATE 50 MG CAPSULE PO PRN (14:04)
[2024-04-14] MEDS: OLANZapine 5 MG RAPDIS TABLET PO PRN (14:04)
[2024-04-14 16:22] VITALS: BP 143/71; PULSE 71; RESP 16; TEMP 97.8; O2SAT 97
[2024-04-14] MEDS: CHLORHEXIDINE GLUCONATE 2% TOWELETTE [2'S/6'S] TP SCH (20:21)
[2024-04-14 20:50] VITALS: BP 140/71; PULSE 71; RESP 18; TEMP 97.7; O2SAT 98
[2024-04-14] MEDS: ACETAMINOPHEN 325 MG TABLET PO PRN (21:42)
[2024-04-14 21:45] VITALS: BP 152/92; PULSE 85; RESP 18; TEMP 97.7; O2SAT 98
[2024-04-15 08:12] VITALS: BP 136/80; PULSE 72; RESP 18; TEMP 97; O2SAT 96
[2024-04-15 08:38] LABS: BASOPHILS % (AUTO) 0.5 % (0.0-2.0); EOSINOPHILS % (AUTO) 5.6 % (1.0-6.0); HEMATOCRIT 41.3 % (41-53); HEMOGLOBIN 13.8 g/dL (13.5-17.5); LYMPHOCYTES # (AUTO) 2.5 K/uL (1.0-4.8); LYMPHOCYTES % (AUTO) 34.2 % (22.0-44.0); MEAN CORPUSCULAR HEMOGLOBIN 26.9 pg (26.0-34.0); MEAN CORPUSCULAR HGB CONC 33.3 G/dL (31.0-37.0); MEAN CORPUSCULAR VOLUME 81 fL (80-100); MONOCYTES # (AUTO) 0.6 K/uL (0.1-1.0); MONOCYTES % (AUTO) 8.4 % (2.0-9.0); NEUTROPHILS # (AUTO) 3.8 K/uL (1.8-7.7); NEUTROPHILS % (AUTO) 51.3 % (40.0-70.0); PLATELET COUNT (AUTO) 257 K/uL (150-450); RED BLOOD CELL COUNT(AUTO) 5.12 MIL/uL (4.50-5.90); RED CELL DISTRIBUTION WIDTH 15.3 % (11.5-14.5); WHITE BLOOD COUNT (AUTO) 7.4 K/uL (4.5-11.0)
[2024-04-15] MEDS: CloZAPine 25 MG TABLET PO SCH ×2 (09:00→21:11)
[2024-04-15] MEDS ORDERED: CloZAPine 25 MG TABLET PO SCH ×2 (09:00→21:00)
[2024-04-15] MEDS: BuPROPion HCL XL 150 MG ER TABLET PO ONE (15:17)
[2024-04-15] MEDS: DIVALPROEX SODIUM 500 MG DR TABLET PO SCH (17:00)
[2024-04-15] MEDS: LITHIUM CARBONATE 300 MG CAPSULE PO SCH (17:09)
[2024-04-15 20:24] VITALS: BP 147/91; PULSE 78; RESP 17; TEMP 97.8; O2SAT 97
[2024-04-15] MEDS: OLANZapine 10 MG TABLET PO SCH (21:12)
[2024-04-16 08:07] VITALS: BP 139/82; PULSE 80; RESP 17; TEMP 97.7; O2SAT 100
[2024-04-16] MEDS: CloZAPine 25 MG TABLET PO SCH (08:45)
[2024-04-16] MEDS: BuPROPion HCL XL 150 MG ER TABLET PO SCH (08:45)
[2024-04-16] MEDS ORDERED: CloZAPine 25 MG TABLET PO SCH (09:00)
[2024-04-16 23:30] VITALS: RESP 18
[2024-04-17 09:17] VITALS: BP 121/71; PULSE 83; RESP 17; TEMP 96.6; O2SAT 97
[2024-04-17] MEDS ORDERED: BuPROPion HCL XL 150 MG ER TABLET PO SCH (12:00)
[2024-04-17] MEDS: BuPROPion HCL 150 MG SR TABLET PO SCH (12:32)
[2024-04-18 08:02] VITALS: BP 131/78; PULSE 80; RESP 18; TEMP 98.2; O2SAT 96
[2024-04-18] MEDS: CloZAPine 25 MG TABLET PO SCH (08:09)
[2024-04-18 08:24] VITALS: BP 131/78; PULSE 69; RESP 17; TEMP 98.2; O2SAT 95
[2024-04-18] MEDS ORDERED: CloZAPine 25 MG TABLET PO SCH (09:00)
[2024-04-18 20:10] VITALS: BP 148/85; PULSE 72; RESP 20; TEMP 98.6; O2SAT 98
[2024-04-18] MEDS ORDERED: CloZAPine 100 MG TABLET PO SCH ×2 (21:00)
[2024-04-19 08:14] LABS: LITHIUM 0.42 mmol/L (0.60-1.20)
[2024-04-19 08:20] VITALS: BP 125/73; PULSE 71; RESP 19; TEMP 98.2; O2SAT 96
[2024-04-19 08:26] LABS: VALPROIC ACID < 3 mcg/mL (50-100)
[2024-04-19] MEDS ORDERED: CloZAPine 25 MG TABLET PO SCH ×2 (09:00)
[2024-04-19 20:23] VITALS: BP 139/96; PULSE 68; RESP 19; TEMP 96.8; O2SAT 97
[2024-04-19] MEDS ORDERED: CloZAPine 100 MG TABLET PO SCH ×2 (21:00)
[2024-04-20 08:02] VITALS: BP 143/81; PULSE 82; RESP 14; TEMP 97; O2SAT 95
[2024-04-20] MEDS ORDERED: CloZAPine 25 MG TABLET PO SCH ×2 (09:00)
[2024-04-20 20:49] VITALS: BP 129/106; PULSE 93; RESP 16; TEMP 97.5; O2SAT 98
[2024-04-20] MEDS ORDERED: CloZAPine 100 MG TABLET PO SCH ×2 (21:00)
[2024-04-21 08:07] VITALS: BP 135/65; PULSE 62; RESP 15; TEMP 97.6; O2SAT 97
[2024-04-21] MEDS ORDERED: CloZAPine 100 MG TABLET PO SCH ×2 (09:00)
[2024-04-21 20:06] VITALS: BP 157/92; PULSE 102; RESP 18; TEMP 98.7; O2SAT 99
[2024-04-22 09:25] VITALS: BP 143/77; PULSE 80; RESP 18; TEMP 98.3; O2SAT 100
[2024-04-22 21:27] VITALS: BP_SYST 145; BP_SYST 151; BP_DIAS 86; BP_DIAS 91; PULSE 87; PULSE 94; RESP 18; TEMP 98.1; TEMP 98.3; O2SAT 100; O2SAT 97
[2024-04-23] MEDS ORDERED: CloZAPine 25 MG TABLET PO SCH ×2 (09:00)
[2024-04-23 09:49] VITALS: BP 118/60; PULSE 70; RESP 17; TEMP 98.5; O2SAT 100
[2024-04-23 20:23] VITALS: BP 142/108; PULSE 85; TEMP 97.4; O2SAT 97
[2024-04-23] MEDS ORDERED: CloZAPine 100 MG TABLET PO SCH ×2 (21:00)
[2024-04-24] MEDS ORDERED: CloZAPine 25 MG TABLET PO SCH ×2 (09:00)
[2024-04-24 09:15] VITALS: BP 125/78; PULSE 71; RESP 18; TEMP 97.2; O2SAT 92
[2024-04-24 20:57] VITALS: BP 157/90; PULSE 107; RESP 18; TEMP 97.5; O2SAT 97
[2024-04-24] MEDS ORDERED: CloZAPine 100 MG TABLET PO SCH ×2 (21:00)
[2024-04-25 08:36] VITALS: BP 128/58; PULSE 75; RESP 17; TEMP 98; O2SAT 95
[2024-04-25] MEDS ORDERED: CloZAPine 100 MG TABLET PO SCH ×4 (09:00→21:00)
[2024-04-25 21:01] VITALS: BP 141/90; PULSE 90; RESP 18; TEMP 98.1; O2SAT 98
[2024-04-26 08:59] VITALS: RESP 18
[2024-04-26 20:05] VITALS: BP 149/86; PULSE 87; RESP 18; TEMP 98; O2SAT 98
[2024-04-27 09:00] VITALS: BP 103/60; PULSE 62; RESP 18; TEMP 97.6; O2SAT 96
[2024-04-27 20:42] VITALS: BP 126/94; PULSE 102; TEMP 97.6; O2SAT 98
[2024-04-28 08:21] VITALS: BP 121/68; PULSE 67; RESP 18; TEMP 97.6; O2SAT 94
[2024-04-28 21:25] VITALS: BP 121/68; PULSE 67; RESP 18; TEMP 97.6; O2SAT 94
[2024-04-29 08:12] VITALS: BP 123/77; PULSE 69; RESP 18; TEMP 96.7; O2SAT 95
[2024-04-29 21:30] VITALS: BP 148/67; PULSE 81; RESP 18; TEMP 97.3; O2SAT 97
[2024-04-30 08:20] VITALS: RESP 17
[2024-04-30 20:22] VITALS: BP 145/87; PULSE 78; RESP 17; TEMP 97.7; O2SAT 95
[2024-05-01 08:11] VITALS: BP 134/78; PULSE 76; RESP 15; TEMP 98.2; O2SAT 96
[2024-05-01 17:06] LABS: GLUCOMETER DEV NAME(LOC) BV2S.; GLUCOSE,POINT OF CARE 240 MG/DL (70-110)
[2024-05-02 08:27] VITALS: BP 130/76; PULSE 65; RESP 17; TEMP 98.2; O2SAT 94
[2024-05-02] MEDS ORDERED: LITH300C3 PO (14:48)
[2024-05-02] MEDS ORDERED: LITH300T45 PO (14:49)
[2024-05-02] MEDS ORDERED: OLAN10TA74 PO (14:50)
[2024-05-02] MEDS ORDERED: DIVA-112 PO (14:51)
[2024-05-02] MEDS ORDERED: NALT50TA33 PO (14:53)
[2024-05-02] MEDS ORDERED: BUPR-344 PO (14:53)
[2024-05-02] MEDS ORDERED: AMLO-258 PO (14:57)
== END 2024-05-02 17:30 | disposition home or self-care (01) | DRG 750 ==
LOC: EDUNIT# 14:15 → EMS 14:19 → UNDOADMIN 20:38 → EDH 20:38 → B2S 04-13 01:16
PROVIDERS: ADMIT Psychiatry & Neurology Psychiatry; ATTEND Psychiatry & Neurology Psychiatry
PROC: GZHZZZZ Group Psychotherapy (ICD-10-PCS; principal; 2024-04-13)
PROC: GZ51ZZZ Individual Psychotherapy, Behavioral (ICD-10-PCS; 2024-04-13)
DX: F25.9 Schizoaffective disorder, unspecified (principal); G93.41 Metabolic encephalopathy; R45.851 Suicidal ideations; E11.9 Type 2 diabetes mellitus without complications; K74.60 Unspecified cirrhosis of liver; B19.20 Unspecified viral hepatitis C without hepatic coma; D64.9 Anemia, unspecified; E03.9 Hypothyroidism, unspecified; Z20.822 Contact with and (suspected) exposure to COVID-19; E78.5 Hyperlipidemia, unspecified; F17.200 Nicotine dependence, unspecified, uncomplicated; I10 Essential (primary) hypertension; J44.9 Chronic obstructive pulmonary disease, unspecified; F15.90 Other stimulant use, unspecified, uncomplicated; F32.A Depression, unspecified; F41.9 Anxiety disorder, unspecified
CPT/HCPCS: 80053; 80164; 80178; 80307; 81003; 82962; 85025; 87081; 99285; G0378; G0480; J1200; J1630; J2060; Q9967

== ENCOUNTER 2024-05-17 23:20 | Inpatient (IN) | payer MEDICAID ==
[~2024-05-17 23:20] MED LIST changes: +AMLO-258 PO; -AMLO10TA4 PO; +BUPR-344 PO; +DIVA-112 PO; -DIVA500T69 PO; +LITH300C3 PO; -MELA5TAB40 PO; +OLAN10TA74 PO; -OLAN5TAB94 PO
[2024-05-17] MEDS ORDERED: LORazepam 2 MG TABLET PO PRN (23:45)
[2024-05-18] LABS: GLUCOMETER DEV NAME(LOC) POC.BV; POC SARS-COV2 AG, FIA NEGATIVE (NEGATIVE)
[2024-05-18 00:44] VITALS: BP 175/119; PULSE 109; RESP 18
[2024-05-18 06:04] VITALS: BP 164/115; PULSE 83; RESP 18; TEMP 97.7; O2SAT 98
[2024-05-18] MEDS: AmLODIPine BESYLATE 10 MG TABLET PO SCH (06:46)
[2024-05-18 08:00] VITALS: BP 162/91; PULSE 85; RESP 16; TEMP 97.8; O2SAT 99
[2024-05-18 08:03] VITALS: BP 145/86
[2024-05-18 09:12] LABS: BASOPHILS % (AUTO) 0.4 % (0.0-2.0); EOSINOPHILS % (AUTO) 3.8 % (1.0-6.0); HEMATOCRIT 39.3 % (41-53); HEMOGLOBIN 13.1 g/dL (13.5-17.5); LYMPHOCYTES # (AUTO) 2.5 K/uL (1.0-4.8); LYMPHOCYTES % (AUTO) 38.9 % (22.0-44.0); MEAN CORPUSCULAR HEMOGLOBIN 27.1 pg (26.0-34.0); MEAN CORPUSCULAR HGB CONC 33.3 G/dL (31.0-37.0); MEAN CORPUSCULAR VOLUME 81 fL (80-100); MONOCYTES # (AUTO) 0.7 K/uL (0.1-1.0); MONOCYTES % (AUTO) 10.7 % (2.0-9.0); NEUTROPHILS % (AUTO) 46.2 % (40.0-70.0); PLATELET COUNT (AUTO) 292 K/uL (150-450); RED BLOOD CELL COUNT(AUTO) 4.83 MIL/uL (4.50-5.90); RED CELL DISTRIBUTION WIDTH 17.7 % (11.5-14.5); WHITE BLOOD COUNT (AUTO) 6.5 K/uL (4.5-11.0)
[2024-05-18 09:27] LABS: HEMOGLOBIN A1C 6.3 % (3.8-5.6)
[2024-05-18 09:48] LABS: ALANINE AMINOTRANSFERASE 26 U/L (12-78); ALBUMIN 3.4 g/dL (3.4-5.0); ALKALINE PHOSPHATASE 101 U/L (46-116); ANION GAP 9 mmol/L (8-16); ASPARTATE AMINOTRANSFERASE 19 U/L (15-37); BILIRUBIN,TOTAL 0.5 mg/dL (0.1-1.0); CALCIUM, TOTAL 9.1 mg/dL (8.8-10.5); CARBON DIOXIDE 28 mmol/L (22-29); CHLORIDE 105 mmol/L (98-107); CHOL/HDL RATIO 3.2 (4.2-7.3); CHOLESTEROL 141 mg/dL (131-200); CREATININE 1.04 mg/dL (0.60-1.30); FREE T4 (FREE THYROXINE) 0.88 ng/dL (0.76-1.46); GLOMERULAR FILTR. RATE CALC > 60 mL/min (>60); GLUCOSE,RANDOM 91 mg/dL (70-110); HDL CHOLESTEROL 44 mg/dL (40-60); LDL CHOL (CALC.) 75 mg/dL (0-130); POTASSIUM 3.5 mmol/L (3.5-5.1); SODIUM SERUM 142 mmol/L (136-145); THYROID STIMULATING HORMONE 1.67 uIU/mL (0.36-3.74); TOTAL PROTEIN, SERUM 7.2 g/dL (6.4-8.2); TRIGLYCERIDES 108 mg/dL (15-150); UREA NITROGEN, BLOOD 11 mg/dL (7-18)
[2024-05-18] MEDS ORDERED: LOPERAMIDE HCL 2 MG CAPSULE PO PRN (10:15)
[2024-05-18] MEDS ORDERED: GuaiFENesin/D-METHORPHAN [SUGAR-FREE] 200-20MG/10 ML SYRUP UDCUP PO PRN (10:15)
[2024-05-18] MEDS ORDERED: GABAPENTIN 300 MG CAPSULE PO PRN (10:15)
[2024-05-18] MEDS ORDERED: PROMETHAZINE HCL 25 MG TABLET PO PRN (10:15)
[2024-05-18] MEDS ORDERED: MAGNESIUM HYDROXIDE SUSPENSION 30 ML UDCUP PO PRN (10:15)
[2024-05-18] MEDS: PALIPERIDONE PALMITATE 234 MG/1.5 ML SYRINGE IM ONE (10:15)
[2024-05-18] MEDS ORDERED: ACETAMINOPHEN 325 MG TABLET PO PRN (10:15)
[2024-05-18] MEDS ORDERED: MAG HYDROX/ALUMINUM HYD/SIMETH ES 30 ML SUSPENSION UDCUP PO PRN (10:15)
[2024-05-18] MEDS ORDERED: INSULIN LISPRO 100 UNITS/ML SQ PRN (14:00)
[2024-05-18] MEDS ORDERED: GLUCAGON,HUMAN RECOMBINANT 1 MG VIAL IM PRN (14:00)
[2024-05-18] MEDS: THIAMINE 100 MG TABLET PO SCH (16:38)
[2024-05-18] MEDS: ATORVASTATIN CALCIUM 20 MG TABLET PO SCH (20:18)
[2024-05-18] MEDS: DIVALPROEX SODIUM 500 MG ER TABLET PO SCH (20:18)
[2024-05-18] MEDS: HydrOXYzine PAMOATE 50 MG CAPSULE PO PRN (20:19)
[2024-05-18] MEDS: ZOLPIDEM TARTRATE 10 MG TABLET PO PRN (20:19)
[2024-05-18 21:10] VITALS: BP 123/92; PULSE 90; RESP 16; TEMP 98.4; O2SAT 97
[2024-05-19] MEDS: LEVOTHYROXINE SODIUM 25 MCG TABLET PO SCH (06:32)
[2024-05-19] MEDS: MetFORMIN HCL 500 MG TABLET PO SCH (06:32)
[2024-05-19 08:20] LABS: APPEARANCE,URINE CLEAR (CLEAR); BILIRUBIN,URINE NEGATIVE (NEGATIVE); COLOR,URINE LIGHT YELLOW (YELLOW); GLUCOSE, URINE (UA) NEGATIVE (NEGATIVE); KETONES,URINE NEGATIVE (NEGATIVE); LEUKOCYTE ESTERASE ,URINE NEGATIVE (NEGATIVE); NITRATE,URINE NEGATIVE (NEGATIVE); OCCULT BLOOD,URINE NEGATIVE (NEGATIVE); PROTEIN,URINE NEGATIVE (NEGATIVE); SPECIFIC GRAVITIY, URINE 1.011 (1.003-1.030); UROBILINOGEN,URINE <=1.0 mg/dL (<=1.0)
[2024-05-19 08:24] LABS: BASOPHILS % (AUTO) 0.4 % (0.0-2.0); EOSINOPHILS % (AUTO) 4.9 % (1.0-6.0); HEMATOCRIT 40.2 % (41-53); HEMOGLOBIN 13.3 g/dL (13.5-17.5); LYMPHOCYTES % (AUTO) 34.1 % (22.0-44.0); MEAN CORPUSCULAR HEMOGLOBIN 27.1 pg (26.0-34.0); MEAN CORPUSCULAR HGB CONC 33.2 G/dL (31.0-37.0); MEAN CORPUSCULAR VOLUME 82 fL (80-100); MONOCYTES # (AUTO) 0.6 K/uL (0.1-1.0); MONOCYTES % (AUTO) 10.8 % (2.0-9.0); NEUTROPHILS % (AUTO) 49.8 % (40.0-70.0); PLATELET COUNT (AUTO) 278 K/uL (150-450); RED BLOOD CELL COUNT(AUTO) 4.92 MIL/uL (4.50-5.90); RED CELL DISTRIBUTION WIDTH 17.5 % (11.5-14.5)
[2024-05-19 08:34] LABS: ALCOHOL, URINE DRUG SCREEN NEGATIVE (NEGATIVE); AMPHET/METH SCREEN,URINE NEGATIVE (NEGATIVE); BARBITURATE SCREEN, URINE NEGATIVE (NEGATIVE); BENZODIAZEPINES SCREEN,URINE NEGATIVE (NEGATIVE); CANNABINOID SCREEN,URINE NEGATIVE (NEGATIVE); COCAINE SCREEN,URINE NEGATIVE (NEGATIVE); METHADONE SCREEN, URINE NEGATIVE (NEGATIVE); OPIATE SCREEN,URINE NEGATIVE (NEGATIVE); PHENCYCLIDINE SCREEN,URINE NEGATIVE (NEGATIVE)
[2024-05-19] MEDS: CloZAPine 25 MG TABLET PO SCH (09:00)
[2024-05-19 09:06] VITALS: RESP 17
[2024-05-19] MEDS: MULTIVITAMINS WITH MINERALS, THERAPEUTIC TABLET PO SCH (09:44)
[2024-05-19] MEDS: FOLIC ACID 1 MG TABLET PO SCH (09:44)
[2024-05-19 10:03] VITALS: BP 135/95; PULSE 81; RESP 18; TEMP 98; O2SAT 96
[2024-05-19 20:06] VITALS: BP 153/85; PULSE 78; RESP 19; TEMP 97.4; O2SAT 97
[2024-05-19] MEDS: LITHIUM CARBONATE 300 MG CAPSULE PO SCH (20:17)
[2024-05-19] MEDS: DIVALPROEX SODIUM 500 MG ER TABLET PO SCH (20:22)
[2024-05-20 08:15] VITALS: BP 125/75; PULSE 75; RESP 19; TEMP 98; O2SAT 96
[2024-05-20] MEDS: CloZAPine 25 MG TABLET PO SCH ×2 (09:18→20:50)
[2024-05-20 20:00] VITALS: BP 130/79; PULSE 88; RESP 16; TEMP 98.1; O2SAT 98
[2024-05-20] MEDS: ETHYL ALCOHOL 62% ANTISEPTIC NASAL SANITIZER 0.6 ML AMPUL NASAL SCH (21:07)
[2024-05-20 21:20] LABS: GLUCOMETER DEV NAME(LOC) BV2S.; GLUCOSE,POINT OF CARE 83 MG/DL (70-110)
[2024-05-20] MEDS: CHLORHEXIDINE GLUCONATE 2% TOWELETTE [2'S/6'S] TP SCH (22:22)
[2024-05-21 09:02] VITALS: BP 125/81; PULSE 85; RESP 18; TEMP 89; O2SAT 93
[2024-05-21] MEDS: CloZAPine 25 MG TABLET PO SCH ×2 (09:26→21:00)
[2024-05-21 16:40] LABS: GLUCOMETER DEV NAME(LOC) BV2S.; GLUCOSE,POINT OF CARE 145 MG/DL (70-110)
[2024-05-21 20:22] VITALS: BP 129/92; PULSE 100; RESP 18; TEMP 97.5; O2SAT 99
[2024-05-21 21:16] LABS: GLUCOMETER DEV NAME(LOC) BV2S.; GLUCOSE,POINT OF CARE 130 MG/DL (70-110)
[2024-05-22 07:01] LABS: GLUCOMETER DEV NAME(LOC) BV2S.; GLUCOSE,POINT OF CARE 115 MG/DL (70-110)
[2024-05-22 08:15] LABS: BASOPHILS % (AUTO) 0.6 % (0.0-2.0); EOSINOPHILS % (AUTO) 3.5 % (1.0-6.0); HEMATOCRIT 44.8 % (41-53); HEMOGLOBIN 14.6 g/dL (13.5-17.5); LYMPHOCYTES # (AUTO) 1.8 K/uL (1.0-4.8); LYMPHOCYTES % (AUTO) 22.4 % (22.0-44.0); MEAN CORPUSCULAR HGB CONC 32.6 G/dL (31.0-37.0); MEAN CORPUSCULAR VOLUME 83 fL (80-100); MONOCYTES # (AUTO) 0.7 K/uL (0.1-1.0); MONOCYTES % (AUTO) 8.2 % (2.0-9.0); NEUTROPHILS # (AUTO) 5.3 K/uL (1.8-7.7); NEUTROPHILS % (AUTO) 65.3 % (40.0-70.0); PLATELET COUNT (AUTO) 279 K/uL (150-450); RED BLOOD CELL COUNT(AUTO) 5.41 MIL/uL (4.50-5.90); RED CELL DISTRIBUTION WIDTH 18.1 % (11.5-14.5); WHITE BLOOD COUNT (AUTO) 8.2 K/uL (4.5-11.0)
[2024-05-22 08:23] VITALS: BP 102/61; PULSE 79; RESP 18; TEMP 97.4; O2SAT 96
[2024-05-22] MEDS ORDERED: PALIPERIDONE PALMITATE 156 MG/ML SYRINGE IM ONE (09:00)
[2024-05-22] MEDS: CloZAPine 25 MG TABLET PO SCH (09:00)
[2024-05-22] MEDS: OLANZapine 5 MG RAPDIS TABLET PO PRN (13:27)
[2024-05-22] MEDS ORDERED: DIVA-153 PO (22:31)
[2024-05-22] MEDS ORDERED: OLAN10TA26 PO (22:31)
[2024-05-22] MEDS ORDERED: MELA5TAB40 PO (22:31)
[2024-05-22] MEDS ORDERED: NALT50TA6 PO (22:31)
[2024-05-22] MEDS ORDERED: LITH300C3 PO (22:31)
[2024-05-23] MEDS ORDERED: OLAN7.5T18 PO (08:09)
[2024-05-23] MEDS ORDERED: OLAN15TA21 PO (08:10)
[2024-05-23] MEDS ORDERED: METF-1211 PO (08:13)
[2024-05-24] MEDS ORDERED: CloZAPine 25 MG TABLET PO SCH (09:00)
[2024-05-24] MEDS ORDERED: CloZAPine 100 MG TABLET PO SCH (21:00)
[2024-05-25] MEDS ORDERED: CloZAPine 25 MG TABLET PO SCH (09:00)
[2024-05-25] MEDS ORDERED: CloZAPine 100 MG TABLET PO SCH (21:00)
[2024-05-26] MEDS ORDERED: CloZAPine 25 MG TABLET PO SCH (09:00)
[2024-05-26] MEDS ORDERED: CloZAPine 100 MG TABLET PO SCH (21:00)
[2024-05-27] MEDS ORDERED: CloZAPine 100 MG TABLET PO SCH (09:00)
[2024-05-29] MEDS ORDERED: CloZAPine 25 MG TABLET PO SCH (09:00)
[2024-05-29] MEDS ORDERED: CloZAPine 100 MG TABLET PO SCH (21:00)
[2024-05-30] MEDS ORDERED: CloZAPine 25 MG TABLET PO SCH (09:00)
[2024-05-30] MEDS ORDERED: CloZAPine 100 MG TABLET PO SCH (21:00)
[2024-05-31] MEDS ORDERED: CloZAPine 100 MG TABLET PO SCH ×2 (09:00→21:00)
== END 2024-05-23 09:39 | disposition home or self-care (01) | DRG 750 ==
LOC: B3A 23:36 → B2S 05-19 09:09
PROVIDERS: ADMIT Psychiatry & Neurology Psychiatry; ATTEND Psychiatry & Neurology Psychiatry
PROC: GZHZZZZ Group Psychotherapy (ICD-10-PCS; principal; 2024-05-18)
PROC: GZ58ZZZ Individual Psychotherapy, Cognitive-Behavioral (ICD-10-PCS; 2024-05-18)
PROC: GZ56ZZZ Individual Psychotherapy, Supportive (ICD-10-PCS; 2024-05-18)
DX: F25.0 Schizoaffective disorder, bipolar type (principal); K74.60 Unspecified cirrhosis of liver; E11.9 Type 2 diabetes mellitus without complications; B19.20 Unspecified viral hepatitis C without hepatic coma; D64.9 Anemia, unspecified; E03.9 Hypothyroidism, unspecified; E78.5 Hyperlipidemia, unspecified; Z20.822 Contact with and (suspected) exposure to COVID-19; I10 Essential (primary) hypertension; J44.9 Chronic obstructive pulmonary disease, unspecified; F15.90 Other stimulant use, unspecified, uncomplicated; F17.200 Nicotine dependence, unspecified, uncomplicated; G89.29 Other chronic pain; Z55.9 Problems related to education and literacy, unspecified; Z59.02 Unsheltered homelessness; Z63.9 Problem related to primary support group, unspecified; Z65.3 Problems related to other legal circumstances; Z91.148 Patient's other noncompliance with medication regimen for other reason; Z88.8 Allergy status to other drugs, medicaments and biological substances
CPT/HCPCS: 80053; 80061; 80307; 81003; 82962; 83036; 84439; 84443; 85025; 87081

== ENCOUNTER 2024-05-18 01:39 | Emergency (ER) | payer MEDICAID ==
[~2024-05-18] VITALS: Ht 172.7 cm; Wt 88.6 kg
[2024-05-18 02:03] VITALS: TEMP 97.5
[2024-05-18 03:00] LABS: BASOPHILS % (AUTO) 0.7 % (0.0-2.0); EOSINOPHILS % (AUTO) 2.9 % (1.0-6.0); HEMOGLOBIN 13.1 g/dL (13.5-17.5); LYMPHOCYTES # (AUTO) 2.4 K/uL (1.0-4.8); LYMPHOCYTES % (AUTO) 34.8 % (22.0-44.0); MEAN CORPUSCULAR HEMOGLOBIN 26.8 pg (26.0-34.0); MEAN CORPUSCULAR HGB CONC 32.9 G/dL (31.0-37.0); MEAN CORPUSCULAR VOLUME 82 fL (80-100); MONOCYTES # (AUTO) 0.7 K/uL (0.1-1.0); MONOCYTES % (AUTO) 9.9 % (2.0-9.0); NEUTROPHILS # (AUTO) 3.6 K/uL (1.8-7.7); NEUTROPHILS % (AUTO) 51.7 % (40.0-70.0); PLATELET COUNT (AUTO) 286 K/uL (150-450); RED CELL DISTRIBUTION WIDTH 17.9 % (11.5-14.5)
[2024-05-18 03:12] LABS: ANION GAP 6 mmol/L (8-16); CARBON DIOXIDE 30 mmol/L (22-29); CHLORIDE 104 mmol/L (98-107); CREATININE 1.12 mg/dL (0.60-1.30); GLOMERULAR FILTR. RATE CALC > 60 mL/min (>60); GLUCOSE,RANDOM 124 mg/dL (70-110); POTASSIUM 3.8 mmol/L (3.5-5.1); SODIUM SERUM 140 mmol/L (136-145); UREA NITROGEN, BLOOD 9 mg/dL (7-18)
[2024-05-18 03:18] LABS: ALANINE AMINOTRANSFERASE 24 U/L (12-78); ALBUMIN 3.5 g/dL (3.4-5.0); ALKALINE PHOSPHATASE 108 U/L (46-116); ASPARTATE AMINOTRANSFERASE 18 U/L (15-37); BILIRUBIN,TOTAL 0.6 mg/dL (0.1-1.0); TOTAL PROTEIN, SERUM 7.4 g/dL (6.4-8.2)
[2024-05-18 03:19] LABS: ALCOHOL, BLOOD (SERUM) 4 mg/dL (0-10)
[2024-05-18 04:03] VITALS: BP 145/97; PULSE 78; RESP 18
== END 2024-05-18 04:55 | disposition admitted as inpatient to this hospital (09) ==
LOC: EMS 01:40
DX: F20.9 Schizophrenia, unspecified (principal); I10 Essential (primary) hypertension; G89.29 Other chronic pain; M54.9 Dorsalgia, unspecified; F17.210 Nicotine dependence, cigarettes, uncomplicated; F12.90 Cannabis use, unspecified, uncomplicated; F15.90 Other stimulant use, unspecified, uncomplicated
CPT/HCPCS: 99285; 80053; 80178; 85025; 36415; G0480

== ENCOUNTER 2024-06-01 00:06 | Inpatient (IN) | payer MEDICAID ==
[2024-06-01] VITALS (9 sets, daily range): BP systolic 135–146; BP diastolic 85–100; PULSE 74–91; RESP 16–18; TEMP 96.3–98.8; O2SAT 94–100
[~2024-06-01] VITALS: Ht 172.7 cm; Wt 88.9 kg
[~2024-06-01 00:06] MED LIST changes: -ATOR20TA PO; -BUPR-344 PO; -DIVA-112 PO; +DIVA-153 PO; +MELA5TAB40 PO; +METF-1211 PO; -NALT50TA33 PO; +NALT50TA6 PO; +OLAN10TA26 PO
[2024-06-01] MEDS ORDERED: ZOLPIDEM TARTRATE 10 MG TABLET PO PRN (03:00)
[2024-06-01] MEDS ORDERED: -PHARMACY VACCINE NOTE- MISC ONE (06:15)
[2024-06-01 06:55] LABS: GLUCOMETER DEV NAME(LOC) POC.BV; POC SARS-COV2 AG, FIA NEGATIVE (NEGATIVE)
[2024-06-01] MEDS ORDERED: OMEPRAZOLE 20 MG CAPSULE PO PRN (11:30)
[2024-06-01] MEDS ORDERED: MAGNESIUM HYDROXIDE SUSPENSION 30 ML UDCUP PO PRN (11:30)
[2024-06-01] MEDS ORDERED: BACITRACIN 28 GM OINTMENT TP PRN (11:30)
[2024-06-01] MEDS ORDERED: BENZOCAINE/MENTHOL LOZENGE PO PRN (11:30)
[2024-06-01] MEDS ORDERED: ONDANSETRON HCL 4 MG TABLET PO PRN (11:30)
[2024-06-01] MEDS ORDERED: ALBUTEROL SULFATE HFA 90 MCG/PUFF 8 GM INHALER IH PRN (11:30)
[2024-06-01] MEDS ORDERED: LOPERAMIDE HCL 2 MG CAPSULE PO PRN (11:30)
[2024-06-01] MEDS ORDERED: MAG HYDROX/ALUMINUM HYD/SIMETH ES 30 ML SUSPENSION UDCUP PO PRN (11:30)
[2024-06-01] MEDS ORDERED: DOCUSATE SODIUM 100 MG CAPSULE PO PRN (11:30)
[2024-06-01] MEDS ORDERED: CloNIDine HCL 0.1 MG TABLET PO PRN (11:30)
[2024-06-01] MEDS ORDERED: PETROLATUM,WHITE 28 GM JELLY TP PRN (11:30)
[2024-06-01] MEDS ORDERED: ACETAMINOPHEN 325 MG TABLET PO PRN (11:30)
[2024-06-02] MEDS: LEVOTHYROXINE SODIUM 25 MCG TABLET PO SCH (06:43)
[2024-06-02 08:44] VITALS: BP 135/86; PULSE 78; RESP 16; TEMP 97.5; O2SAT 98
[2024-06-02] MEDS: AmLODIPine BESYLATE 10 MG TABLET PO SCH (09:33)
[2024-06-02] MEDS: LISINOPRIL 10 MG TABLET PO SCH (09:33)
[2024-06-02] MEDS: IBUPROFEN 600 MG TABLET PO PRN (10:48)
[2024-06-02 11:11] LABS: BASOPHILS % (AUTO) 0.5 % (0.0-2.0); EOSINOPHILS % (AUTO) 4.3 % (1.0-6.0); HEMATOCRIT 39.4 % (41-53); HEMOGLOBIN 13.1 g/dL (13.5-17.5); LYMPHOCYTES # (AUTO) 2.3 K/uL (1.0-4.8); LYMPHOCYTES % (AUTO) 29.2 % (22.0-44.0); MEAN CORPUSCULAR HEMOGLOBIN 27.7 pg (26.0-34.0); MEAN CORPUSCULAR HGB CONC 33.2 G/dL (31.0-37.0); MEAN CORPUSCULAR VOLUME 83 fL (80-100); MONOCYTES # (AUTO) 0.5 K/uL (0.1-1.0); MONOCYTES % (AUTO) 6.9 % (2.0-9.0); NEUTROPHILS # (AUTO) 4.6 K/uL (1.8-7.7); NEUTROPHILS % (AUTO) 59.1 % (40.0-70.0); PLATELET COUNT (AUTO) 330 K/uL (150-450); RED BLOOD CELL COUNT(AUTO) 4.72 MIL/uL (4.50-5.90); RED CELL DISTRIBUTION WIDTH 18.6 % (11.5-14.5); WHITE BLOOD COUNT (AUTO) 7.7 K/uL (4.5-11.0)
[2024-06-02 11:52] LABS: HEMOGLOBIN A1C 6.1 % (3.8-5.6)
[2024-06-02 12:21] LABS: ALANINE AMINOTRANSFERASE 17 U/L (12-78); ALBUMIN 3.1 g/dL (3.4-5.0); ALKALINE PHOSPHATASE 92 U/L (46-116); ANION GAP 5 mmol/L (8-16); ASPARTATE AMINOTRANSFERASE 17 U/L (15-37); BILIRUBIN,TOTAL 0.7 mg/dL (0.1-1.0); CALCIUM, TOTAL 9.1 mg/dL (8.8-10.5); CARBON DIOXIDE 31 mmol/L (22-29); CHLORIDE 103 mmol/L (98-107); CHOL/HDL RATIO 4.4 (4.2-7.3); CHOLESTEROL 158 mg/dL (131-200); CREATININE 1.08 mg/dL (0.60-1.30); FREE T4 (FREE THYROXINE) 0.72 ng/dL (0.76-1.46); GLOMERULAR FILTR. RATE CALC > 60 mL/min (>60); GLUCOSE,RANDOM 131 mg/dL (70-110); HDL CHOLESTEROL 36 mg/dL (40-60); LDL CHOL (CALC.) 69 mg/dL (0-130); POTASSIUM 3.3 mmol/L (3.5-5.1); SODIUM SERUM 139 mmol/L (136-145); THYROID STIMULATING HORMONE 1.07 uIU/mL (0.36-3.74); TOTAL PROTEIN, SERUM 6.9 g/dL (6.4-8.2); TRIGLYCERIDES 264 mg/dL (15-150); UREA NITROGEN, BLOOD 18 mg/dL (7-18)
[2024-06-02 20:09] VITALS: BP 133/82; PULSE 80; RESP 18; TEMP 98
[2024-06-02] MEDS: MELATONIN 5 MG TABLET PO SCH (20:14)
[2024-06-02] MEDS: POTASSIUM CHLORIDE 20 MEQ ER TABLET PO ONE (20:14)
[2024-06-02] MEDS: LITHIUM CARBONATE 300 MG CAPSULE PO SCH (20:14)
[2024-06-02] MEDS: OLANZapine 10 MG TABLET PO SCH (20:17)
[2024-06-02] MEDS: DIVALPROEX SODIUM 500 MG ER TABLET PO SCH (20:24)
[2024-06-03] MEDS: NALTREXONE HCL 50 MG TABLET PO SCH (08:44)
[2024-06-03 08:49] VITALS: BP 113/65; PULSE 72; RESP 18; TEMP 97; O2SAT 98
[2024-06-03] MEDS: BuPROPion HCL XL 150 MG ER TABLET PO SCH (13:16)
[2024-06-03 20:05] VITALS: BP 128/73; PULSE 76; RESP 17; TEMP 97.2; O2SAT 97
[2024-06-04 08:54] VITALS: BP 130/75; PULSE 81; RESP 17; TEMP 97.4; O2SAT 100
[2024-06-04 20:23] VITALS: BP 120/82; PULSE 90; RESP 18; TEMP 97.3; O2SAT 96
[2024-06-05 08:36] VITALS: BP 132/78; PULSE 74; RESP 15; TEMP 97.6; O2SAT 97
[2024-06-05 20:24] VITALS: BP 134/64; PULSE 72; RESP 16; TEMP 97.2; O2SAT 98
[2024-06-06 08:32] VITALS: BP 120/68; PULSE 72; RESP 18; TEMP 97.4; O2SAT 94
[2024-06-06] MEDS: OLANZapine 5 MG RAPDIS TABLET PO PRN (16:37)
[2024-06-06] MEDS: LORazepam 2 MG/ML VIAL IM ONE (16:59)
[2024-06-06 20:35] VITALS: BP 134/91; PULSE 82; RESP 20; TEMP 97.3; O2SAT 98
[2024-06-07 08:26] VITALS: BP 126/71; PULSE 70; RESP 17; TEMP 97.5; O2SAT 94
[2024-06-07 20:08] VITALS: BP 128/70; PULSE 75; RESP 19; TEMP 97.6; O2SAT 97
[2024-06-08 09:00] VITALS: BP 112/61; PULSE 73; RESP 17; TEMP 96.4; O2SAT 95
[2024-06-08 20:05] VITALS: BP 126/72; PULSE 70; RESP 16; TEMP 97.3; O2SAT 96
[2024-06-09 08:35] VITALS: BP 124/74; PULSE 67; RESP 18; TEMP 96.9; O2SAT 95
[2024-06-09] MEDS ORDERED: LISI-893 PO (12:17)
== END 2024-06-09 13:15 | disposition home or self-care (01) | DRG 750 ==
LOC: B2S 03:39
PROVIDERS: ADMIT Psychiatry & Neurology Psychiatry; ATTEND Psychiatry & Neurology Psychiatry
DX: F20.9 Schizophrenia, unspecified (principal); R45.851 Suicidal ideations; B18.2 Chronic viral hepatitis C; F10.10 Alcohol abuse, uncomplicated; F12.10 Cannabis abuse, uncomplicated; F15.10 Other stimulant abuse, uncomplicated; F17.200 Nicotine dependence, unspecified, uncomplicated; Z20.822 Contact with and (suspected) exposure to COVID-19; I10 Essential (primary) hypertension; J44.9 Chronic obstructive pulmonary disease, unspecified; K21.9 Gastro-esophageal reflux disease without esophagitis; Z88.8 Allergy status to other drugs, medicaments and biological substances
CPT/HCPCS: 80053; 80061; 83036; 84132; 84439; 84443; 85025; 87081; 36415-L1; 36415-TC; Z7610

== ENCOUNTER 2024-08-11 01:33 | Inpatient (IN) | payer MEDICAID, OTHER ==
[~2024-08-11] VITALS: Ht 175.3 cm; Wt 87.1 kg
[~2024-08-11 01:33] MED LIST changes: +LISI-893 PO; -MELA5TAB40 PO; -METF-1211 PO; -OLAN10TA26 PO
[2024-08-11] MEDS: BACITRACIN 0.9 GM PACKET OINTMENT TP ONE (03:39)
[2024-08-11] MEDS: IBUPROFEN 600 MG TABLET PO ONE (03:39)
[2024-08-11] MEDS: ACETAMINOPHEN 500 MG TABLET PO ONE (03:39)
[2024-08-11 03:54] LABS: CALCIUM, TOTAL 9.5 mg/dL (8.8-10.5); CREATININE 1.22 mg/dL (0.60-1.30)
[2024-08-11 04:02] LABS: BASOPHILS % (AUTO) 0.5 % (0.0-2.0); EOSINOPHILS % (AUTO) 2.1 % (1.0-6.0); HEMATOCRIT 45.7 % (41-53); HEMOGLOBIN 15.3 g/dL (13.5-17.5); LYMPHOCYTES # (AUTO) 2.3 K/uL (1.0-4.8); LYMPHOCYTES % (AUTO) 22.3 % (22.0-44.0); MEAN CORPUSCULAR HEMOGLOBIN 29.8 pg (26.0-34.0); MEAN CORPUSCULAR HGB CONC 33.5 G/dL (31.0-37.0); MEAN CORPUSCULAR VOLUME 89 fL (80-100); MONOCYTES % (AUTO) 9.2 % (2.0-9.0); NEUTROPHILS # (AUTO) 6.9 K/uL (1.8-7.7); NEUTROPHILS % (AUTO) 65.9 % (40.0-70.0); PLATELET COUNT (AUTO) 318 K/uL (150-450); RED BLOOD CELL COUNT(AUTO) 5.13 MIL/uL (4.50-5.90); RED CELL DISTRIBUTION WIDTH 13.3 % (11.5-14.5); WHITE BLOOD COUNT (AUTO) 10.5 K/uL (4.5-11.0)
[2024-08-11] MEDS ORDERED: ZOLPIDEM TARTRATE 10 MG TABLET PO PRN (04:30)
[2024-08-11 04:42] LABS: COVID AG,FIA SOURCE NASAL SWAB
[2024-08-11 04:45] LABS: SARS-COV2 (COVID) ANTIGEN,FIA Negative (Negative)
[2024-08-11] MEDS: DiphenhydrAMINE HCL 25 MG CAPSULE PO ONE (05:56)
[2024-08-11] MEDS: LORazepam 2 MG TABLET PO ONE (05:57)
[2024-08-11] MEDS: LISINOPRIL 10 MG TABLET PO ONE (05:57)
[2024-08-11] MEDS: AmLODIPine BESYLATE 10 MG TABLET PO ONE (05:57)
[2024-08-11 08:50] VITALS: O2SAT 98
[2024-08-11] MEDS: INFLUENZA VIRUS VACCINE TVS (6MO+) 2024-25/PF 45 MCG/0.5 ML SYRINGE IM. ONE (11:45)
[2024-08-11] MEDS: -PHARMACY VACCINE NOTE- MISC ONE (11:45)
[2024-08-11 13:06] VITALS: BP 127/76; PULSE 85; RESP 18; O2SAT 99
[2024-08-11] MEDS ORDERED: PETROLATUM,WHITE 28 GM JELLY TP PRN (20:45)
[2024-08-11] MEDS ORDERED: BENZOCAINE/MENTHOL LOZENGE PO PRN (20:45)
[2024-08-11] MEDS ORDERED: ACETAMINOPHEN 325 MG TABLET PO PRN (20:45)
[2024-08-11] MEDS ORDERED: OMEPRAZOLE 20 MG CAPSULE PO PRN (20:45)
[2024-08-11] MEDS ORDERED: DOCUSATE SODIUM 100 MG CAPSULE PO PRN (20:45)
[2024-08-11] MEDS ORDERED: ONDANSETRON 4 MG TABLET PO PRN (20:45)
[2024-08-11] MEDS ORDERED: MAGNESIUM HYDROXIDE SUSPENSION 30 ML UDCUP PO PRN (20:45)
[2024-08-11] MEDS ORDERED: BACITRACIN 28 GM OINTMENT TP PRN (20:45)
[2024-08-11] MEDS ORDERED: MAG HYDROX/ALUMINUM HYD/SIMETH ES 30 ML SUSPENSION UDCUP PO PRN (20:45)
[2024-08-11] MEDS ORDERED: CloNIDine HCL 0.1 MG TABLET PO PRN (20:45)
[2024-08-11] MEDS ORDERED: ALBUTEROL SULFATE HFA 90 MCG/PUFF 8 GM INHALER IH PRN (20:45)
[2024-08-11] MEDS ORDERED: LOPERAMIDE HCL 2 MG CAPSULE PO PRN (20:45)
[2024-08-11 20:56] VITALS: BP 140/78; PULSE 82; RESP 16; TEMP 97.3; O2SAT 99
[2024-08-12] MEDS: LEVOTHYROXINE SODIUM 25 MCG TABLET PO SCH (06:30)
[2024-08-12 07:53] LABS: BASOPHILS % (AUTO) 0.6 % (0.0-2.0); HEMATOCRIT 42.8 % (41-53); HEMOGLOBIN 14.3 g/dL (13.5-17.5); LYMPHOCYTES # (AUTO) 2.3 K/uL (1.0-4.8); LYMPHOCYTES % (AUTO) 33.8 % (22.0-44.0); MEAN CORPUSCULAR HEMOGLOBIN 29.7 pg (26.0-34.0); MEAN CORPUSCULAR HGB CONC 33.3 G/dL (31.0-37.0); MEAN CORPUSCULAR VOLUME 89 fL (80-100); MONOCYTES # (AUTO) 0.6 K/uL (0.1-1.0); MONOCYTES % (AUTO) 9.5 % (2.0-9.0); NEUTROPHILS # (AUTO) 3.4 K/uL (1.8-7.7); NEUTROPHILS % (AUTO) 51.1 % (40.0-70.0); PLATELET COUNT (AUTO) 272 K/uL (150-450); RED CELL DISTRIBUTION WIDTH 13.1 % (11.5-14.5); WHITE BLOOD COUNT (AUTO) 6.7 K/uL (4.5-11.0)
[2024-08-12 08:02] LABS: HEMOGLOBIN A1C 5.6 % (3.8-5.6)
[2024-08-12 08:15] LABS: ALANINE AMINOTRANSFERASE 10 U/L (12-78); ALBUMIN 3.1 g/dL (3.4-5.0); ALKALINE PHOSPHATASE 91 U/L (46-116); ANION GAP 8 mmol/L (8-16); ASPARTATE AMINOTRANSFERASE 25 U/L (15-37); BILIRUBIN,TOTAL 0.4 mg/dL (0.1-1.0); CALCIUM, TOTAL 8.9 mg/dL (8.8-10.5); CARBON DIOXIDE 27 mmol/L (22-29); CHLORIDE 105 mmol/L (98-107); CREATININE 0.99 mg/dL (0.60-1.30); FREE T4 (FREE THYROXINE) 0.69 ng/dL (0.76-1.46); GLOMERULAR FILTR. RATE CALC > 60 mL/min (>60); GLUCOSE,RANDOM 103 mg/dL (70-110); POTASSIUM 3.9 mmol/L (3.5-5.1); SODIUM SERUM 140 mmol/L (136-145); THYROID STIMULATING HORMONE 0.82 uIU/mL (0.36-3.74); TOTAL PROTEIN, SERUM 6.8 g/dL (6.4-8.2); UREA NITROGEN, BLOOD 18 mg/dL (7-18)
[2024-08-12 08:53] VITALS: BP 142/75; PULSE 80; RESP 18; TEMP 97.7; O2SAT 100
[2024-08-12] MEDS: LISINOPRIL 10 MG TABLET PO SCH (08:56)
[2024-08-12] MEDS: AmLODIPine BESYLATE 10 MG TABLET PO SCH (08:56)
[2024-08-12 14:14] VITALS: BP 130/94; RESP 18; O2SAT 100
[2024-08-12] MEDS: LORazepam 2 MG TABLET PO PRN (14:25)
[2024-08-12] MEDS: OLANZapine 10 MG TABLET PO SCH (20:32)
[2024-08-12 20:38] VITALS: BP 114/72; PULSE 69; RESP 17; TEMP 97.8; O2SAT 96
[2024-08-13 08:56] VITALS: BP 122/70; PULSE 70; RESP 17; TEMP 97.8; O2SAT 95
[2024-08-13] MEDS: BuPROPion HCL 150 MG SR TABLET PO SCH (09:17)
[2024-08-13 20:13] VITALS: BP 130/73; PULSE 93; RESP 18; TEMP 97.3; O2SAT 97
[2024-08-13] MEDS: IBUPROFEN 600 MG TABLET PO PRN (20:41)
[2024-08-14 08:36] VITALS: BP 139/67; PULSE 71; RESP 18; TEMP 97.7; O2SAT 95
[2024-08-14 20:20] VITALS: BP 134/79; PULSE 92; RESP 18; TEMP 96.5; O2SAT 96
[2024-08-15] MEDS ORDERED: BUPR-433 PO (08:26)
[2024-08-15 08:46] VITALS: BP 134/81; PULSE 73; RESP 18; TEMP 98.1; O2SAT 96
== END 2024-08-15 12:48 | disposition home or self-care (01) | DRG 750 ==
LOC: EMS 01:33 → B2S 10:07
PROVIDERS: ADMIT Psychiatry & Neurology Psychiatry; ATTEND Psychiatry & Neurology Psychiatry
DX: F25.1 Schizoaffective disorder, depressive type (principal); R45.851 Suicidal ideations; B18.2 Chronic viral hepatitis C; I10 Essential (primary) hypertension; J44.9 Chronic obstructive pulmonary disease, unspecified; F10.10 Alcohol abuse, uncomplicated; K21.9 Gastro-esophageal reflux disease without esophagitis; F15.10 Other stimulant abuse, uncomplicated; F12.10 Cannabis abuse, uncomplicated; G89.29 Other chronic pain; M54.9 Dorsalgia, unspecified; Z20.822 Contact with and (suspected) exposure to COVID-19; F17.210 Nicotine dependence, cigarettes, uncomplicated; S61.011A Laceration without foreign body of right thumb without damage to nail, initial encounter; S60.222A Contusion of left hand, initial encounter; Y90.9 Presence of alcohol in blood, level not specified; W22.8XXA Striking against or struck by other objects, initial encounter; Y93.89 Activity, other specified; Y92.89 Other specified places as the place of occurrence of the external cause; Y99.8 Other external cause status; Z91.199 Patient's noncompliance with other medical treatment and regimen due to unspecified reason; Z88.8 Allergy status to other drugs, medicaments and biological substances; Z79.899 Other long term (current) drug therapy
CPT/HCPCS: 80048; 80053; 83036; 84439; 84443; 85025; 99285; G0480

== ENCOUNTER 2024-08-17 00:39 | Emergency (ER) | payer MEDICAID, OTHER ==
[~2024-08-17] VITALS: Ht 172.7 cm; Wt 86.4 kg
[~2024-08-17 00:39] MED LIST changes: +BUPR-433 PO; -DIVA-153 PO; -LITH300C3 PO; -NALT50TA6 PO
[2024-08-17 02:25] LABS: BASOPHILS % (AUTO) 0.5 % (0.0-2.0); EOSINOPHILS % (AUTO) 1.8 % (1.0-6.0); HEMATOCRIT 46.4 % (41-53); HEMOGLOBIN 15.4 g/dL (13.5-17.5); LYMPHOCYTES # (AUTO) 1.9 K/uL (1.0-4.8); LYMPHOCYTES % (AUTO) 21.2 % (22.0-44.0); MEAN CORPUSCULAR HEMOGLOBIN 29.7 pg (26.0-34.0); MEAN CORPUSCULAR HGB CONC 33.1 G/dL (31.0-37.0); MEAN CORPUSCULAR VOLUME 90 fL (80-100); MONOCYTES # (AUTO) 0.9 K/uL (0.1-1.0); MONOCYTES % (AUTO) 10.2 % (2.0-9.0); NEUTROPHILS # (AUTO) 6.1 K/uL (1.8-7.7); NEUTROPHILS % (AUTO) 66.3 % (40.0-70.0); PLATELET COUNT (AUTO) 273 K/uL (150-450); RED BLOOD CELL COUNT(AUTO) 5.18 MIL/uL (4.50-5.90); RED CELL DISTRIBUTION WIDTH 13.4 % (11.5-14.5); WHITE BLOOD COUNT (AUTO) 9.2 K/uL (4.5-11.0)
[2024-08-17 02:36] LABS: ANION GAP 12 mmol/L (8-16); CALCIUM, TOTAL 9.8 mg/dL (8.8-10.5); CARBON DIOXIDE 26 mmol/L (22-29); CHLORIDE 100 mmol/L (98-107); CREATININE 1.13 mg/dL (0.60-1.30); GLOMERULAR FILTR. RATE CALC > 60 mL/min (>60); GLUCOSE,RANDOM 111 mg/dL (70-110); SODIUM SERUM 138 mmol/L (136-145); UREA NITROGEN, BLOOD 16 mg/dL (7-18)
[2024-08-17 02:52] LABS: ALCOHOL, BLOOD (SERUM) < 3 mg/dL (0-10)
[2024-08-17 02:53] VITALS: TEMP 97.8
[2024-08-17 03:03] LABS: COVID AG,FIA SOURCE NASAL SWAB
[2024-08-17 03:43] LABS: SARS-COV2 (COVID) ANTIGEN,FIA Negative (Negative)
[2024-08-17 07:05] VITALS: BP 156/82; PULSE 91; RESP 16; O2SAT 100
== END 2024-08-17 07:15 | disposition home or self-care (01) ==
LOC: EMS 00:39
DX: F25.1 Schizoaffective disorder, depressive type (principal); I10 Essential (primary) hypertension; F69 Unspecified disorder of adult personality and behavior; F12.90 Cannabis use, unspecified, uncomplicated; F15.90 Other stimulant use, unspecified, uncomplicated; F17.210 Nicotine dependence, cigarettes, uncomplicated; G89.29 Other chronic pain; Z88.8 Allergy status to other drugs, medicaments and biological substances; Z20.822 Contact with and (suspected) exposure to COVID-19
CPT/HCPCS: 99284; 87426; 80048; 85025; 36415; G0480

== ENCOUNTER 2025-02-25 12:24 | Emergency (ER) | payer OTHER ==
[~2025-02-25] VITALS: Ht 172.7 cm; Wt 90.0 kg
[2025-02-25 12:27] VITALS: TEMP 97.8
[2025-02-25] MEDS ORDERED: OLAN20TA82 PO (12:32)
[2025-02-25] MEDS ORDERED: BUPR-113 PO (12:32)
[2025-02-25] MEDS: METHOCARBAMOL 500 MG TABLET PO ONE (13:02)
[2025-02-25] MEDS: KETOROLAC TROMETHAMINE 30 MG/ML VIAL IM ONE (13:02)
[2025-02-25] MEDS: ACETAMINOPHEN 325 MG TABLET PO ONE (13:03)
[2025-02-25 15:00] VITALS: BP 175/98; PULSE 89; RESP 17; O2SAT 98
[2025-02-25] MEDS ORDERED: METH-812 PO (15:43)
== END 2025-02-25 16:33 | disposition home or self-care (01) ==
LOC: EMS 12:26
DX: M54.6 Pain in thoracic spine (principal); M54.2 Cervicalgia; I10 Essential (primary) hypertension; F12.90 Cannabis use, unspecified, uncomplicated; F17.210 Nicotine dependence, cigarettes, uncomplicated; F20.9 Schizophrenia, unspecified; Z88.8 Allergy status to other drugs, medicaments and biological substances; Z86.19 Personal history of other infectious and parasitic diseases; Z79.899 Other long term (current) drug therapy
CPT/HCPCS: 99283; 72070; 96372; J1885

== ENCOUNTER 2025-05-24 19:59 | Emergency (ER) | payer OTHER ==
[~2025-05-24] VITALS: Ht 172.7 cm; Wt 94.1 kg
[~2025-05-24 19:59] MED LIST changes: -AMLO-258 PO; +BUPR-113 PO; -BUPR-433 PO; -LEVO25TA9 PO; -LISI-893 PO; +METH-812 PO; -OLAN10TA74 PO; +OLAN20TA82 PO
[2025-05-24] MEDS: PB/HYOSCY/ATR/SCOP/LIDO/MAALOX 55 ML BOTTLE PO ONE (20:51)
[2025-05-24 21:00] LABS: PLATELET COUNT (AUTO) 336 K/uL (150-450); RED BLOOD CELL COUNT(AUTO) 5.13 MIL/uL (4.50-5.90); RED CELL DISTRIBUTION WIDTH 13.0 % (11.5-14.5); WHITE BLOOD COUNT (AUTO) 8.8 K/uL (4.5-11.0)
[2025-05-24 21:13] LABS: CALCIUM, TOTAL 9.2 mg/dL (8.8-10.5); CREATININE 1.14 mg/dL (0.60-1.30); GLOMERULAR FILTR. RATE CALC > 60 mL/min (>60); GLUCOSE,RANDOM 98 mg/dL (70-110); SODIUM SERUM 140 mmol/L (136-145); UREA NITROGEN, BLOOD 13 mg/dL (7-18)
[2025-05-24 21:14] LABS: COVID AG,FIA SOURCE NPH
[2025-05-24 21:18] LABS: TROPONIN I-HIGH SENSITIVITY 9 ng/L (<76)
[2025-05-24 21:40] LABS: SARS-COV2 (COVID) ANTIGEN,FIA Negative (Negative)
[2025-05-24 21:55] VITALS: TEMP 97.9
[2025-05-24] MEDS: POTASSIUM CHLORIDE 20 MEQ ER TABLET PO ONE (21:59)
[2025-05-25 00:01] VITALS: BP 151/93; PULSE 91; RESP 17; O2SAT 98
== END 2025-05-25 00:32 | disposition home or self-care (01) ==
LOC: EMS 20:01
DX: F41.9 Anxiety disorder, unspecified (principal); E87.6 Hypokalemia; I10 Essential (primary) hypertension; F31.9 Bipolar disorder, unspecified; F20.9 Schizophrenia, unspecified; G89.29 Other chronic pain; F17.210 Nicotine dependence, cigarettes, uncomplicated; F15.90 Other stimulant use, unspecified, uncomplicated; F12.90 Cannabis use, unspecified, uncomplicated; K21.9 Gastro-esophageal reflux disease without esophagitis; F10.90 Alcohol use, unspecified, uncomplicated; E66.3 Overweight; Z59.11 Inadequate housing environmental temperature; Z79.899 Other long term (current) drug therapy; Z86.19 Personal history of other infectious and parasitic diseases; Z20.822 Contact with and (suspected) exposure to COVID-19; Y90.2 Blood alcohol level of 40-59 mg/100 ml
CPT/HCPCS: 99285; 87426; 80048; 84484; 85025; 36415; 93005; G0480

== ENCOUNTER 2025-06-05 21:26 | Emergency (ER) | payer OTHER ==
[~2025-06-05] VITALS: Ht 172.7 cm; Wt 104.5 kg
[2025-06-05 22:37] VITALS: BP 160/110; PULSE 86; RESP 18; TEMP 98.3; O2SAT 98
[2025-06-05] MEDS ORDERED: HYDR-4268 TP (22:58)
[2025-06-05] MEDS: PERMETHRIN 5% 60 GM CREAM TP ONE (23:15)
[2025-06-05 23:18] LABS: PLATELET COUNT (AUTO) 286 K/uL (150-450); RED BLOOD CELL COUNT(AUTO) 4.91 MIL/uL (4.50-5.90); RED CELL DISTRIBUTION WIDTH 12.8 % (11.5-14.5); WHITE BLOOD COUNT (AUTO) 7.8 K/uL (4.5-11.0)
== END 2025-06-05 23:21 | disposition home or self-care (01) ==
LOC: EMS 21:28
DX: B88.8 Other specified infestations (principal); F20.9 Schizophrenia, unspecified; I10 Essential (primary) hypertension; G89.29 Other chronic pain; F31.9 Bipolar disorder, unspecified; F12.90 Cannabis use, unspecified, uncomplicated; F15.90 Other stimulant use, unspecified, uncomplicated; F17.210 Nicotine dependence, cigarettes, uncomplicated; Z86.19 Personal history of other infectious and parasitic diseases
CPT/HCPCS: 85025; 87389; 99283